=== PATIENT | male | born 1945 | race Caucasian/White ===

== ENCOUNTER 2017-07-14 03:16 | Inpatient (IN) | payer MEDICARE ==
[~2017-07-14] VITALS: Ht 172.7 cm; Wt 74.1 kg
[~2017-07-14 03:16] MED LIST: ASPIRIN81 M3 PO; GABAPENTIN100 MG PO; GABAPENTIN300 MG PO; HYDROCODONE-AP1 EA17 PO; KEFLEX500 MG PO; OXYBUTYNIN CHLOR5 M1 PO; PANTOPRAZOLE SO40 MG PO; ULTRAM50 MG PO; WARFARIN SODIUM5 MG PO; Z.0.BACLOFEN10 MG PO; Z.0.COUMADIN5 MG PO; Z.0.NABUMETONE750 MG PO; Z.0.PANTOPRAZOLE SO4 PO
[2017-07-14 03:44] LABS: BASOPHILS # (AUTO) 0.1 (0.0-0.1); BASOPHILS % 0.3 % (0.0-1.0); EOSINOPHILS # (AUTO) 0.1 (0.0-0.4); EOSINOPHILS % 0.3 % (0.0-6.0); HEMOGLOBIN 14.9 g/dL (14.0-18.0); LYMPHOCYTES # (AUTO) 2.7 (1.0-3.2); LYMPHOCYTES % 17.5 % (18.0-39.1); MEAN CORPUSCULAR HGB CONC 33.9 g/dL (31-35); MEAN CORPUSCULAR VOLUME 94.6 fL (81-99); MONOCYTES # (AUTO) 0.7 (0.2-0.8); MONOCYTES % 4.7 % (4.4-11.3); NEUTROPHILS # (AUTO) 11.8 (2.1-6.9); NEUTROPHILS % 76.9 % (38.7-80.0); PLATELET COUNT 113 x10e3/uL (140-360); RED BLOOD COUNT 4.65 x10e6/uL (4.3-5.7); RED CELL DISTRIBUTION WIDTH 13.3 % (11.7-14.4)
[2017-07-14 03:53] LABS: ALANINE AMINOTRANSFERASE 18 IU/L (0-55); ALBUMIN 3.3 g/dL (3.5-5.0); ALBUMIN/GLOBULIN RATIO 0.9 (0.8-2.0); ALKALINE PHOSPHATASE 86 IU/L (40-150); ANION GAP 13.1 mmol/L (8-16); BLOOD UREA NITROGEN 27 mg/dL (7-26); BUN/CREATININE RATIO 24 (6-25); CALCIUM 9.1 mg/dL (8.4-10.2); CARBON DIOXIDE 29 mmol/L (22-29); CHLORIDE 104 mmol/L (98-107); CREATININE, SERUM 1.11 mg/dL (0.72-1.25); EST GLOMERULAR FILTRATION RATE > 60 ML/MIN (60-); GLUCOSE 121 mg/dL (74-118); MAGNESIUM 1.9 MG/DL (1.3-2.1); POTASSIUM 4.1 mmol/L (3.5-5.1); SODIUM 142 mmol/L (136-145)
--- NOTE | 2017-07-14 04:30 | Diagnostic Imaging Report ---
EXAM: CHEST 2 VIEWS, PA and lateral DATE: 07/14/2017 3:30 AM Time stamp on exam: 0337 hours INDICATION: Left lower lobe pneumonia COMPARISON: AP view of the chest and your 2016 FINDINGS: LINES/TUBES: None LUNGS: Left lower lobe airspace opacity PLEURA: No effusions or pneumothorax. HEART AND MEDIASTINUM: Stable appearance BONES AND SOFT TISSUES: No acute findings. IMPRESSION: Findings consistent with left lower lobe pneumonia in the acute setting. Signed by: Dr. Payton Lea M.D. on 07/14/2017 4:26 AM
[2017-07-14] MEDS ORDERED: IPRATROPIUM BROMIDE 0.02% 2.5 ML NEB NEB PRN (04:45)
[2017-07-14] MEDS ORDERED: ALBUTEROL SULF 0.083% NEB SOLN 3 ML NEB NEB PRN (04:45)
[2017-07-14 04:51] LABS: CREATINE KINASE MB 0.7 ng/mL (0.00-5.00); TROPONIN I 0.012 ng/mL (0-0.300)
[2017-07-14] MEDS ORDERED: LEVOFLOXACIN 500MG/D5W 100ML 100 ML IV SCH (05:00)
[2017-07-14] MEDS: SODIUM CHLORIDE 0.9% 1000ML 1,000 ML IV SCH ×2 (05:17→14:40)
[2017-07-14] MEDS: AMPICILLIN SOD/SULBACTAM 3GM 100 ML IV SCH ×3 (05:45→18:00)
[2017-07-14] MEDS: LEVOFLOXACIN 500MG/D5W 100ML 100 ML IV SCH (08:37)
[2017-07-14 12:29] LABS: CREATINE KINASE MB 0.6 ng/mL (0.00-5.00); TROPONIN I 0.014 ng/mL (0-0.300)
[2017-07-14] MEDS ORDERED: CYANOCOBALAMIN INJ 1,000 MCG/ML VIAL IM ONE (13:30)
[2017-07-14 14:02] VITALS: BP 120/65
[2017-07-14] MEDS ORDERED: COUMADIN2.5 MG PO (14:41)
[2017-07-14] MEDS ORDERED: WARFARIN SOD 2.5 MG TAB PO SCH (17:00)
[2017-07-14] MEDS: PANTOPRAZOLE SOD 40 MG TABEC PO SCH (17:00)
[2017-07-14] MEDS ORDERED: WARFARIN SOD 5 MG TAB PO SCH (17:00)
[2017-07-14 17:02] VITALS: BP 113/59
[2017-07-14 20:00] VITALS: BP 108/63
[2017-07-14 20:20] VITALS: BP 113/59
[2017-07-14] MEDS: GABAPENTIN 300 MG CAP PO SCH (21:00)
[2017-07-14 21:03] LABS: CREATINE KINASE MB 0.9 ng/mL (0.00-5.00); TROPONIN I 0.004 ng/mL (0-0.300)
[2017-07-15] VITALS: BP 120/70
[2017-07-15 04:00] VITALS: BP 112/81
[2017-07-15] MEDS: SODIUM CHLORIDE 0.9% 1000ML 1,000 ML IV SCH ×3 (06:10→20:40)
[2017-07-15] MEDS: AMPICILLIN SOD/SULBACTAM 3GM 100 ML IV SCH ×4 (06:10→18:00)
[2017-07-15 08:15] LABS: BASOPHILS % 0.5 % (0.0-1.0); EOSINOPHILS # (AUTO) 0.1 (0.0-0.4); EOSINOPHILS % 1.9 % (0.0-6.0); HEMOGLOBIN 12.9 g/dL (14.0-18.0); MEAN CORPUSCULAR HEMOGLOBIN 31.5 pg (28-32); MEAN CORPUSCULAR HGB CONC 33.1 g/dL (31-35); MEAN CORPUSCULAR VOLUME 95.1 fL (81-99); MONOCYTES # (AUTO) 0.4 (0.2-0.8); MONOCYTES % 5.8 % (4.4-11.3); NEUTROPHILS % 65.5 % (38.7-80.0); PLATELET COUNT 99 x10e3/uL (140-360); RED CELL DISTRIBUTION WIDTH 13.2 % (11.7-14.4)
[2017-07-15 08:33] LABS: INR 1.44; PROTHROMBIN TIME 18.3 seconds (11.9-14.5)
[2017-07-15 08:38] LABS: BLOOD UREA NITROGEN 19 mg/dL (7-26); BUN/CREATININE RATIO 21 (6-25); CALCIUM 8.1 mg/dL (8.4-10.2); CARBON DIOXIDE 28 mmol/L (22-29); CHLORIDE 109 mmol/L (98-107); CREATININE, SERUM 0.89 mg/dL (0.72-1.25); EST GLOMERULAR FILTRATION RATE > 60 ML/MIN (60-); GLUCOSE 99 mg/dL (74-118); SODIUM 142 mmol/L (136-145)
[2017-07-15] MEDS: GABAPENTIN 300 MG CAP PO SCH ×3 (09:00→21:00)
[2017-07-15] MEDS: LEVOFLOXACIN 500MG/D5W 100ML 100 ML IV SCH (09:00)
[2017-07-15] MEDS: OXYBUTYNIN CHLORIDE XL 5 MG TAB PO SCH (09:00)
[2017-07-15] MEDS: PANTOPRAZOLE SOD 40 MG TABEC PO SCH ×2 (09:00→17:00)
[2017-07-15 09:01] VITALS: BP 116/61
[2017-07-15 13:12] VITALS: BP 115/65
[2017-07-15 16:19] VITALS: BP 113/59
[2017-07-15] MEDS ORDERED: WARFARIN SOD 2.5 MG TAB PO SCH (17:00)
[2017-07-15 20:00] VITALS: BP 115/75
[2017-07-16] VITALS: BP 110/64
[2017-07-16] MEDS: AMPICILLIN SOD/SULBACTAM 3GM 100 ML IV SCH ×2 (00:49→05:52)
[2017-07-16 04:00] VITALS: BP 114/69
[2017-07-16] MEDS: SODIUM CHLORIDE 0.9% 1000ML 1,000 ML IV SCH (07:08)
[2017-07-16 08:04] VITALS: BP 123/63
[2017-07-16] MEDS: GABAPENTIN 300 MG CAP PO SCH (09:00)
[2017-07-16] MEDS: PANTOPRAZOLE SOD 40 MG TABEC PO SCH (09:00)
[2017-07-16] MEDS: LEVOFLOXACIN 500MG/D5W 100ML 100 ML IV SCH (09:00)
[2017-07-16] MEDS: OXYBUTYNIN CHLORIDE XL 5 MG TAB PO SCH (09:00)
[2017-07-16 12:00] VITALS: BP 118/63
[2017-07-16 16:41] VITALS: BP 113/70
== END 2017-07-16 16:26 | disposition home or self-care (01) | DRG 195 ==
LOC: ER 03:23 → ERHOLD 05:06 → MED/SURG3 13:30
PROVIDERS: ADMIT Internal Medicine; ATTEND Internal Medicine
DX: J18.9 Pneumonia, unspecified organism (principal); D64.9 Anemia, unspecified; G80.9 Cerebral palsy, unspecified; K21.9 Gastro-esophageal reflux disease without esophagitis
CPT/HCPCS: 36415; 71020; 80048; 80053; 82550; 82553; 83605; 83735; 84484; 85025; 85610; 87040; 93005; 96360; 96365; 99284; J0295; J1956; J3420; J7030

== ENCOUNTER 2017-07-31 23:32 | Inpatient (IN) | payer MEDICARE ==
[~2017-07-31] VITALS: Ht 172.7 cm; Wt 75.8 kg
[~2017-07-31 23:32] MED LIST changes: +COUMADIN2.5 MG PO
[2017-08-01] VITALS (7 sets, daily range): BP systolic 97–118; BP diastolic 56–85
[2017-08-01] MEDS ORDERED: CITALOPRAM HBR20 MG PO (00:14)
[2017-08-01] MEDS ORDERED: ARICEPT5 MG PO (00:14)
[2017-08-01 00:42] LABS: BASOPHILS % 0.3 % (0.0-1.0); HEMATOCRIT 39.7 % (38.2-49.6); HEMOGLOBIN 13.4 g/dL (14.0-18.0); LYMPHOCYTES # (AUTO) 0.5 (1.0-3.2); MEAN CORPUSCULAR HEMOGLOBIN 31.9 pg (28-32); MEAN CORPUSCULAR HGB CONC 33.8 g/dL (31-35); MEAN CORPUSCULAR VOLUME 94.5 fL (81-99); MONOCYTES # (AUTO) 0.4 (0.2-0.8); MONOCYTES % 7.3 % (4.4-11.3); NEUTROPHILS # (AUTO) 4.9 (2.1-6.9); NEUTROPHILS % 82.9 % (38.7-80.0); PLATELET COUNT 75 x10e3/uL (140-360); RED CELL DISTRIBUTION WIDTH 13.3 % (11.7-14.4)
[2017-08-01 00:46] LABS: INR 1.51
[2017-08-01 00:47] LABS: PARTIAL THROMBOPLASTIN TIME 31.2 seconds (23.8-35.5)
[2017-08-01 00:56] LABS: ALANINE AMINOTRANSFERASE 14 IU/L (0-55); ALBUMIN 3.1 g/dL (3.5-5.0); ALKALINE PHOSPHATASE 75 IU/L (40-150); ANION GAP 10.7 mmol/L (8-16); BLOOD UREA NITROGEN 22 mg/dL (7-26); BUN/CREATININE RATIO 19 (6-25); CALCIUM 8.5 mg/dL (8.4-10.2); CARBON DIOXIDE 28 mmol/L (22-29); CHLORIDE 106 mmol/L (98-107); CREATINE KINASE 72 IU/L (30-200); CREATININE, SERUM 1.13 mg/dL (0.72-1.25); EST GLOMERULAR FILTRATION RATE > 60 ML/MIN (60-); GLUCOSE 102 mg/dL (74-118); MAGNESIUM 1.6 MG/DL (1.3-2.1); POTASSIUM 3.7 mmol/L (3.5-5.1); SODIUM 141 mmol/L (136-145)
[2017-08-01] MEDS ORDERED: LIDOCAINE JELLY 2% 10ML URO-JET TOP ONE (01:30)
--- NOTE | 2017-08-01 01:32 | Diagnostic Imaging Report ---
EXAM: CHEST SINGLE (PORTABLE), AP 1 view DATE: 08/01/2017 12:31 AM Time stamp on exam: 0116 hours INDICATION: Cough, shortness of breath COMPARISON: PA and lateral view of the chest July 14, 2017 FINDINGS: LINES/TUBES: None LUNGS: Bibasilar consolidations PLEURA: No effusions or pneumothorax. HEART AND MEDIASTINUM: Normal size and contour. BONES AND SOFT TISSUES: No acute findings. Increased right acromioclavicular joint widening and malalignment compared to prior chest x-ray, may be positional versus interval worsening ligamentous injury. IMPRESSION: Bibasilar consolidations could represent pneumonia or aspiration. Signed by: Dr. Payton Lea M.D. on 08/01/2017 1:28 AM
[2017-08-01] MEDS ORDERED: PIPER-TAZ 3.375 GM 50 ML IV SCH ×2 (02:00→09:00)
[2017-08-01] MEDS ORDERED: METRONIDAZOLE 500MG/NS 100ML 100 ML IV SCH ×2 (02:00→08:00)
[2017-08-01 02:07] LABS: BILIRUBIN,URINE NEGATIVE (NEGATIVE); KETONES,URINE NEGATIVE (NEGATIVE); LEUKOCYTE ESTERASE ,URINE NEGATIVE (NEGATIVE); NITRITE,URINE NEGATIVE (NEGATIVE); PROTEIN,URINE DIPSTICK NEGATIVE (NEGATIVE); URINE UROBILINOGEN 0.2 mg/dL (0.2 - 1)
[2017-08-01 02:08] LABS: CLARITY,URINE CLEAR (CLEAR); COLOR,URINE YELLOW (YELLOW)
[2017-08-01 02:18] LABS: BACTERIA,URINE FEW /HPF; EPITHELIAL CELLS,URINE FEW /LPF; RBC,URINE 0-5 /HPF (0-5); WBC,URINE (MAN) 0-5 /HPF (0-5)
[2017-08-01] MEDS ORDERED: IPRATROPIUM BROMIDE 0.02% 2.5 ML NEB NEB PRN (02:30)
[2017-08-01] MEDS ORDERED: ALBUTEROL SULF 0.083% NEB SOLN 3 ML NEB NEB PRN (02:30)
[2017-08-01] MEDS: SODIUM CHLORIDE 0.9% 1000ML 1,000 ML IV SCH ×2 (02:36→15:40)
[2017-08-01] MEDS: PIPER-TAZ 3.375 GM 50 ML IV SCH ×3 (11:00→23:34)
[2017-08-01] MEDS: METRONIDAZOLE 500MG/NS 100ML 100 ML IV SCH ×3 (11:00→23:34)
[2017-08-01 11:53] LABS: CREATINE KINASE MB 0.6 ng/mL (0.00-5.00)
[2017-08-01] MEDS ORDERED: CYANOCOBALAMIN INJ 1,000 MCG/ML VIAL IM ONE (17:00)
[2017-08-01 17:42] LABS: CREATINE KINASE MB 0.5 ng/mL (0.00-5.00)
[2017-08-01] MEDS: GABAPENTIN 300 MG CAP PO SCH ×2 (17:59→20:27)
[2017-08-01] MEDS: WARFARIN SOD 5 MG TAB PO SCH (18:00)
[2017-08-01] MEDS: PANTOPRAZOLE SOD 40 MG TABEC PO SCH (18:00)
[2017-08-01] MEDS: DONEPEZIL HCL 5 MG TAB PO SCH (20:26)
[2017-08-02] VITALS (7 sets, daily range): BP systolic 94–110; BP diastolic 55–67
[2017-08-02] MEDS: SODIUM CHLORIDE 0.9% 1000ML 1,000 ML IV SCH ×2 (05:00→18:20)
[2017-08-02] MEDS: PIPER-TAZ 3.375 GM 50 ML IV SCH ×4 (06:00→23:08)
[2017-08-02] MEDS: METRONIDAZOLE 500MG/NS 100ML 100 ML IV SCH ×4 (06:17→22:11)
[2017-08-02 07:22] LABS: ALANINE AMINOTRANSFERASE 16 IU/L (0-55); ALBUMIN 2.7 g/dL (3.5-5.0); ALKALINE PHOSPHATASE 63 IU/L (40-150); ANION GAP 12.9 mmol/L (8-16); BLOOD UREA NITROGEN 21 mg/dL (7-26); BUN/CREATININE RATIO 20 (6-25); CALCIUM 7.8 mg/dL (8.4-10.2); CARBON DIOXIDE 27 mmol/L (22-29); CHLORIDE 105 mmol/L (98-107); CREATININE, SERUM 1.04 mg/dL (0.72-1.25); EST GLOMERULAR FILTRATION RATE > 60 ML/MIN (60-); GLUCOSE 91 mg/dL (74-118); POTASSIUM 3.9 mmol/L (3.5-5.1); SODIUM 141 mmol/L (136-145)
[2017-08-02 07:52] LABS: BASOPHILS % 0.5 % (0.0-1.0); EOSINOPHILS # (AUTO) 0.1 (0.0-0.4); EOSINOPHILS % 1.6 % (0.0-6.0); HEMATOCRIT 38.1 % (38.2-49.6); HEMOGLOBIN 12.7 g/dL (14.0-18.0); LYMPHOCYTES # (AUTO) 1.3 (1.0-3.2); LYMPHOCYTES % 29.4 % (18.0-39.1); MEAN CORPUSCULAR HEMOGLOBIN 32.1 pg (28-32); MEAN CORPUSCULAR HGB CONC 33.3 g/dL (31-35); MEAN CORPUSCULAR VOLUME 96.2 fL (81-99); MONOCYTES # (AUTO) 0.4 (0.2-0.8); MONOCYTES % 8.3 % (4.4-11.3); NEUTROPHILS # (AUTO) 2.6 (2.1-6.9); PLATELET COUNT 65 x10e3/uL (140-360); RED BLOOD COUNT 3.96 x10e6/uL (4.3-5.7); RED CELL DISTRIBUTION WIDTH 13.4 % (11.7-14.4)
[2017-08-02] MEDS ORDERED: OXYBUTYNIN CHLORIDE XL 5 MG TAB PO SCH (09:00)
[2017-08-02] MEDS: GABAPENTIN 300 MG CAP PO SCH ×3 (09:00→22:11)
[2017-08-02] MEDS: CITALOPRAM HYDROBROMIDE 20 MG TAB PO SCH (09:00)
[2017-08-02] MEDS: PANTOPRAZOLE SOD 40 MG TABEC PO SCH ×2 (09:00→17:00)
--- NOTE | 2017-08-02 15:14 | Consultation ---
DATE OF CONSULTATION: August 02, 2017 August 02, 2017 UROLOGY CONSULTATION REASON FOR CONSULTATION: Urinary retention. HISTORY OF PRESENT ILLNESS: Noris Dawson is a 72-year-old man who has had cerebral palsy since . The patient has had overactive bladder symptomatology for quite some time. He has also had what sounds like urge-type urinary incontinence. He denies any urolithiasis, urinary tract infections, any urological evaluation, and hematuria. PAST MEDICAL AND SURGICAL HISTORY 1. Recurrent pneumonia. 2. Cerebral palsy. 3. History of deep vein thrombosis. 4. Gastroesophageal reflux disease. 5. Status post tonsillectomy. ALLERGIES: NITROUS OXIDE. SOCIAL HISTORY: The patient denies smoking, ethanol, or drug use. The patient used to work in a bank. FAMILY HISTORY: Noncontributory to the active urological problems. REVIEW OF SYSTEMS: As discussed above in the history of present illness and past medical history, otherwise negative for all other systems. PHYSICAL EXAMINATION GENERAL: A very pleasant 72-year-old man, sitting up in bed, in no apparent distress. VITAL SIGNS: He is currently afebrile. Vital signs are currently stable. ABDOMEN: Soft, nondistended, nontender without costovertebral angle tenderness. Kidneys are not palpable. No hepatosplenomegaly. No obvious events of hernia. GENITOURINARY: Testes descended bilaterally. Testes and epididymis bilaterally unremarkable and nontender without any mass. The patient has an uncircumcised male phallus with a mild phimosis without any lesions. He has a Moore catheter in place draining clear urine out. For the remaining physical examination systems, please refer to the admission history and physical on the chart. LABORATORY STUDIES: The patient's urine culture was initially negative. Followup urine culture is pending. Sputum culture is pending. White blood cell count is low at 4350, hemoglobin is low at 12.7, platelets are normal at 65,000. Patient's urinalysis was significant for 1+ blood, but there were only 0 to 5 rbc's and 0 to 5 wbc's. There are no urologically significant imaging studies performed recently in this facility. ASSESSMENT 1. Urinary retention for an amount that the nurse cannot tell me as it was not reported nor seemed to have been recorded by the emergency room. 2. Overactive bladder. 3. Urge incontinence. 4. Mild phimosis. 5. Moore catheter in situ. 6. Leukopenia. 7. Anemia. 8. Thrombocytopenia. 9. Possible neurogenic bladder. PLAN 1. Once the patient's pneumonia is under control and the patient is discharged, I would probably recommend on sending the patient home with a Moore catheter in place. The patient is on oxybutynin, which obviously has not helped to his incontinence and may have contributed to his retention. I will discontinue the oxybutynin at this time. 2. Once the patient is in outpatient, he needs to follow up for a urodynamic study so that we may evaluate the function of his voiding and bladder and determine the best management in trying to control his incontinence. I will start the patient on Flomax. Thank you very much for involving us in the care of your patient. We will be happy to follow him along with you. Job#: [id number] PAT cc:Boy Hein MD
[2017-08-02] MEDS: WARFARIN SOD 5 MG TAB PO SCH (17:00)
[2017-08-02] MEDS: DONEPEZIL HCL 5 MG TAB PO SCH (22:11)
[2017-08-02] MEDS: TAMSULOSIN HCL 0.4 MG CAP PO SCH (22:11)
[2017-08-03] VITALS (7 sets, daily range): BP systolic 91–140; BP diastolic 50–89
[2017-08-03] MEDS: METRONIDAZOLE 500MG/NS 100ML 100 ML IV SCH ×4 (05:00→22:27)
[2017-08-03] MEDS: PIPER-TAZ 3.375 GM 50 ML IV SCH ×4 (05:30→23:02)
[2017-08-03 07:07] LABS: BASOPHILS % 0.3 % (0.0-1.0); EOSINOPHILS # (AUTO) 0.1 (0.0-0.4); EOSINOPHILS % 3.1 % (0.0-6.0); HEMATOCRIT 35.3 % (38.2-49.6); HEMOGLOBIN 11.8 g/dL (14.0-18.0); LYMPHOCYTES # (AUTO) 1.5 (1.0-3.2); LYMPHOCYTES % 42.2 % (18.0-39.1); MEAN CORPUSCULAR HEMOGLOBIN 32.1 pg (28-32); MEAN CORPUSCULAR HGB CONC 33.4 g/dL (31-35); MEAN CORPUSCULAR VOLUME 95.9 fL (81-99); MONOCYTES # (AUTO) 0.3 (0.2-0.8); MONOCYTES % 8.3 % (4.4-11.3); NEUTROPHILS # (AUTO) 1.6 (2.1-6.9); NEUTROPHILS % 45.8 % (38.7-80.0); PLATELET COUNT 62 x10e3/uL (140-360); RED BLOOD COUNT 3.68 x10e6/uL (4.3-5.7); RED CELL DISTRIBUTION WIDTH 13.4 % (11.7-14.4)
[2017-08-03 07:25] LABS: INR 1.24; PROTHROMBIN TIME 16.3 seconds (11.9-14.5)
[2017-08-03 07:32] LABS: ALANINE AMINOTRANSFERASE 12 IU/L (0-55); ALBUMIN 2.5 g/dL (3.5-5.0); ALBUMIN/GLOBULIN RATIO 0.9 (0.8-2.0); ALKALINE PHOSPHATASE 56 IU/L (40-150); ANION GAP 11.6 mmol/L (8-16); BLOOD UREA NITROGEN 17 mg/dL (7-26); BUN/CREATININE RATIO 18 (6-25); CALCIUM 7.5 mg/dL (8.4-10.2); CARBON DIOXIDE 26 mmol/L (22-29); CHLORIDE 106 mmol/L (98-107); CREATININE, SERUM 0.96 mg/dL (0.72-1.25); EST GLOMERULAR FILTRATION RATE > 60 ML/MIN (60-); GLUCOSE 99 mg/dL (74-118); POTASSIUM 3.6 mmol/L (3.5-5.1); SODIUM 140 mmol/L (136-145)
[2017-08-03] MEDS: SODIUM CHLORIDE 0.9% 1000ML 1,000 ML IV SCH ×2 (07:40→21:00)
[2017-08-03] MEDS: PANTOPRAZOLE SOD 40 MG TABEC PO SCH ×2 (09:00→17:00)
[2017-08-03] MEDS: CITALOPRAM HYDROBROMIDE 20 MG TAB PO SCH (09:00)
[2017-08-03] MEDS: GABAPENTIN 300 MG CAP PO SCH ×3 (09:00→21:30)
[2017-08-03] MEDS: WARFARIN SOD 5 MG TAB PO SCH (18:07)
--- NOTE | 2017-08-03 20:21 | Consultation ---
DATE OF CONSULTATION: August 03, 2017 PULMONARY CONSULTATION REASON FOR CONSULTATION: Aspiration pneumonia and shortness of breath. HPI: Mr. Dawson is a 72-year-old male who has history of cerebral palsy and the patient lives at home by himself. He presented with shortness of breath and cough. Patient's chest x-ray showed evidence of consolidation and hence pulmonary consultation was called. Patient is awake and alert and is able to give me history. He reported that he is able to eat well, and he has noticed lately that he has been aspirating. He denies any chest pain, nausea or vomiting, diarrhea. Patient was in the hospital in September with similar complaints. REVIEW OF SYSTEMS: GENERAL: Denies any fever, chills. HEAD: Denies any head trauma or head injury. ENT: Denies any earache, nosebleed or throat pain. CVS: Denies any chest pain. RESPIRATORY: Shortness of breath. GI: Denies any nausea or vomiting. Rest of the review systems are negative except as in history of present illness. PAST MEDICAL HISTORY: Cerebral palsy, dementia. The patient is on Coumadin for history of DVT. FAMILY HISTORY AND SOCIAL HISTORY: He lives by himself. He does not smoke and does not drink. PHYSICAL EXAMINATION: VITALS: Temperature 96.3, pulse of 99, blood pressure 118/65, respiratory rate of 18. O2 sat 92ed SKIN: Warm and dry. GENERAL APPEARANCE: He is an elderly male not in any obvious distress. He is awake and alert, following commands. He responds to questions appropriately. HEENT: Head atraumatic and normocephalic. Pupils are reactive. NECK: Supple wit no JVD. Thyroid not enlarged. CHEST: With crackles on the bases, otherwise clear. HEART: S1 and S2 audible. ABDOMEN: Soft, nontender and nondistended. EXTREMITIES: No weakness or edema. NEUROLOGIC: Awake and alert, following commands. No focal neurologic deficit. LABORATORY DATA: White count of 3.5, hemoglobin 11.8, platelets 62,000. Chemistry: Sodium 140, potassium 3.6, chloride 106, BUN 17, creatinine 0.96. INR is 1.24. ASSESSMENT: Mr. Dawson is a 72-year-old male who has history of cerebral palsy. The patient reports that he has been choking on food lately. Chest x-ray suggestive of lower lobe infiltrates. PLAN: 1. I agree with IV Zosyn for aspiration pneumonitis. 2. Modified barium swallow evaluation. 3. Oxygen as needed. 4. Physical therapy evaluation and treatment. 5. The patient likely has chronic thrombocytopenia. I will defer the management to primary team. 1. Patient is on Coumadin. INR is subtherapeutic. 7. History of deep venous thrombosis. Coumadin has been resumed. Job#: [id number]
[2017-08-03] MEDS: TAMSULOSIN HCL 0.4 MG CAP PO SCH (21:30)
[2017-08-03] MEDS: DONEPEZIL HCL 5 MG TAB PO SCH (21:30)
[2017-08-03] MEDS ORDERED: ACETAMINOPHEN 325 MG TAB PO PRN (22:45)
[2017-08-04] VITALS (10 sets, daily range): BP systolic 101–112; BP diastolic 55–67
[2017-08-04] MEDS: PIPER-TAZ 3.375 GM 50 ML IV SCH ×4 (05:15→23:00)
[2017-08-04] MEDS: METRONIDAZOLE 500MG/NS 100ML 100 ML IV SCH ×4 (05:30→22:48)
[2017-08-04] MEDS: GABAPENTIN 300 MG CAP PO SCH ×3 (08:35→21:00)
[2017-08-04] MEDS: CITALOPRAM HYDROBROMIDE 20 MG TAB PO SCH (08:35)
[2017-08-04] MEDS: PANTOPRAZOLE SOD 40 MG TABEC PO SCH ×2 (08:35→17:57)
[2017-08-04] MEDS: SODIUM CHLORIDE 0.9% 1000ML 1,000 ML IV SCH ×2 (10:20→22:26)
--- NOTE | 2017-08-04 14:47 | Diagnostic Imaging Report ---
PROCEDURE:X-RAY MODIFIED BARIUM SWALLOW COMPARISON:None. INDICATIONS:ASPIRATION DISCUSSION:Fluoroscopic examination was performed in conjunction with speech pathology, during swallowing of a variety of thin and thick liquid consistencies. Radiologist was in attendance. Fluoroscopy time: 2.0 minutes Total dose: 10.86 mGy CONCLUSION:Small amount of aspiration with thin liquids. Please see the report from speech pathology for complete details. Lamont Buckner D.O. Dictated by: Lamont Buckner D.O. on 08/04/2017 at 14:55 Electronically approved by: Lamont Buckner D.O. on 08/04/2017 at 14:55
[2017-08-04] MEDS: WARFARIN SOD 5 MG TAB PO SCH (17:57)
[2017-08-04] MEDS ORDERED: CYANOCOBALAMIN INJ 1,000 MCG/ML VIAL IM ONE (20:00)
[2017-08-04] MEDS: TAMSULOSIN HCL 0.4 MG CAP PO SCH (21:00)
[2017-08-04] MEDS: DONEPEZIL HCL 5 MG TAB PO SCH (21:00)
[2017-08-04] MEDS: NYSTATIN SUSPENSION 5 ML UDC PO SCH (22:00)
[2017-08-05] VITALS (9 sets, daily range): BP systolic 90–107; BP diastolic 55–68
[2017-08-05] MEDS: PIPER-TAZ 3.375 GM 50 ML IV SCH ×4 (04:51→23:58)
[2017-08-05] MEDS: METRONIDAZOLE 500MG/NS 100ML 100 ML IV SCH ×3 (05:00→17:15)
[2017-08-05] MEDS: NYSTATIN SUSPENSION 5 ML UDC PO SCH ×3 (06:00→21:51)
[2017-08-05] MEDS: GABAPENTIN 300 MG CAP PO SCH ×3 (08:27→21:51)
[2017-08-05] MEDS: CITALOPRAM HYDROBROMIDE 20 MG TAB PO SCH (08:27)
[2017-08-05] MEDS: PANTOPRAZOLE SOD 40 MG TABEC PO SCH ×2 (08:28→16:10)
[2017-08-05] MEDS: SODIUM CHLORIDE 0.9% 1000ML 1,000 ML IV SCH (13:00)
[2017-08-05 17:17] LABS: INR 1.89; PROTHROMBIN TIME 22.7 seconds (11.9-14.5)
[2017-08-05] MEDS: WARFARIN SOD 2.5 MG TAB PO SCH (17:29)
[2017-08-05] MEDS: TAMSULOSIN HCL 0.4 MG CAP PO SCH (21:51)
[2017-08-05] MEDS: DONEPEZIL HCL 5 MG TAB PO SCH (21:51)
[2017-08-06] VITALS (8 sets, daily range): BP systolic 95–116; BP diastolic 52–65
[2017-08-06] MEDS: METRONIDAZOLE 500MG/NS 100ML 100 ML IV SCH ×5 (00:45→23:41)
[2017-08-06] MEDS: PIPER-TAZ 3.375 GM 50 ML IV SCH ×4 (05:25→23:09)
[2017-08-06] MEDS: NYSTATIN SUSPENSION 5 ML UDC PO SCH ×3 (05:25→22:00)
[2017-08-06] MEDS: CITALOPRAM HYDROBROMIDE 20 MG TAB PO SCH (08:53)
[2017-08-06] MEDS: GABAPENTIN 300 MG CAP PO SCH ×3 (08:53→21:59)
[2017-08-06] MEDS: PANTOPRAZOLE SOD 40 MG TABEC PO SCH ×2 (08:53→16:33)
[2017-08-06] MEDS: SODIUM CHLORIDE 0.9% 1000ML 1,000 ML IV SCH ×2 (10:30→15:40)
[2017-08-06] MEDS: WARFARIN SOD 2.5 MG TAB PO SCH (16:33)
[2017-08-06] MEDS: DONEPEZIL HCL 5 MG TAB PO SCH (21:59)
[2017-08-06] MEDS: TAMSULOSIN HCL 0.4 MG CAP PO SCH (21:59)
[2017-08-07] VITALS (7 sets, daily range): BP systolic 97–120; BP diastolic 60–73
[2017-08-07] MEDS: METRONIDAZOLE 500MG/NS 100ML 100 ML IV SCH ×4 (04:50→23:00)
[2017-08-07] MEDS: SODIUM CHLORIDE 0.9% 1000ML 1,000 ML IV SCH ×2 (04:50→18:20)
[2017-08-07] MEDS: NYSTATIN SUSPENSION 5 ML UDC PO SCH ×3 (05:55→21:14)
[2017-08-07] MEDS: PIPER-TAZ 3.375 GM 50 ML IV SCH ×4 (05:55→23:00)
[2017-08-07 07:25] LABS: HEMATOCRIT 35.8 % (38.2-49.6); HEMOGLOBIN 11.9 g/dL (14.0-18.0); MEAN CORPUSCULAR HEMOGLOBIN 31.9 pg (28-32); MEAN CORPUSCULAR HGB CONC 33.2 g/dL (31-35); PLATELET COUNT 78 x10e3/uL (140-360); RED BLOOD COUNT 3.73 x10e6/uL (4.3-5.7); RED CELL DISTRIBUTION WIDTH 13.3 % (11.7-14.4)
[2017-08-07 07:49] LABS: ANION GAP 10.8 mmol/L (8-16); BLOOD UREA NITROGEN 11 mg/dL (7-26); BUN/CREATININE RATIO 13 (6-25); CALCIUM 7.7 mg/dL (8.4-10.2); CARBON DIOXIDE 28 mmol/L (22-29); CHLORIDE 109 mmol/L (98-107); CREATININE, SERUM 0.88 mg/dL (0.72-1.25); EST GLOMERULAR FILTRATION RATE > 60 ML/MIN (60-); GLUCOSE 99 mg/dL (74-118); INR 2.31; POTASSIUM 3.8 mmol/L (3.5-5.1); PROTHROMBIN TIME 26.6 seconds (11.9-14.5); SODIUM 144 mmol/L (136-145)
[2017-08-07 08:52] LABS: EOSINOPHILS % (MANUAL) 4 % (0-7); LYMPHOCYTES % (MANUAL) 21 % (19-48); MONOCYTES % (MANUAL) 8 % (3.4-9.0); MYELOCYTES % (MANUAL) 2 % (0-0); NEUTROPHILS % (MANUAL) 62 % (40-74)
[2017-08-07 08:53] LABS: ANISOCYTOSIS SLIGHT; PLATELET ESTIMATE SLIGHTLY DECREASED; PLATELET MORPHOLOGY COMMENT NORMAL; RBC MORPHOLOGY COMMENT NORMAL
[2017-08-07] MEDS: PANTOPRAZOLE SOD 40 MG TABEC PO SCH ×2 (09:00→17:00)
[2017-08-07] MEDS: GABAPENTIN 300 MG CAP PO SCH ×3 (09:00→21:14)
[2017-08-07] MEDS: CITALOPRAM HYDROBROMIDE 20 MG TAB PO SCH (09:00)
[2017-08-07] MEDS: WARFARIN SOD 5 MG TAB PO SCH (17:00)
[2017-08-07] MEDS: DONEPEZIL HCL 5 MG TAB PO SCH (21:14)
[2017-08-07] MEDS: TAMSULOSIN HCL 0.4 MG CAP PO SCH (21:14)
[2017-08-08] VITALS (9 sets, daily range): BP systolic 96–118; BP diastolic 60–88
[2017-08-08] MEDS: PIPER-TAZ 3.375 GM 50 ML IV SCH ×4 (05:27→22:50)
[2017-08-08] MEDS: METRONIDAZOLE 500MG/NS 100ML 100 ML IV SCH ×4 (05:27→23:20)
[2017-08-08] MEDS: NYSTATIN SUSPENSION 5 ML UDC PO SCH ×3 (05:28→23:06)
[2017-08-08] MEDS ORDERED: CYANOCOBALAMIN INJ 1,000 MCG/ML VIAL IM ONE (06:30)
[2017-08-08] MEDS: PANTOPRAZOLE SOD 40 MG TABEC PO SCH ×2 (09:00→17:00)
[2017-08-08] MEDS: GABAPENTIN 300 MG CAP PO SCH ×3 (09:00→20:31)
[2017-08-08] MEDS: CITALOPRAM HYDROBROMIDE 20 MG TAB PO SCH (09:00)
[2017-08-08 09:46] LABS: INR 2.47; PROTHROMBIN TIME 28.1 seconds (11.9-14.5)
[2017-08-08] MEDS: SODIUM CHLORIDE 0.9% 1000ML 1,000 ML IV SCH ×2 (16:00→21:00)
[2017-08-08] MEDS: WARFARIN SOD 5 MG TAB PO SCH (17:00)
[2017-08-08] MEDS: DONEPEZIL HCL 5 MG TAB PO SCH (20:31)
[2017-08-08] MEDS: TAMSULOSIN HCL 0.4 MG CAP PO SCH (20:31)
[2017-08-09] VITALS (7 sets, daily range): BP systolic 110–136; BP diastolic 62–82
[2017-08-09] MEDS: PIPER-TAZ 3.375 GM 50 ML IV SCH ×4 (05:30→22:14)
[2017-08-09] MEDS: NYSTATIN SUSPENSION 5 ML UDC PO SCH ×3 (05:52→21:05)
[2017-08-09] MEDS: METRONIDAZOLE 500MG/NS 100ML 100 ML IV SCH ×4 (06:20→22:14)
[2017-08-09] MEDS: CITALOPRAM HYDROBROMIDE 20 MG TAB PO SCH (09:01)
[2017-08-09] MEDS: PANTOPRAZOLE SOD 40 MG TABEC PO SCH ×2 (09:01→17:15)
[2017-08-09] MEDS: GABAPENTIN 300 MG CAP PO SCH ×3 (09:01→20:18)
[2017-08-09] MEDS: SODIUM CHLORIDE 0.9% 1000ML 1,000 ML IV SCH ×2 (11:13→21:16)
[2017-08-09 12:16] LABS: INR 3.46; PROTHROMBIN TIME 36.7 seconds (11.9-14.5)
[2017-08-09] MEDS: WARFARIN SOD 5 MG TAB PO SCH (17:27)
[2017-08-09] MEDS: TAMSULOSIN HCL 0.4 MG CAP PO SCH (20:18)
[2017-08-09] MEDS: DONEPEZIL HCL 5 MG TAB PO SCH (20:18)
[2017-08-10] VITALS (7 sets, daily range): BP systolic 97–121; BP diastolic 53–79
[2017-08-10] MEDS: PIPER-TAZ 3.375 GM 50 ML IV SCH ×4 (04:05→22:40)
[2017-08-10] MEDS: METRONIDAZOLE 500MG/NS 100ML 100 ML IV SCH ×4 (04:05→22:40)
[2017-08-10] MEDS: NYSTATIN SUSPENSION 5 ML UDC PO SCH (05:10)
[2017-08-10] MEDS: GABAPENTIN 300 MG CAP PO SCH ×3 (09:16→21:11)
[2017-08-10] MEDS: CITALOPRAM HYDROBROMIDE 20 MG TAB PO SCH (09:16)
[2017-08-10] MEDS: PANTOPRAZOLE SOD 40 MG TABEC PO SCH ×2 (09:16→16:00)
[2017-08-10] MEDS: FLUCONAZOLE 100 MG TAB PO SCH (09:16)
[2017-08-10 10:54] LABS: INR 3.82; PROTHROMBIN TIME 39.7 seconds (11.9-14.5)
[2017-08-10] MEDS: SODIUM CHLORIDE 0.9% 1000ML 1,000 ML IV SCH (13:00)
[2017-08-10] MEDS: TAMSULOSIN HCL 0.4 MG CAP PO SCH (21:11)
[2017-08-10] MEDS: DONEPEZIL HCL 5 MG TAB PO SCH (21:11)
[2017-08-11] VITALS: BP 113/65
[2017-08-11] MEDS: SODIUM CHLORIDE 0.9% 1000ML 1,000 ML IV SCH ×2 (01:33→15:40)
[2017-08-11 04:00] VITALS: BP 120/73
[2017-08-11] MEDS: PIPER-TAZ 3.375 GM 50 ML IV SCH (05:21)
[2017-08-11] MEDS: METRONIDAZOLE 500MG/NS 100ML 100 ML IV SCH (05:21)
[2017-08-11 08:00] VITALS: BP 143/73
[2017-08-11] MEDS: FLUCONAZOLE 100 MG TAB PO SCH (09:10)
[2017-08-11] MEDS: PANTOPRAZOLE SOD 40 MG TABEC PO SCH ×2 (09:10→16:00)
[2017-08-11] MEDS: CITALOPRAM HYDROBROMIDE 20 MG TAB PO SCH (09:10)
[2017-08-11] MEDS: GABAPENTIN 300 MG CAP PO SCH ×3 (09:10→21:04)
[2017-08-11 12:00] VITALS: BP 139/71
[2017-08-11 16:00] VITALS: BP 101/50
[2017-08-11] MEDS ORDERED: BUDESONIDE 0.5MG/2 ML NEB INH SCH (19:00)
[2017-08-11 21:00] VITALS: BP 92/50
[2017-08-11] MEDS: DONEPEZIL HCL 5 MG TAB PO SCH (21:04)
[2017-08-11] MEDS: TAMSULOSIN HCL 0.4 MG CAP PO SCH (21:04)
[2017-08-12 00:30] VITALS: BP 138/74
[2017-08-12 04:00] VITALS: BP 125/76
[2017-08-12 08:00] VITALS: BP 143/72
[2017-08-12] MEDS: GABAPENTIN 300 MG CAP PO SCH ×3 (09:00→20:58)
[2017-08-12] MEDS: PANTOPRAZOLE SOD 40 MG TABEC PO SCH ×2 (09:00→16:54)
[2017-08-12] MEDS: FLUCONAZOLE 100 MG TAB PO SCH (09:00)
[2017-08-12] MEDS: CITALOPRAM HYDROBROMIDE 20 MG TAB PO SCH (09:00)
[2017-08-12] MEDS ORDERED: PIPER-TAZ 3.375 GM 50 ML IV SCH (11:30)
[2017-08-12 12:00] VITALS: BP 122/70
[2017-08-12] MEDS: METRONIDAZOLE 500MG/NS 100ML 100 ML IV SCH ×2 (12:00→18:00)
[2017-08-12 16:00] VITALS: BP 120/63
[2017-08-12] MEDS: PIPER-TAZ 3.375 GM 50 ML IV SCH ×2 (18:00→23:30)
[2017-08-12 20:00] VITALS: BP 106/75
[2017-08-12] MEDS: TAMSULOSIN HCL 0.4 MG CAP PO SCH (20:58)
[2017-08-12] MEDS: DONEPEZIL HCL 5 MG TAB PO SCH (20:58)
[2017-08-13] VITALS: BP 115/57
[2017-08-13] MEDS: METRONIDAZOLE 500MG/NS 100ML 100 ML IV SCH ×4 (00:30→18:00)
[2017-08-13 04:00] VITALS: BP 105/65
[2017-08-13] MEDS: PIPER-TAZ 3.375 GM 50 ML IV SCH ×3 (05:24→17:30)
[2017-08-13 08:00] VITALS: BP 114/67
[2017-08-13] MEDS: FLUCONAZOLE 100 MG TAB PO SCH (09:00)
[2017-08-13] MEDS: CITALOPRAM HYDROBROMIDE 20 MG TAB PO SCH (09:00)
[2017-08-13] MEDS: PANTOPRAZOLE SOD 40 MG TABEC PO SCH ×2 (09:00→17:00)
[2017-08-13] MEDS: GABAPENTIN 300 MG CAP PO SCH ×3 (09:00→20:57)
[2017-08-13 12:00] VITALS: BP 109/64
[2017-08-13 16:00] VITALS: BP 132/66
[2017-08-13 20:00] VITALS: BP 109/62
[2017-08-13] MEDS: TAMSULOSIN HCL 0.4 MG CAP PO SCH (20:57)
[2017-08-13] MEDS: DONEPEZIL HCL 5 MG TAB PO SCH (20:57)
[2017-08-14] VITALS: BP 118/70
[2017-08-14] MEDS: PIPER-TAZ 3.375 GM 50 ML IV SCH ×3 (00:32→11:34)
[2017-08-14] MEDS: METRONIDAZOLE 500MG/NS 100ML 100 ML IV SCH ×3 (01:30→12:18)
[2017-08-14 04:00] VITALS: BP 117/77
[2017-08-14 07:20] VITALS: BP 123/78
[2017-08-14 07:27] LABS: INR 2.26; PROTHROMBIN TIME 26.2 seconds (11.9-14.5)
[2017-08-14 07:39] VITALS: BP 123/78
[2017-08-14] MEDS: CITALOPRAM HYDROBROMIDE 20 MG TAB PO SCH (09:12)
[2017-08-14] MEDS: GABAPENTIN 300 MG CAP PO SCH (09:12)
[2017-08-14] MEDS: FLUCONAZOLE 100 MG TAB PO SCH (09:12)
[2017-08-14] MEDS: PANTOPRAZOLE SOD 40 MG TABEC PO SCH (09:12)
[2017-08-14 11:35] VITALS: BP 108/57
--- NOTE | 2017-09-02 20:34 | Discharge Summary ---
DISCHARGE DIAGNOSES 1. Bilateral pneumonia. 2. Cerebral palsy. HISTORY OF PRESENT ILLNESS AND HOSPITAL COURSE: The patient is a gentleman who unfortunately failed outpatient antibiotic therapy for his pneumonia, so he was brought in and placed on IV antibiotics and O2 nebs, which took a while, but he did improve. At the time of discharge, the patient was feeling really good and wanting to go home. His lungs were clear. He will follow up in 1 to 2 weeks with me. Please see hospital chart for full details. BRIA SALOMON MD Job#: [id number]
== END 2017-08-14 15:06 | disposition home or self-care (01) | DRG 179 ==
LOC: ER 23:32 → ERHOLD 08-01 02:44 → MED/SURG3 08-01 20:42
PROVIDERS: ADMIT Internal Medicine; ATTEND Internal Medicine
DX: J69.0 Pneumonitis due to inhalation of food and vomit (principal); D69.6 Thrombocytopenia, unspecified; F02.80 Dementia in other diseases classified elsewhere, unspecified severity, without behavioral disturbance, psychotic disturbance, mood disturbance, and anxiety; N32.81 Overactive bladder; N31.9 Neuromuscular dysfunction of bladder, unspecified; N47.1 Phimosis; R79.1 Abnormal coagulation profile; T45.515A Adverse effect of anticoagulants, initial encounter; Z86.718 Personal history of other venous thrombosis and embolism; K21.9 Gastro-esophageal reflux disease without esophagitis; N40.1 Benign prostatic hyperplasia with lower urinary tract symptoms; R33.8 Other retention of urine; G80.9 Cerebral palsy, unspecified; D72.819 Decreased white blood cell count, unspecified
CPT/HCPCS: 36415; 71045; 71046; 74230; 80048; 80053; 81001; 82550; 82553; 83605; 83735; 84484; 85007; 85025; 85027; 85610; 85730; 87040; 87070; 87071; 87086; 87205; 93005; 96360; 96361; 96365; 96367; 96372; 97139; 99284; J2543; J3420; J7030

== ENCOUNTER 2017-11-15 23:50 | Inpatient (IN) | payer MEDICARE ==
[~2017-11-15] VITALS: Ht 172.7 cm; Wt 75.7 kg
[~2017-11-15 23:50] MED LIST changes: +ARICEPT5 MG PO; +CITALOPRAM HBR20 MG PO
--- OUTSIDE RECORDS SUMMARY | 2017-11-15 23:52 | XMS REPORT ---
Author Author [facility] Address Unknown Phone Unavailable Care Team Providers Care Supervisor Hardboard Name Role Phone BRIA SALOMON Unavailable Unavailable PACO FERMIN Unavailable Unavailable Problems This patient has no known problems. Allergies, Adverse Reactions, Alerts This patient has no known allergies or adverse reactions. Medications This patient has no known medications. Results Test Description Test Time Test Comments Text Results Atomic Results Result Comments MODIFIED BA. SWALLOW [facility] [address] [address] Patient Name: MICKEY PANIAGUA JR MR #: [id number] : 1945 Age/Sex: 72/M Req #: [id number] [facility] Physician: BRIA SALOMON MD Ordered by: CHENG DOAN MD Report #: [id number] Location: [facility] Room/Bed: [facility] Procedure: [id number] DX/MODIFIED BA. SWALLOW Exam Date: 08/04/17 Exam Time: 1100 REPORT STATUS: Signed PROCEDURE: X-RAY MODIFIED BARIUM SWALLOW COMPARISON: None. INDICATIONS: ASPIRATION DISCUSSION: Fluoroscopic examination was performed in conjunction with speech pathology, during swallowing of a variety of thin and thick liquid consistencies. Radiologist was in attendance. Fluoroscopy time: 2.0 minutes Total dose: 10.86 mGy CONCLUSION: Small amount of aspiration with thin liquids. Please see the report from speech pathology for complete details. Andry Buckner D.O. Dictated by: Andry Buckner D.O. on 08/04/2017 at 14:55 Electronically approved by: Andry Buckner D.O. on 08/04/2017 at 14:55 Dictated By: ANDRY BUCKNER DO 54 Transcribed By: KAISER on 08/04/171454 COPY TO: CHENG DOAN MD CHEST SINGLE (PORTABLE) [address] [place] [address] Patient Name: MICKEY PANIAGUA JR MR #: [id number] : 1945 Age/Sex: 72/M Req #: [id number] Adm Physician: Ordered by: PACO FERMIN MD Report #: [id number] Location: ER Room/Bed: Procedure: [id number] DX/CHEST SINGLE (PORTABLE) Exam Date: Exam Time: REPORT STATUS: Signed EXAM: CHEST SINGLE (PORTABLE ), AP 1 view DATE: 08/01/2017 12:31 AM Time stamp on exam: 0116 hours INDICATION: Cough, shortness of breath COMPARISON: PA and lateral view of the chest July 14, 2017 FINDINGS: LINES/TUBES: None LUNGS: Bibasilar consolidations PLEURA: No effusions or pneumothorax. HEART AND MEDIASTINUM: Normal size and contour. BONES AND SOFT TISSUES: No acute findings. Increased right acromioclavicular joint widening and malalignment compared to prior chest x-ray, may be positional versus interval worsening ligamentous injury. IMPRESSION: Bibasilar consolidations could represent pneumonia or aspiration. Signed by: Dr. Gurpreet Wright M.D. on 08/01/2017 1:28 AM Dictated By: GURPREET WRIGHT MD 7 Transcribed By: TATYANA on 08/01/17127 COPY TO: PACO FERMIN MD CHEST 2 VIEWS [place] [address] Patient Name: MICKEY PANIAGUA JR MR #: [id number] : 1945 Age/Sex: 72/M Req #: [id number] Adm Physician: Ordered by: PACO FERMIN MD Report #: [id number] Location: ER Room/Bed: Procedure: [id number] DX/CHEST 2 VIEWS Exam Date: 07/14/17 Exam Time: 0410 REPORT STATUS: Signed EXAM: CHEST 2 VIEWS, PA and lateral DATE: 07/14/2017 3:30 AM Time stamp on exam: 0337 hours INDICATION: Left lower lobe pneumonia COMPARISON: AP view of the chest and your 2016 FINDINGS: LINES/TUBES: None LUNGS: Left lower lobe airspace opacity PLEURA: No effusions or pneumothorax. HEART AND MEDIASTINUM: Stable appearance BONES AND SOFT TISSUES: No acute findings. IMPRESSION: Findings consistent with left lower lobe pneumonia in the acute setting. Signed by: Dr. Gurpreet Wright M.D. on 07/14/2017 4 :26 AM Dictated By: GURPREET WRIGHT MD 5 Transcribed By: TATYANA on 07/14/17425 COPY TO: PACO FERMIN MD
[2017-11-15] MEDS ORDERED: ACETAMINOPHEN 1000 MG/100 ML IV STA (23:54)
[2017-11-16] VITALS (8 sets, daily range): BP systolic 95–107; BP diastolic 54–67
[2017-11-16] MEDS ORDERED: SODIUM CHLORIDE 0.9% 1000ML 1,000 ML IV ONE
[2017-11-16] MEDS ORDERED: CEFTRIAXONE SOD 1 GM VIAL IV ONE
[2017-11-16 00:19] LABS: BASOPHILS % 0.4 % (0.0-1.0); EOSINOPHILS % 0.5 % (0.0-6.0); HEMATOCRIT 44.9 % (38.2-49.6); HEMOGLOBIN 15.2 g/dL (14.0-18.0); LYMPHOCYTES # (AUTO) 1.4 (1.0-3.2); LYMPHOCYTES % 16.2 % (18.0-39.1); MEAN CORPUSCULAR HEMOGLOBIN 31.5 pg (28-32); MEAN CORPUSCULAR HGB CONC 33.9 g/dL (31-35); MEAN CORPUSCULAR VOLUME 93.2 fL (81-99); MONOCYTES # (AUTO) 0.4 (0.2-0.8); MONOCYTES % 4.7 % (4.4-11.3); NEUTROPHILS # (AUTO) 6.5 (2.1-6.9); PLATELET COUNT 103 x10e3/uL (140-360); RED BLOOD COUNT 4.82 x10e6/uL (4.3-5.7); RED CELL DISTRIBUTION WIDTH 12.9 % (11.7-14.4)
[2017-11-16 00:27] LABS: INR 2.35; PROTHROMBIN TIME 24.2 seconds (11.9-14.5)
[2017-11-16 00:31] LABS: ALANINE AMINOTRANSFERASE 16 IU/L (0-55); ALBUMIN 3.7 g/dL (3.5-5.0); ALBUMIN/GLOBULIN RATIO 1.2 (0.8-2.0); ALKALINE PHOSPHATASE 107 IU/L (40-150); ANION GAP 13.9 mmol/L (8-16); BLOOD UREA NITROGEN 19 mg/dL (7-26); BUN/CREATININE RATIO 19 (6-25); CARBON DIOXIDE 28 mmol/L (22-29); CHLORIDE 104 mmol/L (98-107); CREATINE KINASE 88 IU/L (30-200); CREATININE, SERUM 1.01 mg/dL (0.72-1.25); EST GLOMERULAR FILTRATION RATE > 60 ML/MIN (60-); GLUCOSE 100 mg/dL (74-118); POTASSIUM 3.9 mmol/L (3.5-5.1); SODIUM 142 mmol/L (136-145)
[2017-11-16] MEDS ORDERED: CEFTRIAXONE SOD 1 GM VIAL ONE (00:56)
--- NOTE | 2017-11-16 01:16 | Diagnostic Imaging Report ---
EXAMINATION: CHEST SINGLE (PORTABLE) INDICATION: Fever, cough COMPARISON: 08/10/2017 FINDINGS: TUBES and LINES: None. LUNGS: Lungs are not well inflated. Confluent opacity in the left lung base. There is mild prominence of the central pulmonary vasculature, consistent with pulmonary venous congestion. PLEURA: No pleural effusion or pneumothorax. HEART AND MEDIASTINUM: The cardiomediastinal silhouette is unremarkable. BONES AND SOFT TISSUES: No acute osseous lesion. Prior partial resection of the lateral right clavicle. Soft tissues are unremarkable. UPPER ABDOMEN: No free air under the diaphragm. IMPRESSION: Findings are suspicious for left lung base airspace disease in the retrocardiac region. Follow-up with PA and lateral view of the chest is recommended Signed by: Dr. Ryan Hopkins M.D. on 11/16/2017 1:13 AM
[2017-11-16] MEDS ORDERED: CEFTRIAXONE SOD 1 GM VIAL IV SCH ×2 (01:30→22:00)
[2017-11-16] MEDS ORDERED: AZITHROMYCIN 500MG/SOD CHL 0.9% 250ML BAG IV SCH (01:30)
[2017-11-16] MEDS ORDERED: AZITHROMYCIN 500MG/NS 250 ML 250 ML ONE (01:33)
[2017-11-16] MEDS ORDERED: TAMSULOSIN HCL0.4 MG PO (01:36)
[2017-11-16] MEDS: SODIUM CHLORIDE 0.9% 1000ML 1,000 ML IV SCH ×3 (03:00→17:22)
[2017-11-16] MEDS: PIPER-TAZ 3.375 GM 100 ML IV SCH ×3 (06:13→21:21)
[2017-11-16] MEDS: ALBUTEROL/IPRATROPIUM 3 ML NEB NEB SCH ×3 (07:00→19:07)
[2017-11-16 08:32] LABS: CREATINE KINASE 65 IU/L (30-200)
[2017-11-16] MEDS: TAMSULOSIN HCL 0.4 MG CAP PO SCH (09:12)
[2017-11-16] MEDS: GABAPENTIN 300 MG CAP PO SCH ×3 (09:12→20:59)
[2017-11-16] MEDS: PANTOPRAZOLE SOD 40 MG TABEC PO SCH ×2 (09:12→16:00)
[2017-11-16] MEDS: CITALOPRAM HYDROBROMIDE 20 MG TAB PO SCH (09:12)
[2017-11-16 16:39] LABS: CREATINE KINASE 66 IU/L (30-200)
[2017-11-16] MEDS ORDERED: WARFARIN SOD 2.5 MG TAB PO SCH (17:00)
[2017-11-16] MEDS: WARFARIN SOD 5 MG TAB PO SCH (17:17)
[2017-11-16] MEDS: DONEPEZIL HCL 5 MG TAB PO SCH (20:59)
[2017-11-16 21:32] LABS: CLARITY,URINE CLEAR (CLEAR); COLOR,URINE YELLOW (YELLOW)
[2017-11-16 21:33] LABS: BILIRUBIN,URINE NEGATIVE (NEGATIVE); KETONES,URINE NEGATIVE (NEGATIVE); LEUKOCYTE ESTERASE ,URINE NEGATIVE (NEGATIVE); NITRITE,URINE NEGATIVE (NEGATIVE); PROTEIN,URINE DIPSTICK NEGATIVE (NEGATIVE); URINE UROBILINOGEN 0.2 mg/dL (0.2 - 1)
[2017-11-16 21:41] LABS: EPITHELIAL CELLS,URINE RARE /LPF; RBC,URINE 0-5 /HPF (0-5)
[2017-11-16] MEDS: AZITHROMYCIN 500MG/NS 250 ML 250 ML IV SCH (23:50)
[2017-11-17] VITALS (7 sets, daily range): BP systolic 96–108; BP diastolic 51–59
[2017-11-17] MEDS: ALBUTEROL/IPRATROPIUM 3 ML NEB NEB SCH ×4 (00:50→19:10)
[2017-11-17] MEDS: PIPER-TAZ 3.375 GM 100 ML IV SCH ×3 (06:07→21:55)
[2017-11-17 06:56] LABS: BASOPHILS % 0.4 % (0.0-1.0); EOSINOPHILS # (AUTO) 0.1 (0.0-0.4); EOSINOPHILS % 2.1 % (0.0-6.0); HEMATOCRIT 34.9 % (38.2-49.6); LYMPHOCYTES # (AUTO) 1.3 (1.0-3.2); LYMPHOCYTES % 23.8 % (18.0-39.1); MEAN CORPUSCULAR HEMOGLOBIN 32.2 pg (28-32); MEAN CORPUSCULAR HGB CONC 33.8 g/dL (31-35); MEAN CORPUSCULAR VOLUME 95.1 fL (81-99); MONOCYTES # (AUTO) 0.4 (0.2-0.8); MONOCYTES % 7.1 % (4.4-11.3); NEUTROPHILS # (AUTO) 3.7 (2.1-6.9); NEUTROPHILS % 66.6 % (38.7-80.0); PLATELET COUNT 86 x10e3/uL (140-360); RED BLOOD COUNT 3.67 x10e6/uL (4.3-5.7); RED CELL DISTRIBUTION WIDTH 13.1 % (11.7-14.4)
[2017-11-17] MEDS: SALMETEROL/FLUTICASONE 250/50 INH SCH ×2 (07:00→19:10)
--- NOTE | 2017-11-17 07:04 | Diagnostic Imaging Report ---
EXAMINATION: CHEST SINGLE (PORTABLE) INDICATION: Pneumonia. COMPARISON: 11/16/2017 FINDINGS: TUBES and LINES: None. LUNGS: Lungs are not well inflated. There are bibasilar atelectasis. Multi focal areas of airspace disease. There is perihilar interstital opacities, consistent with interstitial edema. PLEURA: Trace of bilateral pleural effusions HEART AND MEDIASTINUM: The cardiomediastinal silhouette is unremarkable. BONES AND SOFT TISSUES: No acute osseous lesion. Soft tissues are unremarkable. UPPER ABDOMEN: No free air under the diaphragm. IMPRESSION: Findings are compatible with fluid overload versus aspiration Signed by: Dr. Ryan Hopkins M.D. on 11/17/2017 7:01 AM
[2017-11-17 07:22] LABS: HEMOGLOBIN 11.8 g/dL (14.0-18.0)
[2017-11-17 07:32] LABS: ALANINE AMINOTRANSFERASE 11 IU/L (0-55); ALBUMIN 2.4 g/dL (3.5-5.0); ALBUMIN/GLOBULIN RATIO 0.9 (0.8-2.0); ALKALINE PHOSPHATASE 65 IU/L (40-150); ANION GAP 8.5 mmol/L (8-16); BLOOD UREA NITROGEN 13 mg/dL (7-26); BUN/CREATININE RATIO 14 (6-25); CARBON DIOXIDE 27 mmol/L (22-29); CHLORIDE 111 mmol/L (98-107); CREATININE, SERUM 0.93 mg/dL (0.72-1.25); EST GLOMERULAR FILTRATION RATE > 60 ML/MIN (60-); GLUCOSE 92 mg/dL (74-118); POTASSIUM 3.5 mmol/L (3.5-5.1); SODIUM 143 mmol/L (136-145)
[2017-11-17] MEDS: GABAPENTIN 300 MG CAP PO SCH ×3 (08:26→21:55)
[2017-11-17] MEDS: PANTOPRAZOLE SOD 40 MG TABEC PO SCH ×2 (08:26→17:35)
[2017-11-17] MEDS: CITALOPRAM HYDROBROMIDE 20 MG TAB PO SCH (08:26)
[2017-11-17] MEDS: TAMSULOSIN HCL 0.4 MG CAP PO SCH (08:26)
[2017-11-17] MEDS: LORAZEPAM 0.5 MG TAB PO PRN (12:47)
[2017-11-17] MEDS: CYANOCOBALAMIN INJ 1,000 MCG/ML VIAL IM SCH (15:00)
[2017-11-17] MEDS: WARFARIN SOD 5 MG TAB PO SCH (17:35)
[2017-11-17] MEDS: DONEPEZIL HCL 5 MG TAB PO SCH (21:55)
[2017-11-17] MEDS: AZITHROMYCIN 500MG/NS 250 ML 250 ML IV SCH (23:09)
[2017-11-18] VITALS (7 sets, daily range): BP systolic 101–132; BP diastolic 55–70
[2017-11-18] MEDS: ALBUTEROL/IPRATROPIUM 3 ML NEB NEB SCH ×2 (01:05→06:40)
[2017-11-18] MEDS: PIPER-TAZ 3.375 GM 100 ML IV SCH ×3 (05:51→21:30)
[2017-11-18] MEDS: SALMETEROL/FLUTICASONE 250/50 INH SCH ×2 (07:00→20:01)
[2017-11-18] MEDS: CITALOPRAM HYDROBROMIDE 20 MG TAB PO SCH (08:35)
[2017-11-18] MEDS: GABAPENTIN 300 MG CAP PO SCH ×3 (08:35→21:19)
[2017-11-18] MEDS: TAMSULOSIN HCL 0.4 MG CAP PO SCH (08:35)
[2017-11-18] MEDS: PANTOPRAZOLE SOD 40 MG TABEC PO SCH ×2 (08:35→16:41)
[2017-11-18] MEDS: LORAZEPAM 0.5 MG TAB PO PRN (12:46)
[2017-11-18] MEDS: WARFARIN SOD 2.5 MG TAB PO SCH (16:42)
[2017-11-18] MEDS: LEVALBUTEROL HCL SOLN NEBU 0.63 MG/3 ML NEB INH SCH (20:01)
[2017-11-18] MEDS: DONEPEZIL HCL 5 MG TAB PO SCH (21:19)
[2017-11-18] MEDS: AZITHROMYCIN 500MG/NS 250 ML 250 ML IV SCH (22:29)
[2017-11-19] VITALS (7 sets, daily range): BP systolic 105–135; BP diastolic 58–71
[2017-11-19] MEDS: LEVALBUTEROL HCL SOLN NEBU 0.63 MG/3 ML NEB INH SCH ×4 (03:30→19:50)
[2017-11-19] MEDS: SALMETEROL/FLUTICASONE 250/50 INH SCH ×2 (06:36→19:50)
[2017-11-19] MEDS: PIPER-TAZ 3.375 GM 100 ML IV SCH ×3 (06:43→21:00)
[2017-11-19 07:49] LABS: BASOPHILS % 0.6 % (0.0-1.0); EOSINOPHILS # (AUTO) 0.2 (0.0-0.4); HEMATOCRIT 36.3 % (38.2-49.6); HEMOGLOBIN 12.2 g/dL (14.0-18.0); LYMPHOCYTES # (AUTO) 1.6 (1.0-3.2); MEAN CORPUSCULAR HEMOGLOBIN 32.3 pg (28-32); MEAN CORPUSCULAR HGB CONC 33.6 g/dL (31-35); MONOCYTES # (AUTO) 0.3 (0.2-0.8); MONOCYTES % 6.4 % (4.4-11.3); NEUTROPHILS # (AUTO) 2.9 (2.1-6.9); NEUTROPHILS % 57.8 % (38.7-80.0); PLATELET COUNT 103 x10e3/uL (140-360); RED BLOOD COUNT 3.78 x10e6/uL (4.3-5.7); RED CELL DISTRIBUTION WIDTH 13.2 % (11.7-14.4)
[2017-11-19 08:27] LABS: ANION GAP 10.4 mmol/L (8-16); BLOOD UREA NITROGEN 9 mg/dL (7-26); BUN/CREATININE RATIO 11 (6-25); CALCIUM 8.4 mg/dL (8.4-10.2); CARBON DIOXIDE 27 mmol/L (22-29); CHLORIDE 111 mmol/L (98-107); CREATININE, SERUM 0.81 mg/dL (0.72-1.25); EST GLOMERULAR FILTRATION RATE > 60 ML/MIN (60-); GLUCOSE 90 mg/dL (74-118); POTASSIUM 3.4 mmol/L (3.5-5.1); SODIUM 145 mmol/L (136-145)
[2017-11-19 08:47] LABS: INR 2.03; PROTHROMBIN TIME 21.6 seconds (11.9-14.5)
[2017-11-19] MEDS: PANTOPRAZOLE SOD 40 MG TABEC PO SCH ×2 (08:54→17:09)
[2017-11-19] MEDS: CITALOPRAM HYDROBROMIDE 20 MG TAB PO SCH (08:54)
[2017-11-19] MEDS: GABAPENTIN 300 MG CAP PO SCH ×3 (08:54→20:27)
[2017-11-19] MEDS: TAMSULOSIN HCL 0.4 MG CAP PO SCH (08:54)
[2017-11-19] MEDS ORDERED: POTASSIUM CHLORIDE 20 MEQ TAB CR PO ONE (12:30)
[2017-11-19] MEDS: WARFARIN SOD 2.5 MG TAB PO SCH (17:09)
[2017-11-19] MEDS: DONEPEZIL HCL 5 MG TAB PO SCH (20:27)
[2017-11-19] MEDS: AZITHROMYCIN 500MG/NS 250 ML 250 ML IV SCH (23:20)
[2017-11-20] VITALS (9 sets, daily range): BP systolic 103–114; BP diastolic 55–67
[2017-11-20] MEDS: LEVALBUTEROL HCL SOLN NEBU 0.63 MG/3 ML NEB INH SCH ×4 (01:10→19:01)
[2017-11-20] MEDS ORDERED: FUROSEMIDE INJ 10 MG/ML 2 ML VIAL IV ONE (05:45)
[2017-11-20] MEDS: PIPER-TAZ 3.375 GM 100 ML IV SCH ×3 (06:29→21:21)
[2017-11-20 06:50] LABS: BASOPHILS % 0.6 % (0.0-1.0); EOSINOPHILS # (AUTO) 0.1 (0.0-0.4); EOSINOPHILS % 2.6 % (0.0-6.0); HEMATOCRIT 34.9 % (38.2-49.6); HEMOGLOBIN 11.6 g/dL (14.0-18.0); LYMPHOCYTES # (AUTO) 1.6 (1.0-3.2); LYMPHOCYTES % 30.2 % (18.0-39.1); MEAN CORPUSCULAR HGB CONC 33.2 g/dL (31-35); MEAN CORPUSCULAR VOLUME 96.4 fL (81-99); MONOCYTES # (AUTO) 0.3 (0.2-0.8); MONOCYTES % 5.5 % (4.4-11.3); NEUTROPHILS # (AUTO) 3.3 (2.1-6.9); NEUTROPHILS % 60.9 % (38.7-80.0); PLATELET COUNT 104 x10e3/uL (140-360); RED BLOOD COUNT 3.62 x10e6/uL (4.3-5.7); RED CELL DISTRIBUTION WIDTH 13.3 % (11.7-14.4)
[2017-11-20 07:14] LABS: ANION GAP 10.6 mmol/L (8-16); BLOOD UREA NITROGEN 11 mg/dL (7-26); BUN/CREATININE RATIO 12 (6-25); CALCIUM 8.2 mg/dL (8.4-10.2); CARBON DIOXIDE 27 mmol/L (22-29); CHLORIDE 110 mmol/L (98-107); CREATININE, SERUM 0.92 mg/dL (0.72-1.25); EST GLOMERULAR FILTRATION RATE > 60 ML/MIN (60-); GLUCOSE 100 mg/dL (74-118); POTASSIUM 3.6 mmol/L (3.5-5.1); SODIUM 144 mmol/L (136-145)
[2017-11-20] MEDS: SALMETEROL/FLUTICASONE 250/50 INH SCH ×2 (07:50→19:01)
[2017-11-20] MEDS: CITALOPRAM HYDROBROMIDE 20 MG TAB PO SCH (09:34)
[2017-11-20] MEDS: GABAPENTIN 300 MG CAP PO SCH ×3 (09:34→21:00)
[2017-11-20] MEDS: PANTOPRAZOLE SOD 40 MG TABEC PO SCH ×2 (09:34→16:34)
[2017-11-20] MEDS: TAMSULOSIN HCL 0.4 MG CAP PO SCH (09:34)
[2017-11-20] MEDS: WARFARIN SOD 5 MG TAB PO SCH (16:34)
[2017-11-20] MEDS: DONEPEZIL HCL 5 MG TAB PO SCH (21:00)
[2017-11-20] MEDS ORDERED: SODIUM CHLORIDE 0.9% 250ML 250 ML ONE (21:32)
[2017-11-20] MEDS: AZITHROMYCIN 500MG/NS 250 ML 250 ML IV SCH (22:50)
[2017-11-21] VITALS (8 sets, daily range): BP systolic 105–115; BP diastolic 56–64
[2017-11-21] MEDS: ACETAMINOPHEN 325 MG TAB PO PRN (01:22)
[2017-11-21] MEDS: PIPER-TAZ 3.375 GM 100 ML IV SCH ×3 (06:00→22:00)
[2017-11-21 06:57] LABS: INR 1.51; PROTHROMBIN TIME 17.1 seconds (11.9-14.5)
[2017-11-21] MEDS: LEVALBUTEROL HCL SOLN NEBU 0.63 MG/3 ML NEB INH SCH ×3 (07:20→19:25)
[2017-11-21] MEDS: SALMETEROL/FLUTICASONE 250/50 INH SCH ×2 (07:20→19:25)
[2017-11-21] MEDS: TAMSULOSIN HCL 0.4 MG CAP PO SCH (08:57)
[2017-11-21] MEDS: CITALOPRAM HYDROBROMIDE 20 MG TAB PO SCH (08:57)
[2017-11-21] MEDS: FLUCONAZOLE 100 MG TAB PO SCH (08:57)
[2017-11-21] MEDS: GABAPENTIN 300 MG CAP PO SCH ×3 (08:58→21:00)
[2017-11-21] MEDS: PANTOPRAZOLE SOD 40 MG TABEC PO SCH ×2 (08:58→17:52)
[2017-11-21] MEDS: CYANOCOBALAMIN INJ 1,000 MCG/ML VIAL IM SCH (14:09)
[2017-11-21] MEDS: WARFARIN SOD 5 MG TAB PO SCH (17:53)
[2017-11-21] MEDS: DONEPEZIL HCL 5 MG TAB PO SCH (21:00)
[2017-11-21] MEDS: AZITHROMYCIN 500MG/NS 250 ML 250 ML IV SCH (23:00)
[2017-11-22] MEDS: LEVALBUTEROL HCL SOLN NEBU 0.63 MG/3 ML NEB INH SCH ×3 (00:50→20:10)
[2017-11-22 04:00] VITALS: BP 116/64
[2017-11-22] MEDS: PIPER-TAZ 3.375 GM 100 ML IV SCH ×3 (05:55→21:37)
[2017-11-22 07:20] LABS: INR 1.52; PROTHROMBIN TIME 17.2 seconds (11.9-14.5)
[2017-11-22 07:52] VITALS: BP 122/66
[2017-11-22] MEDS: GABAPENTIN 300 MG CAP PO SCH ×3 (09:00→21:02)
[2017-11-22] MEDS: CITALOPRAM HYDROBROMIDE 20 MG TAB PO SCH (09:00)
[2017-11-22] MEDS: PANTOPRAZOLE SOD 40 MG TABEC PO SCH ×2 (09:00→17:00)
[2017-11-22] MEDS: TAMSULOSIN HCL 0.4 MG CAP PO SCH (09:00)
[2017-11-22] MEDS: FLUCONAZOLE 100 MG TAB PO SCH (09:00)
[2017-11-22 11:39] VITALS: BP 100/58
[2017-11-22] MEDS: SALMETEROL/FLUTICASONE 250/50 INH SCH ×2 (15:05→20:10)
[2017-11-22 16:09] VITALS: BP 123/60
[2017-11-22 17:59] VITALS: BP 123/60
[2017-11-22] MEDS: WARFARIN SOD 5 MG TAB PO SCH (18:09)
[2017-11-22 20:00] VITALS: BP 122/68
[2017-11-22] MEDS: DONEPEZIL HCL 5 MG TAB PO SCH (21:02)
[2017-11-22] MEDS: AZITHROMYCIN 500MG/NS 250 ML 250 ML IV SCH (22:27)
[2017-11-23] VITALS (7 sets, daily range): BP systolic 96–114; BP diastolic 51–63
[2017-11-23] MEDS: LEVALBUTEROL HCL SOLN NEBU 0.63 MG/3 ML NEB INH SCH ×3 (01:32→12:34)
[2017-11-23] MEDS: ACETAMINOPHEN 325 MG TAB PO PRN (05:08)
[2017-11-23 06:59] LABS: INR 1.52; PROTHROMBIN TIME 17.2 seconds (11.9-14.5)
[2017-11-23] MEDS: SALMETEROL/FLUTICASONE 250/50 INH SCH ×2 (07:00→18:50)
[2017-11-23] MEDS: CITALOPRAM HYDROBROMIDE 20 MG TAB PO SCH (09:00)
[2017-11-23] MEDS: PANTOPRAZOLE SOD 40 MG TABEC PO SCH ×2 (09:00→16:55)
[2017-11-23] MEDS: TAMSULOSIN HCL 0.4 MG CAP PO SCH (09:00)
[2017-11-23] MEDS: FLUCONAZOLE 100 MG TAB PO SCH (09:00)
[2017-11-23] MEDS: GABAPENTIN 300 MG CAP PO SCH ×3 (09:00→21:00)
[2017-11-23] MEDS: PIPER-TAZ 3.375 GM 100 ML IV SCH ×2 (14:00→21:38)
[2017-11-23] MEDS: WARFARIN SOD 5 MG TAB PO SCH (16:55)
[2017-11-23] MEDS: DONEPEZIL HCL 5 MG TAB PO SCH (21:00)
[2017-11-24] VITALS: BP 115/61
[2017-11-24] MEDS: LEVALBUTEROL HCL SOLN NEBU 0.63 MG/3 ML NEB INH SCH ×3 (00:48→13:00)
[2017-11-24 04:00] VITALS: BP 108/58
[2017-11-24] MEDS: PIPER-TAZ 3.375 GM 100 ML IV SCH ×2 (05:30→14:37)
[2017-11-24 06:40] LABS: INR 1.69; PROTHROMBIN TIME 18.7 seconds (11.9-14.5)
[2017-11-24] MEDS: SALMETEROL/FLUTICASONE 250/50 INH SCH (07:00)
[2017-11-24 08:27] VITALS: BP 119/59
[2017-11-24] MEDS: FLUCONAZOLE 100 MG TAB PO SCH (09:24)
[2017-11-24] MEDS: TAMSULOSIN HCL 0.4 MG CAP PO SCH (09:24)
[2017-11-24] MEDS: GABAPENTIN 300 MG CAP PO SCH ×2 (09:24→14:37)
[2017-11-24] MEDS: CITALOPRAM HYDROBROMIDE 20 MG TAB PO SCH (09:24)
[2017-11-24] MEDS: PANTOPRAZOLE SOD 40 MG TABEC PO SCH (09:24)
[2017-11-24 11:59] VITALS: BP 137/79
[2017-11-24 13:53] VITALS: BP 137/79
[2017-11-24] MEDS: CYANOCOBALAMIN INJ 1,000 MCG/ML VIAL IM SCH (14:37)
== END 2017-11-24 16:30 | disposition home or self-care (01) | DRG 871 ==
LOC: ER 23:50 → ERHOLD 11-16 01:39 → MED/SURG3 11-16 01:55
PROVIDERS: ADMIT Internal Medicine; ATTEND Internal Medicine
DX: A41.9 Sepsis, unspecified organism (principal); J69.0 Pneumonitis due to inhalation of food and vomit; I82.509 Chronic embolism and thrombosis of unspecified deep veins of unspecified lower extremity; N40.0 Benign prostatic hyperplasia without lower urinary tract symptoms; K21.9 Gastro-esophageal reflux disease without esophagitis; Z79.01 Long term (current) use of anticoagulants; L89.151 Pressure ulcer of sacral region, stage 1; G80.9 Cerebral palsy, unspecified
CPT/HCPCS: 36415; 71045; 80048; 80053; 81001; 82550; 82553; 83605; 84484; 85025; 85610; 85730; 87040; 87071; 87205; 93005; 94640; 94667; 94668; 96367; 97139; 99284; J0456; J0696; J1940; J2543; J3420; J7030; J7050

== ENCOUNTER → 2018-01-09 | Day surgery (SDC) | payer MEDICARE ==
[~2018-01-09] MED LIST changes: +BACTRIM DS TAB1 EACH PO; +CEFTRIAXONE SOD 1 GM VIAL ONE; +FENTANYL CITRATE/PF 100MCG/2 ML INJ ONE; +FLUCONAZOLE100 MG PO; +LIDOCAINE HCL 2% LOCAL INJ 5 ML SDV VIAL INJ ONE; +OMEGA 3 1,0001 EACH PO; +PROPOFOL IV EMULSION 10 MG/ML 20 ML VIAL ONE; +TAMSULOSIN HCL0.4 MG PO; +TYLENOL WITH C1 EACH PO; +WARFARIN SODIU2.5 MG PO
[2018-01-09 11:42] LABS: BASOPHILS % 0.3 % (0.0-1.0); EOSINOPHILS # (AUTO) 0.1 (0.0-0.4); EOSINOPHILS % 1.5 % (0.0-6.0); HEMOGLOBIN 13.2 g/dL (14.0-18.0); LYMPHOCYTES # (AUTO) 1.8 (1.0-3.2); LYMPHOCYTES % 26.7 % (18.0-39.1); MEAN CORPUSCULAR HEMOGLOBIN 31.4 pg (28-32); MONOCYTES # (AUTO) 0.5 (0.2-0.8); MONOCYTES % 7.5 % (4.4-11.3); NEUTROPHILS # (AUTO) 4.2 (2.1-6.9); NEUTROPHILS % 63.8 % (38.7-80.0); PLATELET COUNT 97 x10e3/uL (140-360); RED BLOOD COUNT 4.21 x10e6/uL (4.3-5.7); RED CELL DISTRIBUTION WIDTH 13.1 % (11.7-14.4)
[2018-01-09 12:03] LABS: INR 2.33
[2018-01-09 12:04] LABS: PARTIAL THROMBOPLASTIN TIME 43.1 seconds (23.8-35.5)
--- NOTE | 2018-01-09 12:04 | Diagnostic Imaging Report ---
PROCEDURE: CHEST SINGLE (PORTABLE) COMPARISON: 11/17/2017. INDICATIONS: PRE-OPERATIVE CHEST X-RAY FOR CYSTOSCOPY FINDINGS: Lungs are well-inflated. Minimal reticular opacity in the left lung base greater than right lung base, which may reflect age-related fibrotic changes. Interval resolution of multifocal opacities relative to 11/17/2017, without new airspace consolidation. Stable cardiomediastinal contour with tortuosity of the thoracic aorta. No overt pulmonary edema. No acute osseous abnormality. Chronic right acromioclavicular separation unchanged. CONCLUSION: No acute cardiopulmonary abnormality. Dictated by: Rigoberto Ford M.D. on 01/09/2018 at 12:07 Electronically approved by: Rigoberto Ford M.D. on 01/09/2018 at 12:07
--- NOTE | 2018-01-26 14:00 | Operative Report ---
DATE OF PROCEDURE: January 09, 2018 PREOPERATIVE DIAGNOSIS: Bladder outlet obstruction with incontinence. POSTOPERATIVE DIAGNOSIS: Bladder outlet obstruction with incontinence. OPERATION PERFORMED: Cystoscopy. ANESTHESIA: MAC. ESTIMATED BLOOD LOSS: Minimal. INDICATIONS: Mr. Noris Dawson is a 72-year-old gentleman with a history of cerebral palsy and worsening urinary incontinence. He recently underwent urodynamic studies after a failure to respond to oral medications and was found to have findings consistent with bladder outlet obstruction. Cystoscopy is to be performed in an attempt to assist with treatment plan. PROCEDURE IN DETAIL: The patient was brought into the operating room and after administration of IV sedation was prepped and draped in the usual fashion. Flexible cystoscopy was performed. The anterior and posterior urethra was noted to be normal except for widely patent urethral stricture disease. The prostate revealed trilobar hyperplasia, and the bladder was entered with mild difficulty. Upon entrance into the bladder, there were grade 2 to 3 trabeculations throughout noted with cellules and early diverticula formation. The ureteral orifices were in normal anatomical position and produced clear reflux. There were no mucosal lesions identified. The cystoscope and the sheath were then removed, and the anesthesia was reversed. The patient was transferred to a bed and taken to the postanesthesia care unit in good condition. Of note, the needle and instrument count was correct at the conclusion of the case. Job#: [id number]
== END | disposition home or self-care (01) ==
LOC: OR 10:11
PROVIDERS: ATTEND Urology
DX: N32.0 Bladder-neck obstruction (principal); R32 Unspecified urinary incontinence; G80.9 Cerebral palsy, unspecified; N32.89 Other specified disorders of bladder; N32.3 Diverticulum of bladder; R56.9 Unspecified convulsions; K21.9 Gastro-esophageal reflux disease without esophagitis; R00.1 Bradycardia, unspecified; F32.9 Major depressive disorder, single episode, unspecified; Z88.6 Allergy status to analgesic agent; Z79.01 Long term (current) use of anticoagulants
CPT/HCPCS: 36415; 52000; 71045; 85025; 85610; 85730; 93005; J0696; J2001

== ENCOUNTER 2018-01-25 08:33 | Observation (INO) | payer MEDICARE ==
[2018-01-19 11:36] LABS: BASOPHILS % 0.4 % (0.0-1.0); EOSINOPHILS # (AUTO) 0.1 (0.0-0.4); EOSINOPHILS % 1.2 % (0.0-6.0); HEMATOCRIT 40.2 % (38.2-49.6); HEMOGLOBIN 13.2 g/dL (14.0-18.0); LYMPHOCYTES # (AUTO) 2.1 (1.0-3.2); LYMPHOCYTES % 25.2 % (18.0-39.1); MEAN CORPUSCULAR HEMOGLOBIN 31.3 pg (28-32); MEAN CORPUSCULAR HGB CONC 32.8 g/dL (31-35); MEAN CORPUSCULAR VOLUME 95.3 fL (81-99); MONOCYTES # (AUTO) 0.4 (0.2-0.8); MONOCYTES % 4.7 % (4.4-11.3); NEUTROPHILS # (AUTO) 5.6 (2.1-6.9); NEUTROPHILS % 68.4 % (38.7-80.0); PLATELET COUNT 141 x10e3/uL (140-360); RED BLOOD COUNT 4.22 x10e6/uL (4.3-5.7); RED CELL DISTRIBUTION WIDTH 13.2 % (11.7-14.4)
[~2018-01-25] VITALS: Ht 167.6 cm; Wt 70.3 kg
[~2018-01-25 08:33] MED LIST changes: -BACTRIM DS TAB1 EACH PO; -CEFTRIAXONE SOD 1 GM VIAL ONE; -FENTANYL CITRATE/PF 100MCG/2 ML INJ ONE; -LIDOCAINE HCL 2% LOCAL INJ 5 ML SDV VIAL INJ ONE; -PROPOFOL IV EMULSION 10 MG/ML 20 ML VIAL ONE; -TYLENOL WITH C1 EACH PO
[2018-01-25] MEDS ORDERED: CEFTRIAXONE SOD 1 GM VIAL ONE (08:56)
[2018-01-25 09:48] LABS: INR 1.11; PARTIAL THROMBOPLASTIN TIME 23.9 seconds (23.8-35.5); PROTHROMBIN TIME 13.5 seconds (11.9-14.5)
[2018-01-25 09:52] LABS: BLOOD UREA NITROGEN 16 mg/dL (7-26); BUN/CREATININE RATIO 14 (6-25); CARBON DIOXIDE 28 mmol/L (22-29); CHLORIDE 106 mmol/L (98-107); CREATININE, SERUM 1.13 mg/dL (0.72-1.25); EST GLOMERULAR FILTRATION RATE > 60 ML/MIN (60-); GLUCOSE 90 mg/dL (74-118); SODIUM 143 mmol/L (136-145)
[2018-01-25] MEDS ORDERED: IOPAMIDOL 610MG/1ML 300 MG/ML VIAL IV ONE (10:49)
[2018-01-25] MEDS ORDERED: BELLADONNA/OPIUM 30 MG SUPP RC ONE (10:49)
[2018-01-25] MEDS ORDERED: ACETAMINOPHEN/CODEINE 300MG - 30MG TAB PO PRN (14:15)
[2018-01-25 14:23] VITALS: BP 123/69
[2018-01-25] MEDS ORDERED: SODIUM CHLORIDE 0.9% 250ML IRRIG IR PRN (14:30)
[2018-01-25] MEDS ORDERED: SODIUM CHLORIDE 0.45% 1,000 ML IV ONE (14:30)
[2018-01-25] MEDS: TRIMETHOPRIM/SULFAMETHOXAZOLE 160-800 MG TAB PO SCH ×2 (14:47→20:02)
[2018-01-25 15:28] VITALS: BP 123/69
[2018-01-25 15:31] VITALS: BP 123/69
--- NOTE | 2018-01-25 17:18 | Operative Report ---
DATE OF PROCEDURE: January 25, 2018 PREOPERATIVE DIAGNOSIS: Bladder outlet obstruction. POSTOPERATIVE DIAGNOSES: Bladder outlet obstruction. PROCEDURES PERFORMED 1. Cystoscopy. 2. Transurethral resection of the prostate. ANESTHESIA: General anesthesia. ESTIMATED BLOOD LOSS: Minimal. INDICATIONS: Mr. Dawson is a 72-year-old gentleman with a history of cerebral palsy and recent onset urinary incontinence. This has failed to respond adequately to oral medications. He now presents for definitive management of this problem. PROCEDURE IN DETAIL: The patient was brought into the operating room and placed in the supine position. After administration of general anesthesia, he was placed in the dorsal lithotomy position and prepped and draped in the usual sterile fashion. Cystourethroscopy was performed using a 21-Croatian cystoscope. Anterior and posterior urethra were noted to be normal. The prostatic fossa was short but there was evidence of trilobar hyperplasia with moderate elevation of the median bar. The bladder was entered with mild difficulty. Upon entrance into the bladder, the ureteral orifices were in normal anatomical position and produced clear efflux. There were grade 2 to 3 trabeculations noted throughout. There were multiple diverticula and cellules. There were no focal mucosal lesions identified. The bladder was left full with the cystoscope. The sheath was removed. A 26-Croatian resectoscope sheath was then placed in a retrograde fashion. The [employer] resectoscope was used to perform the procedure. Beginning in a clockwise fashion at the 1 o'clock position, all the adenomatous tissue between the bladder neck and the veru was resected down to the level of the surgical capsule. No gross perforation of the capsule was noted. A similar procedure was performed on the contralateral side in a counterclockwise fashion beginning at the 11 o'clock position and proceeding down to the 6 o'clock position. Again, there was no gross perforation or penetration of the capsule noted. The residual tissue on the roof and floor of the gland was resected free, and the [employer] evacuator was used to remove all chips. These were subsequently sent to pathology for microscopic analysis. Once adequate hemostasis was secured, the bladder was left full and the cystoscope and sheath were removed. The patient was noted to have a brisk urinary flow with Crede. A 24-Croatian, 3-way coude catheter was then placed in a retrograde fashion, and the urinary efflux was noted to be blood-tinged. He was started on continuous bladder irrigation and returned to the supine position. Anesthesia was reversed, and he was transferred to a bed and taken to the postanesthesia care unit in good condition. Of note, the needle and instrument counts were correct at the conclusion of the case. Job#: [id number]
[2018-01-25] MEDS ORDERED: FENTANYL CITRATE/PF 100MCG/2 ML INJ ONE (18:43)
[2018-01-25] MEDS ORDERED: PROPOFOL IV EMULSION 10 MG/ML 20 ML VIAL ONE (19:11)
[2018-01-25] MEDS ORDERED: SUCCINYLCHOLINE 200 MG/10 ML SYR ONE (19:11)
[2018-01-25] MEDS ORDERED: ROCURONIUM BROMIDE 10 MG/ML 5ML VIAL ONE (19:11)
[2018-01-25] MEDS ORDERED: ONDANSETRON HCL INJ 2 MG/ML VIAL ONE (19:11)
[2018-01-25] MEDS ORDERED: LIDOCAINE HCL 2% LOCAL INJ 5 ML SDV VIAL INJ ONE (19:11)
[2018-01-25] MEDS ORDERED: DEXAMETHASONE SOD PHOS INJ 4 MG/ML VIAL ONE (19:11)
[2018-01-25] MEDS ORDERED: SEVOFLURANE INHAL SOLN 250 ML PEN BTL ONE (19:11)
[2018-01-25 20:00] VITALS: BP 97/53
[2018-01-26 02:11] VITALS: BP 97/53
[2018-01-26 04:00] VITALS: BP 110/57
[2018-01-26 08:00] VITALS: BP 104/57
[2018-01-26 08:16] VITALS: BP 110/57
[2018-01-26] MEDS ORDERED: BACTRIM DS TAB1 EACH PO (08:40)
[2018-01-26] MEDS ORDERED: TYLENOL WITH C1 EACH PO (08:41)
[2018-01-26] MEDS: TRIMETHOPRIM/SULFAMETHOXAZOLE 160-800 MG TAB PO SCH (09:06)
== END 2018-01-26 10:49 | disposition home or self-care (01) ==
LOC: OR 08:33 → PACU V 12:42 → IMCU 13:52
PROVIDERS: ADMIT Urology; ATTEND Urology
DX: C61 Malignant neoplasm of prostate (principal); N13.8 Other obstructive and reflux uropathy; R32 Unspecified urinary incontinence; R35.0 Frequency of micturition; G80.9 Cerebral palsy, unspecified; K21.9 Gastro-esophageal reflux disease without esophagitis; F32.9 Major depressive disorder, single episode, unspecified; Z01.812 Encounter for preprocedural laboratory examination; Z79.01 Long term (current) use of anticoagulants
CPT/HCPCS: 36415 ×2; 52601; 80048; 85025; 85610; 85730; 88305; 88342; G0378 ×2; J0696; J1100; J2001; J2405

== ENCOUNTER 2018-04-08 08:05 | Inpatient (IN) | payer MEDICARE ==
[~2018-04-08] VITALS: Ht 167.6 cm; Wt 69.4 kg
[~2018-04-08 08:05] MED LIST changes: +BACTRIM DS TAB1 EACH PO; +TYLENOL WITH C1 EACH PO
[2018-04-08] MEDS ORDERED: SODIUM CHLORIDE 0.9% 1000ML 1,000 ML IV STA (08:10)
[2018-04-08] MEDS ORDERED: ASPIRIN 81 MG CHEW TAB PO ONE (08:15)
[2018-04-08 08:35] LABS: BASOPHILS % 0.4 % (0.0-1.0); EOSINOPHILS # (AUTO) 0.1 (0.0-0.4); EOSINOPHILS % 1.5 % (0.0-6.0); HEMATOCRIT 41.3 % (38.2-49.6); HEMOGLOBIN 13.3 g/dL (14.0-18.0); LYMPHOCYTES % 37.9 % (18.0-39.1); MEAN CORPUSCULAR HEMOGLOBIN 28.9 pg (28-32); MEAN CORPUSCULAR HGB CONC 32.2 g/dL (31-35); MEAN CORPUSCULAR VOLUME 89.8 fL (81-99); MONOCYTES # (AUTO) 0.4 (0.2-0.8); MONOCYTES % 7.2 % (4.4-11.3); NEUTROPHILS # (AUTO) 2.8 (2.1-6.9); PLATELET COUNT 98 x10e3/uL (140-360); RED CELL DISTRIBUTION WIDTH 16.7 % (11.7-14.4)
--- NOTE | 2018-04-08 08:41 | Diagnostic Imaging Report ---
EXAMINATION: CHEST SINGLE (PORTABLE) COMPARISON: Chest x-ray 01/09/2018 INDICATION: Chest pain, weakness DISCUSSION: Frontal view of the chest obtained at 0824 hours. HEART AND MEDIASTINUM: Stable cardiomegaly and aortic ectasia LINES: None. LUNGS: Lungs are well-inflated. Coarse interstitial markings at the base of the left lung are stable. No pneumonia or pulmonary edema. PLEURA: No pleural effusion or pneumothorax. BONES AND SOFT TISSUES: No focal osseous lesion. The soft tissues are normal. IMPRESSION: Stable cardiomegaly. Prominent left basilar interstitium is similar suggestive of chronic atelectasis or scarring. Signed by: Dr. Paola Lackey MD on 04/08/2018 8:37 AM
[2018-04-08 08:49] LABS: CLARITY,URINE CLEAR (CLEAR); COLOR,URINE YELLOW (YELLOW)
[2018-04-08 08:51] LABS: BILIRUBIN,URINE NEGATIVE (NEGATIVE); KETONES,URINE NEGATIVE (NEGATIVE); LEUKOCYTE ESTERASE ,URINE NEGATIVE (NEGATIVE); NITRITE,URINE NEGATIVE (NEGATIVE); PROTEIN,URINE DIPSTICK NEGATIVE (NEGATIVE); URINE UROBILINOGEN 0.2 mg/dL (0.2 - 1)
[2018-04-08 08:54] LABS: ALANINE AMINOTRANSFERASE 16 IU/L (0-55); ALBUMIN 3.2 g/dL (3.5-5.0); ALBUMIN/GLOBULIN RATIO 1.1 (0.8-2.0); ALKALINE PHOSPHATASE 77 IU/L (40-150); ANION GAP 11.7 mmol/L (8-16); BLOOD UREA NITROGEN 22 mg/dL (7-26); BUN/CREATININE RATIO 19 (6-25); CALCIUM 8.7 mg/dL (8.4-10.2); CARBON DIOXIDE 28 mmol/L (22-29); CHLORIDE 103 mmol/L (98-107); CREATINE KINASE 68 IU/L (30-200); CREATININE, SERUM 1.15 mg/dL (0.72-1.25); EST GLOMERULAR FILTRATION RATE > 60 ML/MIN (60-); GLUCOSE 99 mg/dL (74-118); MAGNESIUM 1.7 MG/DL (1.3-2.1); POTASSIUM 3.7 mmol/L (3.5-5.1); SODIUM 139 mmol/L (136-145)
[2018-04-08 09:00] LABS: RBC,URINE 0-5 /HPF (0-5)
[2018-04-08] MEDS ORDERED: PIPER-TAZ 3.375 GM 50 ML IV ONE (09:00)
[2018-04-08] MEDS ORDERED: ZOLPIDEM TARTRATE 5 MG TAB PO PRN (09:45)
[2018-04-08] MEDS ORDERED: CLONIDINE HCL 0.1 MG TAB PO PRN (09:45)
[2018-04-08] MEDS ORDERED: ONDANSETRON HCL INJ 2 MG/ML VIAL IV PRN (09:45)
[2018-04-08] MEDS ORDERED: HYDRALAZINE HCL 20 MG/ML VIAL IV PRN (09:45)
[2018-04-08] MEDS ORDERED: ACETAMINOPHEN 325 MG TAB PO PRN (09:45)
[2018-04-08] MEDS ORDERED: IBUPROFEN 200 MG TAB PO PRN (09:45)
[2018-04-08] MEDS ORDERED: SODIUM CHLORIDE 0.9% 1000ML 1,000 ML IV ONE (09:45)
[2018-04-08] MEDS ORDERED: DIPHENHYDRAMINE HCL 25 MG CAP PO PRN (09:45)
[2018-04-08] MEDS ORDERED: HYDROCODONE/APAP 7.5MG-325MG 1 EA TAB PO PRN (09:45)
[2018-04-08 10:49] VITALS: BP 138/83
[2018-04-08 11:20] LABS: INR 1.63; PROTHROMBIN TIME 18.2 seconds (11.9-14.5)
[2018-04-08] MEDS ORDERED: CYANOCOBALAMIN INJ (11:27)
[2018-04-08 13:15] VITALS: BP 138/83
[2018-04-08 16:00] VITALS: BP 109/64
[2018-04-08] MEDS ORDERED: ACETAMINOPHEN/CODEINE 300MG - 30MG TAB PO PRN (16:30)
[2018-04-08] MEDS ORDERED: CYANOCOBALAMIN 1000 MCG INJ SCH (16:30)
[2018-04-08] MEDS: FAMOTIDINE 20 MG TAB PO SCH (16:30)
[2018-04-08] MEDS: WARFARIN SOD 5 MG TAB PO SCH (18:00)
[2018-04-08 20:00] VITALS: BP 106/61
[2018-04-08] MEDS: GABAPENTIN 300 MG CAP PO SCH ×2 (21:06→21:41)
[2018-04-08] MEDS: DONEPEZIL HCL 5 MG TAB PO SCH ×2 (21:06→21:41)
[2018-04-08] MEDS: PIPER-TAZ 3.375 GM 50 ML IV SCH (21:06)
[2018-04-09] VITALS (7 sets, daily range): BP systolic 108–129; BP diastolic 59–69
[2018-04-09] MEDS: PIPER-TAZ 3.375 GM 50 ML IV SCH ×2 (06:44→14:27)
[2018-04-09] MEDS: PANTOPRAZOLE SOD 40 MG TABEC PO SCH (07:53)
[2018-04-09] MEDS: FAMOTIDINE 20 MG TAB PO SCH ×2 (07:53→16:30)
[2018-04-09] MEDS ORDERED: OMEGA 3 POLYUNSAT FATTY ACIDS 1000 MG SOFTGEL PO SCH (09:00)
[2018-04-09] MEDS: CITALOPRAM HYDROBROMIDE 20 MG TAB PO SCH (09:41)
[2018-04-09] MEDS: GABAPENTIN 300 MG CAP PO SCH ×2 (09:41→15:01)
[2018-04-09] MEDS: TAMSULOSIN HCL 0.4 MG CAP PO SCH (09:41)
[2018-04-09] MEDS: OMEGA 3 POLYUNSAT FATTY ACIDS 1000 MG SOFTGEL PO SCH (09:41)
[2018-04-09] MEDS: WARFARIN SOD 5 MG TAB PO SCH (17:05)
[2018-04-10] VITALS (9 sets, daily range): BP systolic 115–124; BP diastolic 58–80
[2018-04-10] MEDS: PIPER-TAZ 3.375 GM 50 ML IV SCH ×3 (06:28→21:52)
[2018-04-10] MEDS: PANTOPRAZOLE SOD 40 MG TABEC PO SCH (07:58)
[2018-04-10] MEDS: FAMOTIDINE 20 MG TAB PO SCH ×2 (07:58→17:00)
[2018-04-10] MEDS: CITALOPRAM HYDROBROMIDE 20 MG TAB PO SCH (09:18)
[2018-04-10] MEDS: TAMSULOSIN HCL 0.4 MG CAP PO SCH (09:18)
[2018-04-10] MEDS: OMEGA 3 POLYUNSAT FATTY ACIDS 1000 MG SOFTGEL PO SCH (09:18)
[2018-04-10] MEDS: GABAPENTIN 300 MG CAP PO SCH ×3 (09:18→21:52)
[2018-04-10] MEDS: WARFARIN SOD 5 MG TAB PO SCH (17:09)
[2018-04-10] MEDS ORDERED: SODIUM CHLORIDE 0.9% 50ML 50 ML ONE (21:44)
[2018-04-10] MEDS: DONEPEZIL HCL 5 MG TAB PO SCH (21:52)
[2018-04-11] VITALS (7 sets, daily range): BP systolic 97–121; BP diastolic 54–73
[2018-04-11] MEDS: PIPER-TAZ 3.375 GM 50 ML IV SCH ×3 (05:31→22:00)
[2018-04-11] MEDS: GABAPENTIN 300 MG CAP PO SCH ×3 (09:00→21:09)
[2018-04-11] MEDS: TAMSULOSIN HCL 0.4 MG CAP PO SCH (09:00)
[2018-04-11] MEDS: PANTOPRAZOLE SOD 40 MG TABEC PO SCH (09:00)
[2018-04-11] MEDS: FAMOTIDINE 20 MG TAB PO SCH ×2 (09:00→16:30)
[2018-04-11] MEDS: CITALOPRAM HYDROBROMIDE 20 MG TAB PO SCH (09:00)
[2018-04-11] MEDS: OMEGA 3 POLYUNSAT FATTY ACIDS 1000 MG SOFTGEL PO SCH (09:00)
--- NOTE | 2018-04-11 13:37 | Diagnostic Imaging Report ---
Examination: MRI BRAIN WITHOUT CONTRAST History: 72-year-old male with weakness, difficulty ambulating and fall yesterday. Comparison studies: None Technique: Sagittal T2; axial DWI, FLAIR, GRE or SWI, T1, Coronal FLAIR. Intravenous contrast: None Findings: Scalp: No abnormal signal. No masses. Bone marrow: Normal in signal intensity. Brain volume: Adequate for age. No volume loss. Ventricles: Normal in size and configuration. No hydrocephalus. Extra-axial spaces: No abnormalities. Parenchyma: There are subtle confluent areas of T2/FLAIR hyperintensity in the periventricular and subcortical white matter, nonspecific. No masses, hemorrhage, or acute vascular insults. Suprasellar and sellar region: No abnormalities. Craniocervical junction: No abnormalities. The foramen magnum is patent. No Chiari malformations. Vessels: Normal flow-voids in the arteries and sinuses. Additional findings:None. IMPRESSION: 1. No acute intracranial abnormalities. 2. Mild chronic microvascular ischemic change. Signed by: Dr. Leola Wiley M.D. on 04/11/2018 1:33 PM
[2018-04-11] MEDS: WARFARIN SOD 5 MG TAB PO SCH (17:00)
[2018-04-11] MEDS: DONEPEZIL HCL 5 MG TAB PO SCH (21:09)
[2018-04-12] VITALS: BP 107/67
[2018-04-12 04:00] VITALS: BP 111/75
[2018-04-12 05:43] LABS: INR 2.1; PROTHROMBIN TIME 22.1 seconds (11.9-14.5)
[2018-04-12] MEDS ORDERED: SODIUM CHLORIDE 0.9% 50ML 50 ML ONE ×2 (05:45→21:12)
[2018-04-12] MEDS ORDERED: SODIUM CHLORIDE 0.9% 250ML 250 ML ONE (06:12)
[2018-04-12] MEDS: PIPER-TAZ 3.375 GM 50 ML IV SCH ×3 (06:25→22:15)
[2018-04-12 08:00] VITALS: BP 105/61
[2018-04-12] MEDS: FAMOTIDINE 20 MG TAB PO SCH ×2 (08:00→16:30)
[2018-04-12] MEDS: PANTOPRAZOLE SOD 40 MG TABEC PO SCH (08:00)
[2018-04-12] MEDS: OMEGA 3 POLYUNSAT FATTY ACIDS 1000 MG SOFTGEL PO SCH (09:00)
[2018-04-12] MEDS: CITALOPRAM HYDROBROMIDE 20 MG TAB PO SCH (09:00)
[2018-04-12] MEDS: GABAPENTIN 300 MG CAP PO SCH ×3 (09:00→21:24)
[2018-04-12] MEDS: TAMSULOSIN HCL 0.4 MG CAP PO SCH (09:00)
[2018-04-12 12:00] VITALS: BP 115/69
[2018-04-12] MEDS ORDERED: LIDOCAINE JELLY 2% 10ML URO-JET ONE (12:39)
[2018-04-12 16:00] VITALS: BP 119/61
[2018-04-12] MEDS: WARFARIN SOD 5 MG TAB PO SCH (16:53)
[2018-04-12] MEDS ORDERED: MIDAZOLAM HCL 2 MG/2 ML VIAL ONE (18:24)
[2018-04-12] MEDS ORDERED: FENTANYL CITRATE/PF 100MCG/2 ML INJ ONE (18:24)
[2018-04-12] MEDS ORDERED: LIDOCAINE HCL 2% LOCAL INJ 5 ML SDV VIAL INJ ONE (19:20)
[2018-04-12] MEDS ORDERED: PROPOFOL IV EMULSION 10 MG/ML 20 ML VIAL ONE (19:20)
[2018-04-12 20:00] VITALS: BP_SYST 103; BP_SYST 135; BP_DIAS 69; BP_DIAS 76
[2018-04-12] MEDS: DONEPEZIL HCL 5 MG TAB PO SCH (21:24)
[2018-04-13] VITALS (8 sets, daily range): BP systolic 97–119; BP diastolic 54–63
[2018-04-13 06:09] LABS: INR 1.82; PROTHROMBIN TIME 22.5 seconds (11.9-14.5)
[2018-04-13] MEDS: PIPER-TAZ 3.375 GM 50 ML IV SCH ×3 (06:35→22:22)
[2018-04-13] MEDS: PANTOPRAZOLE SOD 40 MG TABEC PO SCH (08:10)
[2018-04-13] MEDS: FAMOTIDINE 20 MG TAB PO SCH ×2 (08:15→16:35)
[2018-04-13] MEDS: OMEGA 3 POLYUNSAT FATTY ACIDS 1000 MG SOFTGEL PO SCH (08:16)
[2018-04-13] MEDS: CITALOPRAM HYDROBROMIDE 20 MG TAB PO SCH (08:16)
[2018-04-13] MEDS: GABAPENTIN 300 MG CAP PO SCH ×3 (08:16→21:40)
[2018-04-13] MEDS: TAMSULOSIN HCL 0.4 MG CAP PO SCH (08:16)
[2018-04-13 14:17] LABS: THYROID STIMULATING HORMONE 2.267 uIU/mL (0.350-4.940)
[2018-04-13] MEDS: WARFARIN SOD 5 MG TAB PO SCH (16:36)
--- NOTE | 2018-04-13 17:35 | Consultation ---
DATE OF CONSULTATION: April 13, 2018 NEUROLOGY CONSULT HISTORY OF PRESENT ILLNESS: Mr. Dawson is a 72-year-old sbik-vfrl-ammiuzfx man with past medical history significant for cerebral palsy, mild to moderate developmental delay, peripheral neuropathy, dysphasia, multiple hospitalizations for aspiration pneumonia, and multiple prior deep venous thromboses, admitted to [facility] on April 08, 2018, with generalized weakness. A neurology consultation was requested on April 13, 2018, for tremor and worsening cognitive function. The patient first noticed a tremor affecting both hands approximately 2 months ago. The tremor is present with action, especially when performing fine motor movements. The tremor causes difficulty with eating with utensils, drinking from a glass, and writing. The tremor is worsened with psychosocial stress. There is no reported worsening with caffeine. Mr. Dawson does not consume alcohol, and is therefore unaware of alcohol's effect on the tremor. There is no known family history of tremor. Mr. Dawson's sister, who is at the bedside, is concerned regarding mild cognitive decline over the past several months. Mr. Dawson lives independently in an apartment. He cleans his apartment and prepares his own meals. He wears a personal alarm in the event of a medical emergency. Mr. Dawson speaks to his sister daily. For the past several months, his sister has noticed Mr. Dawson has had great difficulty retaining information (i.e., what he ate earlier in the day, conversations occurring earlier in the day or 1 to 2 days previously). The patient's sister endorses repetition of questions and stories. 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 The patient does administer his own medications from a pill technical analyst. Both the patient and his sister report Mr. Dawson does a "very good job" adhering to his medication regimen. However, Mr. Dawson's sister reports the patient often forgets to eat. She has had to encourage/remind him to eat whenever he takes his medications. Other symptoms concerning to the patient's sister are generalized weakness and debility. Lastly, the patient's sister reports a prior history of seizures as a child. Mr. Dawson's last seizure occurred at either 5 or 6 years of age. He was subsequently taken off of antiseizure medication (phenobarbital) during high school. REVIEW OF SYSTEMS: Memory impairment, dysarthria, numbness of the feet, impairment of balance and gait, tremors. Otherwise, the 12-point review of systems is negative. PAST MEDICAL HISTORY: Multiple occurrences of aspiration pneumonia, dysphagia, cerebral palsy, mild to moderate developmental delay, urinary incontinence, peripheral neuropathy, multiple prior deep venous thromboses. PAST SURGICAL HISTORY: Tonsillectomy, urological procedure, cystoscopy. PAST HOSPITALIZATIONS: Surgeries/procedures as listed, multiple hospitalizations for aspiration pneumonia, or urinary tract infection. FAMILY MEDICAL HISTORY: The patient's paternal and maternal grandparents are . Their medical histories are unknown. The patient's father is . He had hypertension, diabetes mellitus, and coronary artery disease. Patient's mother is . She had hypertension and coronary artery disease. The patient had 4 siblings, 3 brothers and 1 sister. One brother is from cancer. One brother is alive, but had to undergo a surgical procedure for open "fluid on the brain." Another brother is alive and has diabetes mellitus and coronary artery disease. The patient's sister is alive and has hyperlipidemia. Mr. Dawson has no biological children. SOCIAL HISTORY: The patient is single. He is retired. The patient does not report current or prior tobacco, alcohol, or recreational drug use. HOME MEDICATIONS: Please see the list of home medications available in the electronic medical record. ALLERGIES: CODEINE. NO KNOWN FOOD ALLERGIES. NO KNOWN ALLERGIES TO LATEX. NO KNOWN ALLERGIES TO IODINE OR OTHER CONTRAST MATERIALS. PHYSICAL EXAMINATION: VITAL SIGNS: Height 66 inches, weight 159 pounds. BMI 25.7 kg per meter squared. Blood pressure 102/58 mmHg. Pulse 67 beats per minute. Respiratory rate 18 breaths per minute. Oxygen saturation 90% on 2 L by nasal cannula. GENERAL: The patient is awake and alert. Does not appear distressed. HEENT: Normocephalic, atraumatic. Pupils are pinpoint. Moist mucous membranes. NECK: Supple. No appreciable thyromegaly. No appreciable carotid bruits. CARDIOVASCULAR: S1 and S2, regular rate and rhythm. No murmurs, rubs, or gallops. RESPIRATORY: Clear to auscultation bilaterally. No wheezes, rhonchi, or rales. EXTREMITIES: The skin is warm and dry. No clubbing or cyanosis. Positive 1+ pretibial pitting edema. The posterior tibial and dorsalis pedis pulses are 2+ and symmetric. SKIN: No rashes or lesions. NEUROLOGIC MEMORY/ATTENTION: The patient is awake and alert. Oriented to person. Cranial Nerves: Cranial nerve I--Not tested. Cranial nerve II, III, IV, and --Pupils are pinpoint. Extraocular movements intact. No nystagmus. Cranial nerve V--Sensation to light touch is intact in the bilateral V1 through V3 distributions. Strength of the temporalis and masseter muscles is within normal limits. Cranial nerve VII--The face is symmetric, as are all facial movements. Strength is within normal limits. Cranial nerve VIII--Hearing is diminished to finger rub bilaterally. Cranial nerve IX, X--The soft palate elevates equally and symmetrically. Cranial nerve XI-- Normal strength of the bilateral sternocleidomastoid and trapezius muscles. Cranial nerve XII--The tongue protrudes midline and moves symmetrically from side to side. STRENGTH: Bulk is normal. Strength is 5/5 in the bilateral deltoids, biceps, triceps, wrist flexors and extensors, finger flexors and extensors, intrinsic hand muscles, hip flexors, knee flexors and extensors, ankle dorsiflexion and plantar flexion, and intrinsic foot muscles. Tone is normal. DTRs: Deep tendon reflexes are 2+ at the right triceps, biceps, brachioradialis, bilateral patellas, and bilateral Achilles. Deep tendon reflexes are 3+ at the left triceps, biceps, and brachioradialis. Plantar responses are flexor bilaterally. SENSATION: Sensation is intact to light touch in both arms and both legs. CEREBELLAR: There is an intention tremor of the left hand with auivpz-umag-ixsdtn movements. Otherwise, the zpyfsu-hvns-hqfmrn and heel-wei movements are intact without dysmetria or other impairment. GAIT: Deferred. SPEECH: Spontaneous speech is mildly dysarthric without aphasia. Repetition is intact. INVOLUNTARY MOVEMENTS: There is a high-frequency intermediate amplitude tremor noted in both hands, right greater than left, as seen with suspension. PRONATOR DRIFT: None. LABORATORY DATA: PT 22.5, INR 1.82. A blood culture collected on April 08, 2018, grew Staphylococcus species, coagulase-negative. A 2nd blood culture collected on April 08, 2018, shows no growth after 5 days. A urine culture collected on April 08, 2018, shows no growth after 36 to 48 hours. DIAGNOSTIC STUDIES: 1. Electrocardiogram on 04/08/2018: Sinus bradycardia at 53 beats per minute. 2. Chest x-ray 04/08/2018: Stable cardiomegaly. Prominent left basilar interstitium is similar, suggestive of chronic atelectasis or scarring. 3. MRI of the brain without contrast 04/11/2018: On my review, there is no evidence of recent large territorial ischemia, hemorrhage, mass, or mass effect. Cerebral volumes are appropriate for age. There are scattered, nonspecific T2/FLAIR hypertense foci in the supratentorial deep white matter, compatible with mild to moderate chronic small-vessel ischemic disease. ASSESSMENT AND PLAN: Mr. Dawson is a 72-year-old jsqm-ywdq-fvaniqlo man with multiple medical problems, including probable benign essential tremor and probable dementia, most likely the Alzheimer type, superimposed on mild to moderate developmental delay. The patient has undergone a thorough neurological examination with findings detailed above. His laboratory data and other diagnostic studies have been reviewed and are documented above. RECOMMENDATIONS: 1. For essential tremor, the patient and his sister wish to begin treatment with propranolol HCl ER 60 mg by mouth daily. The potential benefits and risks of this medication were discussed in detail with the patient and his sister. 2. For further evaluation of the patient's probable dementia, additional laboratory data will be ordered. This will include: Thyroid function test, a vitamin B12 level, and a rapid plasma reagin. 3. Treatment with donepezil 5 mg by mouth at bedtime daily will be prescribed. Mr. Dawson will follow up as an outpatient in my office one day next week to assess his response to treatment with this medication as well as propranolol. 4. Defer treatment of the remaining medical comorbidities to the primary and other services following the patient. Thank you for this consultation. I will continue to follow this patient while he remains in the hospital. TIME SPENT: 70 minutes. Job#: [id number] SOFYA KAHN
[2018-04-13] MEDS: PROPRANOLOL HCL 60 MG ER CAP PO SCH (21:40)
[2018-04-13] MEDS: DONEPEZIL HCL 5 MG TAB PO SCH ×2 (21:40)
[2018-04-14] VITALS (8 sets, daily range): BP systolic 93–136; BP diastolic 55–83
[2018-04-14] MEDS: PIPER-TAZ 3.375 GM 50 ML IV SCH ×3 (05:24→20:57)
[2018-04-14 05:50] LABS: INR 1.81; PROTHROMBIN TIME 22.4 seconds (11.9-14.5)
[2018-04-14] MEDS: PANTOPRAZOLE SOD 40 MG TABEC PO SCH (07:46)
[2018-04-14] MEDS: FAMOTIDINE 20 MG TAB PO SCH ×2 (07:46→16:59)
[2018-04-14] MEDS: PROPRANOLOL HCL 60 MG ER CAP PO SCH (09:00)
[2018-04-14] MEDS: TAMSULOSIN HCL 0.4 MG CAP PO SCH (09:23)
[2018-04-14] MEDS: GABAPENTIN 300 MG CAP PO SCH ×3 (09:23→20:57)
[2018-04-14] MEDS: CITALOPRAM HYDROBROMIDE 20 MG TAB PO SCH (09:23)
[2018-04-14] MEDS: OMEGA 3 POLYUNSAT FATTY ACIDS 1000 MG SOFTGEL PO SCH (09:23)
[2018-04-14] MEDS: WARFARIN SOD 5 MG TAB PO SCH (17:21)
[2018-04-14] MEDS: DONEPEZIL HCL 5 MG TAB PO SCH ×2 (20:57)
[2018-04-15] VITALS (8 sets, daily range): BP systolic 99–125; BP diastolic 57–81
[2018-04-15] MEDS: PIPER-TAZ 3.375 GM 50 ML IV SCH ×3 (05:32→21:52)
[2018-04-15] MEDS: PANTOPRAZOLE SOD 40 MG TABEC PO SCH (07:49)
[2018-04-15] MEDS: FAMOTIDINE 20 MG TAB PO SCH ×2 (07:49→16:43)
[2018-04-15] MEDS: PROPRANOLOL HCL 60 MG ER CAP PO SCH (09:00)
[2018-04-15] MEDS: CITALOPRAM HYDROBROMIDE 20 MG TAB PO SCH (09:10)
[2018-04-15] MEDS: GABAPENTIN 300 MG CAP PO SCH ×3 (09:10→21:21)
[2018-04-15] MEDS: TAMSULOSIN HCL 0.4 MG CAP PO SCH (09:10)
[2018-04-15] MEDS: OMEGA 3 POLYUNSAT FATTY ACIDS 1000 MG SOFTGEL PO SCH (09:10)
[2018-04-15] MEDS: WARFARIN SOD 5 MG TAB PO SCH (17:14)
[2018-04-15] MEDS: DONEPEZIL HCL 5 MG TAB PO SCH (21:21)
[2018-04-16] VITALS: BP 108/64
[2018-04-16 04:00] VITALS: BP 126/65
[2018-04-16 07:40] VITALS: BP 108/70
[2018-04-16] MEDS: PANTOPRAZOLE SOD 40 MG TABEC PO SCH (09:20)
[2018-04-16] MEDS: CITALOPRAM HYDROBROMIDE 20 MG TAB PO SCH (09:20)
[2018-04-16] MEDS: TAMSULOSIN HCL 0.4 MG CAP PO SCH (09:20)
[2018-04-16] MEDS: FAMOTIDINE 20 MG TAB PO SCH ×2 (09:20→16:20)
[2018-04-16] MEDS: GABAPENTIN 300 MG CAP PO SCH ×2 (09:21→16:20)
[2018-04-16] MEDS: OMEGA 3 POLYUNSAT FATTY ACIDS 1000 MG SOFTGEL PO SCH (09:21)
[2018-04-16] MEDS: PROPRANOLOL HCL 60 MG ER CAP PO SCH (09:21)
[2018-04-16 11:40] VITALS: BP 97/63
[2018-04-16 15:59] VITALS: BP 95/60
[2018-04-22] MEDS ORDERED: CYANOCOBALAMIN INJ 1,000 MCG/ML VIAL IM SCH (09:00)
--- NOTE | 2018-04-23 00:12 | Operative Report ---
DATE OF PROCEDURE: April 12, 2018 PREOPERATIVE DIAGNOSIS: Male stress urinary incontinence. POSTOPERATIVE DIAGNOSIS: Male stress urinary incontinence. OPERATIVE PROCEDURE PERFORMED: Cystoscopy. ANESTHESIA: Local. ESTIMATED BLOOD LOSS: Minimal. INDICATIONS: Mr. Noris Dawson is a 72-year-old gentleman who had a prior history of bladder outlet obstruction and overactive bladder, who is now status post TURP with continued or recurrent overactive bladder and incontinence. He now presents for potential diagnosis and management of this problem. PROCEDURE IN DETAIL: The patient was brought in the operating room and placed in supine position, and after administration of IV sedation, was prepped and draped in usual fashion. 2% lidocaine jelly was instilled into the urethra, and flexible cystoscopy was performed. The anterior and posterior urethra were noted to be normal and without strictures. The prostate revealed a healing prostatic bed with mild hyperplastic tissue, but no emily obstruction. There were grade 1 to 2 trabeculations noted in the bladder. There were no foreign bodies noted in the bladder. His sphincter activity appeared to be normal. The ureteral orifices were in normal anatomic position and produced clear efflux. There were no mucosal lesions identified. The flexible cystoscope was then removed and anesthesia was reversed. The patient was taken to the postanesthesia care unit in good condition. Of note, the needle and instrument counts were correct at the conclusion of the case. Job#: [id number]
== END 2018-04-16 18:20 | disposition home health service (06) | DRG 871 ==
LOC: ER 08:09 → ERHOLD 09:32 → MED/SURG3 10:42 → OBSVTOIN 04-10 14:44
PROVIDERS: ADMIT Internal Medicine; ATTEND Internal Medicine
PROC: 0TJB8ZZ Inspection of Bladder, Via Natural or Artificial Opening Endoscopic (ICD-10-PCS; principal; 2018-04-12 12:32)
DX: A41.89 Other specified sepsis (principal); J69.0 Pneumonitis due to inhalation of food and vomit; G80.9 Cerebral palsy, unspecified; R62.50 Unspecified lack of expected normal physiological development in childhood; G62.9 Polyneuropathy, unspecified; Z86.718 Personal history of other venous thrombosis and embolism; Z79.01 Long term (current) use of anticoagulants; R25.1 Tremor, unspecified; R13.10 Dysphagia, unspecified; E86.0 Dehydration; I48.91 Unspecified atrial fibrillation; K21.9 Gastro-esophageal reflux disease without esophagitis; N40.1 Benign prostatic hyperplasia with lower urinary tract symptoms; N32.81 Overactive bladder
CPT/HCPCS: 36415; 70551; 71045; 80053; 81001; 82550; 82553; 82607; 83605; 83735; 83880; 84436; 84443; 84479; 84484; 85025; 85379; 85610; 86592; 87040; 87071; 87086; 87205; 93005; 96367; 97139; 99284; G0378; J2001; J2250; J2543; J7030; J7050

== ENCOUNTER → 2018-06-22 | Outpatient (CLI) | payer MEDICARE ==
[~2018-06-22] MED LIST changes: +CYANOCOBALAMIN INJ; +DETROL LA4 MG PO; +DIAZEPAM5 MG PO; +MULTI-VITAMIN1 EACH PO; +MYRBETRIQ50 MG PO
--- NOTE | 2018-06-22 16:19 | Diagnostic Imaging Report ---
Exam: Head CT without contrast History: Trauma, headache Comparison studies: Brain MRIs of 04/11/2018 and 11/14/2016 Technique: Axial images were obtained from the skull base to the vertex. Coronal and sagittal images reconstructed from the axial data. Dose modulation, iterative reconstruction, and/or weight based adjustment of the mA/kV was utilized to reduce the radiation dose to as low as reasonably achievable. Radiation dose: Total DLP: 921 mGy*cm. Estimated effective dose: DLP x 0.015 Intravenous contrast: None Findings: Scalp: No abnormalities. Bones: No fractures, blastic or lytic lesions. Brain sulci: Appropriate for patient's age. Ventricles: Mild compensatory dilatation. No hydrocephalus.. Extra-axial spaces: No masses, no fluid collection. Parenchyma: No mass, acute hemorrhage or acute or chronic cortical insults. No abnormal densities are identified. Signal changes in the supratentorial white matter, along the hippocampi and in the right amygdala as seen on the prior MRIs MRIs are beyond resolution of CT imaging. Sellar/suprasellar region: No abnormalities. Craniocervical junction: Patent foramen magnum. No Chiari one malformation. Incidental findings: Atherosclerotic calcifications in the carotid siphons. Incidental finds: Nonspecific inflammatory mucosal thickening in the bilateral sphenoid sinuses and partially imaged right maxillary sinus. IMPRESSION: No acute abnormalities. Signed by: Dr. Rigoberto Butler M.D. on 06/22/2018 4:16 PM
== END ==
LOC: CT 14:52
PROVIDERS: ATTEND Internal Medicine
DX: S09.90XA Unspecified injury of head, initial encounter (principal)
CPT/HCPCS: 70450

== ENCOUNTER 2018-06-29 10:45 | Inpatient (IN) | payer MEDICARE ==
[~2018-06-29] VITALS: Ht 172.7 cm; Wt 87.3 kg
[~2018-06-29 10:45] MED LIST changes: -DETROL LA4 MG PO; -DIAZEPAM5 MG PO; -MULTI-VITAMIN1 EACH PO; -MYRBETRIQ50 MG PO
[2018-06-29] MEDS ORDERED: MULTI-VITAMIN1 EACH PO (11:08)
[2018-06-29] MEDS ORDERED: DIAZEPAM5 MG PO (11:08)
[2018-06-29] MEDS ORDERED: DETROL LA4 MG PO (11:08)
[2018-06-29] MEDS ORDERED: MYRBETRIQ50 MG PO (11:08)
[2018-06-29 11:39] LABS: BASOPHILS % 0.6 % (0.0-1.0); EOSINOPHILS # (AUTO) 0.1 (0.0-0.4); EOSINOPHILS % 1.1 % (0.0-6.0); HEMATOCRIT 40.6 % (38.2-49.6); HEMOGLOBIN 13.2 g/dL (14.0-18.0); LYMPHOCYTES # (AUTO) 1.9 (1.0-3.2); LYMPHOCYTES % 28.1 % (18.0-39.1); MEAN CORPUSCULAR HEMOGLOBIN 30.2 pg (28-32); MEAN CORPUSCULAR HGB CONC 32.5 g/dL (31-35); MEAN CORPUSCULAR VOLUME 92.9 fL (81-99); MONOCYTES # (AUTO) 0.4 (0.2-0.8); MONOCYTES % 6.5 % (4.4-11.3); NEUTROPHILS # (AUTO) 4.2 (2.1-6.9); NEUTROPHILS % 63.5 % (38.7-80.0); PLATELET COUNT 101 x10e3/uL (140-360); RED BLOOD COUNT 4.37 x10e6/uL (4.3-5.7); RED CELL DISTRIBUTION WIDTH 15.6 % (11.7-14.4)
[2018-06-29 11:44] LABS: BILIRUBIN,URINE NEGATIVE (NEGATIVE); CLARITY,URINE SL CLOUDY (CLEAR); COLOR,URINE YELLOW (YELLOW); KETONES,URINE NEGATIVE (NEGATIVE); LEUKOCYTE ESTERASE ,URINE NEGATIVE (NEGATIVE); NITRITE,URINE NEGATIVE (NEGATIVE); PROTEIN,URINE DIPSTICK NEGATIVE (NEGATIVE); URINE UROBILINOGEN 0.2 mg/dL (0.2 - 1)
[2018-06-29 11:47] LABS: INR 1.65; PROTHROMBIN TIME 20.9 seconds (11.9-14.5)
[2018-06-29 11:48] LABS: PARTIAL THROMBOPLASTIN TIME 34.7 seconds (23.8-35.5)
[2018-06-29 11:55] LABS: BACTERIA,URINE FEW /HPF; EPITHELIAL CELLS,URINE MODERATE /LPF; RBC,URINE 0-5 /HPF (0-5)
[2018-06-29 11:56] LABS: ALANINE AMINOTRANSFERASE 25 IU/L (0-55); ALBUMIN 3.3 g/dL (3.5-5.0); ALBUMIN/GLOBULIN RATIO 1.1 (0.8-2.0); ALKALINE PHOSPHATASE 91 IU/L (40-150); ANION GAP 13.3 mmol/L (8-16); BLOOD UREA NITROGEN 22 mg/dL (7-26); BUN/CREATININE RATIO 20 (6-25); CALCIUM 8.9 mg/dL (8.4-10.2); CARBON DIOXIDE 29 mmol/L (22-29); CHLORIDE 104 mmol/L (98-107); CREATINE KINASE 204 IU/L (30-200); CREATININE, SERUM 1.11 mg/dL (0.72-1.25); EST GLOMERULAR FILTRATION RATE > 60 ML/MIN (60-); GLUCOSE 99 mg/dL (74-118); MAGNESIUM 2.1 MG/DL (1.3-2.1); POTASSIUM 4.3 mmol/L (3.5-5.1); SODIUM 142 mmol/L (136-145)
[2018-06-29] MEDS ORDERED: ALBUTEROL/IPRATROPIUM 3 ML NEB NEB ONE (12:00)
[2018-06-29] MEDS ORDERED: ONDANSETRON HCL INJ 2 MG/ML VIAL IV PRN (13:30)
[2018-06-29] MEDS ORDERED: ASPIRIN 81 MG CHEW TAB PO ONE (13:30)
--- NOTE | 2018-06-29 13:47 | Diagnostic Imaging Report ---
EXAM: XR CHEST 1 VIEW DATE: 06/29/2018 11:19 AM INDICATION: Pneumonia COMPARISON: None FINDINGS: Lines and Tubes: None Heart and Mediastinum: Prominent, likely due to portable technique and lung volumes. Lungs and Pleura: Minimal bibasilar opacities. Bones and Soft Tissues: No acute findings. IMPRESSION: 1. Minimal opacities in the lung bases could represent atelectasis or pneumonia. Signed by: Dr. Porfirio Gu MD on 06/29/2018 1:44 PM
[2018-06-29 15:00] VITALS: BP 139/66
[2018-06-29] MEDS: SODIUM CHLORIDE 0.9% 1000ML 1,000 ML IV SCH (15:30)
[2018-06-29 16:23] VITALS: BP 139/66
[2018-06-29] MEDS: AZITHROMYCIN 500MG/NS 250 ML 250 ML IV SCH (16:53)
[2018-06-29 20:11] LABS: CREATINE KINASE 171 IU/L (30-200)
[2018-06-29 20:14] VITALS: BP 114/59
[2018-06-29 21:00] VITALS: BP 114/59
[2018-06-29] MEDS: GABAPENTIN 300 MG CAP PO SCH (23:52)
[2018-06-29] MEDS: DONEPEZIL HCL 5 MG TAB PO SCH (23:52)
[2018-06-30] VITALS (7 sets, daily range): BP systolic 109–126; BP diastolic 56–70
[2018-06-30] MEDS: SODIUM CHLORIDE 0.9% 1000ML 1,000 ML IV SCH ×2 (04:51→16:08)
--- NOTE | 2018-06-30 05:51 | Diagnostic Imaging Report ---
CHEST SINGLE (PORTABLE), 06/30/2018 7:00 AM Technique: CHEST SINGLE (PORTABLE) Comparison: Previous day Clinical history: Weakness Findings: See Impression. Chronic right AC joint injury. Impression: 1. Stable cardiomediastinal silhouette. 2. Unchanged mild bibasilar opacities which may reflect atelectasis or aspiration/infection. 3. No effusion or pneumothorax. Signed by: Dr Lilo Donnelly MD on 06/30/2018 5:47 AM
[2018-06-30 06:11] LABS: BASOPHILS % 0.6 % (0.0-1.0); EOSINOPHILS # (AUTO) 0.1 (0.0-0.4); EOSINOPHILS % 1.5 % (0.0-6.0); HEMOGLOBIN 12.6 g/dL (14.0-18.0); LYMPHOCYTES # (AUTO) 2.1 (1.0-3.2); LYMPHOCYTES % 39.3 % (18.0-39.1); MEAN CORPUSCULAR HEMOGLOBIN 30.7 pg (28-32); MEAN CORPUSCULAR HGB CONC 33.2 g/dL (31-35); MEAN CORPUSCULAR VOLUME 92.5 fL (81-99); MONOCYTES # (AUTO) 0.4 (0.2-0.8); MONOCYTES % 7.6 % (4.4-11.3); NEUTROPHILS # (AUTO) 2.8 (2.1-6.9); NEUTROPHILS % 50.8 % (38.7-80.0); PLATELET COUNT 94 x10e3/uL (140-360); RED BLOOD COUNT 4.11 x10e6/uL (4.3-5.7); RED CELL DISTRIBUTION WIDTH 15.1 % (11.7-14.4)
[2018-06-30 07:05] LABS: ANION GAP 12.9 mmol/L (8-16); BLOOD UREA NITROGEN 18 mg/dL (7-26); BUN/CREATININE RATIO 18 (6-25); CALCIUM 8.3 mg/dL (8.4-10.2); CARBON DIOXIDE 25 mmol/L (22-29); CHLORIDE 107 mmol/L (98-107); CREATININE, SERUM 1.01 mg/dL (0.72-1.25); EST GLOMERULAR FILTRATION RATE > 60 ML/MIN (60-); GLUCOSE 87 mg/dL (74-118); MAGNESIUM 1.8 MG/DL (1.3-2.1); POTASSIUM 3.9 mmol/L (3.5-5.1); SODIUM 141 mmol/L (136-145)
[2018-06-30 07:11] LABS: CREATINE KINASE MB 0.8 ng/mL (0-5.0)
[2018-06-30] MEDS: OMEGA 3 POLYUNSAT FATTY ACIDS 1000 MG SOFTGEL PO SCH (09:00)
[2018-06-30] MEDS: GABAPENTIN 300 MG CAP PO SCH ×3 (09:00→21:05)
[2018-06-30] MEDS ORDERED: NON-FORMULARY MEDICATION (Mirabegron (Myrbetriq) 50 MG) PO SCH (09:00)
[2018-06-30] MEDS ORDERED: TOLTERODINE TARTRATE 4 MG CAPCR PO SCH (09:00)
[2018-06-30] MEDS: MULTIVITAMINS/MINERALS TAB PO SCH (09:00)
[2018-06-30] MEDS: PANTOPRAZOLE SOD 40 MG TABEC PO SCH (09:00)
[2018-06-30] MEDS: DIAZEPAM 5 MG TAB PO SCH (09:00)
[2018-06-30] MEDS ORDERED: ACETAMINOPHEN 325 MG TAB PO PRN (09:15)
[2018-06-30 11:15] LABS: INR 1.68; PROTHROMBIN TIME 21.1 seconds (11.9-14.5)
[2018-06-30] MEDS: AZITHROMYCIN 500MG/NS 250 ML 250 ML IV SCH (15:45)
[2018-06-30] MEDS: WARFARIN SOD 5 MG TAB PO SCH (16:25)
[2018-06-30] MEDS: DONEPEZIL HCL 5 MG TAB PO SCH (21:05)
[2018-07-01] VITALS (8 sets, daily range): BP systolic 115–142; BP diastolic 58–64
--- NOTE | 2018-07-01 01:01 | Consultation ---
DATE OF CONSULTATION: June 30, 2018 HISTORY OF PRESENT ILLNESS: Mr. Dawson is a 73-year-old left-hand dominant man with past medical history significant for cerebral palsy, moderate developmental delay with superimposed dementia, probably of the Alzheimer's type, peripheral neuropathy, dysphagia, multiple hospitalizations for aspiration pneumonia, and multiple prior deep venous thromboses, admitted to [facility] on June 29, 2018 with generalized weakness. A neurology consultation is requested for headache and confusion. Mr. Dawson endorses a headache which is described as follows: The pain is located over the occiput and does not radiate. The pain is described as a deep dull pain and is moderate in severity. The patient does not report other symptoms associated with the headache. Specifically, he does not endorse photophobia, phonophobia, nausea, vomiting, dizziness, aura, or visual disturbance associated with the headache. Mr. Dawson does not report neck pain or stiffness. He does not endorse fever or chills. The patient does not have a prior history of headaches. The above described headache has been present for approximately 2 weeks. Mr. Dawson has not taken any medications, including bxsu-alw-bosideb analgesics, to alleviate his headache. According to the patient's nurse, there has been no mention by family members or the attending physician, Dr. Boy Hein, regarding worsened confusion. However, during the course of the day, the patient has been noted to be confused by his nurse as well as other medical staff. There are no family members available at present, so further details regarding possible worsening confusion cannot be obtained. REVIEW OF SYSTEMS: Confusion, headache, dysphagia, generalized weakness, shortness of breath, cough, numbness of the feet, impairment of gait and balance, tremor. Otherwise, a 12-point review of systems is negative. PAST MEDICAL HISTORY: Multiple occurrences of aspiration pneumonia, dysphagia, cerebral palsy, moderate developmental delay, dementia probably of the Alzheimer's type, urinary incontinence, peripheral neuropathy, multiple prior deep venous thromboses. PAST SURGICAL HISTORY: Tonsillectomy, urological procedure, cystoscopy. PAST HOSPITALIZATIONS: Surgeries/procedures as listed. Multiple hospitalizations for aspiration pneumonia secondary to dysphagia, urinary tract infections, and deep venous thromboses. FAMILY MEDICAL HISTORY: The patient's paternal and maternal grandparents are . Their medical histories are unknown. The patient's father is . He had hypertension, diabetes mellitus, and coronary artery disease. The patient's mother is . She had hypertension and coronary artery disease. Mr. Dawson has 4 siblings, 3 brothers and 1 sister. One brother is from cancer. One brother is alive, but had to undergo a surgical procedure for fluid on the brain. Another brother is alive and has diabetes mellitus and coronary artery disease. The patient's sister is alive and has hyperlipidemia. Mr. Dawson has no biological children. SOCIAL HISTORY: The patient is single. He is retired. The patient does not report current or prior tobacco, alcohol, or recreational drug use. HOME MEDICATIONS: Please see the list of home medications available in the electronic medical record. ALLERGIES: CODEINE. NO KNOWN FOOD ALLERGIES. NO KNOWN ALLERGIES TO LATEX. NO KNOWN ALLERGIES TO IODINE OR OTHER CONTRAST MATERIALS. PHYSICAL EXAMINATION: VITAL SIGNS: Height 66 inches, weight 159 pounds, BMI 25.7 kg/m2, blood pressure 102/58 mmHg, pulse 67 beats per minute, respiratory rate 18 breaths per minute, and oxygen saturation 90% on 2 liters by nasal cannula. GENERAL: The patient is awake and alert, does not appear distressed. HEENT: Normocephalic, atraumatic. Pupils are pinpoint. Moist mucous membranes. NECK: Supple. Negative Kernig's and Brudzinski's. No appreciable thyromegaly. No appreciable carotid bruits. CARDIOVASCULAR: S1, S2. Regular rate and rhythm. No murmurs, rubs, or gallops. RESPIRATORY: Faint rhonchi and diminished air movement at the bases bilaterally. No wheezing or rales. EXTREMITIES: The skin is warm and dry. No clubbing or cyanosis. Positive trace pretibial pitting edema. The posterior tibial and dorsalis pedis pulses are 2+ and symmetric. SKIN: No rashes or lesions. NEUROLOGIC MEMORY/ATTENTION: The patient is awake and alert, oriented to person, place (hospital, city, county, state), time (year only), and situation. CRANIAL NERVES: Cranial nerve I-not tested. Cranial nerves II, III, IV, and -pupils are pinpoint. Extraocular movements are intact. No nystagmus. Cranial nerve V-sensation to light touch is intact in the bilateral V1 through V3 distributions. Strength of the temporalis and masseter muscles is within normal limits. Cranial nerve VII-the face is symmetric as are all facial movements. Strength is within normal limits. Cranial nerve VIII-hearing is diminished to finger rub bilaterally. Cranial nerves IX, X-the soft palate elevates equally and symmetrically. Cranial nerve XI-normal strength of the bilateral sternocleidomastoid and trapezius muscles. Cranial nerve XII-the tongue protrudes midline and moves symmetrically from yppx-ji-wwmd. STRENGTH: Bulk is normal. Strength is 5/5 in the bilateral deltoids, biceps, triceps, wrist flexors and extensors, finger flexors and extensors, intrinsic hand muscles, hip flexors, knee flexors and extensors, ankle dorsiflexion and plantarflexion, and intrinsic foot muscles. Tone is normal. DTRs: Deep tendon reflexes are 2+ at the right triceps, biceps, brachioradialis, bilateral patellas, and bilateral Achilles. Deep tendon reflexes are 3+ at the left triceps, biceps, and brachioradialis. Plantar responses are flexor bilaterally. SENSATION: Sensation is intact to light touch in both arms and both legs. CEREBELLAR: There is an intention tremor of the left hand with myvqwk-vtut-vthchl movements. Otherwise, the oletbs-nimr-kbvevn and heel-wei movements are intact without dysmetria or other impairment. GAIT: Deferred. SPEECH: Spontaneous speech is very mildly dysarthric without aphasia. Repetition is intact. INVOLUNTARY MOVEMENTS: There is a high-frequency, low-amplitude tremor noted in both hands, right greater than left, as seen with sustention. PRONATOR DRIFT: None. LABORATORY DATA: The most recent basic metabolic panel is unremarkable. A liver function panel collected on June 29, 2018 revealed mildly elevated AST of 36. Creatine kinase 204, 171, 127. CK-MB 1.60, 1.30, and 0.80. Troponin I less than 0.001, less than 0.001, 0.011. B-natriuretic peptide 85.3. The CBC with differential and platelets reveals a white blood cell count of 5.40 with 50.8% neutrophils, 39.3% lymphocytes, 7.6% monocytes, 1.5% eosinophils, and 0.6% basophils. The hemoglobin and hematocrit are 12.6 and 38.0, respectively. The platelet count is 94. PT 21.1. INR 1.68. Urinalysis revealed slightly cloudy urine, but was otherwise unremarkable. DIAGNOSTIC STUDIES: Chest x-ray on June 29, 2018: Minimal opacities in the lung bases could represent atelectasis or pneumonia. Chest x-ray on June 30, 2018: 1. Stable cardiomediastinal silhouette. 2. Unchanged mild bibasilar opacities, which may reflect atelectasis or aspiration/infection. 3. No effusion or pneumothorax. ASSESSMENT AND PLAN: Mr. Dawson is a 73-year-old left-hand dominant man with past medical history as detailed, including zkfb-fh-uvflfisq developmental delay with superimposed dementia, probably of the Alzheimer's type, admitted to [facility] on June 29, 2018 with generalized weakness. The patient's neurological examination is significant for disorientation to time, brisk deep tendon reflexes over the left arm, and a high-frequency, low-amplitude action tremor which is noted with sustention as well as rizmae-hyky-txdnfp movements of the right arm. The patient's laboratory data and other diagnostic studies have been reviewed and are documented above. Mr. Dawson has been seen on numerous occasions as an outpatient for treatment of dementia, probably of the Alzheimer's type. Based on his most recent outpatient assessment, when comparing his present assessment with his most recent outpatient assessment, there does not appear to be significant worsening of his confusion. The patient is disoriented to time. This is likely due to the underlying infectious illness and will improve with continued treatment. As regards to the patient's headache, it appears Mr. Dawson is experiencing probable tension-type headaches. There are no vascular symptoms suggestive of migraine. The patient does not report fever, chills, neck pain or stiffness. He has not been febrile while in the hospital. His neurological examination reveals no evidence of meningismus. Therefore, there is a low suspicion for meningitis as the source of his headache and worsening confusion. RECOMMENDATIONS: As follows: 1. Encephalopathy: Continue donepezil 10 mg by mouth at bedtime daily for treatment of the patient's dementia, probably of the Alzheimer's type. Continue treatment with antibiotics for pneumonia. Limit sedative/hypnotic and pain medications as these will alter the patient's sensorium. Utilize environmental cues to limit delirium. 2. Headache-treatment with Tylenol 650 mg by mouth every 6 hours as needed for pain will be prescribed. A repeat assessment will be performed in 24 hours. If the patient's headache has not responded to treatment with Tylenol, other treatments will be recommended. 3. Benign essential tremor-continue the patient's home medication of propranolol. 4. Defer treatment of the remaining medical comorbidities to the primary and other services following the patient. Thank you for this consultation. I will continue to follow the patient while he remains in the hospital. TIME SPENT: 70 minutes. Job#: [id number] JOSTINU CRISS
[2018-07-01] MEDS: SODIUM CHLORIDE 0.9% 1000ML 1,000 ML IV SCH ×2 (05:28→21:13)
[2018-07-01] MEDS: MULTIVITAMINS/MINERALS TAB PO SCH (08:36)
[2018-07-01] MEDS: DIAZEPAM 5 MG TAB PO SCH (08:36)
[2018-07-01] MEDS: PANTOPRAZOLE SOD 40 MG TABEC PO SCH (08:36)
[2018-07-01] MEDS: GABAPENTIN 300 MG CAP PO SCH ×3 (08:36→21:00)
[2018-07-01] MEDS: OMEGA 3 POLYUNSAT FATTY ACIDS 1000 MG SOFTGEL PO SCH (08:36)
[2018-07-01] MEDS: ACETAMINOPHEN 325 MG TAB PO PRN ×2 (12:55→21:00)
[2018-07-01] MEDS: WARFARIN SOD 5 MG TAB PO SCH (16:00)
[2018-07-01] MEDS: AZITHROMYCIN 500MG/NS 250 ML 250 ML IV SCH (16:33)
[2018-07-01] MEDS: DONEPEZIL HCL 5 MG TAB PO SCH (21:00)
[2018-07-02] VITALS (8 sets, daily range): BP systolic 117–139; BP diastolic 61–83
[2018-07-02] MEDS: SODIUM CHLORIDE 0.9% 1000ML 1,000 ML IV SCH ×2 (09:34→21:18)
[2018-07-02] MEDS: DIAZEPAM 5 MG TAB PO SCH (09:34)
[2018-07-02] MEDS: MULTIVITAMINS/MINERALS TAB PO SCH (09:34)
[2018-07-02] MEDS: PANTOPRAZOLE SOD 40 MG TABEC PO SCH (09:34)
[2018-07-02] MEDS: GABAPENTIN 300 MG CAP PO SCH ×3 (09:34→21:18)
[2018-07-02] MEDS: OMEGA 3 POLYUNSAT FATTY ACIDS 1000 MG SOFTGEL PO SCH (09:34)
[2018-07-02] MEDS: AZITHROMYCIN 500MG/NS 250 ML 250 ML IV SCH (15:41)
[2018-07-02] MEDS: WARFARIN SOD 5 MG TAB PO SCH (17:30)
[2018-07-02] MEDS: DONEPEZIL HCL 5 MG TAB PO SCH (21:18)
[2018-07-03] VITALS (8 sets, daily range): BP systolic 111–132; BP diastolic 58–70
[2018-07-03] MEDS: MULTIVITAMINS/MINERALS TAB PO SCH (09:49)
[2018-07-03] MEDS: GABAPENTIN 300 MG CAP PO SCH ×3 (09:49→20:21)
[2018-07-03] MEDS: DIAZEPAM 5 MG TAB PO SCH (09:49)
[2018-07-03] MEDS: PANTOPRAZOLE SOD 40 MG TABEC PO SCH (09:49)
[2018-07-03] MEDS: OMEGA 3 POLYUNSAT FATTY ACIDS 1000 MG SOFTGEL PO SCH (09:49)
[2018-07-03] MEDS: SODIUM CHLORIDE 0.9% 1000ML 1,000 ML IV SCH ×2 (11:31→22:58)
[2018-07-03] MEDS: WARFARIN SOD 5 MG TAB PO SCH (16:29)
[2018-07-03] MEDS: AZITHROMYCIN 500MG/NS 250 ML 250 ML IV SCH (16:29)
[2018-07-03] MEDS: DONEPEZIL HCL 5 MG TAB PO SCH (20:21)
[2018-07-04] VITALS (7 sets, daily range): BP systolic 101–134; BP diastolic 53–63
[2018-07-04] MEDS: MULTIVITAMINS/MINERALS TAB PO SCH (09:25)
[2018-07-04] MEDS: GABAPENTIN 300 MG CAP PO SCH ×3 (09:25→21:12)
[2018-07-04] MEDS: OMEGA 3 POLYUNSAT FATTY ACIDS 1000 MG SOFTGEL PO SCH (09:25)
[2018-07-04] MEDS: PANTOPRAZOLE SOD 40 MG TABEC PO SCH (09:25)
[2018-07-04] MEDS: DIAZEPAM 5 MG TAB PO SCH (09:25)
[2018-07-04] MEDS: SODIUM CHLORIDE 0.9% 1000ML 1,000 ML IV SCH (14:00)
[2018-07-04] MEDS: AZITHROMYCIN 500MG/NS 250 ML 250 ML IV SCH (16:14)
[2018-07-04] MEDS: WARFARIN SOD 5 MG TAB PO SCH (16:14)
--- NOTE | 2018-07-04 18:07 | Consultation ---
DATE OF CONSULTATION: July 04, [address] Hein for asking me to see Mr. Dawson in consultation. REASON FOR CONSULTATION 1. Debility. 2. Patient with some dementia. 3. Impaired gait and immobility. HISTORY: The patient is a 73-year-old gentleman who has some developmental deficits. The patient is a 73-year-old male with a history of cerebral palsy, developmental delay, some dementia, peripheral neuropathy, dysphagia, came to the hospital multiple times. The patient was admitted for generalized weakness. He was seen by Dr. Brittany Whitman in neurologic consultation. Has some headaches in the recent past. The patient's confusion worsened. He was diagnosed with Alzheimer dementia, as well as encephalopathy. I am being asked to evaluate to rehab needs. PAST MEDICAL HISTORY: Includes a history of aspiration pneumonia, dysphagia, cerebral palsy, dementia, urinary incontinence, peripheral neuropathy, and DVT. PAST SURGICAL HISTORY: Tonsillectomy, urological procedure, cystoscopy. FAMILY HISTORY: Father had hypertension and diabetes. Mother is . Had hypertension. SOCIAL HISTORY: Lives over at [facility]. Was ambulatory. HABITS: Nonsmoker and nondrinker. ALLERGIES: CODEINE. LABS: White cell count was 5.4, hemoglobin 12.6, hematocrit 38, and platelets of 94,000. Blood sugar 102. Chest x-ray showed stable cardiomediastinal silhouette. PHYSICAL EXAMINATION GENERAL: The patient is awake and alert. Speech impediment noted. Slow speech. HEENT: Eyes: Gaze conjugant. NECK: Supple. HEART: Regular. LUNGS: Diminished breath sounds. ABDOMEN: Nontender and nondistended. EXTREMITIES: Active movement to manual muscle testing. He is actually pretty sharp in all arms and legs bilaterally without focal deficits. He does have psychomotor retardation. Does not really move very fast. Walked 150 feet with assistance, but gait pattern was slow and increased right foot pronation. IMPRESSION 1. Debilitation. 2. Alzheimer dementia. 3. Developmental delay. 4. Cerebral palsy. 5. The patient with aspiration pneumonia. PLAN: Would make a good inpatient rehab candidate. He lives at home, i.e., [facility], but with the level of therapy he needs, might be better if he went to inpatient rehab. Will follow along with you and work on transfer to rehab. Thank you once again, Dr. Hein, for allowing me to participate in the care of this pleasant, but unfortunate patient. Job#: [id number] ASPEN
[2018-07-04] MEDS: DONEPEZIL HCL 5 MG TAB PO SCH (21:12)
[2018-07-05] VITALS (7 sets, daily range): BP systolic 105–122; BP diastolic 57–78
--- NOTE | 2018-07-05 08:06 | Progress Note ---
DATE: July 05, 2018 Mr. Dawson was seen on rounds today. He is sleepy, but easily arousable. No apparent distress. No complaints. PHYSICAL EXAMINATION GENERAL: Awake and alert. VITALS: His oral intake seems to be pretty adequate. Temperature 96.8, respirations of 17, heart rate 63, blood pressure 118/57. HEART: Regular. LUNGS: Fair air entry. ABDOMEN: Nontender and nondistended. NECK: No JVD at this time. The patient is more alert. He wants to go to inpatient rehab if possible. . Overall, he is doing better today. No report of new problems over the night. Work on transfer to inpatient rehab. Job#: [id number] ASPEN
[2018-07-05] MEDS: GABAPENTIN 300 MG CAP PO SCH ×3 (08:46→21:00)
[2018-07-05] MEDS: PANTOPRAZOLE SOD 40 MG TABEC PO SCH (08:46)
[2018-07-05] MEDS: OMEGA 3 POLYUNSAT FATTY ACIDS 1000 MG SOFTGEL PO SCH (08:46)
[2018-07-05] MEDS: MULTIVITAMINS/MINERALS TAB PO SCH (08:46)
[2018-07-05] MEDS: DIAZEPAM 5 MG TAB PO SCH (08:48)
[2018-07-05 12:49] LABS: INR 1.96; PROTHROMBIN TIME 23.9 seconds (11.9-14.5)
[2018-07-05] MEDS: AZITHROMYCIN 500MG/NS 250 ML 250 ML IV SCH (15:43)
[2018-07-05] MEDS: SODIUM CHLORIDE 0.9% 1000ML 1,000 ML IV SCH (16:08)
[2018-07-05] MEDS: WARFARIN SOD 5 MG TAB PO SCH (16:54)
[2018-07-05] MEDS: DONEPEZIL HCL 5 MG TAB PO SCH (21:00)
[2018-07-06 01:12] VITALS: BP 117/56
[2018-07-06 06:38] VITALS: BP 132/71
[2018-07-06 08:00] VITALS: BP 132/71
[2018-07-06 08:45] VITALS: BP 133/72
[2018-07-06] MEDS: GABAPENTIN 300 MG CAP PO SCH ×2 (09:00→15:00)
[2018-07-06] MEDS: OMEGA 3 POLYUNSAT FATTY ACIDS 1000 MG SOFTGEL PO SCH (09:00)
[2018-07-06] MEDS: DIAZEPAM 5 MG TAB PO SCH (09:00)
[2018-07-06] MEDS: PANTOPRAZOLE SOD 40 MG TABEC PO SCH (09:00)
[2018-07-06] MEDS: MULTIVITAMINS/MINERALS TAB PO SCH (09:00)
[2018-07-06 13:23] VITALS: BP 125/73
[2018-07-06] MEDS: SODIUM CHLORIDE 0.9% 1000ML 1,000 ML IV SCH (13:38)
[2018-07-06 16:40] VITALS: BP 106/55
[2018-07-06] MEDS: WARFARIN SOD 5 MG TAB PO SCH (16:52)
== END 2018-07-06 16:55 | disposition home or self-care (01) | DRG 178 ==
LOC: ER 10:45 → ERHOLD 13:39 → MED/SURG2 15:39 → OBSVTOIN 07-02 11:59
PROVIDERS: ADMIT Internal Medicine; ATTEND Internal Medicine
DX: J69.0 Pneumonitis due to inhalation of food and vomit (principal); G93.49 Other encephalopathy; G44.209 Tension-type headache, unspecified, not intractable; G30.9 Alzheimer's disease, unspecified; F02.80 Dementia in other diseases classified elsewhere, unspecified severity, without behavioral disturbance, psychotic disturbance, mood disturbance, and anxiety; G80.9 Cerebral palsy, unspecified; F79 Unspecified intellectual disabilities; G62.9 Polyneuropathy, unspecified; R13.10 Dysphagia, unspecified; Z86.718 Personal history of other venous thrombosis and embolism; N40.0 Benign prostatic hyperplasia without lower urinary tract symptoms; R53.81 Other malaise; K21.9 Gastro-esophageal reflux disease without esophagitis; R53.1 Weakness; G25.0 Essential tremor; R26.9 Unspecified abnormalities of gait and mobility; Z88.5 Allergy status to narcotic agent; Z79.01 Long term (current) use of anticoagulants; R47.1 Dysarthria and anarthria
CPT/HCPCS: 36415; 71045; 80048; 80053; 81001; 82550; 82553; 82948; 83735; 83880; 84484; 85025; 85610; 85730; 87086; 93005; 94640; 96361; 97139; 99284; G0378; J0456; J7030

== ENCOUNTER 2018-09-29 15:23 | Inpatient (IN) | payer MEDICARE ==
[~2018-09-29] VITALS: Ht 172.7 cm; Wt 75.5 kg
[~2018-09-29 15:23] MED LIST changes: +DETROL LA4 MG PO; +DIAZEPAM5 MG PO; +MULTI-VITAMIN1 EACH PO; +MYRBETRIQ50 MG PO
[2018-09-29] MEDS ORDERED: SODIUM CHLORIDE 0.9% 1000ML 1,000 ML IV STA (17:18)
--- NOTE | 2018-09-29 17:24 | NUR ---
RT NOTIFIED FOR DUONEB TX FOR PT.
[2018-09-29] MEDS ORDERED: PANTOPRAZOLE 40 MG 10ML VIAL IV NR (17:30)
[2018-09-29] MEDS ORDERED: ALBUTEROL/IPRATROPIUM 3 ML NEB NEB ONE (17:30)
[2018-09-29 18:43] LABS: BASOPHILS % 0.4 % (0.0-1.0); EOSINOPHILS # (AUTO) 0.1 (0.0-0.4); EOSINOPHILS % 0.8 % (0.0-6.0); HEMATOCRIT 43.2 % (38.2-49.6); HEMOGLOBIN 13.8 g/dL (14.0-18.0); LYMPHOCYTES # (AUTO) 1.7 (1.0-3.2); LYMPHOCYTES % 17.2 % (18.0-39.1); MEAN CORPUSCULAR HEMOGLOBIN 30.9 pg (28-32); MEAN CORPUSCULAR HGB CONC 31.9 g/dL (31-35); MEAN CORPUSCULAR VOLUME 96.6 fL (81-99); MONOCYTES # (AUTO) 0.4 (0.2-0.8); MONOCYTES % 4.2 % (4.4-11.3); NEUTROPHILS # (AUTO) 7.5 (2.1-6.9); NEUTROPHILS % 77.2 % (38.7-80.0); PLATELET COUNT 106 x10e3/uL (140-360); RED BLOOD COUNT 4.47 x10e6/uL (4.3-5.7)
--- NOTE | 2018-09-29 18:49 | Diagnostic Imaging Report ---
EXAMINATION: CHEST SINGLE (PORTABLE) COMPARISON: Chest x-ray 06/30/2018 INDICATION: ^LIKELY ASPIRATION PNEUMONIA, COUGH ^[id number] ^[id number] DISCUSSION: Frontal view of the chest obtained at 1817 hours. HEART AND MEDIASTINUM: Stable aortic ectasia and prominence of the hilar vessels. LINES: None. LUNGS: Low lung volumes with bibasilar airspace opacities suggestive atelectasis or small infiltrates. Mild eventration of the right diaphragm. PLEURA: No pleural effusion or pneumothorax. BONES AND SOFT TISSUES: Chronic right AC joint separation is stable. The soft tissues are normal. IMPRESSION: 1. Low lung volumes and bibasilar airspace opacities, either atelectasis or pneumonia. 2. Prominent hilar vessels may be the result of low lung volumes but a component of pulmonary artery hypertension cannot be excluded. Signed by: Dr. Paola Lackey MD on 09/29/2018 6:46 PM
[2018-09-29 18:57] LABS: INR 0.88; PARTIAL THROMBOPLASTIN TIME 29.3 seconds (23.8-35.5); PROTHROMBIN TIME 12.4 seconds (11.9-14.5)
[2018-09-29] MEDS ORDERED: ALBUTEROL/IPRATROPIUM 3 ML NEB NEB SCH (19:00)
[2018-09-29 19:05] LABS: ALBUMIN 3.1 g/dL (3.5-5.0); CREATININE, SERUM 1.2 mg/dL (0.72-1.25); MAGNESIUM 2.1 MG/DL (1.3-2.1)
[2018-09-29 19:14] LABS: CREATINE KINASE MB 0.7 ng/mL (0-5.0)
[2018-09-29] MEDS ORDERED: SODIUM CHLORIDE 0.9% 1000ML 1,000 ML IV ONE (19:15)
[2018-09-29] MEDS ORDERED: AZITHROMYCIN 500MG/NS 250 ML 250 ML IV SCH (19:15)
[2018-09-29 19:19] LABS: B-TYPE NATRIURETIC PEPTIDE2 55.4 pg/mL (0-100)
[2018-09-29] MEDS: AMPICILLIN SOD/SULBACTAM 3GM 100 ML IV SCH ×2 (19:25→20:39)
[2018-09-29] MEDS ORDERED: WARFARIN SODIUM5 MG PO (19:54)
[2018-09-29] MEDS ORDERED: DONEPEZIL HCL10 MG PO (19:54)
--- NOTE | 2018-09-29 19:59 | NUR ---
condom cath placed on patient
[2018-09-29] MEDS ORDERED: NON-FORMULARY MEDICATION (Mirabegron (Myrbetriq) 50 MG) PO SCH (21:00)
[2018-09-29 21:37] LABS: COLOR,URINE YELLOW (YELLOW)
[2018-09-29 21:38] LABS: BILIRUBIN,URINE NEGATIVE (NEGATIVE); CLARITY,URINE CLEAR (CLEAR); KETONES,URINE NEGATIVE (NEGATIVE); LEUKOCYTE ESTERASE ,URINE NEGATIVE (NEGATIVE); NITRITE,URINE NEGATIVE (NEGATIVE); PROTEIN,URINE DIPSTICK NEGATIVE (NEGATIVE); URINE UROBILINOGEN 0.2 mg/dL (0.2 - 1)
[2018-09-29 21:39] LABS: BACTERIA,URINE FEW /HPF; EPITHELIAL CELLS,URINE FEW /LPF; RBC,URINE 0-5 /HPF (0-5); WBC,URINE (MAN) 0-5 /HPF (0-5)
[2018-09-29 22:03] VITALS: BP 107/61
[2018-09-29 22:19] LABS: LYMPHOCYTES % (MANUAL) 16 % (19-48)
[2018-09-29 22:20] LABS: BAND NEUTROPHILS % (MANUAL) 2 %; MONOCYTES % (MANUAL) 4 % (3.4-9.0); NEUTROPHILS % (MANUAL) 78 % (40-74); PLATELET ESTIMATE MODERATELY DECREASED; PLATELET MORPHOLOGY COMMENT NORMAL
[2018-09-29 22:21] LABS: RBC MORPHOLOGY COMMENT NORMAL
[2018-09-29 22:30] VITALS: BP 107/61
--- NOTE | 2018-09-29 23:00 | NUR ---
OK TO CONTINUE HOME MEDS PER DR. SALOMON.
[2018-09-29] MEDS ORDERED: CITALOPRAM HBR20 MG PO (23:25)
[2018-09-29] MEDS ORDERED: DETROL LA4 MG PO (23:25)
[2018-09-29] MEDS ORDERED: MULTIVITAMINS1 EAC7 PO (23:25)
[2018-09-29] MEDS ORDERED: OMEGA 3 FISH O1 EACH PO (23:25)
[2018-09-29] MEDS ORDERED: MYRBETRIQ50 MG PO (23:25)
[2018-09-29] MEDS ORDERED: ASPIRIN325 MG PO (23:25)
[2018-09-29] MEDS ORDERED: DIAZEPAM5 MG PO (23:25)
[2018-09-29] MEDS ORDERED: TOLTERODINE TARTRATE 4 MG CAPCR PO SCH (23:30)
[2018-09-29] MEDS ORDERED: NON-FORMULARY MEDICATION (Donepezil Hcl 10 MG) PO SCH (23:30)
[2018-09-30] VITALS (7 sets, daily range): BP systolic 98–117; BP diastolic 53–64
[2018-09-30] MEDS ORDERED: AMPICILLIN SOD/SULBACTAM 3GM 100 ML IV SCH
[2018-09-30] MEDS: DONEPEZIL HCL 5 MG TAB PO SCH ×2 (00:20→21:05)
[2018-09-30] MEDS: PANTOPRAZOLE SOD 40 MG TABEC PO SCH ×3 (00:20→21:05)
[2018-09-30] MEDS: DIAZEPAM 5 MG TAB PO SCH ×2 (00:20→21:05)
[2018-09-30] MEDS: ASPIRIN 325 MG TAB PO SCH ×2 (00:20→21:05)
[2018-09-30] MEDS: GABAPENTIN 300 MG CAP PO SCH ×4 (00:20→21:05)
[2018-09-30] MEDS ORDERED: SODIUM CHLORIDE 0.9% 250ML 250 ML ONE (00:38)
[2018-09-30 03:14] LABS: BASOPHILS % 0.5 % (0.0-1.0); EOSINOPHILS # (AUTO) 0.1 (0.0-0.4); EOSINOPHILS % 1.4 % (0.0-6.0); HEMATOCRIT 37.4 % (38.2-49.6); LYMPHOCYTES # (AUTO) 1.7 (1.0-3.2); LYMPHOCYTES % 25.4 % (18.0-39.1); MEAN CORPUSCULAR HEMOGLOBIN 30.8 pg (28-32); MEAN CORPUSCULAR HGB CONC 32.1 g/dL (31-35); MEAN CORPUSCULAR VOLUME 96.1 fL (81-99); MONOCYTES # (AUTO) 0.3 (0.2-0.8); MONOCYTES % 4.2 % (4.4-11.3); NEUTROPHILS # (AUTO) 4.5 (2.1-6.9); NEUTROPHILS % 68.2 % (38.7-80.0); PLATELET COUNT 84 x10e3/uL (140-360); RED BLOOD COUNT 3.89 x10e6/uL (4.3-5.7); RED CELL DISTRIBUTION WIDTH 14.1 % (11.7-14.4)
[2018-09-30] MEDS: ALBUTEROL/IPRATROPIUM 3 ML NEB NEB SCH ×6 (03:15→21:30)
[2018-09-30 03:46] LABS: ALANINE AMINOTRANSFERASE 17 IU/L (0-55); ALBUMIN 2.7 g/dL (3.5-5.0); ALKALINE PHOSPHATASE 75 IU/L (40-150); ANION GAP 10.7 mmol/L (8-16); BLOOD UREA NITROGEN 17 mg/dL (7-26); BUN/CREATININE RATIO 19 (6-25); CALCIUM 7.8 mg/dL (8.4-10.2); CARBON DIOXIDE 26 mmol/L (22-29); CHLORIDE 111 mmol/L (98-107); CREATININE, SERUM 0.91 mg/dL (0.72-1.25); EST GLOMERULAR FILTRATION RATE > 60 ML/MIN (60-); GLUCOSE 74 mg/dL (74-118); POTASSIUM 3.7 mmol/L (3.5-5.1); SODIUM 144 mmol/L (136-145)
[2018-09-30 03:51] LABS: CREATINE KINASE MB < 1.00 ng/mL (0-4.3)
[2018-09-30 05:10] LABS: CREATINE KINASE 70 IU/L (30-200)
--- NOTE | 2018-09-30 05:54 | NUR ---
SPOKE TO DR. SALOMON AT THIS TIME. NEW ORDER RCV FOR PHYSICAL THERAPY.
--- NOTE | 2018-09-30 05:56 | NUR ---
CONDOM CATH CHANGED.
--- NOTE | 2018-09-30 07:18 | NUR ---
Received patient in report this am. Patient is asleep in bed at this time. No S/S of distress noted.
[2018-09-30] MEDS: CITALOPRAM HYDROBROMIDE 20 MG TAB PO SCH (08:47)
[2018-09-30] MEDS: OMEGA 3 POLYUNSAT FATTY ACIDS 1000 MG SOFTGEL PO SCH (08:47)
[2018-09-30] MEDS: MULTIVITAMINS/MINERALS TAB PO SCH (08:47)
[2018-09-30] MEDS: MIRABEGRON 50 MG PO SCH ×2 (09:00→21:00)
[2018-09-30] MEDS: AMPICILLIN SOD/SULBACTAM 3GM 100 ML IV SCH ×3 (09:19→22:05)
--- NOTE | 2018-09-30 10:11 | NUR ---
Patient A&Ox3. Lung shay auscultated, crackles noted. No SOB reported. Bowel sounds active. Slight edema to LLE, non-pitting. Heel protectors in place. Small, open, reddened area on sacrum, no drainage noted. Alleven patch applied. Patient reports mild pain with pressure to the area, but slight positioning changes done by patient relieve the pain. Cushioning provided. Turning q2h and as needed to alleviate pressure to area. Patient requested yankauer suction to self-suction as needed. New condom cath applied, draining with gravity. Patient actively participates in his care.
[2018-09-30 11:24] LABS: CREATINE KINASE 64 IU/L (30-200)
--- NOTE | 2018-09-30 18:35 | NUR ---
Condom cath replaced. Linens changed. Redness on legs near groin noted, barrier cream applied.
[2018-09-30] MEDS: TOLTERODINE TARTRATE 2 MG CAPCR PO SCH (21:05)
[2018-09-30] MEDS: AZITHROMYCIN 500MG/NS 250 ML 250 ML IV SCH (21:05)
--- NOTE | 2018-09-30 22:30 | NUR ---
CHANGED CONDOM CATH THIS TIME.
[2018-10-01] VITALS (9 sets, daily range): BP systolic 104–167; BP diastolic 54–62
[2018-10-01] MEDS: ALBUTEROL/IPRATROPIUM 3 ML NEB NEB SCH ×5 (03:00→23:12)
[2018-10-01] MEDS: AMPICILLIN SOD/SULBACTAM 3GM 100 ML IV SCH ×4 (03:30→21:50)
--- NOTE | 2018-10-01 06:47 | NUR ---
CONDOM CATH REPLACED
--- NOTE | 2018-10-01 07:00 | NUR ---
RECEIVED PT RESTING QUIETLY. BEDSIDE ROUNDING DONE WITH OFF GOING SHIFT.
[2018-10-01] MEDS: MULTIVITAMINS/MINERALS TAB PO SCH (09:00)
[2018-10-01] MEDS: OMEGA 3 POLYUNSAT FATTY ACIDS 1000 MG SOFTGEL PO SCH (09:00)
[2018-10-01] MEDS: PANTOPRAZOLE SOD 40 MG TABEC PO SCH ×2 (09:00→21:08)
[2018-10-01] MEDS: GABAPENTIN 300 MG CAP PO SCH ×3 (09:00→21:08)
[2018-10-01] MEDS: CITALOPRAM HYDROBROMIDE 20 MG TAB PO SCH (09:00)
[2018-10-01] MEDS: MIRABEGRON 50 MG PO SCH ×2 (09:00→21:00)
--- NOTE | 2018-10-01 09:16 | NUR ---
EDUCATED ABOUT IMM, SIGNED, FILED IN CHART, WITH COPY LEFT WITH FAMILY AT BEDSIDE.
--- NOTE | 2018-10-01 10:36 | NUR ---
Received patient this morning and alert and responsive, VSS, history of aspiration PNA, coughs when swallow and drinks. Contacted Dr. Hein if patient will need speech eval and he declined.
--- NOTE | 2018-10-01 13:08 | NUR ---
Patient OOB and ambulated with PT, sat up on chair for about 2 hours and assisted back to bed.
--- NOTE | 2018-10-01 15:51 | NUR ---
WOUND CARE CONSULTATION - INITIAL EVALUATION Patient admitted from Home to ER for Shortness of breath, ,wheezing, Cough, Weakness. WBC 6.62 HGB12 HCT37.4 NEUT%68.2 GLU74 ALB2.7 PATIENT VISIT: 73 y/o pleasant male in bed resting. Eddie Score 15 Alternating Pressure Air Mattress Moderate Pup Active Verbalizes some discomfort to sacral area. Tenderness that has been there for >2 wks. Diapered Sacral presents with small area that is 100% epithelialized. Mild erythema present with pink scar tissue at periwound. LLE Killian, linear abrasion/ scratch that appears to be stable. Left heel - Blanchable redness noted. Skin intact. IMPRESSION: 1. Sacrum - Stage II - Pressure Ulcer - Present On Admission - Healing 2. Left heel - Blanchable Erythema 3. Right LE at Killian - Abrasion/ Scratch - Stable. RECOMMENDATION: 1. Sacrum - Stage II - Pressure Ulcer - Present On Admission - Healing - Cleanse with normal saline moistened gauze and pat dry thoroughly. - Apply Venelex Ointment and cover with Allevyn Sacrum Foam Dressing Daily. 2. Left heel - Blanchable Erythema - Apply Allevyn Heel Foam dressings every other day to bilateral heels. - Bilateral Heel Protectors /Offload Heels with Pillows while in bed. 3. Turn and Reposition every 2 hours 4. Continue Alternating Pressure Air Mattress 5. Shear Friction Precautions. Thank you for consulting with Wound Care. Addendum: 10/01/18 at 1602 by Andi Gray RN Amended: Links added.
--- NOTE | 2018-10-01 17:01 | NUR ---
Nutrition Screen Note RD Recommendation for Physician: - Continue Cardiac diet, texture modifications per RETAIL FIELD SUPERVISOR or MD. Plan of Care: RD following, monitoring for tolerance and adequacy Nutrition reason for involvement: Dx screen- aspiration PNA Primary Diagnose(s): aspiration PNA PMH: aspiration PNA, dysphagia, CP, mild to moderate developmental delay Ht:68 in Wt:177 lb BMI:26.9 kg/m2 IBW:[address] Assessment: (10/01) 73 YOM admitted for aspiration PNA with hx of prior admits for aspiration PNA. Pt evaluated today per dx screen. Pt discussed during am rounds, per RN the MD reports no RETAIL FIELD SUPERVISOR evaluation as pt with hx of non-compliance with modified diet recommendations and pt/family refusing rehab services per previous admissions. Medical providers with pt at times of attempted visits x 2. Pt with good po intake per chart. No wt loss noted per prior admit wt of 153# 6 mo ago 04/16/18. Stage II PU to sacrum. Chart reviewed. Labs and meds reviewed. Will monitor and continue to follow. Current Diet: Cardiac Malnutrition Evaluation (10/01/18) The patient does not meet criteria for a specified degree of malnutrition at this time. Will re-evaluate at follow-up as appropriate. Unable to complete physical assessment. Diet Education Needs Assessment: Diet education not indicated, unable to provide education at this time. Nutrition Care Level: Low Signed: Tuyet Renteria RD, LD, [facility]
[2018-10-01] MEDS: AZITHROMYCIN 500MG/NS 250 ML 250 ML IV SCH (21:00)
[2018-10-01] MEDS: ASPIRIN 325 MG TAB PO SCH (21:08)
[2018-10-01] MEDS: TOLTERODINE TARTRATE 2 MG CAPCR PO SCH (21:08)
[2018-10-01] MEDS: DIAZEPAM 5 MG TAB PO SCH (21:08)
[2018-10-01] MEDS: DONEPEZIL HCL 5 MG TAB PO SCH (21:08)
[2018-10-02] VITALS (8 sets, daily range): BP systolic 105–124; BP diastolic 58–62
--- NOTE | 2018-10-02 02:00 | NUR ---
CONDOM CATHETER IS LEAKING. CONDOM CATH REPLACED. DIAPER CHANGED, PATIENT REPOSITION AND MADE COMFORTABLE.
[2018-10-02] MEDS: ALBUTEROL/IPRATROPIUM 3 ML NEB NEB SCH ×4 (03:00→20:35)
[2018-10-02] MEDS: AMPICILLIN SOD/SULBACTAM 3GM 100 ML IV SCH ×4 (03:00→21:30)
--- NOTE | 2018-10-02 04:30 | NUR ---
SEEN BY DR. SALOMON, ORDERED TO REMOVED CONDOM CATHETER. CONDOM CATHETER REMOVED, PATIENT WAS PROVIDED WITH URINAL AND VERBALIZED KNOWLEDGE AND ABILITY TO USE.
--- NOTE | 2018-10-02 08:13 | NUR ---
CM CALLED INSURANCE OFFICE MANAGER, CAITLIN VELASQUEZ, REGARDING DR. SALOMON ORDER FOR PATIENT TRANSFER. PATIENT REQUESTS TO STAY ON MEDSURG 3. PER INSURANCE OFFICE MANAGER, MEDSURG 3 IS FULL; WHEN THERE IS ROOM, HE WILL TRY TO ACCOMMODATE PATIENT.
[2018-10-02] MEDS: MIRABEGRON 50 MG PO SCH ×2 (09:00→21:00)
[2018-10-02] MEDS: OMEGA 3 POLYUNSAT FATTY ACIDS 1000 MG SOFTGEL PO SCH (09:09)
[2018-10-02] MEDS: GABAPENTIN 300 MG CAP PO SCH ×3 (09:09→21:40)
[2018-10-02] MEDS: CITALOPRAM HYDROBROMIDE 20 MG TAB PO SCH (09:09)
[2018-10-02] MEDS: MULTIVITAMINS/MINERALS TAB PO SCH (09:09)
[2018-10-02] MEDS: PANTOPRAZOLE SOD 40 MG TABEC PO SCH ×2 (09:09→21:40)
[2018-10-02] MEDS: BALSAM PERU/CASTOR OIL 60 GM OINT...G. TP SCH (10:09)
--- NOTE | 2018-10-02 15:11 | NUR ---
Patient alert and responsive, OOB and ambulated with PT and slow steady gait limited by palsy, sitting up on chair in the room and IV infiltrated to RAC and new IV to RFA 20 G, IV abx running at this time will monitor.
[2018-10-02] MEDS: AZITHROMYCIN 500MG/NS 250 ML 250 ML IV SCH (20:17)
[2018-10-02] MEDS: TOLTERODINE TARTRATE 2 MG CAPCR PO SCH (21:40)
[2018-10-02] MEDS: ASPIRIN 325 MG TAB PO SCH (21:40)
[2018-10-02] MEDS: DONEPEZIL HCL 5 MG TAB PO SCH (21:40)
[2018-10-02] MEDS: DIAZEPAM 5 MG TAB PO SCH (21:40)
[2018-10-03] VITALS (8 sets, daily range): BP systolic 109–118; BP diastolic 62–72
[2018-10-03] MEDS: LEVALBUTEROL HCL SOLN NEBU 0.63 MG/3 ML NEB INH SCH ×3 (00:15→20:50)
[2018-10-03] MEDS: ALBUTEROL/IPRATROPIUM 3 ML NEB NEB SCH ×4 (00:20→11:28)
[2018-10-03] MEDS: AMPICILLIN SOD/SULBACTAM 3GM 100 ML IV SCH ×4 (03:00→21:45)
[2018-10-03] MEDS: MIRABEGRON 50 MG PO SCH ×2 (09:00→21:00)
[2018-10-03] MEDS: CITALOPRAM HYDROBROMIDE 20 MG TAB PO SCH (09:35)
[2018-10-03] MEDS: OMEGA 3 POLYUNSAT FATTY ACIDS 1000 MG SOFTGEL PO SCH (09:35)
[2018-10-03] MEDS: PANTOPRAZOLE SOD 40 MG TABEC PO SCH ×2 (09:35→22:45)
[2018-10-03] MEDS: GABAPENTIN 300 MG CAP PO SCH ×3 (09:35→22:45)
[2018-10-03] MEDS: MULTIVITAMINS/MINERALS TAB PO SCH (09:35)
--- NOTE | 2018-10-03 10:42 | NUR ---
EDUCATED ABOUT IMM, SIGNED, FILED IN CHART, WITH COPY LEFT WITH FAMILY AT BEDSIDE.
[2018-10-03] MEDS: BALSAM PERU/CASTOR OIL 60 GM OINT...G. TP SCH (11:15)
--- NOTE | 2018-10-03 11:15 | NUR ---
DRESSING TO THE SACRUM AND BILATERAL HEELS DONE SACRUM IS RED NO SKIN BREAKDOWN NOTED CLEANED WITH NS APPLIED VENELEX AND ALLIVEN PAD BILATERAL HEELS ARE INTACT PLACED ALLIVEN PADS AND HEELS PROCTORS PER WOUND CARE ORDERS
--- NOTE | 2018-10-03 12:57 | NUR ---
PT C/O OF TRI . ORDERS TO CHANGE DUONEB TO XOPENEX GIVEN BY MD SALOMON AT THIS TIME
[2018-10-03] MEDS ORDERED: LEVALBUTEROL HCL SOLN NEBU 0.63 MG/3 ML NEB INH SCH (14:00)
--- NOTE | 2018-10-03 16:00 | NUR ---
spoke to md conteh regarding pt c/o increased weakness and shakiness during shift. teaching done regarding pna s.s and know pna will call weakness at times. md aware of pt complaint, no orders received for further care at this time
--- NOTE | 2018-10-03 17:30 | NUR ---
Patient is currently able to ambulate greater than 500 feet with RW with Mod I/supervision, he currently shows safe functional mobility with RW and with mod I/supervision and plateaued in functional level. discontinuing skilled PT services. patient will be continued with ambulation with nursing or restorative care to maintain current functional level. Thank you Addendum: 10/03/18 at 1731 by Holland venegas PT Amended: Links added.
[2018-10-03] MEDS: AZITHROMYCIN 500MG/NS 250 ML 250 ML IV SCH (19:52)
[2018-10-03] MEDS: DIAZEPAM 5 MG TAB PO SCH (22:45)
[2018-10-03] MEDS: DONEPEZIL HCL 5 MG TAB PO SCH (22:45)
[2018-10-03] MEDS: TOLTERODINE TARTRATE 2 MG CAPCR PO SCH (22:45)
[2018-10-03] MEDS: ASPIRIN 325 MG TAB PO SCH (22:45)
[2018-10-04] VITALS (7 sets, daily range): BP systolic 100–128; BP diastolic 58–64
[2018-10-04] MEDS: LEVALBUTEROL HCL SOLN NEBU 0.63 MG/3 ML NEB INH SCH ×5 (03:30→21:00)
[2018-10-04] MEDS: AMPICILLIN SOD/SULBACTAM 3GM 100 ML IV SCH ×4 (03:50→21:30)
--- NOTE | 2018-10-04 07:05 | NUR ---
PT RESTING IN BED AA0X3. PT IS IN NO S.S OF DISTRESS. PT CONTINUE ON TELE READING SR AND 02 AT 4L NOW SATING IN THE 95%. PT HAS RIGHT FA 20. SL. PT IS AWARE OF PLAN OF CARE WHICH INCLUDES IV ABX, AND NEB TREATMENTS. WILL CONTINUE TO CARE FOR PT AT THIS TIME, SIDE RAILSX2, BED WHEELS LOCKED, CALL LIGHT IS WITHIN EASY REACH, INSTRUCTED TO CALL FOR ASSISTANCE IF NEEDED
[2018-10-04] MEDS: CITALOPRAM HYDROBROMIDE 20 MG TAB PO SCH (07:57)
[2018-10-04] MEDS: GABAPENTIN 300 MG CAP PO SCH ×3 (07:57→22:30)
[2018-10-04] MEDS: PANTOPRAZOLE SOD 40 MG TABEC PO SCH ×2 (07:57→22:30)
[2018-10-04] MEDS: MULTIVITAMINS/MINERALS TAB PO SCH (07:57)
[2018-10-04] MEDS: OMEGA 3 POLYUNSAT FATTY ACIDS 1000 MG SOFTGEL PO SCH (07:57)
[2018-10-04] MEDS: MIRABEGRON 50 MG PO SCH ×2 (08:06→21:00)
[2018-10-04] MEDS: BALSAM PERU/CASTOR OIL 60 GM OINT...G. TP SCH (12:19)
[2018-10-04] MEDS: AZITHROMYCIN 500MG/NS 250 ML 250 ML IV SCH (20:10)
[2018-10-04] MEDS ORDERED: SODIUM CHLORIDE 0.9% 250ML 250 ML ONE (20:11)
[2018-10-04] MEDS: TOLTERODINE TARTRATE 2 MG CAPCR PO SCH (22:30)
[2018-10-04] MEDS: DIAZEPAM 5 MG TAB PO SCH (22:30)
[2018-10-04] MEDS: ASPIRIN 325 MG TAB PO SCH (22:30)
[2018-10-04] MEDS: DONEPEZIL HCL 5 MG TAB PO SCH (22:30)
[2018-10-05] VITALS (8 sets, daily range): BP systolic 103–122; BP diastolic 53–65
[2018-10-05] MEDS: LEVALBUTEROL HCL SOLN NEBU 0.63 MG/3 ML NEB INH SCH ×7 (00:25→23:31)
[2018-10-05] MEDS: AMPICILLIN SOD/SULBACTAM 3GM 100 ML IV SCH ×4 (03:30→21:23)
[2018-10-05 06:05] LABS: BASOPHILS % 0.6 % (0.0-1.0); EOSINOPHILS # (AUTO) 0.2 (0.0-0.4); EOSINOPHILS % 3.6 % (0.0-6.0); HEMOGLOBIN 12.5 g/dL (14.0-18.0); LYMPHOCYTES # (AUTO) 1.8 (1.0-3.2); MEAN CORPUSCULAR HEMOGLOBIN 31.6 pg (28-32); MEAN CORPUSCULAR HGB CONC 32.9 g/dL (31-35); MONOCYTES # (AUTO) 0.4 (0.2-0.8); MONOCYTES % 6.2 % (4.4-11.3); NEUTROPHILS # (AUTO) 3.8 (2.1-6.9); NEUTROPHILS % 60.4 % (38.7-80.0); PLATELET COUNT 100 x10e3/uL (140-360); RED BLOOD COUNT 3.96 x10e6/uL (4.3-5.7); RED CELL DISTRIBUTION WIDTH 13.5 % (11.7-14.4)
[2018-10-05 06:48] LABS: ALANINE AMINOTRANSFERASE 14 IU/L (0-55); ALBUMIN 2.7 g/dL (3.5-5.0); ALBUMIN/GLOBULIN RATIO 0.9 (0.8-2.0); ALKALINE PHOSPHATASE 75 IU/L (40-150); ANION GAP 12.1 mmol/L (8-16); BLOOD UREA NITROGEN 20 mg/dL (7-26); BUN/CREATININE RATIO 19 (6-25); CALCIUM 7.9 mg/dL (8.4-10.2); CARBON DIOXIDE 29 mmol/L (22-29); CHLORIDE 105 mmol/L (98-107); CREATININE, SERUM 1.08 mg/dL (0.72-1.25); EST GLOMERULAR FILTRATION RATE > 60 ML/MIN (60-); GLUCOSE 88 mg/dL (74-118); POTASSIUM 4.1 mmol/L (3.5-5.1); SODIUM 142 mmol/L (136-145)
[2018-10-05 07:29] LABS: EOSINOPHILS % (MANUAL) 2 % (0-7); LYMPHOCYTES % (MANUAL) 27 % (19-48); MONOCYTES % (MANUAL) 7 % (3.4-9.0); NEUTROPHILS % (MANUAL) 62 % (40-74); PLATELET ESTIMATE SLIGHTLY DECREASED; RBC MORPHOLOGY COMMENT NORMAL
[2018-10-05 07:30] LABS: PLATELET MORPHOLOGY COMMENT NORMAL
[2018-10-05] MEDS: MULTIVITAMINS/MINERALS TAB PO SCH (08:55)
[2018-10-05] MEDS: GABAPENTIN 300 MG CAP PO SCH ×3 (08:55→21:24)
[2018-10-05] MEDS: CITALOPRAM HYDROBROMIDE 20 MG TAB PO SCH (08:55)
[2018-10-05] MEDS: PANTOPRAZOLE SOD 40 MG TABEC PO SCH ×2 (08:55→21:24)
[2018-10-05] MEDS: OMEGA 3 POLYUNSAT FATTY ACIDS 1000 MG SOFTGEL PO SCH (08:55)
[2018-10-05] MEDS: MIRABEGRON 50 MG PO SCH ×2 (09:00→21:00)
[2018-10-05] MEDS: BALSAM PERU/CASTOR OIL 60 GM OINT...G. TP SCH (16:15)
[2018-10-05] MEDS: AZITHROMYCIN 500MG/NS 250 ML 250 ML IV SCH ×2 (20:00→21:51)
[2018-10-05] MEDS: ASPIRIN 325 MG TAB PO SCH (21:24)
[2018-10-05] MEDS: TOLTERODINE TARTRATE 2 MG CAPCR PO SCH (21:24)
[2018-10-05] MEDS: DIAZEPAM 5 MG TAB PO SCH (21:24)
[2018-10-05] MEDS: DONEPEZIL HCL 5 MG TAB PO SCH (21:24)
[2018-10-06] VITALS (7 sets, daily range): BP systolic 105–138; BP diastolic 57–71
[2018-10-06] MEDS: LEVALBUTEROL HCL SOLN NEBU 0.63 MG/3 ML NEB INH SCH ×6 (02:40→23:25)
[2018-10-06] MEDS: AMPICILLIN SOD/SULBACTAM 3GM 100 ML IV SCH ×4 (03:00→21:18)
[2018-10-06] MEDS: OMEGA 3 POLYUNSAT FATTY ACIDS 1000 MG SOFTGEL PO SCH (08:30)
[2018-10-06] MEDS: MULTIVITAMINS/MINERALS TAB PO SCH (08:30)
[2018-10-06] MEDS: PANTOPRAZOLE SOD 40 MG TABEC PO SCH ×2 (08:30→20:23)
[2018-10-06] MEDS: CITALOPRAM HYDROBROMIDE 20 MG TAB PO SCH (08:30)
[2018-10-06] MEDS: GABAPENTIN 300 MG CAP PO SCH ×3 (08:30→20:23)
--- NOTE | 2018-10-06 08:43 | NUR ---
bedside rounds complete no distress noted, updated on poc voiced understanding, denies pain at this time, call light in reach will continue to monitor
[2018-10-06] MEDS: MIRABEGRON 50 MG PO SCH ×2 (09:00→20:23)
--- NOTE | 2018-10-06 09:10 | Progress Note ---
DATE: Progress Note SUBJECTIVE: The patient has been admitted for aspiration pneumonia. Currently, on O2. No complaints. No chest pains. No shortness of breath. OBJECTIVE: VITAL SIGNS: Temperature is 96.9, pulse of 76, respirations of 18, pulse and oximetry 100% on 3 L of oxygen. GENERAL: The patient is alert and oriented x3. HEENT: Normocephalic and atraumatic. Pupils are reactive to light and accommodation. CVS: S1 and S2 normal. Regular rate and rhythm. LUNGS: Positive for bilateral rhonchi. ABDOMEN: Soft and nontender. EXTREMITIES: No clubbing, no cyanosis, and no edema. MEDICATIONS: Unasyn IV q.6 hours, , azithromycin, Detrol 2 mg, donepezil 10 mg, pantoprazole 40 mg, gabapentin 300 mg 3 times a day, Valium 5 mg at nighttime, aspirin 325 mg, and citalopram. LABORATORY VALUES: White count was 6.35 yesterday, hemoglobin 12.5, and hematocrit of 38.0. Chemistries; sodium of 141, potassium of 4.1, BUN 12.1, and creatinine of 1.08. Troponins have trended to be negative. Urine is negative. IMAGING STUDIES: Chest x-ray from the shows low lung bibasilar airspace opacities in prominent hilar vessels and pulmonary hypertension. ASSESSMENT: 1. Aspiration pneumonia. The patient is adequately covered with Unasyn and azithromycin for atypical coverage. 2. Chest pain. Troponins have been trended to be negative. 3. Dementia. Continue with donepezil. 4. The patient also has history of debility and reflux esophagitis. We will continue home medications at this time. Further recommendation per clinical course. We will continue to monitor the patient and possible discharge in 1-2 days. The patient also has a diagnosis of acute respiratory distress syndrome with hypoxia, which is managed by oxygen supplementation. MD IMANI Sanchez/DASHAL /[id number]
--- NOTE | 2018-10-06 10:00 | NUR ---
IV UNASYN UNAVAILABLE AT THIS TIME PHARMACY TO DELIVER WHEN AVAILABLE
--- NOTE | 2018-10-06 11:31 | NUR ---
DANETTE MACHADO RECEIVED FROM PHARMACY
--- NOTE | 2018-10-06 13:35 | NUR ---
Nutrition note: Mr Dawson requested to see the RD on duty regarding complaints of receiving the same food all the time. Pt has a Hx of dysphagia and is on strict aspiration precautions. Pt acknowledges that he has dysphagia and is on aspiration precautions. It is well documented that pt has been non compliant with texture modifications. Pt was requesting that he get a variety of vegetable selections. Family Consultant visited the patient and got his menu selections. Pt had requested corn and the dietitian consultant delivered corn to the patient. Pt is on a cardiac diet. Will continue to monitor. Jake Butts RD, LD, CNSC
[2018-10-06] MEDS: BALSAM PERU/CASTOR OIL 60 GM OINT...G. TP SCH (14:30)
--- NOTE | 2018-10-06 16:10 | NUR ---
Wound care performed as ordered.
[2018-10-06] MEDS: AZITHROMYCIN 500MG/NS 250 ML 250 ML IV SCH (20:22)
[2018-10-06] MEDS: TOLTERODINE TARTRATE 2 MG CAPCR PO SCH (20:23)
[2018-10-06] MEDS: DIAZEPAM 5 MG TAB PO SCH (20:23)
[2018-10-06] MEDS: ASPIRIN 325 MG TAB PO SCH (20:23)
[2018-10-06] MEDS: DONEPEZIL HCL 5 MG TAB PO SCH (20:23)
[2018-10-07] VITALS (8 sets, daily range): BP systolic 105–125; BP diastolic 57–71
[2018-10-07] MEDS: LEVALBUTEROL HCL SOLN NEBU 0.63 MG/3 ML NEB INH SCH ×6 (03:30→23:41)
[2018-10-07] MEDS: AMPICILLIN SOD/SULBACTAM 3GM 100 ML IV SCH ×4 (03:38→21:00)
--- NOTE | 2018-10-07 08:09 | Progress Note ---
DATE: Progress Note SUBJECTIVE: The patient is here for aspiration pneumonia. The patient has a history of cerebral palsy and also history of hypoxia. The patient is currently afebrile. No complains. The patient has no chest pain and no shortness of breath. Has supplemental oxygen. MEDICATIONS: He is on DuoNeb, azithromycin, donepezil, gabapentin, Xopenex as needed, pantoprazole, and Detrol LA. OBJECTIVE: GENERAL: Alert and oriented x3. No chest pains. VITAL SIGNS: Temperature is 96.8, respirations 18, blood pressure is 109/71, and pulse oximetry of 98%. HEENT: Normocephalic and atraumatic. Pupils are reactive to light and accommodation. CVS: S1 and S2 normal. LUNGS: Bilateral rhonchi. ABDOMEN: Nontender and nondistended. EXTREMITIES: No clubbing, no cyanosis, and no edema. Positive for change to CP. LABORATORY VALUES: None today. Chemistries and coags are normal from the initial labs. Blood culture has no growth to date. ASSESSMENT: 1. Aspiration pneumonia. The patient is covered with Unasyn and azithromycin. 2. Chest pain. Troponins have been trended to be negative. 3. Dementia. Continue with donepezil. 4. Cerebral palsy, continue to monitor. 5. Debility, continue to work with physical therapy. PLAN: Further recommendations and clinical course. Disposition is probable discharge tomorrow. MD IMANI Sanchez/MODL /[id number]
[2018-10-07] MEDS: PANTOPRAZOLE SOD 40 MG TABEC PO SCH ×2 (08:25→22:01)
[2018-10-07] MEDS: MULTIVITAMINS/MINERALS TAB PO SCH (08:25)
[2018-10-07] MEDS: OMEGA 3 POLYUNSAT FATTY ACIDS 1000 MG SOFTGEL PO SCH (08:25)
[2018-10-07] MEDS: GABAPENTIN 300 MG CAP PO SCH ×3 (08:25→22:01)
[2018-10-07] MEDS: CITALOPRAM HYDROBROMIDE 20 MG TAB PO SCH (08:25)
[2018-10-07] MEDS: BALSAM PERU/CASTOR OIL 60 GM OINT...G. TP SCH (09:00)
[2018-10-07] MEDS: MIRABEGRON 50 MG PO SCH ×2 (09:00→21:00)
[2018-10-07] MEDS: CLONAZEPAM 0.5 MG TAB PO PRN (14:52)
[2018-10-07] MEDS: TOLTERODINE TARTRATE 2 MG CAPCR PO SCH (22:01)
[2018-10-07] MEDS: DONEPEZIL HCL 5 MG TAB PO SCH (22:01)
[2018-10-07] MEDS: ASPIRIN 325 MG TAB PO SCH (22:01)
[2018-10-07] MEDS: AZITHROMYCIN 500MG/NS 250 ML 250 ML IV SCH (22:03)
[2018-10-08 01:47] VITALS: BP 122/65
[2018-10-08] MEDS: LEVALBUTEROL HCL SOLN NEBU 0.63 MG/3 ML NEB INH SCH ×6 (02:20→23:30)
[2018-10-08] MEDS: AMPICILLIN SOD/SULBACTAM 3GM 100 ML IV SCH ×4 (03:39→20:09)
[2018-10-08 04:39] VITALS: BP 107/62
--- NOTE | 2018-10-08 07:30 | NUR ---
PT RESTING IN BED AA0X3. PT IS ON 02 3L NC . PT IS IN NO S.S OF DISTRESS. DENIES PAIN. PT IV ACCESS NOT PATENT AT THIS TIME., WILL GET NEW ONE STARTED WILL CONTINUE TO MONITOR AT THIS TIME. SIDE RAILSX2, BED WHEELS LOCKED, CALL LIGHT IS WITHIN EASY REACH, INSTRUCTED TO CALL FOR ASSISTANCE IF NEEDED
[2018-10-08] MEDS: MIRABEGRON 50 MG PO SCH ×2 (08:12→20:10)
[2018-10-08] MEDS: MULTIVITAMINS/MINERALS TAB PO SCH (08:12)
[2018-10-08] MEDS: CLONAZEPAM 0.5 MG TAB PO PRN (08:12)
[2018-10-08] MEDS: CITALOPRAM HYDROBROMIDE 20 MG TAB PO SCH (08:12)
[2018-10-08] MEDS: PANTOPRAZOLE SOD 40 MG TABEC PO SCH ×2 (08:12→20:10)
[2018-10-08] MEDS: GABAPENTIN 300 MG CAP PO SCH ×3 (08:12→20:10)
[2018-10-08] MEDS: OMEGA 3 POLYUNSAT FATTY ACIDS 1000 MG SOFTGEL PO SCH (08:12)
--- NOTE | 2018-10-08 09:00 | NUR ---
REPORT GIVEN TO VALERIA TUCKER IN MED SURG 3. TRANSFERRING PT UPSTAIRS
[2018-10-08] MEDS: BALSAM PERU/CASTOR OIL 60 GM OINT...G. TP SCH (09:25)
--- NOTE | 2018-10-08 09:25 | NUR ---
PATIENT ARRIVED TO ROOM 297, HE IS IN STABLE CONDITION. ORIENTED TO ROOM AND POLICIES. PATIENT IS RESTING IN RECLINER. CALL LIGHT WITHIN REACH.
[2018-10-08] MEDS ORDERED: SODIUM CHLORIDE 0.9% 250ML 250 ML ONE (09:35)
--- NOTE | 2018-10-08 10:50 | NUR ---
EDUCATED ABOUT IMM, SIGNED, FILED IN CHART, WITH COPY LEFT WITH FAMILY AT BEDSIDE.
[2018-10-08 11:31] VITALS: BP 107/66
[2018-10-08 15:49] VITALS: BP 108/73
--- NOTE | 2018-10-08 18:54 | NUR ---
REPORT GIVEN TO ONCOMING NURSE, WALKING ROUNDS DONE. PATIENT IS SITTING UP IN CHAIR, NO ACUTE DISTRESS NOTED. CALL LIGHT WITHIN REACH.
[2018-10-08 19:40] VITALS: BP 108/56
[2018-10-08] MEDS: AZITHROMYCIN 500MG/NS 250 ML 250 ML IV SCH (20:09)
[2018-10-08] MEDS: DONEPEZIL HCL 5 MG TAB PO SCH (20:10)
[2018-10-08] MEDS: TOLTERODINE TARTRATE 2 MG CAPCR PO SCH (20:10)
[2018-10-08] MEDS: ASPIRIN 325 MG TAB PO SCH (20:10)
[2018-10-08 21:34] VITALS: BP 108/56
[2018-10-09] VITALS: BP 112/66
[2018-10-09] MEDS: AMPICILLIN SOD/SULBACTAM 3GM 100 ML IV SCH ×2 (02:02→08:38)
[2018-10-09] MEDS: LEVALBUTEROL HCL SOLN NEBU 0.63 MG/3 ML NEB INH SCH ×3 (03:00→11:00)
[2018-10-09 04:10] VITALS: BP 118/66
--- NOTE | 2018-10-09 07:00 | NUR ---
RECEIVED REPORT FROM OFFGOING NURSE. PATIENT IS RESTING IN BED, NO ACUTE DISTRESS NOTED. DENIES PAIN OR DISCOMFORT AT THIS TIME. CALL LIGHT WITHIN REACH. BED IN THE LOWEST POSITION.
[2018-10-09 07:10] VITALS: BP 121/69
[2018-10-09 08:00] VITALS: BP 121/69
[2018-10-09] MEDS: MIRABEGRON 50 MG PO SCH (08:35)
[2018-10-09] MEDS: PANTOPRAZOLE SOD 40 MG TABEC PO SCH (08:38)
[2018-10-09] MEDS: OMEGA 3 POLYUNSAT FATTY ACIDS 1000 MG SOFTGEL PO SCH (08:38)
[2018-10-09] MEDS: MULTIVITAMINS/MINERALS TAB PO SCH (08:38)
[2018-10-09] MEDS: CITALOPRAM HYDROBROMIDE 20 MG TAB PO SCH (08:38)
[2018-10-09] MEDS: GABAPENTIN 300 MG CAP PO SCH (08:38)
[2018-10-09] MEDS: BALSAM PERU/CASTOR OIL 60 GM OINT...G. TP SCH (08:38)
--- NOTE | 2018-10-09 12:30 | NUR ---
RECEIVED DC ORDER FROM MD. PATIENT IS IN STABLE CONDITION. IV LINE TO RIGHT AC DCD WITH TIP INTACT, PRESSURE APPLIED TO SITE, NO BLEEDING NOTED. DISCHARGE TEACHING PROVIDED TO PATIENT AND SISTER, THEY BOTH VERBALIZED UNDERSTANDING. DISCHARGE FOLDER AND PERSONAL ITEMS ON HAND. PATIENT ACCOMPANIED TO PRIVATE AUTO BY STAFF VIA WHEELCHAIR.
--- NOTE | 2018-10-11 02:36 | Discharge Summary ---
DISCHARGE DIAGNOSES: 1. Aspiration pneumonia. 2. Cerebral palsy. 3. Benign prostatic hyperplasia. 4. Dementia. HISTORY OF PRESENT ILLNESS AND HOSPITAL COURSE: See hospital chart for full details. The patient is a gentleman who has a history of aspiration chronically, which he refuses PEG tube placement in the past. We have had a long discussion with him and the family over multiple admissions for that. Unfortunately, due to him continued eating, these aspiration pneumonias will continue to occur, they will increase in frequency, they will increase in severity and some point it will cause his , which family is agreeable to as well as the patient because he must enjoy life. He feels like eating is life to him, so he refuses PEG tube placement. So once again, he is admitted for his aspiration pneumonias antibiotics, which did improve his symptoms. at the time of discharge, the patient felt like he was at his baseline, was really wanting to go home. As always, he refused any type of custodial facility or rehab placement, so he was discharged home, follow up in two weeks with me, and he was discharged with p.o. Levaquin for 10 more days 500 mg. Please see hospital chart for full details. MD ANAID Little/AUSTIN /[id number]
== END 2018-10-09 12:25 | disposition home or self-care (01) | DRG 177 ==
LOC: ER 15:23 → ERHOLD 19:58 → UNDOADMIN 19:58 → ERHOLD 20:22 → MED/SURG 21:46 → MED/SURG3 10-08 09:05
PROVIDERS: ADMIT Internal Medicine; ATTEND Internal Medicine
DX: J69.0 Pneumonitis due to inhalation of food and vomit (principal); J80 Acute respiratory distress syndrome; R06.00 Dyspnea, unspecified; K21.9 Gastro-esophageal reflux disease without esophagitis; G80.9 Cerebral palsy, unspecified; N40.0 Benign prostatic hyperplasia without lower urinary tract symptoms; F03.90 Unspecified dementia, unspecified severity, without behavioral disturbance, psychotic disturbance, mood disturbance, and anxiety; Z53.29 Procedure and treatment not carried out because of patient's decision for other reasons; K21.0 Gastro-esophageal reflux disease with esophagitis
CPT/HCPCS: 36415; 71045; 80053; 81001; 82550; 82553; 83605; 83735; 83880; 84484; 85025; 85610; 85730; 87040; 87086; 87400; 93005; 94640; 97139; 99284; J0295; J0456; J7030; J7050

== ENCOUNTER 2018-10-22 19:57 | Observation (INO) | payer MEDICARE ==
[~2018-10-22] VITALS: Ht 172.7 cm; Wt 81.3 kg
[~2018-10-22 19:57] MED LIST changes: +ASPIRIN325 MG PO; +DONEPEZIL HCL10 MG PO; +MULTIVITAMINS1 EAC7 PO; +OMEGA 3 FISH O1 EACH PO
--- NOTE | 2018-10-22 21:26 | Diagnostic Imaging Report ---
Exam: Right and left knee 3 views each History: Pain Comparison: None. Findings: No fracture or malalignment. 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 No abnormal soft tissue calcification or soft tissue defect. Impression: No acute osseous abnormality Signed by: Dr. Roque Bradley M.D. on 10/22/2018 9:23 PM
--- NOTE | 2018-10-22 21:48 | Diagnostic Imaging Report ---
Examination: Single AP view of the chest. COMPARISON: September 29, 2018 INDICATION: Fall DISCUSSION: Lines/tubes: None. Lungs: Low lung volume with lung base atelectasis. Pleura: No pleural effusion or pneumothorax. Heart and mediastinum: Cardiomegaly. Bones and soft tissues: No acute bony abnormalities. Remote right acromioclavicular separation. IMPRESSION: Mild cardiomegaly. Low lung volumes with atelectasis. Signed by: Dr. Roque Bradley M.D. on 10/22/2018 9:45 PM
[2018-10-22 21:59] LABS: BASOPHILS % 0.4 % (0.0-1.0); EOSINOPHILS # (AUTO) 0.1 (0.0-0.4); EOSINOPHILS % 1.5 % (0.0-6.0); HEMATOCRIT 40.3 % (38.2-49.6); HEMOGLOBIN 13.1 g/dL (14.0-18.0); LYMPHOCYTES # (AUTO) 1.9 (1.0-3.2); LYMPHOCYTES % 26.3 % (18.0-39.1); MEAN CORPUSCULAR HEMOGLOBIN 31.1 pg (28-32); MEAN CORPUSCULAR HGB CONC 32.5 g/dL (31-35); MEAN CORPUSCULAR VOLUME 95.7 fL (81-99); MONOCYTES # (AUTO) 0.4 (0.2-0.8); MONOCYTES % 5.7 % (4.4-11.3); NEUTROPHILS # (AUTO) 4.8 (2.1-6.9); NEUTROPHILS % 65.8 % (38.7-80.0); PLATELET COUNT 118 x10e3/uL (140-360); RED BLOOD COUNT 4.21 x10e6/uL (4.3-5.7)
[2018-10-22 22:14] LABS: BILIRUBIN,URINE NEGATIVE (NEGATIVE); CLARITY,URINE CLEAR (CLEAR); COLOR,URINE YELLOW (YELLOW); KETONES,URINE NEGATIVE (NEGATIVE); LEUKOCYTE ESTERASE ,URINE NEGATIVE (NEGATIVE); NITRITE,URINE NEGATIVE (NEGATIVE); PROTEIN,URINE DIPSTICK NEGATIVE (NEGATIVE); URINE UROBILINOGEN 0.2 mg/dL (0.2 - 1)
[2018-10-22 22:22] LABS: ALANINE AMINOTRANSFERASE 18 IU/L (0-55); ALBUMIN/GLOBULIN RATIO 0.9 (0.8-2.0); ALKALINE PHOSPHATASE 86 IU/L (40-150); ANION GAP 12.1 mmol/L (8-16); BLOOD UREA NITROGEN 17 mg/dL (7-26); BUN/CREATININE RATIO 16 (6-25); CALCIUM 8.8 mg/dL (8.4-10.2); CARBON DIOXIDE 29 mmol/L (22-29); CHLORIDE 108 mmol/L (98-107); CREATINE KINASE 75 IU/L (30-200); CREATININE, SERUM 1.09 mg/dL (0.72-1.25); EST GLOMERULAR FILTRATION RATE > 60 ML/MIN (60-); GLUCOSE 97 mg/dL (74-118); POTASSIUM 4.1 mmol/L (3.5-5.1); SODIUM 145 mmol/L (136-145)
[2018-10-22 22:34] LABS: BACTERIA,URINE FEW /HPF; EPITHELIAL CELLS,URINE RARE /LPF; RBC,URINE 0-5 /HPF (0-5); WBC,URINE (MAN) 0-5 /HPF (0-5)
[2018-10-22] MEDS ORDERED: IOPAMIDOL 370 MG/ML 200 ML INFUS..BTL INJ ONE (23:02)
[2018-10-22] MEDS ORDERED: SODIUM CHLORIDE 0.9% 50ML 50 ML ONE (23:02)
--- NOTE | 2018-10-23 00:21 | Diagnostic Imaging Report ---
EXAMINATION: CT scan of the chest with contrast. TECHNIQUE: Helical CT images of the chest were performed from the lung apices to the level of the adrenal glands after the intravenous administration of 100 cc of Omnipaque 300. Coronal and sagittal reformatted images were obtained.Dose modulation, iterative reconstruction, and/or weight based adjustment of the mA/kV was utilized to reduce the radiation dose to as low as reasonably achievable. COMPARISON: None. CLINICAL HISTORY:Evaluate for pulmonary embolism DISCUSSION: LINES/TUBES: None. LUNGS AND AIRWAYS: Eccentrically located filling defect within the left and right lower lobe pulmonary artery is 46. Small right lower lobe subsegmental pulmonary embolism axial image 74 and 75. Airspace opacities within the lower lobes, greater on the left. PLEURA: No pneumothorax or pleural effusions. HEART AND MEDIASTINUM: The thyroid gland is normal. The heart is globally enlarged. Mediastinal and hilar lymphadenopathy for example a right hilar lymph node measures 1.7 cm the left hilar lymph node measures 2.3 cm. ABDOMEN: Limited contrast-enhanced views of the upper abdomen show no abnormality within the visualized liver, spleen, pancreas, or kidneys. The adrenal glands are normal. BONES AND SOFT TISSUES: No acute bony abnormalities. IMPRESSION: Chronic pulmonary emboli to the bilateral lower lobe. Bilateral lower lobe airspace opacities, greater in the left lower lobe may reflect pneumonia or aspiration. Enlarged mediastinal and hilar lymph nodes Signed by: Dr. Roque Bradley M.D. on 10/23/2018 12:18 AM
[2018-10-23] MEDS: CEFTRIAXONE SOD 1 GM/NS 50 ML 50 ML IV SCH (01:10)
[2018-10-23] MEDS: RIVAROXABAN 20 MG TABLET PO SCH ×2 (01:17→17:19)
--- NOTE | 2018-10-23 01:30 | NUR ---
PT ASSISTED TO HOSPITAL BED.
[2018-10-23] MEDS: AZITHROMYCIN 500MG/NS 250 ML 250 ML IV SCH (01:46)
--- NOTE | 2018-10-23 07:00 | NUR ---
Bedside rounds completed with Nas night nurse nurse. Pt is in no acute distress at this time.
[2018-10-23] MEDS: CITALOPRAM HYDROBROMIDE 20 MG TAB PO SCH (09:06)
[2018-10-23] MEDS: PANTOPRAZOLE SOD 40 MG TABEC PO SCH ×2 (09:06→17:19)
[2018-10-23] MEDS: GABAPENTIN 300 MG CAP PO SCH ×3 (09:06→20:51)
[2018-10-23] MEDS: MIRABEGRON 50 MG PO SCH ×2 (09:06→17:00)
[2018-10-23 11:09] VITALS: BP 117/67
[2018-10-23 11:42] VITALS: BP 117/67
--- NOTE | 2018-10-23 13:22 | History and Physical ---
REASON FOR ADMISSION: Aspiration pneumonia and hypoxia. HISTORY OF PRESENT ILLNESS: The patient is a 73-year-old gentleman with a history of dementia with cerebral palsy, who has history of chronic aspiration of all consistencies, who couple of years ago made a decision that he did not want to have a PEG tube placement. The patient was told then as well as with the family members these issues would become more frequent, more severe, and he would continue to deteriorate to the point still believes in that aspect. The patient once again presented with worsening breathing, congestion and hypoxia with sats in the 87% range on room air placed on IV antibiotics with O2. Continue therapy and the patient once again reiterates he does not want a PEG tube. PAST MEDICAL HISTORY: Cerebral palsy, dementia, BPH. MEDICATIONS: See SEP. ALLERGIES: SEE SEP. SOCIAL HISTORY: Nonsmoker and nondrinker. Lives at home, been cared for by his sister and [id number]. FAMILY HISTORY: Hypertension. PHYSICAL EXAMINATION: VITAL SIGNS: Temperature 98.6, pulse 66, blood pressure 136/74, sats 87% on room air, 96% on 2 L, which he states makes him feel much better. GENERAL: He is in no apparent distress, lying in bed. NECK: Supple. CARDIOVASCULAR: Regular rate and rhythm. LUNGS: Bilateral rhonchi. ABDOMEN: Good bowel sounds. Soft, nontender. EXTREMITIES: No clubbing or cyanosis. NEUROLOGIC: He moves all extremities x4. RADIOLOGIC DATA: CT scan does show small pulmonary embolism and he does have a history of DVTs. ASSESSMENT AND PLAN: 1. Pneumonia secondary to aspiration. We will continue with IV antibiotics. 2. Pulmonary embolus. We will continue on the anticoagulant, but had a long talk with the patient because he has had a lot of history of falls as well and the risks of that, so they had to decide risk of falls and bleeding as well as risk of a blood clot. We will do a lower extremity Doppler just to reassess. The patient had been on Coumadin in the past, but stopped a few months back secondary to the increased falls. 3. Cerebral palsy, continue to monitor. 4. Benign prostatic hyperplasia. Continue with his medication. 5. Dementia. Continue with his medication. 6. Weakness. Start with physical therapy. The patient is willing to do outpatient physical therapy on discharge. 7. Hypoxia with acute respiratory failure. Continue with O2 and we will arrange for home oxygen as well. Please see hospital chart for full details. MD ANAID Little/[place] /[id number]
--- NOTE | 2018-10-23 13:45 | NUR ---
Visit made by the Spiritual Care Department Pastoral Visitor, Lise Guerrero. Pt sleeping soundly and no family present. Pastoral Visitor left a card describing availability of media operator and instructions on how to contact a media operator. MANUEL FREITAS [employer] Operator Spiritual Care Department O: [phone] Pager: [phone] ([phone] number calling from)
--- NOTE | 2018-10-23 16:19 | NUR ---
CASE MANAGEMENT INITIAL ASSESSMENT Cheese Wrapper to bedside to discuss plan of care with patient/family. CM/SW role and care transitions discussed. Anticipated discharge plan discussed along with duration of care. CM/SW discussed patients right to make decisions in care. CM/SW work hours given. Patient lives: ALONE AT [facility] IN AN [address] [address] [address] @ [address], [place] [address] Hospital/ER visits since last admit: [facility] 09/29/18 - 10/09/18 POA/Emergency contact: LAILA VALENZUELAELL / BROTHER [phone] Current/Previous Home Health: NONE PCP/Follow-up Care: AIME Current/Previous DME: ROLLING WALKER Medications (referring to index hospitalization or the first time you were in the hospital) a. Were changes made in your medications when you were in the hospital on [09/29/18 -10/09/18]? No b. Did you understand the changes? NONE c. Were you able to obtain your new medications right away? Yes d. Were you able to take your medications like the doctor wanted you to? Yes e. Did the hospital give you an accurate, easy to understand list of medications when you left? Yes Other Services: PROVIDER 9230 M-F Employment Status: NONE Areas of Concerns: NEEDS SUCTION MACHINE Referral Needs: SUCTION MACHINE; ORDERED Education Needs: FOLLOW RECOMMENDED DIET TO PREVENT ASPIRATION IMM/HWANG given and signed (if applicable): NONE Goal for discharge: RETURN TO HOME CM/SW left business card at the bedside with contact information. Name and number was also written on the patients whiteboard. Patient verbalized understanding of discussion. CM will follow-up with ongoing discharge and transition of care needs.
[2018-10-23 16:30] VITALS: BP 134/58
--- NOTE | 2018-10-23 16:33 | NUR ---
RECEIVED FOR HOME O2 AND SUCTION MACHINE. O2 SAT 93 - 94% MET W THE PT AT THE BEDSIDE. GAVE VERBAL CONSENT FOR [employer] IN [facility]. REFERRAL FAXED TO [facility] @ [phone] / OFF [phone].
[2018-10-23] MEDS ORDERED: RIVAROXABAN 20 MG TABLET PO SCH (17:00)
--- NOTE | 2018-10-23 19:00 | NUR ---
Report and rounds completed, patient sitting in bedside chair. Call light within reach. Will continue to monitor
--- NOTE | 2018-10-23 19:00 | NUR ---
Report and rounds completed, patient sitting in bedside chair. Call light within reach. Will continue to monitor.
[2018-10-23 20:00] VITALS: BP 139/74
[2018-10-23] MEDS: ASPIRIN 325 MG TAB PO SCH (20:51)
[2018-10-23] MEDS: DONEPEZIL HCL 5 MG TAB PO SCH (20:51)
[2018-10-23] MEDS ORDERED: TOLTERODINE TARTRATE 4 MG CAPCR PO SCH (21:00)
[2018-10-23] MEDS ORDERED: DIAZEPAM 5 MG TAB PO SCH (21:00)
[2018-10-24] VITALS (8 sets, daily range): BP systolic 108–128; BP diastolic 59–71
[2018-10-24] MEDS: AZITHROMYCIN 500MG/NS 250 ML 250 ML IV SCH (00:27)
[2018-10-24] MEDS: CEFTRIAXONE SOD 1 GM/NS 50 ML 50 ML IV SCH (02:20)
--- NOTE | 2018-10-24 06:00 | NUR ---
Resting in bed, eyes closed, resp even and unlabored. Call light within reach. Will continue to monitor.
--- NOTE | 2018-10-24 08:25 | NUR ---
patient up in bed, tolerated with breakfast, not in any distress, denies any pain. call light in reach, bed alarm ON
[2018-10-24] MEDS: CITALOPRAM HYDROBROMIDE 20 MG TAB PO SCH (08:48)
[2018-10-24] MEDS: PANTOPRAZOLE SOD 40 MG TABEC PO SCH ×2 (08:48→16:53)
[2018-10-24] MEDS: MIRABEGRON 50 MG PO SCH ×2 (08:48→17:00)
[2018-10-24] MEDS: GABAPENTIN 300 MG CAP PO SCH ×2 (08:48→16:10)
--- NOTE | 2018-10-24 15:45 | NUR ---
Nutrition Screen Note RD Recommendation for Physician: -Recommend current diet, altered texture per speech and MD. Plan of Care: RD following, monitoring for tolerance and adequacy Nutrition reason for involvement: Diagnosis- Aspiration PNA Primary Diagnose(s): Acute respiratory failure, aspiration PNA PMH: Dementia with cerebral palsy, who has history of chronic aspiration of all consistencies- denied peg placement in the past Ht: 68 in Wt:179 lb BMI: 27.3 kg/m2 IBW: [address] Assessment: 10/24: 73 YOM with acute respiratory failure, aspiration PNA. Pt was seen d/t diagnosis. Pt was ordered a cardiac diet, no modified texture. Spoke to nurse about possible INSPECT[employer]OR [employer] ASSEMBLY consult d/t PMH regarding aspiration. Within EMR: pt has not been compliant with following altered texture in the past and denied peg. Pt stated today he likes to eat regular textured food and this is what he normally eats at home. Pt denied chewing or swallowing issues currently. Pt also denied N/V but stated he had some constipation. Within EMR pt has gained 2 pounds since his prior admission about three weeks ago suggesting no weight loss. Pt reported a good appetite. Chart reviewed. Labs and meds reviewed. Will continue to monitor. Current Diet: Cardiac Malnutrition Evaluation (10/24) The patient does not meet criteria for a specified degree of malnutrition at this time. Will re-evaluate at follow-up as appropriate. Diet Education Needs Assessment: Diet education indicated, pt not appropriate. Nutrition Care Level: low Signed: Maricruz Vilchis, MS, RD, LD
--- NOTE | 2018-10-24 16:51 | NUR ---
WOUND CARE-PUP SCREEN LOS: 22 HOURS AGE: [age] YEAR OLD MALE YANDEL SCORE: 18 VISCO MATTRESS: PRESENT PUP: CONSERVATIVE PATIENT VISIT/SKIN CHECK; RECEIVED OUT BED IN CHAIR, PATIENT ABLE TO STAND WITH ASSISTANCE. SKIN ASSESSMENT DONE, NO SKIN BREAKDOWN OR PRESSURE ULCER IDENTIFIED. RECOMMENDATION: CONTINUE WITH CURRENT PLAN OF CARE Addendum: 10/24/18 at 1704 by Leilani Phillips RN Amended: Links added.
[2018-10-24] MEDS: RIVAROXABAN 20 MG TABLET PO SCH (16:53)
--- NOTE | 2018-10-24 19:00 | NUR ---
received report from day nurse. patient is resting comfortably in bed. bed is in lowest position and call french is within reach.
--- NOTE | 2018-10-24 21:00 | NUR ---
patient reports feeling cold. thermostat temperature increased, patient given 2 warm blankets. Patient has refused to have anything warm to drink. patients vital signs obtained and found to be within normal limits. will continue to monitor patients temperature.
--- NOTE | 2018-10-24 22:30 | NUR ---
patient continues to report feeling cold. patient has been given a warmer which has been placed over his lower extremities. will continue to monitor patient's temperature.
--- NOTE | 2018-10-24 23:00 | NUR ---
patient reports feeling much warmer now.
[2018-10-25] MEDS: ASPIRIN 325 MG TAB PO SCH (00:14)
[2018-10-25] MEDS: GABAPENTIN 300 MG CAP PO SCH ×3 (00:14→16:50)
[2018-10-25] MEDS: DONEPEZIL HCL 5 MG TAB PO SCH (00:14)
[2018-10-25 00:15] VITALS: BP 119/65
[2018-10-25] MEDS: AZITHROMYCIN 500MG/NS 250 ML 250 ML IV SCH (00:25)
[2018-10-25] MEDS: CEFTRIAXONE SOD 1 GM/NS 50 ML 50 ML IV SCH (01:45)
[2018-10-25 04:10] VITALS: BP 125/70
--- NOTE | 2018-10-25 06:52 | NUR ---
report given to day nurse. patient is resting comfortably in bed. bed is in lowest position and call french is within reach
[2018-10-25 08:21] VITALS: BP 113/77
[2018-10-25] MEDS: MIRABEGRON 50 MG PO SCH (09:00)
[2018-10-25] MEDS: PANTOPRAZOLE SOD 40 MG TABEC PO SCH ×2 (10:31→16:50)
[2018-10-25] MEDS: CITALOPRAM HYDROBROMIDE 20 MG TAB PO SCH (10:32)
[2018-10-25 12:19] VITALS: BP 126/72
[2018-10-25 14:54] VITALS: BP 126/72
--- NOTE | 2018-10-25 16:43 | NUR ---
patient resting in bed, assisted him to walk hallway, denies any pain, not in any distress now
[2018-10-25] MEDS: RIVAROXABAN 20 MG TABLET PO SCH (16:50)
[2018-10-25 17:02] VITALS: BP 111/67
--- NOTE | 2018-10-25 17:29 | NUR ---
Discontinuing skilled physical therapy services since patient is Mod I/supervision for functional mobility. he is able to ambulate more than 700 feet with RW with Mod I/sup. thank you. Addendum: 10/25/18 at 1730 by Holland venegas PT Amended: Links added.
--- NOTE | 2018-10-25 18:16 | NUR ---
PATIENT DISCHARGED HOME, ALL SUCTION EQUIPMENTS WITH PATIENT, HIS BROTHER HERE TO TAKE HIM HOME, NO PRESCRIPTION PER DR SALOMON, HIS SISTER SAID SHE WILL CALL DR SALOMON'S OFFICE. DENIES ANY PAIN, NOT IN ANY DISTRESS, IV CANULA REMOVED WITH TIP INTACT, NO SS OF INFILTRATION NOTED, PATIENT GOT ALL PERSONNEL BELONGINGS WITH HIM, TRANSPORTED VIA WHEELCHAIR TO [facility]
--- NOTE | 2018-10-28 05:28 | Discharge Summary ---
DISCHARGE DIAGNOSES: 1. Aspiration pneumonia. 2. Cerebral palsy. 3. Dementia. 4. Benign prostatic hyperplasia. HISTORY OF PRESENT ILLNESS AND HOSPITAL COURSE: The patient is a gentleman, who is known for a few years now that he has chronic aspiration of all consistencies, but he has refused PEG tube placement in the past and he has fully understood the risks involved with continued eating as far as continued repetitive attacks of aspiration pneumonias that will only progressively get more severe and more frequent to the point he will . Family is fully aware, this patient is fully aware that continues to be his stance and he still wants to continue to eat and not have a PEG tube placement. So, he came in with his usual cough, congestion, and aspiration pneumonia, was placed on IV antibiotics and O2. This time he was noticed to be hypoxic, so he was set up for home oxygen use as well as a home suctioning apparatus, which once was obtained. The patient was able to be discharged home. Follow up in 1 to 2 weeks with me. The patient understands his overall prognosis is very poor and ultimately will lead to his . MD ANAID Little/[place] /[id number]
== END 2018-10-25 18:13 | disposition home or self-care (01) ==
LOC: ER 19:57 → ERHOLD 10-23 01:19 → IMCU 10-23 10:50
PROVIDERS: ADMIT Internal Medicine; ATTEND Internal Medicine
DX: J69.0 Pneumonitis due to inhalation of food and vomit (principal); I27.82 Chronic pulmonary embolism; G80.9 Cerebral palsy, unspecified; Z91.81 History of falling; N40.0 Benign prostatic hyperplasia without lower urinary tract symptoms; F03.90 Unspecified dementia, unspecified severity, without behavioral disturbance, psychotic disturbance, mood disturbance, and anxiety; R09.02 Hypoxemia; R53.1 Weakness; K21.9 Gastro-esophageal reflux disease without esophagitis
CPT/HCPCS: 36415; 71045; 71260; 73562 ×2; 80053; 81001; 82550; 82553; 83880; 84484; 85025; 87040; 93970; 97116 ×3; 97139; 97161; 97530 ×2; 99284; G0378 ×3; J0456 ×3; J0696 ×3; Q9967; S0164 ×3

== ENCOUNTER 2019-01-31 18:09 | Emergency (ER) | payer MEDICARE ==
[~2019-01-31] VITALS: Ht 172.7 cm; Wt 81.2 kg
--- NOTE | 2019-01-31 20:24 | Diagnostic Imaging Report ---
Examination: CT BRAIN WO CONTRAST History:Fall with head injury. Comparison studies:Brain MRI dated 11/14/2016. Technique: Axial images were obtained from the skull base to the vertex. Coronal and sagittal images reconstructed from the axial data. Dose modulation, iterative reconstruction, and/or weight based adjustment of the mA/kV was utilized to reduce the radiation dose to as low as reasonably achievable. Intravenous contrast: None Findings: Scalp: No abnormalities. Bones: No fractures, blastic or lytic lesions. Brain sulci: Appropriate for age. Ventricles: Normal in size and configuration. No hydrocephalus. Extra-axial space: No abnormalities. Parenchyma: The previously seen white matter change from chronic microvascular ischemic change is not well seen on this CT but best appreciated on prior brain MRI due to increased sensitivity of MRI compared to CT. No masses, hemorrhage, or acute or chronic cortical based vascular insults.. Sellar/suprasellar region: No abnormalities. Craniocervical junction: Patent foramen magnum. No Chiari one malformation. Incidental findings: None. Impression: No acute intracranial abnormalities. Signed by: Dr. Leola Wiley M.D. on 01/31/2019 8:21 PM
--- NOTE | 2019-01-31 20:26 | Diagnostic Imaging Report ---
EXAM: CT Pelvis WITHOUT contrast INDICATION: Pain status post fall. Fracture. COMPARISON: None. TECHNIQUE: Pelvis were scanned utilizing a multidetector helical scanner from the iliac crest to the pubic symphysis without administration of IV contrast. Coronal and sagittal reformations were obtained. Routine protocol was performed. IV CONTRAST: None. ORAL CONTRAST: Water RADIATION DOSE: Total DLP: 676.53 mGy*cm Estimated effective dose: (DLP x 0.015 x size factor) mSv COMPLICATIONS: None FINDINGS: LINES and TUBES: None. GI TRACT: No abnormal distention, wall thickening, or evidence of bowel obstruction. Appendix is normal. PELVIC ORGANS/BLADDER: Unremarkable. LYMPH NODES: No lymphadenopathy. VESSELS: There is moderate atherosclerotic disease in the aorta and major arterial branches. PERITONEUM / RETROPERITONEUM: No free air or fluid. BONES: 3.2 cm lytic lesion in the left ilium. Osteopenia. Degenerative changes of the lower lumbar spine SOFT TISSUES: Bilateral fat-containing inguinal hernias. There is also insinuation of a small bowel loop in the right sided hernia, and of a short segment of proximal sigmoid colon in the left inguinal hernia. Hyperdense material in the inguinal fold bilaterally may represent talc. Tiny fat-containing umbilical hernia. IMPRESSION: 1. No acute displaced fracture. 2. Bilateral fat-containing inguinal hernias. There is also insinuation of a small bowel loop in the right sided hernia, and of a short segment of proximal sigmoid colon in the left inguinal hernia. No bowel obstruction. Signed by: Dr. Maggie Romero M.D. on 01/31/2019 8:23 PM
[2019-01-31] MEDS ORDERED: MORPHINE SULFATE 5 MG/ML VIAL IV ONE (20:45)
[2019-01-31] MEDS ORDERED: MORPHINE SULFATE INJ 4 MG/ML INJ 1ML IV ONE (20:45)
--- NOTE | 2019-01-31 20:47 | Diagnostic Imaging Report ---
Examination: CT CERVICAL SPINE WO CONTRAST HISTORY:Neck injury after fall. COMPARISON:None. TECHNIQUE: Multidetector helical axial images were obtained without contrast from the foramen magnum to T1. Coronal and sagittal reformatted images were done. Bone and soft tissue windows were evaluated. Dose modulation, iterative reconstruction, and/or weight based adjustment of the mA/kV was utilized to reduce the radiation dose to as low as reasonably achievable. FINDINGS: Alignment:Normal lordosis with mild retrolisthesis of C3 on C4. Vertebrae: Normal height and density. No acute fracture, infection or neoplasm. Disc space heights: Moderately narrowed from C5 through C7. Caliber of spinal canal: Developmentally normal. Posterior fossa and craniocervical junction: Foramen magnum patent. No Chiari 1 malformation. Soft tissues: No abnormality. Degenerative changes: Diffuse disc osteophytes at C3-C4, C5-C6 and C6-C7 without canal stenosis. Bilateral facet arthropathy from C2 through C7. No disc bulge/ herniation or canal stenosis. Visualized lung apices: No abnormalities. IMPRESSION: 1. No acute abnormalities. 2. Mild degenerative changes, as above. Mild retrolisthesis of C3 on C4. Signed by: Dr. Leola Wiley M.D. on 01/31/2019 8:44 PM
[2019-01-31 20:52] LABS: BASOPHILS % 0.7 % (0.0-1.0); EOSINOPHILS # (AUTO) 0.1 (0.0-0.4); EOSINOPHILS % 1.9 % (0.0-6.0); HEMATOCRIT 41.2 % (38.2-49.6); HEMOGLOBIN 13.1 g/dL (14.0-18.0); LYMPHOCYTES # (AUTO) 1.7 (1.0-3.2); LYMPHOCYTES % 32.3 % (18.0-39.1); MEAN CORPUSCULAR HEMOGLOBIN 29.3 pg (28-32); MEAN CORPUSCULAR HGB CONC 31.8 g/dL (31-35); MEAN CORPUSCULAR VOLUME 92.2 fL (81-99); MONOCYTES # (AUTO) 0.4 (0.2-0.8); NEUTROPHILS # (AUTO) 3.1 (2.1-6.9); NEUTROPHILS % 56.9 % (38.7-80.0); PLATELET COUNT 118 x10e3/uL (140-360); RED BLOOD COUNT 4.47 x10e6/uL (4.3-5.7); RED CELL DISTRIBUTION WIDTH 14.4 % (11.7-14.4)
[2019-01-31 21:01] LABS: ANION GAP 12.3 mmol/L (8-16); BLOOD UREA NITROGEN 18 mg/dL (7-26); BUN/CREATININE RATIO 18 (6-25); CALCIUM 8.4 mg/dL (8.4-10.2); CARBON DIOXIDE 27 mmol/L (22-29); CHLORIDE 106 mmol/L (98-107); EST GLOMERULAR FILTRATION RATE > 60 ML/MIN (60-); GLUCOSE 91 mg/dL (74-118); POTASSIUM 4.3 mmol/L (3.5-5.1); SODIUM 141 mmol/L (136-145)
--- NOTE | 2019-01-31 21:02 | Diagnostic Imaging Report ---
Examination: CT LUMBAR SPINE WO CONTRAST History: Low back injury after fall. Comparison studies: None Technique: Axial images were obtained through the lumbar spine from L1. Coronal and sagittal reconstructions obtained from the axial data. Dose modulation, iterative reconstruction, and/or weight based adjustment of the mA/kV was utilized to reduce the radiation dose to as low as reasonably achievable. Intravenous contrast: None Findings: The usual 5 non-rib bearing lumbar vertebral bodies are present. Alignment: Normal lordosis. No scoliosis. Soft tissues: Atherosclerotic calcification of the aorta. Paraspinal muscles: No abnormalities. Sacroiliac joints: No degenerative changes. Vertebrae: No fractures, infection or neoplasm. Degenerative changes: L1-L2: No abnormalities. L2-L3: Mild retrolisthesis. Diffuse disc osteophyte complex and left greater than right facet arthropathy results in mild canal stenosis and mild bilateral neural foraminal narrowing. L3-L4: Diffuse disc osteophyte complex and left greater than right facet arthropathy results in mild canal stenosis and mild bilateral neural foraminal narrowing. L4-L5: Diffuse disc osteophyte complex and left greater than right facet arthropathy results in moderate canal stenosis and moderate bilateral neural foraminal narrowing. L5-S1: Diffuse disc osteophyte complex and left greater than right facet arthropathy results in moderate bilateral neural foraminal narrowing. Prior decompressive laminectomy. IMPRESSION: Degenerative changes from L2-L3 through L5-S1 with moderate canal and bilateral foraminal stenosis at L4-L5 and moderate bilateral foraminal narrowing at L5-S1. Mild retrolisthesis of L2 on L3. Signed by: Dr. Leola iWley M.D. on 01/31/2019 8:59 PM
--- NOTE | 2019-01-31 21:45 | NUR ---
long discussion at bedside with patient, sophie printed circuit boards contact printer, and this nurse. patient asking for morphine pills to be given for discharge, patient given tramadol 50mg tabs for pain management on discharge. Patient asking for admission for pain management only, due to patient having no fractures, no admission critieria is met. dr blaine conteh was called, if patients labs and xrays come back negative, patient is clear to go home.
--- NOTE | 2019-01-31 22:25 | NUR ---
michael at [facility] paged
[2019-01-31 22:53] VITALS: BP 132/82
== END 2019-01-31 23:17 | disposition home or self-care (01) ==
LOC: ER 18:09
DX: M54.5 Low back pain (principal); R10.2 Pelvic and perineal pain; S30.0XXA Contusion of lower back and pelvis, initial encounter; S00.83XA Contusion of other part of head, initial encounter; W01.0XXA Fall on same level from slipping, tripping and stumbling without subsequent striking against object, initial encounter; Y92.008 Other place in unspecified non-institutional (private) residence as the place of occurrence of the external cause; G80.9 Cerebral palsy, unspecified; F32.9 Major depressive disorder, single episode, unspecified; Z86.718 Personal history of other venous thrombosis and embolism
CPT/HCPCS: 36415; 70450; 72125; 72131; 72192; 80048; 85025; 85730; 99284; J2270

== ENCOUNTER 2019-02-06 12:34 | Inpatient (IN) | payer MEDICARE ==
[~2019-02-06] VITALS: Ht 172.7 cm; Wt 80.7 kg
[2019-02-06] MEDS ORDERED: CEFEPIME 1GM/NS 0.9% 50 ML 50 ML IV STA (12:50)
[2019-02-06] MEDS ORDERED: SODIUM CHLORIDE 0.9% 1000ML 1,000 ML IV STA (12:50)
[2019-02-06] MEDS ORDERED: CEFEPIME 1GM/NS 0.9% 50 ML 50 ML IV SCH (13:00)
[2019-02-06 13:17] LABS: BASOPHILS % 0.7 % (0.0-1.0); EOSINOPHILS # (AUTO) 0.1 (0.0-0.4); EOSINOPHILS % 1.6 % (0.0-6.0); HEMATOCRIT 42.3 % (38.2-49.6); HEMOGLOBIN 13.4 g/dL (14.0-18.0); LYMPHOCYTES # (AUTO) 1.7 (1.0-3.2); LYMPHOCYTES % 30.3 % (18.0-39.1); MEAN CORPUSCULAR HGB CONC 31.7 g/dL (31-35); MEAN CORPUSCULAR VOLUME 91.6 fL (81-99); MONOCYTES # (AUTO) 0.4 (0.2-0.8); MONOCYTES % 7.2 % (4.4-11.3); NEUTROPHILS # (AUTO) 3.4 (2.1-6.9); NEUTROPHILS % 59.8 % (38.7-80.0); PLATELET COUNT 107 x10e3/uL (140-360); RED BLOOD COUNT 4.62 x10e6/uL (4.3-5.7); RED CELL DISTRIBUTION WIDTH 14.6 % (11.7-14.4)
[2019-02-06 13:26] LABS: INR 2.28; PROTHROMBIN TIME 25.8 seconds (11.9-14.5)
[2019-02-06] MEDS: SODIUM CHLORIDE 0.9% 1000ML 1,000 ML IV SCH ×2 (13:27→22:48)
[2019-02-06 13:38] LABS: ALANINE AMINOTRANSFERASE 16 IU/L (0-55); ALBUMIN 3.2 g/dL (3.5-5.0); ALKALINE PHOSPHATASE 87 IU/L (40-150); ANION GAP 11.2 mmol/L (8-16); BLOOD UREA NITROGEN 19 mg/dL (7-26); BUN/CREATININE RATIO 22 (6-25); CALCIUM 8.5 mg/dL (8.4-10.2); CARBON DIOXIDE 29 mmol/L (22-29); CHLORIDE 104 mmol/L (98-107); CREATININE, SERUM 0.87 mg/dL (0.72-1.25); EST GLOMERULAR FILTRATION RATE > 60 ML/MIN (60-); GLUCOSE 91 mg/dL (74-118); POTASSIUM 4.2 mmol/L (3.5-5.1); SODIUM 140 mmol/L (136-145)
[2019-02-06] MEDS: ONDANSETRON HCL INJ 2MG/ML 2ML 2 MG/ML VIAL IV PRN (13:52)
[2019-02-06] MEDS: MORPHINE SULFATE INJ 4 MG/ML INJ 1ML IV PRN ×2 (13:52→21:04)
[2019-02-06 14:10] LABS: BILIRUBIN,URINE NEGATIVE (NEGATIVE); CLARITY,URINE SL CLOUDY (CLEAR); COLOR,URINE YELLOW (YELLOW); KETONES,URINE NEGATIVE (NEGATIVE); LEUKOCYTE ESTERASE ,URINE NEGATIVE (NEGATIVE); NITRITE,URINE NEGATIVE (NEGATIVE); PROTEIN,URINE DIPSTICK NEGATIVE (NEGATIVE); URINE UROBILINOGEN 0.2 mg/dL (0.2 - 1)
[2019-02-06 14:23] LABS: BACTERIA,URINE FEW /HPF; MUCUS,URINE MODERATE (RARE); WBC,URINE (MAN) 0-5 /HPF (0-5)
--- NOTE | 2019-02-06 15:09 | NUR ---
called and notified family member of patient being moved to room 289
[2019-02-06 15:35] VITALS: BP 142/70
--- NOTE | 2019-02-06 15:35 | NUR ---
RECEIVED PATIENT FROM ER TO ROOM 289, HE IS IN STABLE CONDITION. INITIAL ADMISSION AND PHYSICAL ASSESSMENT COMPLETED AND DOCUMENTED. PATIENT ORIENTED TO ROOM AND POLICIES. BED PUMP APPLIED, HEEL PROTECTORS APPLIED. CALL LIGHT WITHIN REACH. BED IN THE LOWEST POSITION. BED ALARM ON.
[2019-02-06 15:53] VITALS: BP 142/70
[2019-02-06] MEDS ORDERED: WARFARIN SODIU2.5 MG PO (16:21)
--- NOTE | 2019-02-06 19:10 | NUR ---
Completed bedside nursing report with morning nurse. Pt alert and orient to name. Lying in bed HOB 45 degrees. Denies pain at this time. Call french within reach. Will continue to monitor.
--- NOTE | 2019-02-06 19:19 | NUR ---
REPORT GIVEN TO ONCOMING NURSE, PATIENT IS RESTING IN BED. NO ACUTE DISTRESS NOTED. CALL LIGHT WITHIN REACH. BED IN THE LOWEST POSITION. BED ALARM ON.
[2019-02-06 20:00] VITALS: BP 131/63
[2019-02-06] MEDS: NON-FORMULARY MEDICATION (Mirabegron (Myrbetriq) 50 MG) PO SCH (20:52)
[2019-02-06] MEDS: PANTOPRAZOLE SOD 40 MG TABEC PO SCH (20:52)
[2019-02-06] MEDS: DONEPEZIL HCL 5 MG TAB PO SCH (20:52)
[2019-02-06] MEDS: GABAPENTIN 300 MG CAP PO SCH (20:53)
[2019-02-06] MEDS: WARFARIN SOD 5 MG TAB PO SCH (20:53)
[2019-02-06 21:00] VITALS: BP 131/63
[2019-02-06] MEDS ORDERED: NON-FORMULARY MEDICATION (Donepezil Hcl 10 MG) PO SCH (21:00)
[2019-02-06] MEDS ORDERED: WARFARIN SOD 2.5 MG TAB PO SCH (21:00)
[2019-02-06] MEDS: DIAZEPAM 5 MG TAB PO PRN (23:30)
[2019-02-06] MEDS: CEFEPIME 1GM/NS 0.9% 50 ML 50 ML IV SCH (23:40)
[2019-02-07] VITALS (7 sets, daily range): BP systolic 101–138; BP diastolic 58–63
[2019-02-07 05:50] LABS: BASOPHILS # (AUTO) 0.1 (0.0-0.1); BASOPHILS % 0.8 % (0.0-1.0); EOSINOPHILS # (AUTO) 0.1 (0.0-0.4); HEMATOCRIT 40.5 % (38.2-49.6); HEMOGLOBIN 12.8 g/dL (14.0-18.0); LYMPHOCYTES # (AUTO) 1.9 (1.0-3.2); LYMPHOCYTES % 31.1 % (18.0-39.1); MEAN CORPUSCULAR HEMOGLOBIN 29.1 pg (28-32); MEAN CORPUSCULAR HGB CONC 31.6 g/dL (31-35); MONOCYTES # (AUTO) 0.5 (0.2-0.8); MONOCYTES % 8.8 % (4.4-11.3); NEUTROPHILS # (AUTO) 3.4 (2.1-6.9); PLATELET COUNT 108 x10e3/uL (140-360); RED CELL DISTRIBUTION WIDTH 14.3 % (11.7-14.4)
[2019-02-07 06:01] LABS: INR 2.33; PROTHROMBIN TIME 26.3 seconds (11.9-14.5)
[2019-02-07 06:09] LABS: ALANINE AMINOTRANSFERASE 14 IU/L (0-55); ALBUMIN 2.9 g/dL (3.5-5.0); ALKALINE PHOSPHATASE 78 IU/L (40-150); ANION GAP 10.1 mmol/L (8-16); BLOOD UREA NITROGEN 16 mg/dL (7-26); BUN/CREATININE RATIO 20 (6-25); CALCIUM 7.8 mg/dL (8.4-10.2); CARBON DIOXIDE 28 mmol/L (22-29); CHLORIDE 108 mmol/L (98-107); CREATININE, SERUM 0.79 mg/dL (0.72-1.25); EST GLOMERULAR FILTRATION RATE > 60 ML/MIN (60-); GLUCOSE 91 mg/dL (74-118); POTASSIUM 4.1 mmol/L (3.5-5.1); SODIUM 142 mmol/L (136-145)
--- NOTE | 2019-02-07 06:56 | NUR ---
RECEIVED PATIENT RESTING IN BED. NO ACUTE DISTRESS NOTED. DENIES PAIN OR DISCOMFORT AT THIS TIME. CALL LIGHT WITHIN REACH. BED IN THE LOWEST POSITION. BED ALARM ON.
[2019-02-07] MEDS: SODIUM CHLORIDE 0.9% 1000ML 1,000 ML IV SCH ×2 (07:11→14:55)
[2019-02-07] MEDS: NON-FORMULARY MEDICATION (Mirabegron (Myrbetriq) 50 MG) PO SCH ×2 (08:47→21:05)
[2019-02-07] MEDS: GABAPENTIN 300 MG CAP PO SCH ×3 (08:47→21:06)
[2019-02-07] MEDS: CITALOPRAM HYDROBROMIDE 20 MG TAB PO SCH (08:47)
[2019-02-07] MEDS: PANTOPRAZOLE SOD 40 MG TABEC PO SCH ×2 (08:47→21:05)
[2019-02-07] MEDS: MULTIVITAMINS/MINERALS TAB PO SCH (08:47)
[2019-02-07] MEDS: ONDANSETRON HCL INJ 2MG/ML 2ML 2 MG/ML VIAL IV PRN (10:10)
[2019-02-07] MEDS: MORPHINE SULFATE INJ 4 MG/ML INJ 1ML IV PRN (10:10)
[2019-02-07] MEDS: CEFEPIME 1GM/NS 0.9% 50 ML 50 ML IV SCH (11:40)
--- NOTE | 2019-02-07 15:23 | NUR ---
WOUND CARE CONSULT: THIS IS A 73 YEAR OLD MALE PATIENT ADMITTED TO [facility] FOR CEREBRAL PALSY, UTI, AND WEAKNESS. HEAD TO TOE SKIN ASSESSMENT PERFORMED. PATIENT HAS A STAGE 2 PRESSURE ULCER TO THE SACRUM MEASURING 7.2X6X0.1CM. PATIENT STATED HE HAS HAD THE PRESSURE ULCER PRIOR TO ADMIT. PATIENT HAS AREAS OF DENUDED SKIN TO BILATERAL GROIN CREASES; PATIENT STATED THAT THE RASH AND ITCHING HAVE DECREASED BUT IT IS STILL PRESENT. PATIENT HAS A MULTIPLE BRUISES NOTED TO BILATERAL UPPER ARMS. PATIENT HAS A BRUISE NOTED TO THE LEFT ANKLE AND LEFT LOWER MEDIAL LEG; NO OPEN AREAS. LABS: WBC5.99 ALB2.9 TOTAL PROTEIN 5.8 URINE CULTURE = PENDING. MEDICATIONS: CEFEPIME RECOMMENDATIONS: -CONTINUE WITH ALTERNATING PRESSURE RELIEF MATTRESS. -CONTINUE WITH BILATERAL HEEL PROTECTORS WITH PILLOW SUSPENSION. -TURN EVERY 2 HOURS AND PRN. -NURSING TO CLEAN SACRAL STAGE 2 PRESSURE ULCER WITH NORMAL SALINE, PAT DRY, APPLY VENELEX AND ALLEVYN FOAM DRESSING; CHANGE DAILY AND PRN. -NURSING TO CLEAN BILATERAL GROIN CREASES DENUDED SKIN WITH SOAP AND WATER, PAT DRY, APPLY NYSTATIN POWDER BID AND PRN. THANK YOU FOR THIS WOUND CARE CONSULT. Addendum: 02/07/19 at 1532 by Violeta Keller RN Amended: Links added.
--- NOTE | 2019-02-07 19:20 | NUR ---
REPORT GIVEN TO ONCOMING NURSE, WALKING ROUNDS DONE. PATIENT IS SITTING UP ON SIDE OF THE BED. NO ACUTE DISTRESS NOTED. CALL LIGHT WITHIN REACH, BED IN THE LOWEST POSITION.
[2019-02-07] MEDS: DONEPEZIL HCL 5 MG TAB PO SCH (21:06)
[2019-02-07] MEDS: WARFARIN SOD 5 MG TAB PO SCH (21:06)
[2019-02-07] MEDS: NYSTATIN 15 GM POWDER UD BTL TOP SCH (21:06)
--- NOTE | 2019-02-07 21:06 | NUR ---
PATIENT ASSISTED WITH ADLS, REPOSITION IN BED FOR COMFORT. HEAD OF BED ELEVATED, OXYGEN ON @2L/NC, NO RESPIRATORY DISTRESS OBSERVED. PATIENT C/O PAIN TO THE LEG BUT REFUSE PAIN MEDICATION WHEN OFFER. BED ALARM ON, CALL LIGHT WITHIN EASY REACH, HE'S INSTRUCTED TO CALL FOR ASSISTANCE NEEDED.
[2019-02-08] VITALS (7 sets, daily range): BP systolic 113–143; BP diastolic 57–70
--- NOTE | 2019-02-08 00:24 | NUR ---
IV DIFFICULT TO FLUSH, IV REMOVED WITH TIP INTACT. IV #[id number] INSERTED TO THE RIGHT AC, PROCEDURE TOLERATED WELL, ANTIBIOTIC INFUSING ORDERED.
[2019-02-08] MEDS: CEFEPIME 1GM/NS 0.9% 50 ML 50 ML IV SCH ×2 (00:25→12:30)
[2019-02-08] MEDS: SODIUM CHLORIDE 0.9% 1000ML 1,000 ML IV SCH ×2 (00:25→08:22)
--- NOTE | 2019-02-08 01:00 | NUR ---
PATIENT REQUESTED PAIN MEDICATION FOR HIS LEGS. UPON ARRIVAL WITH THE MEDICATION, HE'S OBSERVED DEEPLY ASLEEP. WILL HOLD ON TO THE MEDICATION AND ADMINISTER IT ONCE HE'S FULLY AWAKE AND ALERT.
--- NOTE | 2019-02-08 03:55 | NUR ---
PATIENT INCONTINENT OF URINE, HE'S KEPT CLEAN AND DRY, REPOSITION FOR COMFORT. PATIENT REQUEST THAT THE PHYSICIAN BY CALL FOR BLACKMON CATHETER ORDER. HE WAS EDUCATED THAT BLACKMON CATHETER ARROYO BE INSERTED FOR COMFORT MEASURES. URINAL AND CALL LIGHT WITHIN EASY REACH, BED ALARM ON.
[2019-02-08] MEDS: HYDROCODONE/APAP 10MG-325MG TAB PO PRN ×3 (05:36→20:32)
--- NOTE | 2019-02-08 06:17 | NUR ---
DR SALOMON SAW THE PATIENT THIS MORNING, NO NEW ORDERS RECEIVED.
--- NOTE | 2019-02-08 07:30 | NUR ---
Pt received in bed with eyes open. Pt is aox4 and able to verbalize needs. Pt denies any pain at this time. Pt continues on IVF and well tolerated.
[2019-02-08] MEDS: PANTOPRAZOLE SOD 40 MG TABEC PO SCH ×2 (08:10→20:32)
[2019-02-08] MEDS: CITALOPRAM HYDROBROMIDE 20 MG TAB PO SCH (08:10)
[2019-02-08] MEDS: NYSTATIN 15 GM POWDER UD BTL TOP SCH ×2 (08:10→20:32)
[2019-02-08] MEDS: MULTIVITAMINS/MINERALS TAB PO SCH (08:10)
[2019-02-08] MEDS: GABAPENTIN 300 MG CAP PO SCH ×3 (08:10→20:32)
[2019-02-08] MEDS: NON-FORMULARY MEDICATION (Mirabegron (Myrbetriq) 50 MG) PO SCH ×2 (08:12→20:32)
[2019-02-08] MEDS: BALSAM PERU/CASTOR OIL 5 GM OINT...G. TP SCH (08:22)
[2019-02-08 12:28] LABS: INR 2.23; PROTHROMBIN TIME 25.4 seconds (11.9-14.5)
[2019-02-08] MEDS: WARFARIN SOD 5 MG TAB PO SCH (17:20)
--- NOTE | 2019-02-08 18:38 | NUR ---
Nutrition Screen Note RD Recommendation for Physician: -Continue diet as ordered Plan of Care: RD following, monitoring for tolerance and adequacy Nutrition reason for involvement: Nutrition Risk Trigger MST Primary Diagnose(s): UTI, weakness PMH: cerebral palsy, aspiration PNA Ht: 68in Wt: 178lb BMI: 27.1kg/m2 IBW: 154lb +/- 10% RD Assessment: (02/08) Chart reviewed. Labs and meds reviewed. 73yo M, who was admitted for weakness and UTI. Visited pt in the room. Pt reported good appetite. PCT recorded 100% meal intake since admission. No GI complains reported. Pt denied any chewing or swallowing difficulty. Weight has been stable. Will continue to monitor and follow. Current Diet: cardiac diet Malnutrition Evaluation (02/08/19) The patient does not meet criteria for a specified degree of malnutrition at this time. Will re-evaluate at follow-up as appropriate. Diet Education Needs Assessment: Diet education not indicated. Nutrition Care Level: low Signed: Maricruz Vilchis, MS, RD, LD
[2019-02-08] MEDS: DONEPEZIL HCL 5 MG TAB PO SCH (20:32)
--- NOTE | 2019-02-08 20:33 | NUR ---
ASSISTED PATIENT WITH ADLS, REPOSITION IN BED FOR COMFORT AND CALL LIGHT WITHIN EASY REACH. PATIENT C/O PAIN TO THE LEGS, MEDICATED WITH NORCO 1TAB ORDERED.
--- NOTE | 2019-02-08 23:55 | NUR ---
PATIENT SOUNDLY ASLEEP, HE'S EASY TO AROUSE. NO RESPIRATORY DISTRESS OBSERVED, HE DENIES PAIN. CALL LIGHT AND URINAL WITHIN EASY REACH.
[2019-02-09] VITALS (8 sets, daily range): BP systolic 104–134; BP diastolic 60–68
[2019-02-09] MEDS: CEFEPIME 1GM/NS 0.9% 50 ML 50 ML IV SCH ×2 (00:18→11:55)
[2019-02-09] MEDS: SODIUM CHLORIDE 0.9% 1000ML 1,000 ML IV SCH ×2 (01:00→09:07)
--- NOTE | 2019-02-09 04:46 | NUR ---
TOTAL CARE PROVIDED, BILATERAL GROIN CLEANSE, SKIN PROTECTANT APPLIED TO THE RED RASHES. ALLEVYN DRESSING INTACT TO THE SACRUM, PATIENT DENIES PAIN AT THIS TIME. CALL LIGHT AND URINAL WITHIN EASY REACH, BED ALARM ON.
[2019-02-09 06:28] LABS: INR 2.56; PROTHROMBIN TIME 28.2 seconds (11.9-14.5)
[2019-02-09] MEDS: HYDROCODONE/APAP 10MG-325MG TAB PO PRN ×3 (06:42→20:59)
--- NOTE | 2019-02-09 08:01 | NUR ---
Pt received in bed with eyes open. Pt denies any pain at this time. Breaths are even and unlabored on O2 2L/NC.
[2019-02-09] MEDS: NYSTATIN 15 GM POWDER UD BTL TOP SCH ×2 (09:07→20:59)
[2019-02-09] MEDS: GABAPENTIN 300 MG CAP PO SCH ×3 (09:07→20:59)
[2019-02-09] MEDS: CITALOPRAM HYDROBROMIDE 20 MG TAB PO SCH (09:07)
[2019-02-09] MEDS: BALSAM PERU/CASTOR OIL 5 GM OINT...G. TP SCH (09:07)
[2019-02-09] MEDS: PANTOPRAZOLE SOD 40 MG TABEC PO SCH ×2 (09:07→20:59)
[2019-02-09] MEDS: NON-FORMULARY MEDICATION (Mirabegron (Myrbetriq) 50 MG) PO SCH ×2 (09:07→20:59)
[2019-02-09] MEDS: MULTIVITAMINS/MINERALS TAB PO SCH (09:07)
[2019-02-09] MEDS: WARFARIN SOD 5 MG TAB PO SCH (17:01)
--- NOTE | 2019-02-09 18:00 | NUR ---
Pt sitting in chair in room. Pt is able to verbalize needs. Denies any pain at this time. Pt walked several times today. Continues on IV fluids and well tolerated.
[2019-02-09] MEDS: DONEPEZIL HCL 5 MG TAB PO SCH (20:59)
--- NOTE | 2019-02-09 21:02 | NUR ---
PATIENT AMBULATED WITH ROLLING WALKER FROM HIS ROOM TO THE NURSES STATION WITH PRIMARY NURSE AT HIS SIDE, HE'S NOW BACK IN BED WITHOUT DISTRESS. URINAL AND CALL LIGHT WITHIN EASY REACH, BED ALARM ON. MEDICATED WITH NORCO 1TAB FOR PAIN TO THE RIGHT KNEE.
[2019-02-10] VITALS (8 sets, daily range): BP systolic 108–149; BP diastolic 56–79
[2019-02-10] MEDS: CEFEPIME 1GM/NS 0.9% 50 ML 50 ML IV SCH ×2 (00:17→12:43)
[2019-02-10] MEDS: DIAZEPAM 5 MG TAB PO PRN (00:17)
--- NOTE | 2019-02-10 02:11 | NUR ---
ROUNDS MADE, PATIENT SOUNDLY ASLEEP WITHOUT RESPIRATORY DISTRESS. BED ALARM ON, CALL LIGHT AND URINAL WITHIN EASY REACH.
[2019-02-10] MEDS: SODIUM CHLORIDE 0.9% 1000ML 1,000 ML IV SCH ×4 (02:40→20:58)
[2019-02-10 06:40] LABS: INR 2.67; PROTHROMBIN TIME 29.2 seconds (11.9-14.5)
[2019-02-10] MEDS: MULTIVITAMINS/MINERALS TAB PO SCH (08:29)
[2019-02-10] MEDS: GABAPENTIN 300 MG CAP PO SCH ×3 (08:29→21:45)
[2019-02-10] MEDS: PANTOPRAZOLE SOD 40 MG TABEC PO SCH ×2 (08:29→21:44)
[2019-02-10] MEDS: CITALOPRAM HYDROBROMIDE 20 MG TAB PO SCH (08:29)
[2019-02-10] MEDS: BALSAM PERU/CASTOR OIL 5 GM OINT...G. TP SCH (08:30)
[2019-02-10] MEDS: NYSTATIN 15 GM POWDER UD BTL TOP SCH ×2 (08:30→21:45)
[2019-02-10] MEDS: NON-FORMULARY MEDICATION (Mirabegron (Myrbetriq) 50 MG) PO SCH ×2 (08:37→21:00)
--- NOTE | 2019-02-10 11:10 | NUR ---
PATIENT WALKED >250 FEET WITH ASSISTANCE OF GATE BELT AND WALKER TO AND PASSED MEDICAL SURGICAL UNIT 2 FROM HIS ROOM IN 289.
[2019-02-10] MEDS: WARFARIN SOD 5 MG TAB PO SCH (15:54)
--- NOTE | 2019-02-10 18:06 | NUR ---
PATIENT WALKED >200 FEET WITH ASSISTANCE OF GATE BELT AND WALKER TO AND MEDICAL SURGICAL UNIT 2 NURSES STATION FROM HIS ROOM IN 289.
--- NOTE | 2019-02-10 18:54 | NUR ---
BEDSIDE SHIFT REPORT PERFORMED, RECEIVED PT SITTING IN RECLINER. PT IS AAOX3, RR EVEN AND NON-LABORED. NO S/SX OF DISTRESS NOTED. LEFT PT SITTING IN RECLINER. CALL LIGHT AND PHONE WITHIN REACH.
--- NOTE | 2019-02-10 19:07 | NUR ---
SHIFT CHANGE REPORT GIVEN TO DAYANARA Chen RN.
--- NOTE | 2019-02-10 21:20 | NUR ---
ASSISTED PT TO AMBULATE IN [facility] WITH WALKER AND GAIT BELT. PT HAS STEADY SLOW GAIT BUT (R) LEG WILL INTERNALLY ROTATE AND PT WILL RETURN FOOT TO STRAIGHT WITH ENCOURAGEMENT. 400FT AMBULATED.
[2019-02-10] MEDS: DONEPEZIL HCL 5 MG TAB PO SCH (21:45)
[2019-02-11] VITALS: BP 124/67
[2019-02-11] MEDS: CEFEPIME 1GM/NS 0.9% 50 ML 50 ML IV SCH ×2 (00:20→12:00)
[2019-02-11] MEDS: SODIUM CHLORIDE 0.9% 1000ML 1,000 ML IV SCH (00:20)
[2019-02-11] MEDS: NYSTATIN 15 GM POWDER UD BTL TOP SCH ×2 (03:33→09:24)
[2019-02-11 04:00] VITALS: BP 150/75
--- NOTE | 2019-02-11 07:17 | NUR ---
PATIENT IN BED RESTING WITH EYES CLOSED, NO RESPIRATORY DISTRESS OBSERVED. O2 IN PLACE VIA N/C, ALLEVYN DRESSING TO SACRUM. BED IN LOWER POSITION AND LOCKED. CALL LIGHT AT REACH.
[2019-02-11 07:20] VITALS: BP 138/75
[2019-02-11 07:34] VITALS: BP 138/75
[2019-02-11] MEDS: PANTOPRAZOLE SOD 40 MG TABEC PO SCH (09:06)
[2019-02-11] MEDS: MULTIVITAMINS/MINERALS TAB PO SCH (09:24)
[2019-02-11] MEDS: GABAPENTIN 300 MG CAP PO SCH (09:24)
[2019-02-11] MEDS: BALSAM PERU/CASTOR OIL 5 GM OINT...G. TP SCH (09:24)
[2019-02-11] MEDS: NON-FORMULARY MEDICATION (Mirabegron (Myrbetriq) 50 MG) PO SCH (09:24)
[2019-02-11] MEDS: CITALOPRAM HYDROBROMIDE 20 MG TAB PO SCH (09:24)
[2019-02-11 11:14] VITALS: BP 110/60
--- NOTE | 2019-02-11 11:16 | NUR ---
PATIENT AMBULATING IN HALLWAY WITH PHYSICAL THERAPY, NO DISTRESS NOTED. WILL CONTINUE TO MONITOR.
--- NOTE | 2019-02-11 14:00 | NUR ---
PATIENT DISCHARGED HOME. DISCHARGE INSTRUCTIONS AND FOLLOW UP GIVEN TO PATIENT AND BROTHER, THEY VERBALIZED UNDERSTANDING. PRESCRIPTION TO BE CALLED TO PHARMACY PER MD. IV TO RIGHT AC REMOVED WITH TIP INTACT. ALL PERSONAL ITEMS TAKEN WITH PATIENT. LEFT UNIT PER WHEEL CHAIR TO FRONT LOBBY IN STABLE CONDITION.
--- NOTE | 2019-02-12 05:19 | Discharge Summary ---
DISCHARGE DIAGNOSIS: Urinary tract infection. HISTORY OF PRESENT ILLNESS: The patient is a gentleman, who presented with overall weakness and body aches. He saw an outside physician and had urinary tract infection, for that he was previously placed on Macrobid. The patient reports he started having side effects secondary to the Macrobid, where he then presented to the Emergency Room where he was told by the other physician that he had a resistant infection that would not respond to oral antibiotics, admitted for further evaluation, placed on IV antibiotics. Once I was able to finally obtain the culture, it in fact was sensitive to other p.o. antibiotics such as Cipro, so the patient was then discharged home on p.o. Cipro for 10 more days and told to follow up with me as an outpatient. Culture data here at the facility was negative. Please see all chart for full details. MD ANAID Little/[place] /[id number]
== END 2019-02-11 13:56 | disposition home or self-care (01) | DRG 698 ==
LOC: ER 12:34 → ERHOLD 12:58 → MED/SURG3 15:18
PROVIDERS: ADMIT Internal Medicine; ATTEND Internal Medicine
DX: T83.511A Infection and inflammatory reaction due to indwelling urethral catheter, initial encounter (principal); J69.0 Pneumonitis due to inhalation of food and vomit; Y84.6 Urinary catheterization as the cause of abnormal reaction of the patient, or of later complication, without mention of misadventure at the time of the procedure; N39.0 Urinary tract infection, site not specified; G80.9 Cerebral palsy, unspecified; L89.152 Pressure ulcer of sacral region, stage 2; R53.1 Weakness; F03.90 Unspecified dementia, unspecified severity, without behavioral disturbance, psychotic disturbance, mood disturbance, and anxiety; N40.0 Benign prostatic hyperplasia without lower urinary tract symptoms; Z86.718 Personal history of other venous thrombosis and embolism; Z79.01 Long term (current) use of anticoagulants
CPT/HCPCS: 36415; 80053; 81001; 85025; 85610; 87086; 93970; 96361; 96367; 97139; 99284; J0692; J2270; J2405; J7030

== ENCOUNTER 2019-08-19 05:03 | Inpatient (IN) | payer MEDICARE ==
[~2019-08-19] VITALS: Ht 172.7 cm; Wt 72.6 kg
[2019-08-19] VITALS (7 sets, daily range): BP systolic 94–108; BP diastolic 55–65
[2019-08-19] MEDS ORDERED: ONDANSETRON HCL INJ 2MG/ML 2ML 2 MG/ML VIAL IV STA (05:07)
[2019-08-19] MEDS ORDERED: CEFEPIME 2 GM/NS 0.9% 100 ML 100 ML IV STA (05:07)
[2019-08-19] MEDS ORDERED: ACETAMINOPHEN 325 MG SUPP PR ONE (05:15)
[2019-08-19] MEDS ORDERED: ACETAMINOPHEN 650 MG SUPP PR ONE (05:15)
[2019-08-19] MEDS ORDERED: SODIUM CHLORIDE 0.9% 1000ML 1,000 ML IV SCH (05:15)
[2019-08-19] MEDS ORDERED: ACETAMINOPHEN 1000 MG/100 ML 100 ML IV ONE (05:16)
[2019-08-19 05:29] LABS: BASOPHILS % 0.3 % (0.0-1.0); EOSINOPHILS # (AUTO) 0.1 (0.0-0.4); EOSINOPHILS % 0.6 % (0.0-6.0); HEMATOCRIT 45.2 % (38.2-49.6); HEMOGLOBIN 14.1 g/dL (14.0-18.0); LYMPHOCYTES # (AUTO) 2.7 (1.0-3.2); MEAN CORPUSCULAR HEMOGLOBIN 30.6 pg (28-32); MEAN CORPUSCULAR HGB CONC 31.2 g/dL (31-35); MONOCYTES # (AUTO) 0.3 (0.2-0.8); MONOCYTES % 2.8 % (4.4-11.3); NEUTROPHILS # (AUTO) 6.2 (2.1-6.9); NEUTROPHILS % 67.1 % (38.7-80.0); PLATELET COUNT 125 x10e3/uL (140-360); RED BLOOD COUNT 4.61 x10e6/uL (4.3-5.7); RED CELL DISTRIBUTION WIDTH 14.3 % (11.7-14.4)
[2019-08-19] MEDS ORDERED: CEFEPIME 2 GM/NS 0.9% 100 ML 100 ML IV ONE (05:31)
[2019-08-19 05:38] LABS: COLOR,URINE YELLOW (YELLOW)
[2019-08-19 05:39] LABS: BILIRUBIN,URINE NEGATIVE (NEGATIVE); CLARITY,URINE CLEAR (CLEAR); KETONES,URINE NEGATIVE (NEGATIVE); LEUKOCYTE ESTERASE ,URINE NEGATIVE (NEGATIVE); NITRITE,URINE NEGATIVE (NEGATIVE); PROTEIN,URINE DIPSTICK NEGATIVE (NEGATIVE); URINE UROBILINOGEN 0.2 mg/dL (0.2 - 1)
[2019-08-19 05:41] LABS: INR 1.54; PROTHROMBIN TIME 19.1 seconds (11.9-14.5)
[2019-08-19 05:42] LABS: PARTIAL THROMBOPLASTIN TIME 30.9 seconds (23.8-35.5)
[2019-08-19 05:49] LABS: ALANINE AMINOTRANSFERASE 20 IU/L (0-55); ALBUMIN 3.7 g/dL (3.5-5.0); ALBUMIN/GLOBULIN RATIO 1.2 (0.8-2.0); ALKALINE PHOSPHATASE 88 IU/L (40-150); BLOOD UREA NITROGEN 26 mg/dL (7-26); BUN/CREATININE RATIO 19 (6-25); CALCIUM 9.2 mg/dL (8.4-10.2); CARBON DIOXIDE 26 mmol/L (22-29); CHLORIDE 106 mmol/L (98-107); CREATINE KINASE 135 IU/L (30-200); CREATININE, SERUM 1.34 mg/dL (0.72-1.25); EST GLOMERULAR FILTRATION RATE 52 ML/MIN (60-); GLUCOSE 108 mg/dL (74-118); SODIUM 144 mmol/L (136-145)
[2019-08-19 05:50] LABS: BACTERIA,URINE RARE /HPF; EPITHELIAL CELLS,URINE MODERATE /LPF
--- NOTE | 2019-08-19 06:06 | NUR ---
Repeat Lactic Acid drawn at this time per orders from Dr. Izaguirre
--- NOTE | 2019-08-19 06:16 | NUR ---
Attempted to trial Pt on 3 L N/C, unable to tolerate at this time, placed back on NRB.
[2019-08-19] MEDS ORDERED: ACETAMINOPHEN 650 MG SUPP PR PRN (06:30)
[2019-08-19] MEDS ORDERED: AZITHROMYCIN 500MG/SOD CHL 0.9% 250ML BAG IV SCH (06:30)
[2019-08-19] MEDS ORDERED: ONDANSETRON HCL INJ 2MG/ML 2ML 2 MG/ML VIAL IV PRN (06:30)
[2019-08-19 06:48] LABS: AMYLASE 125 U/L (25-125); LIPASE 42 U/L (8-78)
--- NOTE | 2019-08-19 06:58 | NUR ---
report given to reshma banda
--- NOTE | 2019-08-19 07:05 | Diagnostic Imaging Report ---
EXAMINATION: CHEST SINGLE (PORTABLE) INDICATION: Short of breath ^sob ^[id number] ^0600 ^Y COMPARISON: Abdominal CT 08/19/2019, chest x-ray 10/22/2018 FINDINGS: TUBES and LINES: None. LUNGS: Low lung volumes. Consolidative opacities in the lung bases with obscured hemidiaphragms. PLEURA: No pleural effusion or pneumothorax. HEART AND MEDIASTINUM: Cardiac size is mildly enlarged. BONES AND SOFT TISSUES: No acute osseous lesion. Soft tissues are unremarkable. UPPER ABDOMEN: No free air under the diaphragm. IMPRESSION: Findings of bibasilar consolidative pneumonia, likely due to aspiration. Mild cardiomegaly. Signed by: Hiren Goldberg DO on 08/19/2019 7:02 AM
--- NOTE | 2019-08-19 07:10 | Diagnostic Imaging Report ---
EXAM: CT Abdomen and Pelvis WITHOUT contrast INDICATION: Projectile vomiting, fever, nausea, short of breath COMPARISON: Chest CT 10/22/2018. TECHNIQUE: Abdomen and pelvis were scanned utilizing a multidetector helical scanner from the lung base to the pubic symphysis without administration of IV contrast. Absence of intravenous contrast decreases sensitivity for detection of focal lesions and vascular pathology. Coronal and sagittal reformations were obtained. Routine protocol was performed. IV CONTRAST: None ORAL CONTRAST: None COMPLICATIONS: None RADIATION DOSE: Total DLP: ... 676 mGy*cm Estimated effective dose: (DLP x 0.015 x size factor) mSv CTDIvol has been reviewed. It is below the limits set by the Radiation Protocol Committee (RPC). Dose modulation, iterative reconstruction, and/or weight based adjustment of the mA/kV was utilized to reduce the radiation dose to as low as reasonably achievable. FINDINGS: LINES and TUBES: None. LOWER THORAX: Consolidative opacities in the lower lungs with endobronchial debris. Mild cardio megaly. Coronary artery calcifications. HEPATOBILIARY: No focal hepatic lesions. No biliary ductal dilation. GALLBLADDER: Distended. No radio-opaque stones or sludge. No wall thickening. SPLEEN: No splenomegaly. PANCREAS: No focal masses or ductal dilatation. ADRENALS: No adrenal nodules KIDNEYS/URETERS: No hydronephrosis. No cystic or solid mass lesions. No stones. GI TRACT: No abnormal distention, wall thickening, or evidence of bowel obstruction. Appendix is normal. PELVIC ORGANS/BLADDER: Unremarkable. LYMPH NODES: No lymphadenopathy. VESSELS: There is mild atherosclerotic disease in the aorta and major arterial branches. PERITONEUM / RETROPERITONEUM: No free air or fluid. BONES: There are degenerative changes in the spine, hips and pelvis. SOFT TISSUES: There are fat containing inguinal hernias. There is a fat containing para-umbilical hernia. IMPRESSION: 1. Bilateral lower lobe consolidations consistent with aspiration pneumonia. 2. Mild cardiomegaly and calcific coronary artery atherosclerotic disease. 3. The gallbladder is distended, a right upper quadrant could further evaluate for cholecystitis if there is clinical suspicion. Signed by: Hiren Goldberg DO on 08/19/2019 7:08 AM
[2019-08-19] MEDS: AZITHROMYCIN 500MG/NS 250 ML 250 ML IV SCH (07:55)
[2019-08-19] MEDS: IPRATROPIUM BROMIDE 0.02% 2.5 ML NEB NEB SCH ×2 (07:55→15:00)
[2019-08-19] MEDS: ALBUTEROL SULF 0.083% NEB SOLN 3 ML NEB NEB SCH ×3 (07:55→15:00)
[2019-08-19] MEDS: SODIUM CHLORIDE 0.9% 1000ML 1,000 ML IV SCH ×3 (08:57→22:20)
[2019-08-19] MEDS ORDERED: LASIX20 MG PO (09:07)
[2019-08-19] MEDS ORDERED: FLOMAX0.4 MG PO (09:07)
[2019-08-19 15:06] LABS: CREATINE KINASE 1337 IU/L (30-200)
[2019-08-19] MEDS: CEFEPIME 2 GM/NS 0.9% 100 ML 100 ML IV SCH ×2 (15:11→22:10)
--- NOTE | 2019-08-19 15:30 | NUR ---
SPOKE TO SISTER, PRASHANT AT LENGTH REGARDING POC AT THIS TIME, ALSO MADE AWARE THAT MD HAD BEEN NOTIFIED REGARDING DIETARY STATUS AND REQUEST TO CALL HER AND NO CHANGED WHERE MADE AT THIS TIME, THIS RN EXPLAINED THAT MD HAD NOT SEEN PATIENT YET BUT WOULD BE COMING AND MAYBE AT THAT TIME DIETARY STATUS MAY CHANGE AFTER ASSESSMENT OF PATIENT. SISTER STATES " WELL IF HE DOES NOT CALL ME OR TALK TO ME SOON THEN I WILL GO SIT IN HIS OFFICE UNTIL HE SEES ME IF THATS WHAT I HAVE TO DO" THIS RN ASSURED SISTER THAT MD WOULD SEE PATIENT AND IF THERE WAS ANYTHING EMERGENT HE WOULD CALL BACK, THIS RN EXPLAINED THAT AT THIS TIME THE POC OF CARE WAS IV FLUIDS, IV ABT AND BREATHING TREATMENTS. PRASHANT PTS SISTER EXPRESSED UNDERSTANDING. NO MORE FURTHER QUESTIONS. THIS RN REASSURED FAMILY MULTIPLE TIMES THROUGHOUT THE DAY THAT THE DOCTOR WOULD SEE PATIENT AND THAT HE WAS BEING TREATED APPROPRIATELY.
[2019-08-19 22:39] LABS: CREATINE KINASE 959 IU/L (30-200)
[2019-08-20] VITALS (11 sets, daily range): BP systolic 85–147; BP diastolic 56–102
[2019-08-20 05:12] LABS: BASOPHILS % 0.2 % (0.0-1.0); EOSINOPHILS % 0.3 % (0.0-6.0); HEMATOCRIT 34.8 % (38.2-49.6); HEMOGLOBIN 10.6 g/dL (14.0-18.0); MEAN CORPUSCULAR HEMOGLOBIN 29.9 pg (28-32); MEAN CORPUSCULAR HGB CONC 30.5 g/dL (31-35); MEAN CORPUSCULAR VOLUME 98.3 fL (81-99); MONOCYTES # (AUTO) 0.4 (0.2-0.8); NEUTROPHILS # (AUTO) 7.1 (2.1-6.9); NEUTROPHILS % 74.2 % (38.7-80.0); PLATELET COUNT 75 x10e3/uL (140-360); RED BLOOD COUNT 3.54 x10e6/uL (4.3-5.7); RED CELL DISTRIBUTION WIDTH 14.6 % (11.7-14.4)
[2019-08-20 05:33] LABS: ALANINE AMINOTRANSFERASE 19 IU/L (0-55); ALBUMIN 2.7 g/dL (3.5-5.0); ALBUMIN/GLOBULIN RATIO 1.2 (0.8-2.0); ALKALINE PHOSPHATASE 54 IU/L (40-150); ANION GAP 11.9 mmol/L (8-16); BLOOD UREA NITROGEN 17 mg/dL (7-26); BUN/CREATININE RATIO 20 (6-25); CARBON DIOXIDE 24 mmol/L (22-29); CHLORIDE 111 mmol/L (98-107); CREATININE, SERUM 0.85 mg/dL (0.72-1.25); EST GLOMERULAR FILTRATION RATE > 60 ML/MIN (60-); GLUCOSE 96 mg/dL (74-118); POTASSIUM 3.9 mmol/L (3.5-5.1); SODIUM 143 mmol/L (136-145)
[2019-08-20] MEDS: CEFEPIME 2 GM/NS 0.9% 100 ML 100 ML IV SCH ×3 (06:04→22:12)
[2019-08-20] MEDS: SODIUM CHLORIDE 0.9% 1000ML 1,000 ML IV SCH ×2 (06:04→19:56)
[2019-08-20] MEDS: IPRATROPIUM BROMIDE 0.02% 2.5 ML NEB NEB SCH ×4 (07:14→19:05)
[2019-08-20] MEDS: ALBUTEROL SULF 0.083% NEB SOLN 3 ML NEB NEB SCH ×5 (07:14→23:40)
[2019-08-20] MEDS: AZITHROMYCIN 500MG/NS 250 ML 250 ML IV SCH (07:29)
[2019-08-20] MEDS: CITALOPRAM HYDROBROMIDE 20 MG TAB PO SCH (08:11)
[2019-08-20] MEDS: GABAPENTIN 300 MG CAP PO SCH ×3 (08:11→21:00)
[2019-08-20] MEDS: FUROSEMIDE 20 MG TAB PO SCH (08:11)
[2019-08-20] MEDS: VANCOMYCIN 1GM/NS 250 ML 250 ML IV SCH ×2 (09:29→21:00)
[2019-08-20 11:38] LABS: BASOPHILS % 0.2 % (0.0-1.0); EOSINOPHILS # (AUTO) 0.1 (0.0-0.4); EOSINOPHILS % 0.7 % (0.0-6.0); HEMATOCRIT 33.8 % (38.2-49.6); HEMOGLOBIN 10.7 g/dL (14.0-18.0); LYMPHOCYTES # (AUTO) 1.2 (1.0-3.2); LYMPHOCYTES % 14.7 % (18.0-39.1); MEAN CORPUSCULAR HEMOGLOBIN 30.5 pg (28-32); MEAN CORPUSCULAR HGB CONC 31.7 g/dL (31-35); MEAN CORPUSCULAR VOLUME 96.3 fL (81-99); MONOCYTES # (AUTO) 0.4 (0.2-0.8); MONOCYTES % 4.7 % (4.4-11.3); NEUTROPHILS # (AUTO) 6.7 (2.1-6.9); NEUTROPHILS % 79.5 % (38.7-80.0); PLATELET COUNT 76 x10e3/uL (140-360); RED BLOOD COUNT 3.51 x10e6/uL (4.3-5.7); RED CELL DISTRIBUTION WIDTH 14.6 % (11.7-14.4)
--- NOTE | 2019-08-20 12:22 | History and Physical ---
REASON FOR ADMISSION: Sepsis secondary to aspiration pneumonia and UTI. HISTORY OF PRESENT ILLNESS: The patient is a 74-year-old gentleman with history of cerebral palsy and hypertension, who presented with worsening cough and congestion, where he was found to have sepsis secondary to aspiration pneumonia, UTI, and so he is admitted to the ICU for further evaluation and treatment. PAST MEDICAL HISTORY: The patient is a chronic aspirator. At present, the patient refuses PEG tube therapy. Cerebral palsy, hypertension, and BPH. MEDICATIONS: See MAR. ALLERGIES: NITROUS OXIDE. SOCIAL HISTORY: Lives at home by himself. Nonsmoker, nondrinker. FAMILY HISTORY: Hypertension. PHYSICAL EXAMINATION: VITAL SIGNS: Temperature is 98.1, pulse 70, blood pressure 106/65, sats 94% on nasal cannula. GENERAL: No apparent distress, lying in bed. NECK: Supple. CARDIOVASCULAR: Regular rate and rhythm. LUNGS: Bilateral rhonchi noted in all lung shay. ABDOMEN: Good bowel sounds. Soft, nontender. EXTREMITIES: No clubbing or cyanosis. NEUROLOGIC: Moves all extremities x4. ASSESSMENT AND PLAN: 1. Sepsis secondary to aspiration pneumonia. Continue with antibiotics. 2. Urinary tract infection. Continue with antibiotics. Check culture. 3. Anemia. Continue to monitor. 4. Chronic kidney disease stage 3. Continue to monitor after IV fluids. 5. Cerebral palsy. Continue to monitor. 6. Aspiration. The patient is a known aspirator for multiple years. He refuses to have PEG tube therapy and has failed intervention in the past with Speech Therapy, so the patient is accepted the fact that he is a chronic aspirator and is always willing to take his chances knowing that he may get continued aspiration pneumonias which can ultimately lead to his . 7. Hypertension. We will continue to monitor while he is in the ICU. 8. Acute on chronic respiratory failure with hypoxia. Continue with O2. Please see hospital chart for details. MD ANAID Little/[facility] /[id number]
--- NOTE | 2019-08-20 19:30 | NUR ---
Received patient calm in bed, no complaints raised, vitals stable
--- NOTE | 2019-08-20 21:00 | NUR ---
Assisted out of bed, had a large bowel movement, back to bed, stable, no complaints raised
[2019-08-21] VITALS (9 sets, daily range): BP systolic 113–129; BP diastolic 62–87
[2019-08-21] MEDS: IPRATROPIUM BROMIDE 0.02% 2.5 ML NEB NEB SCH ×4 (03:25→19:15)
[2019-08-21] MEDS: ALBUTEROL SULF 0.083% NEB SOLN 3 ML NEB NEB SCH ×5 (03:25→19:15)
[2019-08-21] MEDS: CEFEPIME 2 GM/NS 0.9% 100 ML 100 ML IV SCH ×3 (05:10→22:00)
--- NOTE | 2019-08-21 05:13 | NUR ---
beddings changed, patient settled comfortably
[2019-08-21] MEDS: AZITHROMYCIN 500MG/NS 250 ML 250 ML IV SCH (06:45)
[2019-08-21] MEDS: PANTOPRAZOLE SOD 40 MG TABEC PO SCH ×2 (08:59→20:09)
[2019-08-21] MEDS: GABAPENTIN 300 MG CAP PO SCH ×3 (08:59→20:09)
[2019-08-21] MEDS: FUROSEMIDE 20 MG TAB PO SCH (08:59)
[2019-08-21] MEDS: CITALOPRAM HYDROBROMIDE 20 MG TAB PO SCH (08:59)
[2019-08-21] MEDS: VANCOMYCIN 1GM/NS 250 ML 250 ML IV SCH ×2 (08:59→20:09)
[2019-08-21] MEDS: CYANOCOBALAMIN INJ 1,000 MCG/ML VIAL IM SCH (12:54)
--- NOTE | 2019-08-21 13:06 | NUR ---
PT AND PT'S SISTER REQUESTING A LIST OF [facility] NETWORK SNF FACILITIES FOR [facility]ARP LIST GIVEN CALL PLACED TO DR SALOMON BY NURSING ASKING FOR LT[facility] EVAL Addendum: 08/21/19 at 1307 by Adrienne Chaves CM ASKED FOR SNF EVAL (NOT LTAC) AWAIT CALL BACK
[2019-08-21] MEDS: WARFARIN SOD 5 MG TAB PO SCH (16:02)
--- NOTE | 2019-08-21 17:42 | NUR ---
Pt coughing frequently during and after meals, pt educated to sit up right while eating. Pt ambulated in hallway with walker with physical therapy and sat up in chair for an hour. Patient's sister requesting patient be started on vitamin B12 injections or that "she will call Dr. Hein's office herself" and home health rehab. Dr. Hein informed. resource efficiency manager Adrienne cardoza and is at bedside. Will continue to monitor the patient.
[2019-08-21] MEDS: SODIUM CHLORIDE 0.9% 1000ML 1,000 ML IV SCH (20:08)
--- NOTE | 2019-08-21 21:00 | NUR ---
patient received to room 299 via bed from icu at this time. ivf/iv vancomycin infusing without difficulty. vss. no c/o pain noted. patient turned and repositioned for comfort. shift assessment complete. call french placed within reach. patient instructed to call for assistance when needed.
[2019-08-22] VITALS (8 sets, daily range): BP systolic 106–136; BP diastolic 68–136
[2019-08-22] MEDS: IPRATROPIUM BROMIDE 0.02% 2.5 ML NEB NEB SCH ×4 (00:02→19:43)
[2019-08-22] MEDS: ALBUTEROL SULF 0.083% NEB SOLN 3 ML NEB NEB SCH ×6 (00:02→19:43)
[2019-08-22] MEDS: AZITHROMYCIN 500MG/NS 250 ML 250 ML IV SCH (05:15)
[2019-08-22] MEDS: MORPHINE SULFATE INJ 4 MG/ML INJ 1ML IV PRN (06:07)
--- NOTE | 2019-08-22 06:42 | NUR ---
0600 cefepime 2gms ivpb not given d/t unavailability. pharmacy notified for am dose at this time. am azithromycin given first this am.
--- NOTE | 2019-08-22 07:40 | NUR ---
PATIENT IN BED RESTING WITH NO S/S OF DISTRESS. O2 IN PLACE VIA N/C. BED IN LOWER POSITION, CALL LIGHT AT REACH.
[2019-08-22] MEDS: CEFEPIME 2 GM/NS 0.9% 100 ML 100 ML IV SCH ×3 (07:44→22:00)
[2019-08-22] MEDS: FUROSEMIDE 20 MG TAB PO SCH (09:00)
[2019-08-22] MEDS: CITALOPRAM HYDROBROMIDE 20 MG TAB PO SCH (09:00)
[2019-08-22] MEDS: GABAPENTIN 300 MG CAP PO SCH ×3 (09:00→20:54)
[2019-08-22] MEDS: PANTOPRAZOLE SOD 40 MG TABEC PO SCH ×2 (09:00→20:54)
[2019-08-22] MEDS: VANCOMYCIN 1GM/NS 250 ML 250 ML IV SCH ×2 (10:02→20:53)
--- NOTE | 2019-08-22 10:59 | NUR ---
PATIENT AMBULATED IN HALLWAY WITH PHYSICAL THERAPY. BACK IN BED WITH CALL LIGHT AT REACH.
[2019-08-22] MEDS: SODIUM CHLORIDE 0.9% 1000ML 1,000 ML IV SCH ×2 (16:00→18:00)
--- NOTE | 2019-08-22 16:23 | NUR ---
WALKING ROUND MADE, URINAL EMPTIED. PATIENT IN BED RESTING WITH NO S/S OF DISTRESS.
[2019-08-22] MEDS: WARFARIN SOD 5 MG TAB PO SCH (18:00)
--- NOTE | 2019-08-22 19:15 | NUR ---
patient received awake, alert, lying quietly in bed. no c/o pain noted. ivf continue to infuse without difficulty. pm assessment complete. call french placed within reach. bed alarm remains on for patients safety. patient instructed to call for assistance when needed.
[2019-08-23] VITALS (8 sets, daily range): BP systolic 110–123; BP diastolic 68–81
[2019-08-23] MEDS: ALBUTEROL SULF 0.083% NEB SOLN 3 ML NEB NEB SCH ×5 (00:02→20:02)
[2019-08-23] MEDS: IPRATROPIUM BROMIDE 0.02% 2.5 ML NEB NEB SCH ×4 (00:02→20:02)
[2019-08-23] MEDS: SODIUM CHLORIDE 0.9% 1000ML 1,000 ML IV SCH ×2 (01:16→14:36)
[2019-08-23] MEDS: CEFEPIME 2 GM/NS 0.9% 100 ML 100 ML IV SCH ×3 (06:00→22:42)
[2019-08-23 06:15] LABS: INR 1.62; PROTHROMBIN TIME 19.8 seconds (11.9-14.5)
[2019-08-23] MEDS: AZITHROMYCIN 500MG/NS 250 ML 250 ML IV SCH (06:21)
--- NOTE | 2019-08-23 07:35 | NUR ---
PATIENT IN BED RESTING WITH NO DISTRESS. BED IN LOWER POSITION, CALL LIGHT AT REACH.
[2019-08-23] MEDS: PANTOPRAZOLE SOD 40 MG TABEC PO SCH ×2 (09:18→21:38)
[2019-08-23] MEDS: GABAPENTIN 300 MG CAP PO SCH ×3 (09:18→21:38)
[2019-08-23] MEDS: CITALOPRAM HYDROBROMIDE 20 MG TAB PO SCH (09:18)
[2019-08-23] MEDS: FUROSEMIDE 20 MG TAB PO SCH (09:18)
[2019-08-23] MEDS: VANCOMYCIN 1GM/NS 250 ML 250 ML IV SCH ×2 (10:04→21:38)
[2019-08-23] MEDS ORDERED: ONDANSETRON HCL 4 MG ORAL DISINTEGRATING TAB PO PRN (11:00)
[2019-08-23] MEDS: CYANOCOBALAMIN INJ 1,000 MCG/ML VIAL IM SCH (12:00)
--- NOTE | 2019-08-23 12:04 | NUR ---
SPOKE WITH PT AND SISTER, SHE STATES SHE WENT TO LOOK [facility] AND IS NOT REAL HAPPY WITH THEM, SHE WANTS TO LOOK AT [facility] TODAY, WILL LET ME KNOW CHOICE AT END OF DAY.
--- NOTE | 2019-08-23 12:08 | Progress Note ---
DATE: 08/23/2019 SUBJECTIVE: The patient is doing okay. He has no new complaints, still complains of neuropathic pain and cough and congestion. OBJECTIVE: VITAL SIGNS: Temperature 96.6, pulse 64, blood pressure 110/81, sats 99%. GENERAL: No apparent distress, but still coughing. CARDIOVASCULAR: Regular rate and rhythm. LUNGS: Bilateral rhonchi noted in all lung shay. ABDOMEN: Good bowel sounds. Soft, nontender. EXTREMITIES: No clubbing or cyanosis. NEUROLOGIC: Moves all extremities x4. ASSESSMENT/PLAN: 1. Sepsis secondary to pneumonia due to gram-positive organism. Continue with antibiotics. 2. Acute respiratory failure with hypoxia. Continue with his O2. 3. Cerebral palsy with neuropathy. Continue with his gabapentin. 4. Gastroesophageal reflux disease. Continue with his Protonix. 5. Anemia. We will continue to monitor. 6. Weakness. Continue with physical therapy. Please see hospital chart for details. MD ANAID Little/[place] /[id number]
--- NOTE | 2019-08-23 13:06 | NUR ---
PATIENT ASSISTED WITH DIAPER CHANGE, REPOSITIONED IN BED. CALL LIGHT AT REACH.
--- NOTE | 2019-08-23 15:30 | NUR ---
SPOKE WITH PRASHANT VIA PHONE AND SHE STATES CHOICE IS FOR [facility], WILL FAX TO [facility] AT FACILITY. COMPLETE PASRR AND RTF AND PUT WITH PACKET AT NURSES STATION
--- NOTE | 2019-08-23 16:49 | NUR ---
FAXED CLINICALS PUT PACKET AT NURSES, CALLED [facility] VERIFIED RECEIPT OF CLINICALS
[2019-08-23] MEDS: WARFARIN SOD 5 MG TAB PO SCH (17:12)
[2019-08-24] VITALS (9 sets, daily range): BP systolic 101–147; BP diastolic 61–95
[2019-08-24] MEDS: IPRATROPIUM BROMIDE 0.02% 2.5 ML NEB NEB SCH ×4 (00:05→19:59)
[2019-08-24] MEDS: ALBUTEROL SULF 0.083% NEB SOLN 3 ML NEB NEB SCH ×8 (00:05→23:55)
[2019-08-24] MEDS: MORPHINE SULFATE INJ 4 MG/ML INJ 1ML IV PRN ×2 (04:01→22:25)
[2019-08-24] MEDS: SODIUM CHLORIDE 0.9% 1000ML 1,000 ML IV SCH ×2 (05:00→17:16)
--- NOTE | 2019-08-24 05:30 | NUR ---
SHOWED DR. SALOMON THE STRIP ABOUT VTACH RUN AT 0429 THEN BACK TO SINUS RHYTHM. NO NEW ORDER.
[2019-08-24] MEDS: CEFEPIME 2 GM/NS 0.9% 100 ML 100 ML IV SCH ×3 (06:00→22:32)
--- NOTE | 2019-08-24 07:25 | NUR ---
PATIENT IN BED WITH HEAD OF BED ELEVATED WATCHING TV, NO DISTRESS NOTED. BED IN LOWER POSITION, CALL LIGHT AT REACH.
[2019-08-24] MEDS ORDERED: OXYMETAZOLINE HCL 0.05% NAS 1 SPRAY BTL ONE (09:00)
[2019-08-24] MEDS: GABAPENTIN 300 MG CAP PO SCH ×3 (09:17→20:47)
[2019-08-24] MEDS: VANCOMYCIN 1GM/NS 250 ML 250 ML IV SCH ×2 (09:17→21:00)
[2019-08-24] MEDS: CITALOPRAM HYDROBROMIDE 20 MG TAB PO SCH (09:17)
[2019-08-24] MEDS: FUROSEMIDE 20 MG TAB PO SCH (09:17)
[2019-08-24] MEDS: AZITHROMYCIN 250 MG TAB PO SCH (09:18)
[2019-08-24] MEDS: PANTOPRAZOLE SOD 40 MG TABEC PO SCH ×2 (09:18→20:47)
--- NOTE | 2019-08-24 15:45 | NUR ---
PATIENT AMBULATING IN HALLWAY WITH PHYSICAL THERAPY, NO DISTRESS NOTED.
[2019-08-24] MEDS: WARFARIN SOD 5 MG TAB PO SCH (17:40)
--- NOTE | 2019-08-24 18:56 | NUR ---
Nutrition Screen Note RD Recommendation for Physician: Continue diet as ordered Plan of Care: RD following, monitoring for tolerance and adequacy Nutrition reason for involvement: LOS Primary Diagnose(s): Aspiration pneumonia PMH: cerebral palsy, CKD stage 3, anemia, aspiration pneumonia, HTN , dysphagia, GERD Ht: 68 in Wt: 173.19 lb BMI:26.3 kg/m2 IBW: [address] Assessment: Pt with a good PO intake and is eating 100% of meal trays. Pt denies any difficulty chewing and swallowing, however, would probably benefit from a PEG placement due to recurrent aspiration pneumonia. Pt has refused PEG placement and is aware of risk per MD. No Known food allergies. Current Diet: Regular diet Malnutrition Evaluation (08/24/2019) The patient does not meet criteria for a specified degree of malnutrition at this time. Will re-evaluate at follow-up as appropriate. Diet Education Needs Assessment: Diet education not indicated at this time Nutrition Care Level: chris Butts RD, LD, CNSC
[2019-08-24] MEDS ORDERED: TRAMADOL HCL 50 MG TAB PO PRN (22:30)
--- NOTE | 2019-08-24 22:30 | NUR ---
DR. SALOMON DOING ROUNDS. NEW ORDER RECEIVED TO DC MORPHINE AND START TRAMADOL 50MG Q6H PRN.
[2019-08-25] VITALS (7 sets, daily range): BP systolic 100–121; BP diastolic 52–73
[2019-08-25] MEDS: IPRATROPIUM BROMIDE 0.02% 2.5 ML NEB NEB SCH ×5 (00:22→23:55)
[2019-08-25] MEDS: ALBUTEROL SULF 0.083% NEB SOLN 3 ML NEB NEB SCH ×5 (03:41→20:02)
[2019-08-25] MEDS: CEFEPIME 2 GM/NS 0.9% 100 ML 100 ML IV SCH ×3 (05:59→22:00)
[2019-08-25] MEDS: SODIUM CHLORIDE 0.9% 1000ML 1,000 ML IV SCH ×2 (06:01→19:56)
--- NOTE | 2019-08-25 07:45 | NUR ---
PT ASSISTED UP TO CHAIR,DENIES PAIN .O2 2L NC IN PLACE,
[2019-08-25] MEDS: GABAPENTIN 300 MG CAP PO SCH ×3 (08:45→22:00)
[2019-08-25] MEDS: AZITHROMYCIN 250 MG TAB PO SCH (08:45)
[2019-08-25] MEDS: PANTOPRAZOLE SOD 40 MG TABEC PO SCH ×2 (08:45→22:00)
[2019-08-25] MEDS: VANCOMYCIN 1GM/NS 250 ML 250 ML IV SCH (08:46)
[2019-08-25] MEDS: CITALOPRAM HYDROBROMIDE 20 MG TAB PO SCH (08:46)
[2019-08-25] MEDS: FUROSEMIDE 20 MG TAB PO SCH (08:46)
--- NOTE | 2019-08-25 10:00 | NUR ---
PT ASSISTED BACK TO BED.
--- NOTE | 2019-08-25 12:30 | NUR ---
AMBULATED PT IN [place] WITH WALKER,TOLERATED WELL
--- NOTE | 2019-08-25 13:37 | Progress Note ---
DATE: 08/25/2019 SUBJECTIVE: The patient did well overnight. No new complaints. Still has this chronic neuropathic pain. OBJECTIVE: VITAL SIGNS: Temperature 96.3, pulse 72, blood pressure 127/64, saturations 95%. GENERAL: No apparent distress, lying in bed. NECK: Supple. CARDIOVASCULAR: Regular rate and rhythm. LUNGS: Bilateral rhonchi. All lung shay which is patient's near baseline. ABDOMEN: Good bowel sounds. Soft, nontender. No peritoneal signs. EXTREMITIES: No clubbing, cyanosis. NEUROLOGIC: Moves all extremities x4. He does have tremors consistent with cerebral palsy. ASSESSMENT AND PLAN: 1. Aspiration pneumonia. Continue with antibiotics as the patient is doing better. 2. Acute respiratory failure with hypoxia. Continue the O2. 3. Neuropathic pain from cerebral palsy. Continue with his gabapentin. 4. Reflux disease. Continue with his PPI. 5. Anemia. Continue to monitor p.r.n. Please see hospital chart for full details. MD ANAID Little/[place] /[id number]
[2019-08-25] MEDS: WARFARIN SOD 5 MG TAB PO SCH (17:00)
--- NOTE | 2019-08-25 18:27 | NUR ---
PT UP IN BED DENIES PAIN,O2 2L NC IN PLACE
[2019-08-26] VITALS (8 sets, daily range): BP systolic 101–163; BP diastolic 68–80
[2019-08-26] MEDS: ALBUTEROL SULF 0.083% NEB SOLN 3 ML NEB NEB SCH ×6 (03:38→23:35)
--- NOTE | 2019-08-26 05:16 | NUR ---
DR. SALOMON DOING ROUNDS. NEW ORDER RECEIVED TO STOP IV FLUIDS AND RANDOM VANCO TROUGH.
[2019-08-26] MEDS: CEFEPIME 2 GM/NS 0.9% 100 ML 100 ML IV SCH ×3 (05:31→22:00)
[2019-08-26] MEDS: IPRATROPIUM BROMIDE 0.02% 2.5 ML NEB NEB SCH ×2 (07:24→20:18)
--- NOTE | 2019-08-26 07:40 | NUR ---
PATIENT IS IN STABLE CONDITION WITH NO S/S OF RESPIRATORY DISTRESS. NO PAIN VOICED. TELEMETRY APPLIED. HEEL PROTECTORS APPLIED. BED ALARM APPLIED. CALL LIGHT IS WITHIN REACH, PATIENT INSTRUCTED TO CALL FOR ASSISTANCE NEEDED.
[2019-08-26] MEDS: PANTOPRAZOLE SOD 40 MG TABEC PO SCH ×2 (08:10→20:40)
[2019-08-26] MEDS: AZITHROMYCIN 250 MG TAB PO SCH (08:10)
[2019-08-26] MEDS: GABAPENTIN 300 MG CAP PO SCH ×3 (08:10→20:40)
[2019-08-26] MEDS: FUROSEMIDE 20 MG TAB PO SCH (08:10)
[2019-08-26] MEDS: CITALOPRAM HYDROBROMIDE 20 MG TAB PO SCH (08:10)
[2019-08-26 09:08] LABS: BASOPHILS % 0.4 % (0.0-1.0); EOSINOPHILS # (AUTO) 0.1 (0.0-0.4); HEMATOCRIT 42.9 % (38.2-49.6); HEMOGLOBIN 13.7 g/dL (14.0-18.0); LYMPHOCYTES # (AUTO) 1.4 (1.0-3.2); MEAN CORPUSCULAR HEMOGLOBIN 30.6 pg (28-32); MEAN CORPUSCULAR HGB CONC 31.9 g/dL (31-35); MEAN CORPUSCULAR VOLUME 95.8 fL (81-99); MONOCYTES # (AUTO) 0.4 (0.2-0.8); MONOCYTES % 5.5 % (4.4-11.3); NEUTROPHILS # (AUTO) 4.8 (2.1-6.9); NEUTROPHILS % 70.7 % (38.7-80.0); PLATELET COUNT 120 x10e3/uL (140-360); RED BLOOD COUNT 4.48 x10e6/uL (4.3-5.7); RED CELL DISTRIBUTION WIDTH 14.4 % (11.7-14.4)
[2019-08-26 09:20] LABS: INR 1.63; PROTHROMBIN TIME 19.9 seconds (11.9-14.5)
[2019-08-26 09:29] LABS: ALANINE AMINOTRANSFERASE 17 IU/L (0-55); ALBUMIN 3.4 g/dL (3.5-5.0); ALKALINE PHOSPHATASE 71 IU/L (40-150); ANION GAP 13.3 mmol/L (8-16); BLOOD UREA NITROGEN 19 mg/dL (7-26); BUN/CREATININE RATIO 20 (6-25); CALCIUM 9.2 mg/dL (8.4-10.2); CARBON DIOXIDE 30 mmol/L (22-29); CHLORIDE 103 mmol/L (98-107); CREATININE, SERUM 0.93 mg/dL (0.72-1.25); EST GLOMERULAR FILTRATION RATE > 60 ML/MIN (60-); GLUCOSE 139 mg/dL (74-118); MAGNESIUM 1.9 MG/DL (1.3-2.1); POTASSIUM 4.3 mmol/L (3.5-5.1); SODIUM 142 mmol/L (136-145)
[2019-08-26] MEDS: CYANOCOBALAMIN INJ 1,000 MCG/ML VIAL IM SCH (12:58)
[2019-08-26] MEDS: WARFARIN SOD 5 MG TAB PO SCH (16:28)
--- NOTE | 2019-08-26 19:09 | NUR ---
PATIENT IS IN STABLE CONDITION WITH NO S/S OF RESPIRATORY DISTRESS- NO PAIN VOICED. TELEMETRY APPLIED; 02 APPLIED AT 3L NC. BED ALARM APPLIED. CALL LIGHT IS WITHIN REACH, PATIENT INSTRUCTED TO CALL FOR ASSISTANCE NEEDED. BEDSIDE SHIFT REPORT GIVEN TO ONCOMING NURSE.
--- NOTE | 2019-08-26 19:10 | NUR ---
patient received awake, alert, lying quietly in bed. no c/o pain noted. respirations even and unlabored. pm assessment complete. patient instructed to call for assistance when needed.
[2019-08-27] VITALS (7 sets, daily range): BP systolic 108–131; BP diastolic 70–87
[2019-08-27] MEDS: IPRATROPIUM BROMIDE 0.02% 2.5 ML NEB NEB SCH ×4 (02:40→19:42)
[2019-08-27] MEDS: ALBUTEROL SULF 0.083% NEB SOLN 3 ML NEB NEB SCH ×5 (02:40→23:30)
[2019-08-27] MEDS: CEFEPIME 2 GM/NS 0.9% 100 ML 100 ML IV SCH ×3 (05:24→21:14)
--- NOTE | 2019-08-27 05:30 | NUR ---
patient appears to be resting quietly. no c/o pain noted throughout the night.
--- NOTE | 2019-08-27 07:35 | NUR ---
PATIENT IN BED RECEIVING NEB TREATMENT, NO DISTRESS NOTED. BED IN LOWER POSITION, CALL LIGHT AT REACH.
--- NOTE | 2019-08-27 07:41 | Progress Note ---
DATE: 08/27/2019 SUBJECTIVE: The patient did well overnight, no new issues. PHYSICAL EXAMINATION: VITAL SIGNS: Stable. He is afebrile. GENERAL: No apparent distress, lying in bed. CARDIOVASCULAR: Regular rate and rhythm. LUNGS: Bilateral rhonchi noted in all lung shay. ABDOMEN: Good bowel sounds. Soft, nontender. EXTREMITIES: No clubbing or cyanosis. NEUROLOGIC: He moves all extremities x4 at his baseline. He has some tremors. ASSESSMENT AND PLAN: 1. Aspiration pneumonia, continue current care. Once again, patient did not want a PEG tube, so he understands that he is at high risk for further aspirations. 2. Acute respiratory failure with hypoxia, continue with O2. 3. Disposition. The patient will be going to a group home facility. 4. Sepsis, strep pneumoniae and continue with the antibiotics. 5. Neuropathy from cerebral palsy. Continue current care. Please see hospital chart for full details. MD ANAID Little/[place] /[id number]
--- NOTE | 2019-08-27 08:50 | NUR ---
MESSAGED FACILITY REP TO SEE ABOUT STATUS, STILL PENDING
[2019-08-27] MEDS: AZITHROMYCIN 250 MG TAB PO SCH (09:24)
[2019-08-27] MEDS: DOCUSATE SODIUM 100 MG CAP PO SCH (09:24)
[2019-08-27] MEDS: CITALOPRAM HYDROBROMIDE 20 MG TAB PO SCH (09:24)
[2019-08-27] MEDS: PANTOPRAZOLE SOD 40 MG TABEC PO SCH ×2 (09:24→21:00)
[2019-08-27] MEDS: GABAPENTIN 300 MG CAP PO SCH ×3 (09:24→21:00)
[2019-08-27] MEDS: FUROSEMIDE 20 MG TAB PO SCH (09:24)
[2019-08-27 10:34] LABS: INR 1.91; PROTHROMBIN TIME 22.6 seconds (11.9-14.5)
--- NOTE | 2019-08-27 15:17 | NUR ---
PATIENT'S IV LEAKING, REMOVED WITH TIP INTACT. NEW IV 20 GAUGE INSERTED TO RIGHT FOREARM. PATIENT TOLERATED PROCEDURE WELL.
[2019-08-27] MEDS: WARFARIN SOD 5 MG TAB PO SCH (17:16)
--- NOTE | 2019-08-27 19:15 | NUR ---
patient received awake, alert, lying quietly in bed. vss. no c/o pain noted. pm assessment complete. side rails up x 3. bed alarm remains on for safety. patient instructed to call for assistance when needed.
[2019-08-28] VITALS: BP 121/73
[2019-08-28] MEDS: ALBUTEROL SULF 0.083% NEB SOLN 3 ML NEB NEB SCH ×4 (02:55→15:20)
[2019-08-28] MEDS: IPRATROPIUM BROMIDE 0.02% 2.5 ML NEB NEB SCH ×3 (02:55→15:20)
[2019-08-28 04:00] VITALS: BP 134/70
[2019-08-28] MEDS: CEFEPIME 2 GM/NS 0.9% 100 ML 100 ML IV SCH ×2 (05:22→14:37)
--- NOTE | 2019-08-28 05:27 | NUR ---
patient medicated with ultram 50 mg po for c/o bilateral groin pain 5/10 at this time.
--- NOTE | 2019-08-28 06:15 | NUR ---
here to see patient. bilateral hip xrays ordered due to pain. patient to radiology dept via bed at this time.
--- NOTE | 2019-08-28 07:10 | Diagnostic Imaging Report ---
Bilateral hip with AP pelvis 5- views HISTORY: Pain COMPARISON: None. Correlation with CT pelvis dated 01/31/2019. FINDINGS: No displaced fracture. Osseous alignment is within normal limits. Mild degenerative changes of the hip joints bilaterally. Mild degenerative changes of the SI joint bilaterally, right greater the left. Degenerative changes of the lower lumbar spine. 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 Signed by: Dr. Maggie Romero M.D. on 08/28/2019 7:08 AM
[2019-08-28 07:50] VITALS: BP 118/78
[2019-08-28 08:00] VITALS: BP 118/78
[2019-08-28] MEDS: PANTOPRAZOLE SOD 40 MG TABEC PO SCH (08:19)
[2019-08-28] MEDS: AZITHROMYCIN 250 MG TAB PO SCH (08:19)
[2019-08-28] MEDS: CITALOPRAM HYDROBROMIDE 20 MG TAB PO SCH (08:19)
[2019-08-28] MEDS: DOCUSATE SODIUM 100 MG CAP PO SCH (08:19)
[2019-08-28] MEDS: GABAPENTIN 300 MG CAP PO SCH ×2 (08:19→17:41)
[2019-08-28] MEDS: FUROSEMIDE 20 MG TAB PO SCH (08:19)
--- NOTE | 2019-08-28 08:41 | NUR ---
MESSAGED FACILITY TO SEE IF HAVE APPROVAL, STILL PENDING.
[2019-08-28] MEDS ORDERED: ACETAMINOPHEN 325 MG TAB PO PRN (09:15)
--- NOTE | 2019-08-28 09:46 | NUR ---
[facility]IT[facility] FACILITY DISCHARGE INFORMATION PATIENT HAS BEEN ACCEPTED TO: NAME: [facility] ADDRESS: [id number] ACCEPTING MD: AIME ROOM: 152 NURSE CALL REPORT TO: [phone] IMM SIGNED AND OBTAINED (if applicable): THE FOLLOWING DOCUMENTS MUST ACCOMPANY PATIENT FOR TRANSFER: COPIED CHART: YES
[2019-08-28 11:38] VITALS: BP 117/79
[2019-08-28] MEDS: CYANOCOBALAMIN INJ 1,000 MCG/ML VIAL IM SCH (13:00)
[2019-08-28 15:35] VITALS: BP 139/85
--- NOTE | 2019-08-28 16:25 | NUR ---
PT EDUCATED AND SIGNED IMM AND EXPLAINED HIS RIGHTS A MEDICARE PT FOR DISCHARGE. FILED IN CHART CALLED SISTER SELINA AND NOTIFIED HER THE PT WAS READY FOR TRANSPORT, SHE ASKED TO MAKE CERTAIN HIS ROBE SHOES AND CAN OF LEG CRAMP STUFF WAS SENT WITH HIM.
[2019-08-28] MEDS ORDERED: WARFARIN SOD 5 MG TAB PO SCH (17:30)
[2019-08-28 17:39] LABS: INR 1.8; PROTHROMBIN TIME 21.5 seconds (11.9-14.5)
--- NOTE | 2019-08-28 19:17 | NUR ---
Received bedside report from day nurse. Patient resting in bed, no s/s of distress or c/o pain at this time. EMS here to transfer patient to [facility].
== END 2019-08-28 19:31 | DRG 871 ==
LOC: ER 05:03 → ERHOLD 06:41 → ICU 08:43 → MED/SURG3 08-21 21:01
PROVIDERS: ADMIT Internal Medicine; ATTEND Internal Medicine
DX: A41.89 Other specified sepsis (principal); J69.0 Pneumonitis due to inhalation of food and vomit; J96.21 Acute and chronic respiratory failure with hypoxia; N39.0 Urinary tract infection, site not specified; N18.3 Chronic kidney disease, stage 3 (moderate); D64.9 Anemia, unspecified; G80.9 Cerebral palsy, unspecified; I12.9 Hypertensive chronic kidney disease with stage 1 through stage 4 chronic kidney disease, or unspecified chronic kidney disease; L89.151 Pressure ulcer of sacral region, stage 1; G62.9 Polyneuropathy, unspecified; F41.9 Anxiety disorder, unspecified; K21.9 Gastro-esophageal reflux disease without esophagitis
CPT/HCPCS: 36415; 71045; 73522; 74176; 80053; 80202; 81001; 82150; 82550; 82553; 82948; 83605; 83690; 83735; 84484; 85025; 85610; 85730; 87040; 87071; 87086; 87205; 87400; 94640; 97139; 99285; J0456; J2270; J2405; J3370; J3420; J7030

== ENCOUNTER 2019-11-26 10:48 | Emergency (ER) | payer MEDICARE ==
[~2019-11-26] VITALS: Ht 172.7 cm; Wt 72.6 kg
[~2019-11-26 10:48] MED LIST changes: +FLOMAX0.4 MG PO; +LASIX20 MG PO
[2019-11-26] MEDS ORDERED: PIPER-TAZ 3.375 GM 50 ML IV ONE (10:53)
[2019-11-26] MEDS ORDERED: ASPIRIN 81 MG CHEW TAB PO ONE (11:00)
[2019-11-26 11:13] LABS: BASOPHILS % 0.6 % (0.0-1.0); EOSINOPHILS # (AUTO) 0.1 (0.0-0.4); EOSINOPHILS % 2.1 % (0.0-6.0); HEMATOCRIT 41.3 % (38.2-49.6); HEMOGLOBIN 13.6 g/dL (14.0-18.0); LYMPHOCYTES # (AUTO) 1.6 (1.0-3.2); LYMPHOCYTES % 31.6 % (18.0-39.1); MEAN CORPUSCULAR HEMOGLOBIN 31.6 pg (28-32); MEAN CORPUSCULAR HGB CONC 32.9 g/dL (31-35); MONOCYTES # (AUTO) 0.5 (0.2-0.8); MONOCYTES % 8.9 % (4.4-11.3); NEUTROPHILS # (AUTO) 2.9 (2.1-6.9); NEUTROPHILS % 56.6 % (38.7-80.0); PLATELET COUNT 105 x10e3/uL (140-360)
[2019-11-26 11:32] LABS: ALANINE AMINOTRANSFERASE 20 IU/L (0-55); ALBUMIN 3.4 g/dL (3.5-5.0); ALBUMIN/GLOBULIN RATIO 1.1 (0.8-2.0); ALKALINE PHOSPHATASE 94 IU/L (40-150); ANION GAP 10.1 mmol/L (8-16); BLOOD UREA NITROGEN 22 mg/dL (7-26); BUN/CREATININE RATIO 22 (6-25); CARBON DIOXIDE 29 mmol/L (22-29); CHLORIDE 108 mmol/L (98-107); CREATINE KINASE 91 IU/L (30-200); CREATININE, SERUM 1.02 mg/dL (0.72-1.25); EST GLOMERULAR FILTRATION RATE > 60 ML/MIN (60-); GLUCOSE 106 mg/dL (74-118); POTASSIUM 4.1 mmol/L (3.5-5.1); SODIUM 143 mmol/L (136-145)
[2019-11-26 11:54] LABS: B-TYPE NATRIURETIC PEPTIDE2 27.9 pg/mL (0-100)
[2019-11-26 13:20] VITALS: BP 124/74
--- NOTE | 2019-11-26 13:29 | NUR ---
sister contacted to pick pt up notified that pt is d/c with follow up with pcp
--- NOTE | 2019-11-26 13:32 | Diagnostic Imaging Report ---
EXAM: CHEST SINGLE (PORTABLE) DATE: 11/26/2019 12:57 PM INDICATION: Weakness COMPARISON: 08/19/2019 FINDINGS: Lung volumes are low. There is no evidence for large focal consolidation, pneumothorax, or significant pleural effusion. The cardiomediastinal silhouette is stable in appearance. The pulmonary vasculature is not engorged. No acute osseous abnormalities identified. IMPRESSION: No acute cardiopulmonary process identified. Signed by: Dr. Nash Anaya MD on 11/26/2019 1:29 PM
== END 2019-11-26 13:49 | disposition home or self-care (01) ==
LOC: ER 10:48
DX: R06.09 Other forms of dyspnea (principal); R53.1 Weakness
CPT/HCPCS: 36415; 71045; 80053; 82550; 82553; 82948; 83605; 83880; 84484; 85025; 87040; 87071; 87205; 87635; 94660; 99285; J2543

== ENCOUNTER 2020-04-17 14:29 | Emergency (ER) | payer MEDICARE ==
[~2020-04-17] VITALS: Ht 172.7 cm; Wt 72.6 kg
[2020-04-17] MEDS ORDERED: SODIUM CHLORIDE 0.9% 1000ML 1,000 ML IV STA (15:13)
[2020-04-17] MEDS ORDERED: PIPER-TAZ 3.375 GM 50 ML IV ONE (15:30)
[2020-04-17 15:43] LABS: BASOPHILS # (AUTO) 0.1 (0.0-0.1); BASOPHILS % 0.8 % (0.0-1.0); EOSINOPHILS # (AUTO) 0.1 (0.0-0.4); EOSINOPHILS % 0.8 % (0.0-6.0); HEMATOCRIT 46.8 % (38.2-49.6); HEMOGLOBIN 15.2 g/dL (14.0-18.0); LYMPHOCYTES # (AUTO) 1.7 (1.0-3.2); MEAN CORPUSCULAR HEMOGLOBIN 31.4 pg (28-32); MEAN CORPUSCULAR HGB CONC 32.5 g/dL (31-35); MEAN CORPUSCULAR VOLUME 96.7 fL (81-99); MONOCYTES # (AUTO) 0.6 (0.2-0.8); MONOCYTES % 8.4 % (4.4-11.3); NEUTROPHILS # (AUTO) 4.3 (2.1-6.9); NEUTROPHILS % 63.8 % (38.7-80.0); PLATELET COUNT 156 x10e3/uL (140-360); RED BLOOD COUNT 4.84 x10e6/uL (4.3-5.7); RED CELL DISTRIBUTION WIDTH 13.6 % (11.7-14.4)
[2020-04-17 15:53] LABS: INR 3.48; PARTIAL THROMBOPLASTIN TIME 39.4 seconds (23.8-35.5); PROTHROMBIN TIME 36.6 seconds (11.9-14.5)
[2020-04-17 16:00] LABS: ALBUMIN 4.1 g/dL (3.5-5.0); ALBUMIN/GLOBULIN RATIO 1.3 (0.8-2.0); ANION GAP 15.8 mmol/L (8-16); CALCIUM 8.8 mg/dL (8.4-10.2); CREATININE, SERUM 1.29 mg/dL (0.72-1.25); POTASSIUM 4.8 mmol/L (3.5-5.1)
[2020-04-17 16:06] LABS: CREATINE KINASE MB 1.4 ng/mL (0-5.0)
--- NOTE | 2020-04-17 16:14 | Diagnostic Imaging Report ---
TECHNIQUE: Frontal view of the chest. INDICATION: ^FATIGUE, ? ASPIRATION ^[id number] ^1530 COMPARISON: 11/26/2019 DISCUSSION: Limited evaluation due to portable technique. Lines and hardware: None Heart and mediastinum: Stable. Lungs and pleura: No focal airspace consolidation. No pleural effusion. No pneumothorax. Stable basilar linear scarring/atelectasis. Soft tissues and bones: No acute abnormality. IMPRESSION: Negative for acute intrathoracic process. Stable bibasilar scarring. Signed by: Bala Charles MD on 04/17/2020 4:11 PM
[2020-04-17 16:21] LABS: BILIRUBIN,URINE SMALL (NEGATIVE); CLARITY,URINE SL CLOUDY (CLEAR); COLOR,URINE STRAW (YELLOW); KETONES,URINE TRACE (NEGATIVE); LEUKOCYTE ESTERASE ,URINE SMALL (NEGATIVE); NITRITE,URINE NEGATIVE (NEGATIVE); PROTEIN,URINE DIPSTICK 1+ (NEGATIVE); URINE UROBILINOGEN 0.2 mg/dL (0.2 - 1)
[2020-04-17] MEDS ORDERED: VANCOMYCIN 1GM/NS 250 ML 250 ML IV ONE (16:30)
[2020-04-17 16:34] LABS: BACTERIA,URINE MODERATE /HPF; EPITHELIAL CELLS,URINE RARE /LPF
--- NOTE | 2020-04-17 18:44 | Emergency Department Note ---
History of Present Illnes History of Present Illness Chief Complaint: General Medicine Complaints History of Present Illness This is a 74 year old male with PMH of cerebal palsy with 6 months of increasing lower extremity weakness. Patient poor historian and states that the skin of his legs feel like "sandpaper". When asked to direct where he was having symptoms patient erratic in the locality of the lesions. Historian: Patient Arrival Mode: Car Onset (how long ago): month(s) (6) Severity: mild Timing of current episode: constant Progression: worsening Chronicity: new Context: Denies recent illness, Denies recent surgery, Denies recent i mmobilization, Denies recent travel, Denies trauma/injury, Denies new medications, Denies hx of DVT/PE, Denies non-compliance w/ medications, Denies other Relieving factors: none Exacerbating factors: none Associated symptoms: Reports weakness Past Medical/Family History Physician Review I have reviewed the patient's past medical and family history. Any updates have been documented here. Past Medical History Recent Fever: No Clinical Suspicion of Infectio: Yes New/Unexplained Change in Ment: No Past Medical History: Seizure Disorder, Depression, DVT/PE Other Medical History: CEREBRAL PALSY SEIZURES ASPIRATION PNA DEMENTIA Past Surgical History: T&A Other Surgery: TONSILLECTOMY Social History Smoking Cessation: Never Smoker Alcohol Use: None Any Illegal Drug Use: No Other Last Tetanus: UNKNOWN Review of Systems Review of Systems Constitutional: Reports no symptoms EENTM: Reports no symptoms Cardiovascular: Reports no symptoms Respiratory: Reports no symptoms Gastrointestinal: Reports no symptoms Genitourinary: Reports no symptoms Musculoskeletal: Reports muscle stiffness Integumentary: Reports no symptoms Neurological: Reports no symptoms Psychological: Reports no symptoms Endocrine: Reports no symptoms Hematological/Lymphatic: Reports no symptoms Physical Exam Related Data Allergies: Coded Allergies: nitrous oxide (Verified Allergy, Unknown, 04/17/20) Triage Vital Signs Vital Signs Date Time Temp Pulse Resp B/P (MAP) Pulse Ox O2 Delivery O2 Flow Rate FiO2 04/17/20 14:57 98.6 75 20 121/72 96 Room Air Vital signs reviewed: Yes Physical Exam CONSTITUTIONAL Constitutional: Present well-developed, Present well-nourished HENT HENT: Present normocephalic, Present atraumatic, Present oropharynx clear/moist, Present nose normal HENT L/R: Present left ext ear normal, Present right ext ear normal EYES Eyes: Reports PERRL, Reports conjunctivae normal NECK Neck: Present ROM normal PULMONARY Pulmonary: Present effort normal, Present breath sounds normal CARDIOVASCULAR Cardiovascular: Present regular rhythm, Present heart sounds normal, Present capillary refill normal, Present normal rate GASTROINTESTINAL Abdominal: Present soft, Present nontender, Present bowel sounds normal GENITOURINARY Genitourinary: Present exam deferred SKIN Skin: Present warm, Present dry MUSCULOSKELETAL Musculoskeletal: Present ROM normal NEUROLOGICAL Neurological: Present alert, Present oriented x 3, Present other (spastic contractures b/l UE) PSYCHOLOGICAL Psychological: Present mood/affect normal, Present judgement normal Results Laboratory Result Diagram: 04/17/20 1525 04/17/20 1525 Laboratory Laboratory Tests Test 04/17/20 15:25 White Blood Count 6.66 x10e3/uL (4.8-10.8) Red Blood Count 4.84 x10e6/uL (4.3-5.7) Hemoglobin 15.2 g/dL (14.0-18.0) Hematocrit 46.8 % (38.2-49.6) Mean Corpuscular Volume 96.7 fL (81-99) Mean Corpuscular Hemoglobin 31.4 pg (28-32) Mean Corpuscular Hemoglobin Concent 32.5 g/dL (31-35) Red Cell Distribution Width 13.6 % (11.7-14.4) Platelet Count 156 x10e3/uL (140-360) Neutrophils (%) (Auto) 63.8 % (38.7-80.0) Lymphocytes (%) (Auto) 26.0 % (18.0-39.1) Monocytes (%) (Auto) 8.4 % (4.4-11.3) Eosinophils (%) (Auto) 0.8 % (0.0-6.0) Basophils (%) (Auto) 0.8 % (0.0-1.0) Neutrophils # (Auto) 4.3 (2.1-6.9) Lymphocytes # (Auto) 1.7 (1.0-3.2) Monocytes # (Auto) 0.6 (0.2-0.8) Eosinophils # (Auto) 0.1 (0.0-0.4) Basophils # (Auto) 0.1 (0.0-0.1) Absolute Immature Granulocyte (auto 0.01 x10e3/uL (0-0.1) Prothrombin Time 36.6 seconds (11.9-14.5) Prothromb Time International Ratio 3.48 Activated Partial Thromboplast Time 39.4 seconds (23.8-35.5) Urine Color Straw (YELLOW) Urine Clarity Sl cloudy (CLEAR) Urine pH 6 (5 - 7) Urine Specific [place] 1.025 (1.010-1.025) Urine Protein 1+ (NEGATIVE) Urine Glucose (UA) Negative (NEGATIVE) Urine Ketones Trace (NEGATIVE) Urine Blood Trace (NEGATIVE) Urine Nitrite Negative (NEGATIVE) Urine Bilirubin Small (NEGATIVE) Urine Urobilinogen 0.2 mg/dL (0.2 - 1) Urine Leukocyte Esterase Small (NEGATIVE) Urine RBC 6-10 /HPF (0-5) Urine WBC 11-20 /HPF (0-5) Urine Epithelial Cells Rare /LPF (NONE) Urine Bacteria Moderate /HPF (NONE) Urine Sperm Present (NONE) Sodium Level 143 mmol/L (136-145) Potassium Level 4.8 mmol/L (3.5-5.1) Chloride Level 105 mmol/L (98-107) Carbon Dioxide Level 27 mmol/L (22-29) Anion Gap 15.8 mmol/L (8-16) Blood Urea Nitrogen 17 mg/dL (7-26) Creatinine 1.29 mg/dL (0.72-1.25) Estimat Glomerular Filtration Rate 55 ML/MIN (60-) BUN/Creatinine Ratio 13 (6-25) Glucose Level 96 mg/dL (74-118) Calcium Level 8.8 mg/dL (8.4-10.2) Total Bilirubin 0.5 mg/dL (0.2-1.2) Aspartate Amino Transf (AST/SGOT) 25 IU/L (5-34) Alanine Aminotransferase (ALT/SGPT) 14 IU/L (0-55) Alkaline Phosphatase 86 IU/L (40-150) Creatine Kinase 63 IU/L (30-200) Creatine Kinase MB 1.40 ng/mL (0-5.0) Troponin I 0.007 ng/mL (0-0.300) B-Type Natriuretic Peptide 34.6 pg/mL (0-100) Total Protein 7.3 g/dL (6.5-8.1) Albumin 4.1 g/dL (3.5-5.0) Globulin 3.2 g/dL (2.3-3.5) Albumin/Globulin Ratio 1.3 (0.8-2.0) Imaging Imaging results reviewed: Yes Impressions [place] [id number] Patient Name: MICKEY PANIAGUA JR MR #: [id number] : 1945 Age/Sex: 74/M Req #: [id number] Adm Physician: Ordered by: VERENICE GREEN DO Report #: [id number] Location: ER Room/Bed: Procedure: [id number] CT/CT BRAIN WO Exam Date: 04/17/20 Exam Time: 1949 REPORT STATUS: Signed EXAMINATION: Head CT without contrast. HISTORY:Leg weakness. COMPARISON:CT brain from 01/31/2019. TECHNIQUE: Multidetector axial images were obtained from the foramen magnum to the vertex without contrast. The images were reconstructed using brain and bone algorithms. Thin section brain images were reformatted into coronal and sagittal planes. Dose modulation, iterative reconstruction, and/or weight based adjustment of the mA/kV was utilized to reduce the radiation dose to as low as reasonably achievable. Intravenous contrast: None IMAGE QUALITY: Suboptimal evaluation due to motion-related streak artifacts particularly at the level of skull base and posterior fossa. FINDINGS: Skull/scalp: No lytic or blastic. lesions. No surgical changes. Parenchyma: Nonspecific few, scattered supratentorial white matter hypodensity are likely related to small vessel ischemic changes. No acute hemorrhage, mass or acute major vascular territorial infarct. Arteries: No density suggestive of thrombosis. Dural sinuses: No abnormal density suggestive of thrombosis. Ventricles: No hydrocephalus or displacement. Extra-axial spaces: No abnormal density. Brain volume: Normal for age. Craniocervical junction: No mass, Chiari malformation, or basilar invagination. Sella: No mass. Paranasal/mastoid sinuses: Imaged portions unremarkable. IMPRESSION: No acute intracranial abnormality. Mild supratentorial white matter microvascular ischemic changes. Signed by: Dr. Tania Granado M.D. on 04/17/2020 9:13 PM Dictated By: TANIA GRANADO MD 12 Transcribed By: TATYANA on 04/17/202112 COPY TO: VERENICE GREEN DO~ Procedures 12 Lead ECG Interpretation ECG Interpretation : ECG: ECG 1 Protective Services Officer: Interpreted by ED physician Date: Apr 17, 2020 Time: 15:35 Prior ECG tracings: reviewed Rhythm: sinus rhythm Ectopy: PJC's Rate: normal BPM: 90 QRS axis: normal ST segments normal: Yes T waves normal: Yes Assessment & Plan Medical Decision Making MDM Diff Dx : CVA, electrolyte abnormality, dermatitis. Patient instructed to f/u with Dr brad Hein. Assessment & Plan Final Impression: (1) Right leg pain (2) Cerebral palsy (3) Renal insufficiency Depart Disposition: HOME, SELF-CARE Last Vital Signs Date Time Temp Pulse Resp B/P (MAP) Pulse Ox O2 Delivery O2 Flow Rate FiO2 04/17/20 14:57 98.6 75 20 121/72 96 Room Air Home Meds Reported Medications Tamsulosin Hcl* (FLOMAX*) 0.4 Mg Cap, 0.4 MG PO DAILY, #30 CAP 08/19/19 Furosemide (LASIX) 20 Mg Tablet, 20 MG PO DAILY, #30 TAB 08/19/19 Warfarin Sodium (WARFARIN SODIUM) 2.5 Mg Tablet, 5 MG PO HS, #30 TAB 02/06/19 Mirabegron (MYRBETRIQ) 50 Mg Tab.er.24h, 50 MG PO Q12H 09/29/18 [place]-3 Fatty Acids/Fish Oil (OMEGA 3 FISH OIL SOFTGEL) 1 Each Capsule., 1 CAP PO DAILY 09/29/18 Citalopram Hydrobromide (CITALOPRAM HBR) 20 Mg Tablet, 20 MG PO DAILY, TAB 09/29/18 Donepezil Hcl (DONEPEZIL HCL) 10 Mg Tablet, 10 MG PO HS 09/29/18 Pantoprazole Sodium* (PROTONIX) 40 Mg Tablet.dr, 40 MG PO Q12H, TAB 08/09/16 Gabapentin (GABAPENTIN) 300 Mg Capsule, 300 MG PO TID, #60 CAP 08/09/16 Medications in the ED Sodium Chloride 1,000 ml @ 0 mls/hr Q0M STAT IV ; Start 04/17/20 at 15:13; Stop 04/17/20 at 15:18; Status DC Piperacillin Sod/ Tazobactam Sod 50 ml @ 50 mls/hr ONCE ONCE IV ; Start 04/17/20 at 15:30; Stop 04/17/20 at 16:29; Status DC Vancomycin HCl 250 ml @ 167 mls/hr ONCE ONCE IV ; Start 04/17/20 at 16:30; Stop 04/17/20 at 17:59; Status DC VERENICE GREEN DO Apr 17, 2020 18:44
--- NOTE | 2020-04-17 21:16 | Diagnostic Imaging Report ---
EXAMINATION: Head CT without contrast. HISTORY:Leg weakness. COMPARISON:CT brain from 01/31/2019. TECHNIQUE: Multidetector axial images were obtained from the foramen magnum to the vertex without contrast. The images were reconstructed using brain and bone algorithms. Thin section brain images were reformatted into coronal and sagittal planes. Dose modulation, iterative reconstruction, and/or weight based adjustment of the mA/kV was utilized to reduce the radiation dose to as low as reasonably achievable. Intravenous contrast: None IMAGE QUALITY: Suboptimal evaluation due to motion-related streak artifacts particularly at the level of skull base and posterior fossa. FINDINGS: Skull/scalp: No lytic or blastic. lesions. No surgical changes. Parenchyma: Nonspecific few, scattered supratentorial white matter hypodensity are likely related to small vessel ischemic changes. No acute hemorrhage, mass or acute major vascular territorial infarct. Arteries: No density suggestive of thrombosis. Dural sinuses: No abnormal density suggestive of thrombosis. Ventricles: No hydrocephalus or displacement. Extra-axial spaces: No abnormal density. Brain volume: Normal for age. Craniocervical junction: No mass, Chiari malformation, or basilar invagination. Sella: No mass. Paranasal/mastoid sinuses: Imaged portions unremarkable. IMPRESSION: No acute intracranial abnormality. Mild supratentorial white matter microvascular ischemic changes. Signed by: Dr. Tania Granado M.D. on 04/17/2020 9:13 PM
[2020-04-17 23:12] VITALS: BP 122/76
--- OUTSIDE RECORDS SUMMARY | 2020-04-19 16:19 | XMS REPORT | Continuity of Care Document ---
Author Author [facility] Organization [facility] Address [address] [place] [address] Phone Unavailable Care Team Providers Care Fire Alarm Inspector Name Role Phone AIME MAY, MD FRASER PCP VERENICE GREEN Attphys Unavailable BRIA SALOMON Attphys Unavailable MANEEVESE, V YAMILET Attphys Unavailable YOSEF, S AMBICA Attphys Unavailable SWEET, A LAIRD Attphys Unavailable MARTÍNEZ, L SOILA Attphys Unavailable BRIA SALOMON Admphys Unavailable Payers Payer Name Policy Type Policy Number Effective Date Expiration Date Laila arciniega [facility] Medicare Complete [id number] 2019 00:00:00 [facility] [employer] Medicare Replacement [id number] 2015 00:00:00 [facility] Problems Condition Name Condition Details Condition Category Status Onset Date Resolution Date Last Treatment Date Treating Clinician Comments Source Aspiration pneumonia Aspiration pneumonia Problem Active [facility] Cerebral palsy Cerebral palsy Problem Active [facility] Fever Fever Problem Active [facility] Hypoxia Hypoxia Problem Active [facility] Influenza due to influenza virus, type A, human Influenza A Problem Active [facility] Influenza due to influenza virus, type B Influenza B Problem Active [facility] Pneumonia Pneumonia Problem Active [facility] Weakness Weakness Problem Active [facility] Acute respiratory failure Acute respiratory failure Problem Active [facility] Urinary tract infection UTI (urinary tract infection) Problem Active [facility] Severe sepsis Severe sepsis Problem Active [facility] Allergies, Adverse Reactions, Alerts Allergy Name Allergy Type Status Severity Reaction(s) Onset Date Inacti ve Date Treating Clinician Comments Source Nitrous oxide Allergy to substance Active 2020-04-17 00:00: 00 [facility] Social History Social Habit Start Date Stop Date Quantity Comments Source Sex Assigned At 1945 00:00:00 1945 00[birth year]:00 Male [facility] Medications Ordered Medication Name Filled Medication Name Start Date Stop Da te Current Medication? Ordering Clinician Indication Dosage Frequency Signature (SIG) Comments Components Source Citalopram Hydrobromide (Citalopram Hbr) 20 Mg TABLET Citalopram Hydrobromide (Citalopram Hbr) 20 Mg TABLET Yes 20 Daily [facility] Donepezil Hcl Donepezil Hcl Yes 10 Bedtime [facility] Furosemide (Lasix) 20 Mg TABLET Furosemide (Lasix) 20 Mg TABLET Yes 20 Daily [facility] Gabapentin Gabapentin Yes 300 Three Times A Day [facility] Mirabegron (Myrbetriq) 50 Mg TAB.ER.24H Mirabegron (Myrbetri q) 50 Mg TAB.ER.24H Yes 50 Every 12 Hours [facility]-3 Fatty Acids/Fish Oil ([place] 3 Fish Oil Softgel ) 1 Each CAPSULE.DR Wesley 3 Fatty Acids/Fish Oil ([place] 3 Fish Oil Softgel) 1 Each CAPSULE. Yes 1 Daily [facility] Pantoprazole Sodium (Protonix) 40 Mg TABLET. Pantopr azole Sodium (Protonix) 40 Mg TABLET. Yes 40 Every 12 Hours [facility] Tamsulosin Hcl (Flomax*) 0.4 Mg CAP Tamsulosin Hcl (Flomax*) 0.4 Mg C AP Yes .4 Daily [facility] Warfarin Sodium Warfarin Sodium Yes 5 Bedtime [facility] Diazepam Diazepam 2019-08-19 00:00:00 No 5 Bedtime as needed for Anxiety [facility] Multivitamin (Multivitamins) 1 Each CAPSULE Multivitam in (Multivitamins) 1 Each CAPSULE 2019-08-19 00:00:00 No 1 Daily [facility] Aspirin Aspirin 2019-02-06 00:00:00 No 325 Bedtime [facility] Tolterodine Tartrate (Detrol La) 4 Mg CAP.ER.24H Tolte rodine Tartrate (Detrol La) 4 Mg CAP.ER.24H 2018-10-23 00:00:00 No 2 Bedt ashley [facility] Warfarin Sodium (Coumadin) 5 Mg TABLET Warfarin Sodium (Coumadin ) 5 Mg TABLET 2018-09-29 00:00:00 No 5 Daily [facility] Mirabegron (Myrbetriq) 50 Mg TAB.ER.24H Mirabegron (Myrbetri q) 50 Mg TAB.ER.24H 2018-06-30 00:00:00 No 50 Daily [facility] Tolterodine Tartrate (Detrol La) 4 Mg CAP.ER.24H Tolte rodine Tartrate (Detrol La) 4 Mg CAP.ER.24H 2018-06-30 00:00:00 No 2 Hiro y [facility] Acetaminophen With Codeine (Tylenol With Codeine #3 Ta blet) 1 Each TABLET Acetaminophen With Codeine (Tylenol With Codeine #3 Tablet) 1 Each TABLET 2018-06-29 00:00:00 No 300 Every 6 Hours [facility] Citalopram Hydrobromide (Citalopram Hbr) 20 Mg TABLET Citalopram Hydrobromide (Citalopram Hbr) 20 Mg TABLET 2018-06-29 00:00:00 No 20 Daily [facility] Cyanocobaiamin Cyanocobaiamin 2018-06-29 00:00:00 No 1000 Use As Directed [facility] Tamsulosin Hcl Tamsulosin Hcl 2018-06-29 00:00:00 No .4 Daily [facility] Sulfamethoxazole/Trimethoprim (Bactrim Ds Tablet) 1 Ea ch TABLET Sulfamethoxazole/Trimethoprim (Bactrim Ds Tablet) 1 Each TABLET 2018-04-08 00:00:00 No 1 Twice A Day [facility] Fluconazole Fluconazole 2018-01-25 00:00:00 No 100 D aily [facility] Warfarin Sodium (Coumadin) 5 Mg TABLET Warfarin Sodium (Coumadin ) 5 Mg TABLET 2018-01-08 00:00:00 No 5 Daily [facility] Warfarin Sodium (Coumadin) 2.5 Mg TABLET Warfarin Sodi um (Coumadin) 2.5 Mg TABLET 2018-01-08 00:00:00 No 2.5 Today At 5:00PM [facility] Aspirin Aspirin 2016-08-09 00:00:00 No 81 Flakita Gipson , Vaibhav [facility] Baclofen Baclofen 2016-08-09 00:00:00 No 10 Three T imes A Day [facility] Cephalexin Monohydrate (Keflex) 500 Mg CAPSULE Cephale jenna Monohydrate (Keflex) 500 Mg CAPSULE 2016-08-09 00:00:00 No 500 Twice A D ay [facility] Gabapentin Gabapentin 2016-08-09 00:00:00 No 100 Twi ce A Day [facility] Pantoprazole Sodium Pantoprazole Sodium 2016-08-09 00:00:00 No 40 Twice A Day [facility] Tramadol Hcl (Ultram) 50 Mg TABLET Tramadol Hcl (Ultram) 50 Mg T ABLET 2016-08-09 00:00:00 No 50 Twice A Day [facility] Warfarin Sodium (Coumadin) 5 Mg TABLET Warfarin Sodium (Coumadin ) 5 Mg TABLET 2016-08-09 00:00:00 No 4 Daily [facility] Nabumetone Nabumetone 2013-06-19 00:00:00 No 750 Twi ce A Day [facility] Hydrocodone Bit/Acetaminophen (Hydrocodone-Apap 5-500 Tab) 1 Each TABLET Hydrocodone Bit/Acetaminophen (Hydrocodone-Apap 5-500 Tab) 1 Each TABLET 2013-02-27 00:00:00 No 1 Every 6 Hours as nee ded [facility] Vital Signs Vital Name Observation Time Observation Value Comments Source Body Temperature 2020-04-17 23:12:00 97.8 [degF] [facility] Weight 2020-04-17 14:57:00 160 [lb_av] [facility] BMI (Body Mass Index) 2020-04-17 14:57:00 24.3 kg/m2 [facility] Weight 2019-11-26 11:01:00 160 [lb_av] [facility] BMI (Body Mass Index) 2019-11-26 11:01:00 24.3 kg/m2 [facility] Body Temperature 2019-08-28 14:35:00 96.1 [degF] [facility] Procedures Procedure Date / Time Performed Performing Clinician [facility] e Computed tomography of brain without radiopaque contrast 2020-03 00:00:[address] [facility] [address] of abdomen and pelvis without contrast 2019-08-19 00:00:00 [facility] Plan of Care Planned Activity Planned Date Details Comments Source Instructions Weakness (Generalized) [facility] Encounters Start Date/Time End Date/Time Encounter Type Admission Type Attendi [facility] Care Department Encounter ID Source 2020-04-17 15:38:00 2020-04-17 23:50:00 Departed Emergency Room 1 [facility] [id number] [facility] 2019-11-26 10:48:00 2019-11-26 13:49:00 Departed Emergency Room 1 [facility] [id number] [facility] 2019-08-19 05:41:00 2019-08-28 18:31:00 Discharged Inpatient 1 AIME BRIA [facility] [id number] [facility] 2019-02-06 12:58:00 2019-02-11 13:56:00 Discharged Inpatient [facility] [id number] [facility] 2019-01-31 18:09:00 2019-01-31 23:17:00 Departed Emergency Room 1 YAMILET GOODWIN [facility] [id number] I [facility] 2018-10-23 01:19:00 2018-10-25 18:13:00 Discharged Inpatient (obs) 1 ROHINI NAVAS [facility] [id number] [facility] 2018-09-29 20:22:00 2018-10-09 12:25:00 Discharged Inpatient 1 PACO FERMIN [facility] [id number] [facility] 2018-07-02 11:59:00 2018-07-06 16:55:00 Discharged Inpatient 1 BRIA SALOMON [facility] [id number] [facility] 2018-06-22 14:52:00 2018-06-22 14:52:00 Registered Clinic 3 AIMEBRIA [facility] [id number] [facility] 2018-04-10 14:44:00 2018-04-16 18:20:00 Discharged Inpatient 1 BRIA SALOMON [facility] [id number] [facility] 2018-01-25 12:42:00 2018-01-26 10:49:00 Discharged Inpatient (obs) [facility] [id number] [facility] 2018-01-09 10:11:00 2018-01-09 10:11:00 Registered Surgical Day Car e SOILA FERNANDES [facility] [id number] [facility] 2017-11-16 01:39:00 2017-11-24 16:30:00 Discharged Inpatient ER AIMEBRIA [facility] [id number] [facility] 2017-08-01 02:44:00 2017-08-14 15:06:00 Discharged Inpatient ER AIMEBRIA [facility] [id number] [facility] 2017-07-14 05:06:00 2017-07-16 16:26:00 Discharged Inpatient ER PACO FERMIN [facility] [id number] [facility] Results Test Description Test Time Test Comments Results Result Comments Source CT BRAIN WO 2020-04-17 21:08:00 [facility] [address] [address] Patient Name: MICKEY PANIAGUA JR MR #: [id number] : 1945 Age/Sex: 74/M Req #: [id number] Adm Physician: Ordered by: VERENICE GREEN DO Report #: [id number] Location: ER Room/Bed: Procedure: [id number] CT/CT BRAIN WO Exam Date: 04/17/20 Exam Time: 1949 REPORT STATUS: Signed EXAMINATION: Head CT without contrast. HISTORY:Leg weakness. COMPARISON:CT brain from 01/31/2019. TECHNIQUE: Multidetector axial images were obtained from the foramen magnum to the vertex without contrast. The images were reconstructed using brain and bone algorithms. Thin section brain images were reformatted into coronal and sagittal planes. Dose modulation, iterative reconstruction, and/or weight based adjustment of the mA/kV was utilized to reduce the radiation dose to as low as reasonably achievable. Intravenous contrast: None IMAGE QUALITY: Suboptimal evaluation due to motion-related streak artifacts particularly at the level of skull base and posterior fossa. FINDINGS: Skull/scalp: No lytic or blastic. lesions. No surgical changes. Parenchyma: Nonspecific few, scattered supratentorial white matter hypodensity are likely related to small vessel ischemic changes. No acute hemorrhage, mass or acute major vascular territorial infarct. Arteries: No density suggestive of thrombosis. Dural sinuses: No abnormal density suggestive of thrombosis. Ventricles: No hydrocephalus or displacement. Extra-axial spaces: No abnormal density. Brain volume: Normal for age. Craniocervical junction: No mass, Chiari malformation, or basilar invagination. Sella: No mass. Paranasal/mastoid sinuses: Imaged portions unremarkable. IMPRESSION: No acute intracranial abnormality. Mild supratentorial white matter microvascular ischemic changes. Signed by: Dr. Flora Granado M.D. on 04/17/2020 9:13 PM Dictated By: FLORA GRANADO MD 12 Transcribed By: TATYANA on 04/17/202112 COPY TO: VERENICE GREEN DO CHEST SINGLE (PORTABLE) 2020-04-17 16:05:[address] [address] Patient Name: MICKEY PANIAGUA JR MR #: [id number] : 1945 Age/Sex: 74/M Req #: [id number] Adm Physician: Ordered by: PACO FERMIN MD Report #: [id number] Location: ER Room/Bed: Procedure: [id number] DX/CHEST SINGLE (PORTABLE) Exam Date: 04/17/20 Exam Time: 1529 REPORT STATUS: Signed TECHNIQUE: Frontal view of the chest. INDICATION: FATIGUE, ? ASPIRATION 20200417 COMPARISON: 11/26/2019 DISCUSSION: Limited evaluation due to portable technique. Lines and hardware: None Heart and mediastinum: Stable. [place] gs and pleura: No focal airspace consolidation. No pleural effusion. No pneumothorax. Stable basilar linear scarring/atelectasis. Soft tissues and bones: No acute abnormality. IMPRESSION: Negative for acute intrathoracic process. Stable bibasilar scarring. Signed by: Bala Charles MD on 04/17/2020 4:11 PM Dictated By: BALA CHARLES MD 10 Transcribed By: TATYANA on 04/17/201610 COPY TO: PACO FERMIN MD Blood leukocytes automated count (number/volume) 2020-04-17 15:25:00 Test Item White Blood Count (test code = 6690-2) 6.66 4.8-10.8 [facility] count (number/volume)2020-04-17 15:25:00* Test Item Value Reference Range Interpretation Comments Red Blood Count (test code = 789-8) 4.84 4.3-5.7 [facility] hemoglobin measurement (moles/volume)2020-04-17 15:25:00* Test Item Value Reference Range Interpretation Comments Hemoglobin (test code = 37771-8) 15.2 14.0-18.0 [facility] HospitalAutomated blood hematocrit (volume fraction)2020-04-17 15:25:00* Test Item Value Reference Range Interpretation Comments Hematocrit (test code = 4544-3) 46.8 38.2-49.6 [facility] HospitalAutomated erythrocyte mean corpuscular feyegc2885-44-02 15:25:00* Test Item Value Reference Range Interpretation Comments Mean Corpuscular Volume (test code = 787-2) 96.7 81-99 [facility] HospitalAutomated erythrocyte mean corpuscular hemoglobin (mass per erythrocyte)2020-04-17 15:25:00* Test Item Value Reference Range Interpretation Comments Mean Corpuscular Hemoglobin (test code = 785-6) 31.4 28-32 [facility] HospitalAutomated erythrocyte mean corpuscular hemoglobin concentration measurement (mass/volume)2020-04-17 15:25:00* Test Item Value Reference Range Interpretation Comments Mean Corpuscular Hemoglobin Concent (test code = 786-4) 32.5 31-35 [facility] HospitalRDW YtkKo-Iuh8324-87-25 15:25:00* Test Item Value Reference Range Interpretation Comments Red Cell Distribution Width (test code = 97290-1) 13.6 11.7 -14.4 [facility] HospitalAutomated blood platelet count (count/volume)2020-04-17 15:25:00* Test Item Value Reference Range Interpretation Comments Platelet Count (test code = 777-3) 156 140-360 [facility] HospitalAutomated blood segmented neutrophil count as percentage of total booohsuabm3809-65-45 15:25:00* Test Item Value Reference Range Interpretation Comments Neutrophils (%) (Auto) (test code = 65251-4) 63.8 38.7-80.0 [facility] HospitalAutomated blood lymphocyte count as percentage ot total igrnxvcgzu9074-47-76 15:25:00* Test Item Value Reference Range Interpretation Comments Lymphocytes (%) (Auto) (test code = 736-9) 26.0 18.0-39.1 [facility] HospitalAutomated blood monocyte count as percentage of total daheckkgbm2053-87-27 15:25:00* Test Item Value Reference Range Interpretation Comments Monocytes (%) (Auto) (test code = 5905-5) 8.4 4.4-11.3 [facility] HospitalAutomated blood eosinophil count as percentage of total axqajetcqk8747-76-37 15:25:00* Test Item Value Reference Range Interpretation Comments Eosinophils (%) (Auto) (test code = 713-8) 0.8 0.0-6.0 [facility] HospitalAutomated blood basophil count as percentage of total tmrmickxwp9984-86-40 15:25:00* Test Item Value Reference Range Interpretation Comments Basophils (%) (Auto) (test code = 706-2) 0.8 0.0-1.0 [facility] HospitalFluoroscopic procedure less than one hour fjlatupx6850-28-81 15:25:00* Test Item Value Reference Range Interpretation Comments IM GRANULOCYTES % (test code = IM GRANULOCYTES %) 0.2 0.0- 1.0 [facility] HospitalAutomated blood neutrophil count 2020-04-17 15:25:00* Test Item Value Reference Range Interpretation Comments Neutrophils # (Auto) (test code = 751-8) 4.3 2.1-6.9 [facility] HospitalBlood lymphocytes count (number/volume) 2020-04-17 15:25:00* Test Item Value Reference Range Interpretation Comments Lymphocytes # (Auto) (test code = 96867-6) 1.7 1.0-3.2 [facility] HospitalBlood monocytes automated count (number/volume)2020-04-17 15:25:00* Test Item Value Reference Range Interpretation Comments Monocytes # (Auto) (test code = 742-7) 0.6 0.2-0.8 [facility] HospitalAutomated blood eosinophil count 2020-04-17 15:25:00* Test Item Value Reference Range Interpretation Comments Eosinophils # (Auto) (test code = 711-2) 0.1 0.0-0.4 [facility] HospitalAutomated blood basophil count (count/volume)2020-04-17 15:25:00* Test Item Value Reference Range Interpretation Comments Basophils # (Auto) (test code = 704-7) 0.1 0.0-0.1 [facility] HospitalFluoroscopic procedure less than one hour hovxyumj2302-74-97 15:25:00* Test Item Value Reference Range Interpretation Comments Absolute Immature Granulocyte (auto (cherrie t code = Absolute Immature Granulocyte (auto) 0.01 0-0.1 [facility] HospitalProthrombin time (PT) in platelet poor plasma by coagulation qlzar5234-61-72 15:25:00* Test Item Value Reference Range Interpretation Comments Prothrombin Time (test code = 5902-2) 36.6 11.9-14.5 [facility] HospitalINR in Platelet poor plasma by Coagulation xoghr3306-78-27 15:25:00* Test Item Value Reference Range Interpretation Comments Prothromb Time International Ratio (test code = 6301-6) 3.48 Oral Anticoagulant Therapy INR Values:1. Low Intensity Therapy 1.5 - 2.02 . Moderate Intensity Therapy 2.0 - 3.03. High Intensity Therapy(1) 2.5 - 3. 54. High Intensity Therapy(2) 3.0 - 4.05. Panic Value INR > 5.0 [facility] HospitalActivated partial thromboplastin time (aPTT) in platelet poor plasma by coagulation fhujw4650-88-97 15:25:00* Test Item Value Reference Range Interpretation Comments Activated Partial Thromboplast Time (test code = 11074-2) 39.4 23.8-35.5 [facility] HospitalUrine color zaezsjahbwxas4142-59-52 15:25:00* Test Item Value Reference Range Interpretation Comments Urine Color (test code = 5778-6) STRAW YELLOW [facility] HospitalUrine umwzemn6193-38-07 15:25:00* Test Item Value Reference Range Interpretation Comments Urine Clarity (test code = 19596-9) SL CLOUDY CLEAR [facility] of Urine by Test strip 2020-04-17 15:25:00* Test Item Value Reference Range Interpretation Comments Urine Specific [place] (test code = 5811-5) 1.025 1.010-1.02 5 [facility] HospitalUrine pH measurement by automated test kvfyo0512-24-87 15:25:00* Test Item Value Reference Range Interpretation Comments Urine pH (test code = 62141-5) 6 5-7 [facility] HospitalUrine leukocyte esterase detection by wemvwhkv3611-03-99 15:25:00* Test Item Value Reference Range Interpretation Comments Urine Leukocyte Esterase (test code = 5799-2) SMALL NEGATIVE [facility] HospitalUrine nitrite kxdoqbumw7461-19-60 15:25:00* Test Item Value Reference Range Interpretation Comments Urine Nitrite (test code = 50839-8) NEGATIVE NEGATIVE [facility] HospitalUrine protein measurement by test strip (mass/volume)2020-04-17 15:25:00* Test Item Value Reference Range Interpretation Comments Urine Protein (test code = 5804-0) 1+ NEGATIVE [facility] HospitalUrine glucose oxsjaihcm2806-85-07 15:25:00* Test Item Value Reference Range Interpretation Comments Urine Glucose (UA) (test code = 2349-9) NEGATIVE NEGATIVE [facility] HospitalUrine ketones detection by automated test eqjrt9613-08-93 15:25:00* Test Item Value Reference Range Interpretation Comments Urine Ketones (test code = 22504-8) TRACE NEGATIVE [facility] HospitalUrine urobilinogen measurement by test strip (mass/volume)2020-04-17 15:25:00* Test Item Value Reference Range Interpretation Comments Urine Urobilinogen (test code = 95174-8) 0.2 0.2-1 [facility] HospitalUrine total bilirubin measurement (mass/volume)2020-04-17 15:25:00* Test Item Value Reference Range Interpretation Comments Urine Bilirubin (test code = 1978-6) SMALL NEGATIVE [facility] HospitalUrine erythrocytes zzlrdzwpb8731-35-24 15:25:00* Test Item Value Reference Range Interpretation Comments Urine Blood (test code = 71861-4) TRACE NEGATIVE [facility] HospitalAutomated urine sediment leukocyte count by microscopy (number/high power field)2020-04-17 15:25:00* Test Item Value Reference Range Interpretation Comments Urine WBC (test code = 5821-4) 11-20 0-5 [facility] HospitalErythrocytes detection in urine sediment by light sldsutlsja6185-66-28 15:25:00* Test Item Value Reference Range Interpretation Comments Urine RBC (test code = 59883-8) 6-10 0-5 [facility] HospitalBacteria detection in urine sediment by light kllivgddea3118-11-97 15:25:00* Test Item Value Reference Range Interpretation Comments Urine Bacteria (test code = 44935-3) MODERATE NONE [facility] HospitalEpithelial cells detection in urine sediment by light pfneunkqki8441-28-23 15:25:00* Test Item Value Reference Range Interpretation Comments Urine Epithelial Cells (test code = 71788-3) RARE NONE [facility] Klebergpermatozoa detection in urine sediment by light jjrwxjzkzn9624-16-40 15:25:00* Test Item Value Reference Range Interpretation Comments Urine Sperm (test code = 8248-7) PRESENT NONE [facility] Klebergerum or plasma sodium measurement (moles/volume)2020-04-17 15:25:00* Test Item Value Reference Range Interpretation Comments Sodium Level (test code = 2951-2) 143 136-145 [facility] Klebergerum or plasma potassium measurement (moles/volume)2020-04-17 15:25:00* Test Item Value Reference Range Interpretation Comments Potassium Level (test code = 2823-3) 4.8 3.5-5.1 [facility]bergerum or plasma chloride measurement (moles/volume)2020-04-17 15:25:00* Test Item Value Reference Range Interpretation Comments Chloride Level (test code = 2075-0) 105 98-107 [facility] Klebergerum or plasma carbon dioxide, total measurement (moles/volume)2020-04-17 15:25:00* Test Item Value Reference Range Interpretation Comments Carbon Dioxide Level (test code = 2028-9) 27 22-29 [facility]berger[facility] or plasma anion oga4954-02-47 15:25:00* Test Item Value Reference Range Interpretation Comments Anion Gap (test code = 60855-4) 15.8 8-16 [facility] or plasma urea nitrogen measurement (mass/volume)2020-04-17 15:25:00* Test Item Value Reference Range Interpretation Comments Blood Urea Nitrogen (test code = 3094-0) 17 7-26 [facility]bergerum or plasma creatinine measurement (mass/volume)2020-04-17 15:25:00* Test Item Value Reference Range Interpretation Comments Creatinine (test code = 2160-0) 1.29 0.72-1.25 [facility]berger[facility] or plasma urea nitrogen/creatinine mass rxoql5447-38-10 15:25:00* Test Item Value Reference Range Interpretation Comments BUN/Creatinine Ratio (test code = 3097-3) 13 6-25 [facility] HospitalEstimated glomerular filtration rate (GFR) lzxjsuzrqkybt4717-46-36 15:25:00* Test Item Value Reference Range Interpretation Comments Estimat Glomerular Filtration Rate (test code = 393750505) 55 >60 Ranges were taken from the National Kidney Disease Education Program and the [facility] [employer] Foundation literature.Reference ranges:60 or greater: Ahpmvl19-56 ( for 3 consecutive months): Chronic kidney disease 15 or less: Kidney failureEastland Memorial HospitalGlucose yruydkdxogx4809-33-72 15:25:00* Test Item Value Reference Range Interpretation Comments Glucose Level (test code = SDG3975) 96 74-118 [facility] calcium [facility] (mass/volume)2020-04-17 15:25:00* Test Item Value Reference Range Interpretation Comments Calcium Level (test code = 69214-0) 8.8 8.4-10.2 [facility] total bilirubin measurement (mass/volume)2020-04-17 15:25:00* Test Item Value Reference Range Interpretation Comments Total Bilirubin (test code = 1975-2) 0.5 0.2-1.2 [facility]Fluor[facility] procedure less than one hour dgzvjwrt0849-01-64 15:25:00* Test Item Value Reference Range Interpretation Comments Aspartate Amino Transf (AST/SGOT) (test code = Aspartate Amino Transf (AST/SGOT)) 25 5-34 [facility] alanine aminotransferase measurement (enzymatic activity/volume)2020-04-17 15:25:00* Test Item Value Reference Range Interpretation Comments Alanine Aminotransferase (ALT/SGPT) (test code = 1742-6) 14 0-55 [facility] protein measurement (mass/volume)2020-04-17 15:25:00* Test Item Value Reference Range Interpretation Comments Total Protein (test code = 2885-2) 7.3 6.5-8.1 [facility] albumin measurement (mass/volume)2020-04-17 15:25:00* Test Item Value Reference Range Interpretation Comments Albumin (test code = 1751-7) 4.1 3.5-5.0 [facility] HospitalPlasma globulin measurement (mass/volume) 2020-04-17 15:25:00* Test Item Value Reference Range Interpretation Comments Globulin (test code = 19144-7) 3.2 2.3-3.5 [facility] albumin/globulin mass mavvu1426-03-73 15:25:00* Test Item Value Reference Range Interpretation Comments Albumin/Globulin Ratio (test code = 1759-0) 1.3 0.8-2.0 [facility] alkaline phosphatase measurement (enzymatic activity/volume)2020-04-17 15:25:00* Test Item Value Reference Range Interpretation Comments Alkaline Phosphatase (test code = 6768-6) 86 40-150 [facility] HospitalBNP Ome-qJhe9601-58-25 15:25:00* Test Item Value Reference Range Interpretation Comments B-Type Natriuretic Peptide (test code = 94267-3) 34.6 0-100 [facility] creatine kinase measurement (enzymatic activity/volume)2020-04-17 15:25:00* Test Item Value Reference Range Interpretation Comments Creatine Kinase (test code = 2157-6) 63 30-200 [facility] creatine kinase MB measurement (mass/volume)2020-04-17 15:25:00* Test Item Value Reference Range Interpretation Comments Creatine Kinase MB (test code = 38425-7) 1.40 0-5.0 [facility] HospitalTroponin I measurement by highly sensitive enzyme bogjywtxcmu2080-44-65 15:25:00* Test Item Value Reference Range Interpretation Comments Troponin I (test code = 13720-5) 0.007 0-0.300 [facility] HospitalCHE[facility]INGLE (PORTABLE)2019-11-26 13:28:00 [facility] [address] [address] Patient Name: MICKEY PANIAGUA JR MR #: [id number] : 1945 Age/Sex: 74/M Req #: [id number] Adm Physician: Ordered by: VERENICE GREEN DO Report #: [id number] Location: ER Room/Bed: Procedure: [id number] DX/CHEST SI NGLE (PORTABLE) Exam Date: 11/26/19 Exam Time: 1257 REPORT STATUS: Signed EXAM: AYAZ FLORES (PORTABLE) DATE: 11/26/2019 12:57 PM INDICATION: Weakness COMPARISON: 08/19/2019 FINDINGS: Lung volumes are low. There is no ev idence for large focal consolidation, pneumothorax, or significant pleural eff usion. The cardiomediastinal silhouette is stable in appearance. The pulmonary vasculature is not engorged. No acute osseous abnormalities identified. IMPRESSION: No acute cardiopulmonary process identified. Signed by: Dr. Nash Anaya MD on 11/26/2019 1:29 PM Dictated By: NASH ANAYA MD E lectronically Signed By: NASH ANAYA MD on 11/26/19 1329 Transcribed By: NILES FRANCO on 11/26/19 1329 COPY TO: VERENICE GREEN DO Fluoroscopic procedure less than one hour qgiuayvb2359-41-61 12:43:00* Test Item Value Reference Range Interpretation Comments Venous Blood pH (test code = Venous Blood pH) 7.391 7.35-7.3 8 [facility] HospitalFluoroscopic procedure less than one hour sqdqvdkw5238-71-19 12:43:00* Test Item Value Reference Range Interpretation Comments Venous Blood Partial Pressure CO2 (test code = Venous Blood Partial Pressure CO2) 52.6 44-48 [facility] HospitalFluoroscopic procedure less than one hour lcuhkbpj4694-94-00 12:43:00* Test Item Value Reference Range Interpretation Comments Venous Blood HCO3 (test code = Venous Blood HCO3) 31.9 21-2 2 [facility] HospitalFluoroscopic procedure less than one hour hxpidpfv4915-63-10 12:43:00* Test Item Value Reference Range Interpretation Comments Venous Blood Total Carbon Dioxide (test code = Venous Blood Total Carbon Dioxide) 33 [facility] HospitalFluoroscopic procedure less than one hour jjkltbve0597-21-37 12:43:00* Test Item Value Reference Range Interpretation Comments Venous Blood Base Excess (test code = Venous Blood Base Excess) 7 [facility] HospitalFluoroscopic procedure less than one hour mipdhkob6728-12-95 12:43:00* Test Item Value Reference Range Interpretation Comments FiO2 (test code = FiO2) 40 [facility] HospitalFluoroscopic procedure less than one hour mymojfnv6966-93-75 11:15:00* Test Item Value Reference Range Interpretation Comments Coronavirus (PCR) (test code = Coronavirus (PCR)) NOT DETECTED NOTD ETECTED SARS-COV-2 (COVID19), HIGHRISK, RT-PCRNegative results do not preclude SARS-CoV- 2 infection and should not be used as the sole basis for patient management deci sions. Negative results must be combined with clinical observations, patient his tory, and epidemiological information. Optimum specimen types and timing for pea k viral levels during infections caused by SARS-CoV-2 have not been determined. Collection of multiple specimens ot types of specimens may be necessary to detec t virus. Improper specimen collection and handling, sequence variability under p rimers/probes, or organism present below the limit of detection may lead to fals e negative results. Positive and negative predictive values of testing are highl y dependent on prevalance. False negative test results are more likely when prev alence is high.The expected result is negative (not detected).The SARS-CoV-2 cherrie t is intended for the qualitative detection of nucleic acid from SARS-CoV-2 in n asopharyngeal and oropharyngeal swab samples from patients who meet COVID-19 cli nical and or epidemiological criteria. For lower respiratory tract specimens, th e assay is submitted for authoriztion by FDA under an Emergency Use Authorizatio n (EUA). Testing methodology is real time RT-PCR. If received as separate collec tion devices, nasopharygeal and oropharyngeal specimens are combined for analysi s. Additional specimens may be split to a separate accession for analysi and rep orting as this test includes a single unit of service.Test results must be corre lated with clinical presentation and evaluated in the context of other laborator y and epidemiologic data. Test performance can be affected because the epidemiol ogy and clinical spectrum of infection caused by SARS-CoV-2 is not fully known. For example, the optimum types of specimens to collect and when during the cours e of infection these specimens are most likely to contain detectable viral RNA m ay not be known.This test has not been Food and Drug Administration (FDA) cleare d or approved and has been authorized by FDA under an Emergency Use Authorizatio n (EUA). The test is only authorized for the duration of the declaration that ci rcumstances exist justifying the authorization of emergency use of in vitro diag nostic tests for detection and/or diagnosis of SARS-CoV-2 under section 564(b) o f the Act, 21 U.S.C. section 360bbb-3(b)(1), unless the authorization is termina shanna or revoked sooner. [facility] are certified under the C linical Laboratory Improvement Amendments of 1988 (CLIA), 42 U.S.C. section 263a , to perform high complexity tests.Specimen sent to [facility] and testing performed by [facility] [address] [place] [address] [phone] Director: Pete Leon M.D.CLIA # [id number] [facility] HospitalCapillary blood glucose measurement by glucometer (mass/volume)2019-11-26 11:01:00* Test Item Value Reference Range Interpretation Comments Bedside Glucose (test code = 93860-4) 118 70-120 Meter ID: [id number] [facility] HospitalCapillary blood glucose measurement by glucometer (mass/volume)2019-11-26 11:01:00* Test Item Value Reference Range Interpretation Comments Bedside Glucose (test code = 72038-4) 118 70-120 Meter ID: [id number] Memorial HospitalCapillary blood glucose measurement by glucometer (mass/volume)2019-11-26 11:01:00* Test Item Value Reference Range Interpretation Comments Bedside Glucose (test code = 01281-8) 118 70-120 Meter ID: [id number] Memorial HospitalBacterial blood skcyhza7043-99-78 11:00:00* Test Item Value Reference Range Interpretation Comments Blood Culture (test code = 600-7) STAPHYLOCOCCUS SP COAG NEG [facility] HospitalBlood leukocytes automated count (number/volume)2019-11-26 10:53:00* Test Item Value Reference Range Interpretation Comments White Blood Count (test code = 6690-2) 5.19 4.8-10.8 [facility] HospitalBlmadel[facility] erythrocytes automated count (number/volume)2019-11-26 10:53:00* Test Item Value Reference Range Interpretation Comments Red Blood Count (test code = 789-8) 4.30 4.3-5.7 [facility] hemoglobin measurement (moles/volume)2019-11-26 10:53:00* Test Item Value Reference Range Interpretation Comments Hemoglobin (test code = 26792-5) 13.6 14.0-18.0 [facility] HospitalAutomated blood hematocrit (volume fraction)2019-11-26 10:53:00* Test Item Value Reference Range Interpretation Comments Hematocrit (test code = 4544-3) 41.3 38.2-49.6 [facility] HospitalAutomated erythrocyte mean corpuscular zdjyra0202-12-41 10:53:00* Test Item Value Reference Range Interpretation Comments Mean Corpuscular Volume (test code = 787-2) 96.0 81-99 [facility] HospitalAutomated erythrocyte mean corpuscular hemoglobin (mass per erythrocyte)2019-11-26 10:53:00* Test Item Value Reference Range Interpretation Comments Mean Corpuscular Hemoglobin (test code = 785-6) 31.6 28-32 [facility] HospitalAutpending sale to [facility] erythrocyte mean corpuscular hemoglobin concentration measurement (mass/volume)2019-11-26 10:53:00* Test Item Value Reference Range Interpretation Comments Mean Corpuscular Hemoglobin Concent (test code = 786-4) 32.9 31-35 [facility] HospitalRDW QgzQt-Ibm9764-73-05 10:53:00* Test Item Value Reference Range Interpretation Comments Red Cell Distribution Width (test code = 82699-6) 14.0 11.7 -14.4 [facility] HospitalAutnovant healthed blood platelet count (count/volume)2019-11-26 10:53:00* Test Item Value Reference Range Interpretation Comments Platelet Count (test code = 777-3) 105 140-360 [facility] neutrophil count as percentage of total mmuoxiysem4438-52-38 10:53:00* Test Item Value Reference Range Interpretation Comments Neutrophils (%) (Auto) (test code = 20664-5) 56.6 38.7-80.0 [facility] HospitalAutomated blood lymphocyte count as percentage ot total ymzznjlkrt4301-43-73 10:53:00* Test Item Value Reference Range Interpretation Comments Lymphocytes (%) (Auto) (test code = 736-9) 31.6 18.0-39.1 [facility] HospitalAutomated blood monocyte count as percentage of total vjopuvmpro3380-59-47 10:53:00* Test Item Value Reference Range Interpretation Comments Monocytes (%) (Auto) (test code = 5905-5) 8.9 4.4-11.3 [facility] HospitalAutomated blood eosinophil count as percentage of total vpyzxwdbzt5508-32-19 10:53:00* Test Item Value Reference Range Interpretation Comments Eosinophils (%) (Auto) (test code = 713-8) 2.1 0.0-6.0 [facility] HospitalAutomated blood basophil count as percentage of total zptouvkvvb8089-01-38 10:53:00* Test Item Value Reference Range Interpretation Comments Basophils (%) (Auto) (test code = 706-2) 0.6 0.0-1.0 [facility] HospitalFluoroscopic procedure less than one hour gtupvksg6469-25-70 10:53:00* Test Item Value Reference Range Interpretation Comments IM GRANULOCYTES % (test code = IM GRANULOCYTES %) 0.2 0.0- 1.0 [facility] HospitalAutomated blood neutrophil count 2019-11-26 10:53:00* Test Item Value Reference Range Interpretation Comments Neutrophils # (Auto) (test code = 751-8) 2.9 2.1-6.9 [facility] HospitalBlood lymphocytes count (number/volume) 2019-11-26 10:53:00* Test Item Value Reference Range Interpretation Comments Lymphocytes # (Auto) (test code = 35073-5) 1.6 1.0-3.2 [facility] HospitalBlmadelia community hospital monocytes automated count (number/volume)2019-11-26 10:53:00* Test Item Value Reference Range Interpretation Comments Monocytes # (Auto) (test code = 742-7) 0.5 0.2-0.8 [facility] HospitalAutomated blood eosinophil count 2019-11-26 10:53:00* Test Item Value Reference Range Interpretation Comments Eosinophils # (Auto) (test code = 711-2) 0.1 0.0-0.4 [facility] HospitalAutomated blood basophil count (count/volume)2019-11-26 10:53:00* Test Item Value Reference Range Interpretation Comments Basophils # (Auto) (test code = 704-7) 0.0 0.0-0.1 [facility] HospitalFluoroscopic procedure less than one hour oqvwdwof9116-43-63 10:53:00* Test Item Value Reference Range Interpretation Comments Absolute Immature Granulocyte (auto (cherrie t code = Absolute Immature Granulocyte (auto) 0.01 0-0.1 [facility] sodium measurement (moles/volume)2019-11-26 10:53:00* Test Item Value Reference Range Interpretation Comments Sodium Level (test code = 2951-2) 143 136-145 [facility] potassium measurement (moles/volume)2019-11-26 10:53:00* Test Item Value Reference Range Interpretation Comments Potassium Level (test code = 2823-3) 4.1 3.5-5.1 [facility] chloride measurement (moles/volume)2019-11-26 10:53:00* Test Item Value Reference Range Interpretation Comments Chloride Level (test code = 2075-0) 108 98-107 [facility] carbon dioxide, total measurement (moles/volume)2019-11-26 10:53:00* Test Item Value Reference Range Interpretation Comments Carbon Dioxide Level (test code = 2028-9) 29 22-29 [facility] anion usp2843-41-44 10:53:00* Test Item Value Reference Range Interpretation Comments Anion Gap (test code = 42880-6) 10.1 8-16 [facility] urea nitrogen measurement (mass/volume)2019-11-26 10:53:00* Test Item Value Reference Range Interpretation Comments Blood Urea Nitrogen (test code = 3094-0) 22 7- [facility] creatinine measurement (mass/volume)2019-11-26 10:53:00* Test Item Value Reference Range Interpretation Comments Creatinine (test code = 2160-0) 1.02 0.72-1.25 [facility] urea nitrogen/creatinine mass xntoo7108-22-23 10:53:00* Test Item Value Reference Range Interpretation Comments BUN/Creatinine Ratio (test code = 3097-3) 22 6- [facility] HospitalEstimated glomerular filtration rate (GFR) cuvzwovknnpyl4510-08-66 10:53:00* Test Item Value Reference Range Interpretation Comments Estimat Glomerular Filtration Rate (test code = 281914064) > 60 >60 Ranges were taken from the National Kidney Disease Education Program and the [facility] Kid[facility] Foundation literature.Reference ranges:60 or greater: Atkiil15-24 ( for 3 consecutive months): Chronic kidney disease 15 or less: Kidney failureEastland Memorial HospitalGlucose hilgveqimol6569-04-86 10:53:00* Test Item Value Reference Range Interpretation Comments Glucose Level (test code = ABU0191) 106 74-118 [facility] calcium measurement (mass/volume)2019-11-26 10:53:00* Test Item Value Reference Range Interpretation Comments Calcium Level (test code = 17996-1) 9.0 8.4-10.2 [facility] HospitalFluoroscopic procedure less than one hour ipmxyayv3200-67-62 10:53:00* Test Item Value Reference Range Interpretation Comments Lactic Acid Level (test code = Lactic Acid Level) 0.7 0.5- 2.0 [facility] total bilirubin measurement (mass/volume)2019-11-26 10:53:00* Test Item Value Reference Range Interpretation Comments Total Bilirubin (test code = 1975-2) 0.4 0.2-1.2 [facility] HospitalFluoroscopic procedure less than one hour cmdeyvhq7051-40-37 10:53:00* Test Item Value Reference Range Interpretation Comments Aspartate Amino Transf (AST/SGOT) (test code = Aspartate Amino Transf (AST/SGOT)) 28 5-34 [facility] alanine aminotransferase measurement (enzymatic activity/volume)2019-11-26 10:53:00* Test Item Value Reference Range Interpretation Comments Alanine Aminotransferase (ALT/SGPT) (test code = 1742-6) 20 0-55 [facility] protein measurement (mass/volume)2019-11-26 10:53:00* Test Item Value Reference Range Interpretation Comments Total Protein (test code = 2885-2) 6.6 6.5-8.1 [facility] albumin measurement (mass/volume)2019-11-26 10:53:00* Test Item Value Reference Range Interpretation Comments Albumin (test code = 1751-7) 3.4 3.5-5.0 [facility] HospitalPlasma globulin measurement (mass/volume) 2019-11-26 10:53:00* Test Item Value Reference Range Interpretation Comments Globulin (test code = 75561-6) 3.2 2.3-3.5 [facility] albumin/globulin mass fuabq4763-51-41 10:53:00* Test Item Value Reference Range Interpretation Comments Albumin/Globulin Ratio (test code = 1759-0) 1.1 0.8-2.0 [facility] alkaline phosphatase measurement (enzymatic activity/volume)2019-11-26 10:53:00* Test Item Value Reference Range Interpretation Comments Alkaline Phosphatase (test code = 6768-6) 94 40-150 [facility] HospitalBNP Xjc-lDvv5702-68-05 10:53:00* Test Item Value Reference Range Interpretation Comments B-Type Natriuretic Peptide (test code = 03084-1) 27.9 0-100 [facility] creatine kinase measurement (enzymatic activity/volume)2019-11-26 10:53:00* Test Item Value Reference Range Interpretation Comments Creatine Kinase (test code = 2157-6) 91 30-200 [facility] creatine kinase MB measurement (mass/volume)2019-11-26 10:53:00* Test Item Value Reference Range Interpretation Comments Creatine Kinase MB (test code = 02052-4) 2.80 0-5.0 [facility] HospitalTroponin I measurement by highly sensitive enzyme bocgjrbsyza6709-27-15 10:53:00* Test Item Value Reference Range Interpretation Comments Troponin I (test code = 43036-2) 0.007 0-0.300 [facility] HospitalBlmadel[facility] hospital leukocytes automated count (number/volume)2019-11-26 10:53:00* Test Item Value Reference Range Interpretation Comments White Blood Count (test code = 6690-2) 5.19 4.8-10.8 [facility] erythrocytes automated count (number/volume)2019-11-26 10:53:00* Test Item Value Reference Range Interpretation Comments Red Blood Count (test code = 789-8) 4.30 4.3-5.7 [facility] HospitalBlood hemoglobin measurement (moles/volume)2019-11-26 10:53:00* Test Item Value Reference Range Interpretation Comments Hemoglobin (test code = 29237-1) 13.6 14.0-18.0 [facility] HospitalAutomated blood hematocrit (volume fraction)2019-11-26 10:53:00* Test Item Value Reference Range Interpretation Comments Hematocrit (test code = 4544-3) 41.3 38.2-49.6 [facility] HospitalAutomated erythrocyte mean corpuscular sxafui2209-21-59 10:53:00* Test Item Value Reference Range Interpretation Comments Mean Corpuscular Volume (test code = 787-2) 96.0 81-99 [facility] HospitalAutomated erythrocyte mean corpuscular hemoglobin (mass per erythrocyte)2019-11-26 10:53:00* Test Item Value Reference Range Interpretation Comments Mean Corpuscular Hemoglobin (test code = 785-6) 31.6 28-32 [facility] HospitalAutomated erythrocyte mean corpuscular hemoglobin concentration measurement (mass/volume)2019-11-26 10:53:00* Test Item Value Reference Range Interpretation Comments Mean Corpuscular Hemoglobin Concent (test code = 786-4) 32.9 31-35 [facility] HospitalRDW MytMh-Gis0212-20-05 10:53:00* Test Item Value Reference Range Interpretation Comments Red Cell Distribution Width (test code = 34735-5) 14.0 11.7 -14.4 [facility] HospitalAutomated blood platelet count (count/volume)2019-11-26 10:53:00* Test Item Value Reference Range Interpretation Comments Platelet Count (test code = 777-3) 105 140-360 [facility] HospitalAutomated blood segmented neutrophil count as percentage of total ldokfvkijw1690-12-65 10:53:00* Test Item Value Reference Range Interpretation Comments Neutrophils (%) (Auto) (test code = 69080-3) 56.6 38.7-80.0 [facility] HospitalAutomated blood lymphocyte count as percentage ot total eespafkrig7855-56-24 10:53:00* Test Item Value Reference Range Interpretation Comments Lymphocytes (%) (Auto) (test code = 736-9) 31.6 18.0-39.1 [facility] HospitalAutomated blood monocyte count as percentage of total vquvxszjbl0852-09-42 10:53:00* Test Item Value Reference Range Interpretation Comments Monocytes (%) (Auto) (test code = 5905-5) 8.9 4.4-11.3 [facility] HospitalAutomated blood eosinophil count as percentage of total ppdqywrqxr8657-91-50 10:53:00* Test Item Value Reference Range Interpretation Comments Eosinophils (%) (Auto) (test code = 713-8) 2.1 0.0-6.0 [facility] HospitalAutomated blood basophil count as percentage of total qjvzmugnqy0684-54-57 10:53:00* Test Item Value Reference Range Interpretation Comments Basophils (%) (Auto) (test code = 706-2) 0.6 0.0-1.0 [facility] HospitalFluoroscopic procedure less than one hour sywtnapk5840-97-72 10:53:00* Test Item Value Reference Range Interpretation Comments IM GRANULOCYTES % (test code = IM GRANULOCYTES %) 0.2 0.0- 1.0 [facility] HospitalAutomated blood neutrophil count 2019-11-26 10:53:00* Test Item Value Reference Range Interpretation Comments Neutrophils # (Auto) (test code = 751-8) 2.9 2.1-6.9 [facility] HospitalBlood lymphocytes count (number/volume) 2019-11-26 10:53:00* Test Item Value Reference Range Interpretation Comments Lymphocytes # (Auto) (test code = 46660-9) 1.6 1.0-3.2 [facility] HospitalBlood monocytes automated count (number/volume)2019-11-26 10:53:00* Test Item Value Reference Range Interpretation Comments Monocytes # (Auto) (test code = 742-7) 0.5 0.2-0.8 [facility] HospitalAutomated blood eosinophil count 2019-11-26 10:53:00* Test Item Value Reference Range Interpretation Comments Eosinophils # (Auto) (test code = 711-2) 0.1 0.0-0.4 [facility] HospitalAutomated blood basophil count (count/volume)2019-11-26 10:53:00* Test Item Value Reference Range Interpretation Comments Basophils # (Auto) (test code = 704-7) 0.0 0.0-0.1 [facility] HospitalFluoroscopic procedure less than one hour gczmveef9615-36-72 10:53:00* Test Item Value Reference Range Interpretation Comments Absolute Immature Granulocyte (auto (cherrie t code = Absolute Immature Granulocyte (auto) 0.01 0-0.1 [facility] sodium measurement (moles/volume)2019-11-26 10:53:00* Test Item Value Reference Range Interpretation Comments Sodium Level (test code = 2951-2) 143 136-145 [facility] potassium measurement (moles/volume)2019-11-26 10:53:00* Test Item Value Reference Range Interpretation Comments Potassium Level (test code = 2823-3) 4.1 3.5-5.1 [facility] chloride measurement (moles/volume)2019-11-26 10:53:00* Test Item Value Reference Range Interpretation Comments Chloride Level (test code = 2075-0) 108 98-107 [facility] carbon dioxide, total measurement (moles/volume)2019-11-26 10:53:00* Test Item Value Reference Range Interpretation Comments Carbon Dioxide Level (test code = 2028-9) 29 22-29 [facility] plasma anion mud1559-17-51 10:53:00* Test Item Value Reference Range Interpretation Comments Anion Gap (test code = 95333-4) 10.1 8-16 [facility] urea nitrogen measurement (mass/volume)2019-11-26 10:53:00* Test Item Value Reference Range Interpretation Comments Blood Urea Nitrogen (test code = 3094-0) 22 7-26 [facility] creatinine measurement (mass/volume)2019-11-26 10:53:00* Test Item Value Reference Range Interpretation Comments Creatinine (test code = 2160-0) 1.02 0.72-1.25 [facility] plasma urea nitrogen/creatinine mass zhvmo1946 10:53:00* Test Item Value Reference Range Interpretation Comments BUN/Creatinine Ratio (test code = 3097-3) 22 6-25 [facility] HospitalEstimated glomerular filtration rate (GFR) macieqrtdatmz4030-46-90 10:53:00* Test Item Value Reference Range Interpretation Comments Estimat Glomerular Filtration Rate (test code = 317365775) > 60 >60 Ranges were taken from the National Kidney Disease Education Program and the [facility] southeasternal Kidney Foundation literature.Reference ranges:60 or greater: Xniean96-04 ( for 3 consecutive months): Chronic kidney disease 15 or less: Kidney failureEastland Memorial HospitalGlucose ttbbrqiofox8704-17-98 10:53:00* Test Item Value Reference Range Interpretation Comments Glucose Level (test code = XSG6859) 106 74-118 [facility] calcium measurement (mass/volume)2019-11-26 10:53:00* Test Item Value Reference Range Interpretation Comments Calcium Level (test code = 38640-0) 9.0 8.4-10.2 [facility] HospitalFluoroscopic procedure less than one hour iuugtlwe3167-26-69 10:53:00* Test Item Value Reference Range Interpretation Comments Lactic Acid Level (test code = Lactic Acid Level) 0.7 0.5- 2.0 [facility] total bilirubin measurement (mass/volume)2019-11-26 10:53:00* Test Item Value Reference Range Interpretation Comments Total Bilirubin (test code = 1975-2) 0.4 0.2-1.2 [facility] HospitalFluoroscopic procedure less than one hour drlxahvg6193-65-73 10:53:00* Test Item Value Reference Range Interpretation Comments Aspartate Amino Transf (AST/SGOT) (test code = Aspartate Amino Transf (AST/SGOT)) 28 5-34 [facility] alanine aminotransferase measurement (enzymatic activity/volume)2019-11-26 10:53:00* Test Item Value Reference Range Interpretation Comments Alanine Aminotransferase (ALT/SGPT) (test code = 1742-6) 20 0-55 [facility] protein measurement (mass/volume)2019-11-26 10:53:00* Test Item Value Reference Range Interpretation Comments Total Protein (test code = 2885-2) 6.6 6.5-8.1 [facility] albumin measurement (mass/volume)2019-11-26 10:53:00* Test Item Value Reference Range Interpretation Comments Albumin (test code = 1751-7) 3.4 3.5-5.0 [facility] HospitalPlasma globulin measurement (mass/volume) 2019-11-26 10:53:00* Test Item Value Reference Range Interpretation Comments Globulin (test code = 65120-6) 3.2 2.3-3.5 [facility] albumin/globulin mass ffivd3928-64-83 10:53:00* Test Item Value Reference Range Interpretation Comments Albumin/Globulin Ratio (test code = 1759-0) 1.1 0.8-2.0 [facility] alkaline phosphatase measurement (enzymatic activity/volume)2019-11-26 10:53:00* Test Item Value Reference Range Interpretation Comments Alkaline Phosphatase (test code = 6768-6) 94 40-150 [facility] HospitalBNP Kxd-zOpa2540-70-05 10:53:00* Test Item Value Reference Range Interpretation Comments B-Type Natriuretic Peptide (test code = 59799-4) 27.9 0-100 [facility] creatine kinase measurement (enzymatic activity/volume)2019-11-26 10:53:00* Test Item Value Reference Range Interpretation Comments Creatine Kinase (test code = 2157-6) 91 30-200 [facility] plasma creatine kinase MB measurement (mass/volume)2019-11-26 10:53:00* Test Item Value Reference Range Interpretation Comments Creatine Kinase MB (test code = 91628-0) 2.80 0-5.0 [facility] HospitalTroponin I measurement by highly sensitive enzyme nfvezdeyazl7525-97-28 10:53:00* Test Item Value Reference Range Interpretation Comments Troponin I (test code = 05594-7) 0.007 0-0.300 [facility] HospitalFluoroscopic procedure less than one hour ktzyyjjy3870-75-24 10:53:00* Test Item Value Reference Range Interpretation Comments Lactic Acid Level (test code = Lactic Acid Level) 0.7 0.5- 2.0 [facility] HospitalBlood ubihlgh8345-19-02 10:53:00* Test Item Value Reference Range Interpretation Comments Blood Culture (test code = 20955699) NO GROWTH AFTER 5 DAYS, FINAL REPORT [facility] HospitalProthrombin Pzdr6397-04-48 17:40:00* Test Item Value Reference Range Interpretation Comments Prothrombin Time (test code = 5902-2) 21.5 11.9-14.5 H [facility] HospitalProthromb Time International Ratio 2019-08-28 17:40:00* Test Item Value Reference Range Interpretation Comments Prothromb Time International Ratio (test code = 6301-6) 1.80 Oral Anticoagulant Therapy INR Values:1. Low Intensity Therapy 1.5 - 2.02 . Moderate Intensity Therapy 2.0 - 3.03. High Intensity Therapy(1) 2.5 - 3. 54. High Intensity Therapy(2) 3.0 - 4.05. Panic Value INR > 5.0 [facility] HospitalProthrombin time (PT) in platelet poor plasma by coagulation yputs6570-49-12 16:20:00* Test Item Value Reference Range Interpretation Comments Prothrombin Time (test code = 5902-2) 21.5 11.9-14.5 [facility] HospitalINR in Platelet poor plasma by Coagulation usdes7851-76-12 16:20:00* Test Item Value Reference Range Interpretation Comments Prothromb Time International Ratio (test code = 6301-6) 1.80 Oral Anticoagulant Therapy INR Values:1. Low Intensity Therapy 1.5 - 2.02 . Moderate Intensity Therapy 2.0 - 3.03. High Intensity Therapy(1) 2.5 - 3. 54. High Intensity Therapy(2) 3.0 - 4.05. Panic Value INR > 5.0 [facility] HospitalProthrombin time (PT) in platelet poor plasma by coagulation hxwok8121-30-40 16:20:00* Test Item Value Reference Range Interpretation Comments Prothrombin Time (test code = 5902-2) 21.5 11.9-14.5 [facility] HospitalINR in Platelet poor plasma by Coagulation nxxai0550-12-34 16:20:00* Test Item Value Reference Range Interpretation Comments Prothromb Time International Ratio (test code = 6301-6) 1.80 Oral Anticoagulant Therapy INR Values:1. Low Intensity Therapy 1.5 - 2.02 . Moderate Intensity Therapy 2.0 - 3.03. High Intensity Therapy(1) 2.5 - 3. 54. High Intensity Therapy(2) 3.0 - 4.05. Panic Value INR > 5.0 [facility] HospitalHIPS BILAT 3-4VWS (+/- PELVIS)2019-08-28 06:52:00 [place] [address] Patient Name: MICKEY PANIAGUA JR MR #: [id number] : 1945 Age/Sex: 74/M Req #: [id number] Adm Physician: BRIA SALOMON MD Ordered by: BRIA SALOMON MD Report #: [id number] Location: MED/SURG3 Room/Bed: [facility] Procedure: [id number] DX/HIPS BILAT 3-4VWS (+/- PELVIS) Exam Date: Exam T ashley: REPORT STATUS: Signed Bila teral hip with AP pelvis 5- views HISTORY: Pain COMPARISON: None. Cor relation with CT pelvis dated 01/31/2019. FINDINGS: No displaced frac ture. Osseous alignment is within normal limits. Mild degenerative changes of the hip joints bilaterally. Mild degenerative changes of the SI joint bila terally, right greater the left. Degenerative changes of the lower lumbar spin e. 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 Signed by: Dr. Maggie Mccarty M.D. on 08/28/2019 7:08 AM Dictated By: BRE MCCARTY MD, MD 0708 COPY TO: KASSIDY SALOMON MD Random Vancomycin Fqlvq0022-69-65 09:46:00* Test Item Value Reference Range Interpretation Comments Random Vancomycin Level (test code = 15249-8) 11.8 [facility] Birdf2534-88-58 09:32:00* Test Item Value Reference Range Interpretation Comments Sodium Level (test code = 2951-2) 142 136-145 [facility] HospitalPotassium Fksdc6507-98-65 09:32:00* Test Item Value Reference Range Interpretation Comments Potassium Level (test code = 2823-3) 4.3 3.5-5.1 [facility] HospitalChloride Bcucv5595-49-03 09:32:00* Test Item Value Reference Range Interpretation Comments Chloride Level (test code = 2075-0) 103 98-107 [facility] HospitalCarbon Dioxide Gbzwa0360-96-51 09:32:00* Test Item Value Reference Range Interpretation Comments Carbon Dioxide Level (test code = 2028-9) 30 22-29 H [facility] HospitalAnion Lge8065-95-60 09:32:00* Test Item Value Reference Range Interpretation Comments Anion Gap (test code = 38568-5) 13.3 8-16 [facility] HospitalBlood Urea Zvkcfbvh2225-40-29 09:32:00* Test Item Value Reference Range Interpretation Comments Blood Urea Nitrogen (test code = 3094-0) 19 7-26 [facility] HospitalCreatinine2020-02-03 09:32:00* Test Item Value Reference Range Interpretation Comments Creatinine (test code = 2160-0) 0.93 0.72-1.25 [facility] HospitalBUN/Creatinine Edpmv4149-85-65 09:32:00* Test Item Value Reference Range Interpretation Comments BUN/Creatinine Ratio (test code = 3097-3) 20 6-25 [facility] HospitalEstimat Glomerular Filtration Rate 2019-08-26 09:32:00* Test Item Value Reference Range Interpretation Comments Estimat Glomerular Filtration Rate (test code = 722184593) > 60 >60 Ranges were taken from the National Kidney Disease Education Program and the [facility] southeasternal Kidney Foundation literature.Reference ranges:60 or greater: Bmwabt96-75 ( for 3 consecutive months): Chronic kidney disease 15 or less: Kidney failureEastland Memorial HospitalGlucose Yworp9707-76-07 09:32:00* Test Item Value Reference Range Interpretation Comments Glucose Level (test code = RCL1651) 139 74-118 H [facility] HospitalCalcium Mwbqu5690-26-27 09:32:00* Test Item Value Reference Range Interpretation Comments Calcium Level (test code = 84062-3) 9.2 8.4-10.2 [facility] HospitalMagnesium Vsyvz7490-87-00 09:32:00* Test Item Value Reference Range Interpretation Comments Magnesium Level (test code = 78218-5) 1.9 1.3-2.1 [facility] HospitalTotal Uipzztrjo9400-98-39 09:32:00* Test Item Value Reference Range Interpretation Comments Total Bilirubin (test code = 1975-2) 0.7 0.2-1.2 [facility] HospitalAspartate Amino Transf (AST/SGOT) 2019-08-26 09:32:00* Test Item Value Reference Range Interpretation Comments Aspartate Amino Transf (AST/SGOT) (test code = Aspartate Amino Transf (AST/SGOT)) 24 5-34 [facility] HospitalAlanine Aminotransferase (ALT/SGPT) 2019-08-26 09:32:00* Test Item Value Reference Range Interpretation Comments Alanine Aminotransferase (ALT/SGPT) (test code = 1742-6) 17 0-55 [facility] HospitalTotal Cozwdgm2171-49-96 09:32:00* Test Item Value Reference Range Interpretation Comments Total Protein (test code = 2885-2) 6.7 6.5-8.1 [facility] HospitalAlbumin2020-02-03 09:32:00* Test Item Value Reference Range Interpretation Comments Albumin (test code = 1751-7) 3.4 3.5-5.0 L [facility] HospitalGlobulin2020-02-03 09:32:00* Test Item Value Reference Range Interpretation Comments Globulin (test code = 96232-7) 3.3 2.3-3.5 [facility] HospitalAlbumin/Globulin Xlrfq3906-16-20 09:32:00 * Test Item Value Reference Range Interpretation Comments Albumin/Globulin Ratio (test code = 1759-0) 1.0 0.8-2.0 [facility] HospitalAlkaline Vkjcmkbqlhr8188-37-55 09:32:00* Test Item Value Reference Range Interpretation Comments Alkaline Phosphatase (test code = 6768-6) 71 40-150 [facility] HospitalWhite Blood Aetac3865-09-76 09:12:00* Test Item Value Reference Range Interpretation Comments White Blood Count (test code = 6690-2) 6.85 4.8-10.8 [facility] HospitalRed Blood Svtdz4406-89-63 09:12:00* Test Item Value Reference Range Interpretation Comments Red Blood Count (test code = 789-8) 4.48 4.3-5.7 [facility] HospitalHemoglobin2020-02-03 09:12:00* Test Item Value Reference Range Interpretation Comments Hemoglobin (test code = 21108-3) 13.7 14.0-18.0 L [facility] HospitalHematocrit2020-02-03 09:12:00* Test Item Value Reference Range Interpretation Comments Hematocrit (test code = 4544-3) 42.9 38.2-49.6 [facility] HospitalMean Corpuscular Mzcksm7594-35-43 09:12:00* Test Item Value Reference Range Interpretation Comments Mean Corpuscular Volume (test code = 787-2) 95.8 81-99 [facility] HospitalMean Corpuscular Akbuhiflrj1927-38-66 09:12:00* Test Item Value Reference Range Interpretation Comments Mean Corpuscular Hemoglobin (test code = 785-6) 30.6 28-32 [facility] Hemoglobin Concent 2019-08-26 09:12:00* Test Item Value Reference Range Interpretation Comments Mean Corpuscular Hemoglobin Concent (test code = 786-4) 31.9 31-35 [facility] HospitalRed Cell Distribution Pzmkq1180-01-11 09:12:00* Test Item Value Reference Range Interpretation Comments Red Cell Distribution Width (test code = 85658-2) 14.4 11.7 -14.4 [facility] HospitalPlatelet Tgnrp4679-09-84 09:12:00* Test Item Value Reference Range Interpretation Comments Platelet Count (test code = 777-3) 120 140-360 L [facility] HospitalNeutrophils (%) (Auto)2019-08-26 09:12:00 * Test Item Value Reference Range Interpretation Comments Neutrophils (%) (Auto) (test code = 66755-9) 70.7 38.7-80.0 [facility] HospitalLymphocytes (%) (Auto)2019-08-26 09:12:00 * Test Item Value Reference Range Interpretation Comments Lymphocytes (%) (Auto) (test code = 736-9) 21.0 18.0-39.1 [facility] HospitalMonocytes (%) (Auto)2019-08-26 09:12:00* Test Item Value Reference Range Interpretation Comments Monocytes (%) (Auto) (test code = 5905-5) 5.5 4.4-11.3 [facility] HospitalEosinophils (%) (Auto)2019-08-26 09:12:00 * Test Item Value Reference Range Interpretation Comments Eosinophils (%) (Auto) (test code = 713-8) 2.0 0.0-6.0 [facility] HospitalBasophils (%) (Auto)2019-08-26 09:12:00* Test Item Value Reference Range Interpretation Comments Basophils (%) (Auto) (test code = 706-2) 0.4 0.0-1.0 [facility] HospitalIM GRANULOCYTES %2019-08-26 09:12:00* Test Item Value Reference Range Interpretation Comments IM GRANULOCYTES % (test code = IM GRANULOCYTES %) 0.4 0.0- 1.0 [facility] HospitalNeutrophils # (Auto)2019-08-26 09:12:00* Test Item Value Reference Range Interpretation Comments Neutrophils # (Auto) (test code = 751-8) 4.8 2.1-6.9 [facility] HospitalLymphocytes # (Auto)2019-08-26 09:12:00* Test Item Value Reference Range Interpretation Comments Lymphocytes # (Auto) (test code = 29784-4) 1.4 1.0-3.2 [facility] HospitalMonocytes # (Auto)2019-08-26 09:12:00* Test Item Value Reference Range Interpretation Comments Monocytes # (Auto) (test code = 742-7) 0.4 0.2-0.8 [facility] HospitalEosinophils # (Auto)2019-08-26 09:12:00* Test Item Value Reference Range Interpretation Comments Eosinophils # (Auto) (test code = 711-2) 0.1 0.0-0.4 [facility] HospitalBasophils # (Auto)2019-08-26 09:12:00* Test Item Value Reference Range Interpretation Comments Basophils # (Auto) (test code = 704-7) 0.0 0.0-0.1 [facility] HospitalAbsolute Immature Granulocyte (auto 2019-08-26 09:12:00* Test Item Value Reference Range Interpretation Comments Absolute Immature Granulocyte (auto (cherrie t code = Absolute Immature Granulocyte (auto) 0.03 0-0.1 [facility] magnesium measurement (mass/volume)2019-08-26 07:55:00* Test Item Value Reference Range Interpretation Comments Magnesium Level (test code = 76847-4) 1.9 1.3-2.1 [facility] HospitalRannev[facility] serum or plasma vancomycin measurement (mass/volume)2019-08-26 07:55:00* Test Item Value Reference Range Interpretation Comments Random Vancomycin Level (test code = 70123-3) 11.8 [facility] magnesium measurement (mass/volume)2019-08-26 07:55:00* Test Item Value Reference Range Interpretation Comments Magnesium Level (test code = 60023-1) 1.9 1.3-2.1 [facility] HospitalRannev[facility] serum or plasma vancomycin measurement (mass/volume)2019-08-26 07:55:00* Test Item Value Reference Range Interpretation Comments Random Vancomycin Level (test code = 37258-5) 11.8 [facility] magnesium measurement (mass/volume)2019-08-26 07:55:00* Test Item Value Reference Range Interpretation Comments Magnesium Level (test code = 61191-6) 1.9 1.3-2.1 [facility] HospitalRannev[facility] serum or plasma vancomycin measurement (mass/volume)2019-08-26 07:55:00* Test Item Value Reference Range Interpretation Comments Random Vancomycin Level (test code = 82474-3) 11.8 [facility] HospitalVancomycin Level Nzlzlg0794-16-44 09:16:00* Test Item Value Reference Range Interpretation Comments Vancomycin Level Trough (test code = 4092-3) 24.8 5.0-10.0 HH Results repeated and called to GERMAN LOYA at 0915 on 08/25/19 by Radha sanderson Read back and verified.[facility] plasma trough vancomycin level at trough (mass/volume)2019-08-25 07:30:00* Test Item Value Reference Range Interpretation Comments Vancomycin Level Trough (test code = 4092-3) 24.8 5.0-10.0 Results repeated and called to GERMAN LOYA at 0915 on 08/25/19 by Radha sanderson Read back and verified.[facility] plasma trough vancomycin level at trough (mass/volume)2019-08-25 07:30:00* Test Item Value Reference Range Interpretation Comments Vancomycin Level Trough (test code = 4092-3) 24.8 5.0-10.0 Results repeated and called to GERMAN LOYA at 0915 on 08/25/19 by Radha sanderson Read back and verified.[facility] plasma trough vancomycin level at trough (mass/volume)2019-08-25 07:30:00* Test Item Value Reference Range Interpretation Comments Vancomycin Level Trough (test code = 4092-3) 24.8 5.0-10.0 Results repeated and called to GERMAN LOYA at 0915 on 08/25/19 by Radha sanderson Read back and verified.[facility] HospitalBlood Culture 2019-08-24 05:22:00* Test Item Value Reference Range Interpretation Comments Blood Culture (test code = 64866760) NO GROWTH AFTER 5 DAYS, FINAL REPORT [facility] Gmtaldt0742-40-88 13:35:00* Test Item Value Reference Range Interpretation Comments Blood Culture (test code = 600-7) No Result Data Provided [facility] HospitalBedside Banqurf6714-39-92 11:26:00* Test Item Value Reference Range Interpretation Comments Bedside Glucose (test code = 39266-6) 135 70-120 H Meter ID: [id number] Memorial HospitalCreatine Kinase MB 2019-08-19 22:48:00* Test Item Value Reference Range Interpretation Comments Creatine Kinase MB (test code = 92738-5) 6.00 0-5.0 H [facility] HospitalTroponin K6149-46-17 22:48:00* Test Item Value Reference Range Interpretation Comments Troponin I (test code = HLS3758) < 0.001 0-0.300 [facility] HospitalCreatine Rvdzbf0715-51-83 22:41:00* Test Item Value Reference Range Interpretation Comments Creatine Kinase (test code = 2157-6) 959 30-200 H [facility] HospitalCT ABDOMEN/PELVIS DP4488-61-90 07:04:00 [place] [address] Patient Name: MICKEY PANIAGUA JR MR #: [id number] : [birth year] Age/Sex: 74/M Req #: [id number] Adm Physician: BRIA SALOMON MD Ordered by: QUANG MELENDEZ MD Report #: [id number] Location: [facility] Room/Bed: [place] [address] Procedure: CT/CT ABDOMEN/PELVIS WO Exam Date: 08/19/19 Exam Time: 0555 REPORT STATUS: Sign ed EXAM: CT Abdomen and Pelvis WITHOUT contrast INDICATION: Projecti le vomiting, fever, nausea, short of breath COMPARISON: Chest CT 10/22/2018. TECHNIQUE: Abdomen and pelvis were scanned utilizing a multidetector helical s canner from the lung base to the pubic symphysis without administration of IV contrast. Absence of intravenous contrast decreases sensitivity for detection of focal lesions and vascular pathology. Coronal and sagittal reformations were obtained. Routine protocol was performed. IV CONTRAST: None ORA L CONTRAST: None COMPLICATIONS: None RADIATION DOSE: Total DLP: ... 676 mGy*cm Estimated effective dose: (DLP x 0.015 x size factor) mSv CTDIvol has been reviewed. It is below the limits set by the Radiation Protocol Committee (RPC). Dose modulation, iterative reconst ruction, and/or weight based adjustment of the mA/kV was utilized to reduce th e radiation dose to as low as reasonably achievable. FINDINGS: LINE S and TUBES: None. LOWER THORAX: Consolidative opacities in the lower lung s with endobronchial debris. Mild cardio megaly. Coronary artery calcification s. HEPATOBILIARY: No focal hepatic lesions. No biliary ductal dilation . GALLBLADDER: Distended. No radio-opaque stones or sludge. No wall thick ening. SPLEEN: No splenomegaly. PANCREAS: No focal masses or ductal d ilatation. ADRENALS: No adrenal nodules KIDNEYS/URETERS: No hyd ronephrosis. No cystic or solid mass lesions. No stones. GI TRACT: No ab normal distention, wall thickening, or evidence of bowel obstruction. Ap pendix is normal. PELVIC ORGANS/BLADDER: Unremarkable. LYMPH NODES: No lymphadenopathy. VESSELS: There is mild atherosclerotic disease in the aor ta and major arterial branches. PERITONEUM / RETROPERITONEUM: No free air or fluid. BONES: There are degenerative changes in the spine, hips and pel vis. SOFT TISSUES: There are fat containing inguinal hernias. There is a fat containing para-umbilical hernia. IMPRESSION: 1. Bilater al lower lobe consolidations consistent with aspiration pneumonia. 2. Mild ca rdiomegaly and calcific coronary artery atherosclerotic disease. 3. The gallb ladder is distended, a right upper quadrant could further evaluate for cholecy stitis if there is clinical suspicion. Signed by: Hiren Bell DO on 07/25 7:08 AM Dictated By: HIREN BELL DO 7 Transcribed By: TATYANA on 08/19/19707 COPY TO: QUANG MELENDEZ MD Amylase Plulw6116-51-07 06:49:00* Test Item Value Reference Range Interpretation Comments Amylase Level (test code = 1798-8) 125 25-125 [facility] HospitalLipase2020-01-27 06:49:00* Test Item Value Reference Range Interpretation Comments Lipase (test code = 3040-3) 42 8-78 [facility] HospitalLactic Acid Tkrox4746-67-87 06:25:00* Test Item Value Reference Range Interpretation Comments Lactic Acid Level (test code = Lactic Acid Level) 1.6 0.5- 2.0 [facility] HospitalCHEST SINGLE (PORTABLE)2019-08-19 06:17:00 [place] [address] Patient Name: MICKEY PANIAGUA JR MR #: [id number] : 1945 Age/Sex: 74/M Req #: [id number] Adm Physician: BRIA SALOMON MD Ordered by: QUANG MELENDEZ MD Report #: [id number] Location: [facility] Room/Bed: [place] [address] Procedure: DX/CHEST SINGLE (PORTABLE) Exam Date: 08/19/19 Exam Time: 0600 REPORT STATUS: S igned EXAMINATION: CHEST SINGLE (PORTABLE) INDICATION: Short of clarita ath sob [id number] Y COMPARISON: Abdominal CT 08/19/2019, chest x-ray 10/22/2018 FINDINGS: TUBES and LINES: None. L UNGS: Low lung volumes. Consolidative opacities in the lung bases with obscu red hemidiaphragms. PLEURA: No pleural effusion or pneumothorax. HE ART AND MEDIASTINUM: Cardiac size is mildly enlarged. BONES AND SOFT T ISSUES: No acute osseous lesion. Soft tissues are unremarkable. UPPER A BDOMEN: No free air under the diaphragm. IMPRESSION: Findings of bibasilar consolidative pneumonia, likely due to aspiration. Mild cardiomegaly . Signed by: Hiren Bell DO on 08/19/2019 7:02 AM Dictated By: MALINI BELL DO 2 Transcribed By: TATYANA on 08/19/19701 COPY TO: QUANG MELENDEZ MD Influenza Virus Types A,B Ooxpqpi8373-90-60 06:00:00* Test Item Value Reference Range Interpretation Comments Influenza Virus Types A,B Antigen (test code = 88104-7) NEGATIVE NEGATIVE [facility] [id number] 05:52:00* Test Item Value Reference Range Interpretation Comments Urine WBC (test code = 5821-4) 6-10 0-5 H [facility] PDL5837-46-09 05:52:00* Test Item Value Reference Range Interpretation Comments Urine RBC (test code = 41678-2) 6-10 0-5 H [facility] Ndadsndh9514-50-67 05:52:00* Test Item Value Reference Range Interpretation Comments Urine Bacteria (test code = 16145-9) RARE NONE [facility] Epithelial Vxvnw4037-63-61 05:52:00 * Test Item Value Reference Range Interpretation Comments Urine Epithelial Cells (test code = 35328-5) MODERATE NONE [facility] HospitalActivated Partial Thromboplast Time 2019-08-19 05:43:00* Test Item Value Reference Range Interpretation Comments Activated Partial Thromboplast Time (test code = 30403-9) 30.9 23.8-35.5 [facility] Zrzzx4610-92-88 05:39:00* Test Item Value Reference Range Interpretation Comments Urine Color (test code = 5778-6) YELLOW YELLOW [facility] Zojxnei0417-88-64 05:39:00* Test Item Value Reference Range Interpretation Comments Urine Clarity (test code = 44451-4) CLEAR CLEAR [facility] Specific Apocwnl4591-02-08 05:39:00 * Test Item Value Reference Range Interpretation Comments Urine Specific [place] (test code = 5811-5) 1.030 1.010-1.02 5 H [facility] sY9349-96-95 05:39:00* Test Item Value Reference Range Interpretation Comments Urine pH (test code = 47036-4) 5.5 5-7 [facility] Leukocyte Opbwvzce3843-20-69 05:39:00* Test Item Value Reference Range Interpretation Comments Urine Leukocyte Esterase (test code = 5799-2) NEGATIVE NEGATIVE [facility] Ibycrda1785-30-31 05:39:00* Test Item Value Reference Range Interpretation Comments Urine Nitrite (test code = 31096-9) NEGATIVE NEGATIVE [facility] Ngrqfhc1569-48-69 05:39:00* Test Item Value Reference Range Interpretation Comments Urine Protein (test code = 5804-0) NEGATIVE NEGATIVE [facility] Glucose (UA)2019-08-19 05:39:00* Test Item Value Reference Range Interpretation Comments Urine Glucose (UA) (test code = 2349-9) NEGATIVE NEGATIVE [facility] Cwbcqjv2222-60-81 05:39:00* Test Item Value Reference Range Interpretation Comments Urine Ketones (test code = 01866-6) NEGATIVE NEGATIVE [facility] Qwulqlndeuvg3156-05-29 05:39:00* Test Item Value Reference Range Interpretation Comments Urine Urobilinogen (test code = 58505-8) 0.2 0.2-1 [facility] Wcvgkpebi7534-63-66 05:39:00* Test Item Value Reference Range Interpretation Comments Urine Bilirubin (test code = 1978-6) NEGATIVE NEGATIVE [facility] Vppwh4732-12-86 05:39:00* Test Item Value Reference Range Interpretation Comments Urine Blood (test code = 81634-3) TRACE NEGATIVE H [facility] HospitalU[facility] color gjitypehxiyvr4316-91-64 04:22:00* Test Item Value Reference Range Interpretation Comments Urine Color (test code = 5778-6) YELLOW YELLOW [facility] lcsbgsw5349-15-04 04:22:00* Test Item Value Reference Range Interpretation Comments Urine Clarity (test code = 87999-4) [facility] by Test strip 2019-08-19 04:22:00* Test Item Value Reference Range Interpretation Comments Urine Specific [place] (test code = 5811-5) 1.030 1.010-1.02 5 [facility] pH measurement by automated test nymir4179-28-86 04:22:00* Test Item Value Reference Range Interpretation Comments Urine pH (test code = 98806-1) 5.5 5-7 [facility] leukocyte esterase detection by zexzqrhl7985-66-40 04:22:00* Test Item Value Reference Range Interpretation Comments Urine Leukocyte Esterase (test code = 5799-2) NEGATIVE NEGATIVE [facility] nitrite mzaflfuvi3532-09-70 04:22:00* Test Item Value Reference Range Interpretation Comments Urine Nitrite (test code = 29223-0) NEGATIVE NEGATIVE [facility] protein measurement by test strip (mass/volume)2019-08-19 04:22:00* Test Item Value Reference Range Interpretation Comments Urine Protein (test code = 5804-0) NEGATIVE NEGATIVE [facility] glucose zgpxzyqyd3432-75-45 04:22:00* Test Item Value Reference Range Interpretation Comments Urine Glucose (UA) (test code = 2349-9) NEGATIVE NEGATIVE [facility] HospitalU[facility] ketones detection by automated test xikjd6433-66-26 04:22:00* Test Item Value Reference Range Interpretation Comments Urine Ketones (test code = 50706-3) NEGATIVE NEGATIVE [facility] HospitalU[facility] urobilinogen measurement by test strip (mass/volume)2019-08-19 04:22:00* Test Item Value Reference Range Interpretation Comments Urine Urobilinogen (test code = 09059-6) 0.2 0.2-1 [facility] total bilirubin measurement (mass/volume)2019-08-19 04:22:00* Test Item Value Reference Range Interpretation Comments Urine Bilirubin (test code = 1978-6) NEGATIVE NEGATIVE [facility] erythrocytes sfeheaxwy7957-62-59 04:22:00* Test Item Value Reference Range Interpretation Comments Urine Blood (test code = 89077-6) TRACE NEGATIVE [facility] HospitalAutomated urine sediment leukocyte count by microscopy (number/high power field)2019-08-19 04:22:00* Test Item Value Reference Range Interpretation Comments Urine WBC (test code = 5821-4) 6-10 0-5 [facility] HospitalErythrocytes detection in urine sediment by light ziajjovxxj3080-04-08 04:22:00* Test Item Value Reference Range Interpretation Comments Urine RBC (test code = 39347-5) 6-10 0-5 [facility] HospitalBacteria detection in urine sediment by light idwyzsvkly6010-27-62 04:22:00* Test Item Value Reference Range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 [facility] the lumbar spine from L1. Coronal and sagittal reconstructions obtained fr the axial data. Dose modulation, iterative reconstruction, and/or weight ba sed adjustment of the mA/kV was utilized to reduce the radiation dose to as lo w as reasonably achievable. Intravenous contrast: None Findings: The usual 5 non-rib bearing lumbar vertebral bodies are present. Alignment: No rmal lordosis. No scoliosis. Soft tissues: Atherosclerotic calcification of t he aorta. Paraspinal muscles: No abnormalities. Sacroiliac joints: No degene rative changes. Vertebrae: No fractures, infection or neoplasm. De generative changes: L1-L2: No abnormalities. L2-L3: Mild retrolist hesis. Diffuse disc osteophyte complex and left greater than right facet arthr opathy results in mild canal stenosis and mild bilateral neural foraminal narr owing. L3-L4: Diffuse disc osteophyte complex and left greater than righ t facet arthropathy results in mild canal stenosis and mild bilateral neural f oraminal narrowing. L4-L5: Diffuse disc osteophyte complex and left grea ter than right facet arthropathy results in moderate canal stenosis and modera te bilateral neural foraminal narrowing. L5-S1: Diffuse disc osteophyt e complex and left greater than right facet arthropathy results in moderate bi lateral neural foraminal narrowing. Prior decompressive laminectomy. IMP RESSION: Degenerative changes from L2-L3 through L5-S1 with moderate canal and bilateral foraminal stenosis at L4-L5 and moderate bilateral foraminal suzette rowing at L5-S1. Mild retrolisthesis of L2 on L3. Signed by: Dr. Leola Wiley M.D. on 01/31/2019 8:59 PM Dictated By: LEOLA JAIME MD 58 Transcribed By: TATYANA on 01/31/192058 COPY TO: LYNDA SAUER DEMURRAGE CLERK CT CERVICAL SPINE EH0121-18-09 20:21:[address] [address] Patient Name: MICKEY PANIAGUA JR MR #: [id number] : 1945 Age/Sex: 73/M Req #: [id number] Adm Physician: Ordered by: LYNDA SAUER NP Report #: [id number] Location: Room/Bed: Procedure: 0711-[address]/CT CERVICAL SPINE WO Exam Date: 01/31/19 Exam Time: 1914 REPORT STATUS: Signed Examination: CT CERVICAL SPINE WO CONTRAST HISTORY:Neck injury after fall . COMPARISON:None. TECHNIQUE: Multidetector helical axial images were obtain ed without contrast from the foramen magnum to T1. Coronal and sagittal refor matted images were done. Bone and soft tissue windows were evaluated. Dose modulation, iterative reconstruction, and/or weight based adjustment of the mA /kV was utilized to reduce the radiation dose to as low as reasonably achievab le. FINDINGS: Alignment:Normal lordosis with mild retrolisthesis of C3 on C4. Vertebrae: Normal height and density. No acute fracture, infection or neoplasm. Disc space heights: Moderately narrowed from C5 through C7. Toby iber of spinal canal: Developmentally normal. Posterior fossa and craniocer vical junction: Foramen magnum patent. No Chiari 1 malformation. Soft tis sues: No abnormality. Degenerative changes: Diffuse disc osteophytes at C 3-C4, C5-C6 and C6-C7 without canal stenosis. Bilateral facet arthropathy from C2 through C7. No disc bulge/ herniation or canal stenosis. Visualized l maria elena apices: No abnormalities. IMPRESSION: 1. No acute abnormalities. 2. Mild degenerative changes, as above. Mild retrolisthesis of C3 on C4. Signed by: Dr. Leola Wiley M.D. on 01/31/2019 8:44 PM Dictated By : LEOLA MONTANA MD 43 Transcribed By: TATYANA on 01/31/192043 COPY TO: LYNDA SAUER NP CT BRAIN [id number] 20:16:00 [address] [address] Patient Name: MICKEY PANIAGUA JR MR #: [id number] : [birth year] Age/Sex: 73/M Req #: [id number] Adm Physician: Ordered by: LYNDA SAUER NP Report #: [id number] Location: Room/Bed: Procedure: 0711-[address]/CT BRAIN WO Exam Date: 01/31/19 Exam Time: REPORT STATUS: Signed Examina tion: CT BRAIN WO CONTRAST History:Fall with head injury. Comparison marvin dies:Brain MRI dated 11/14/2016. Technique: Axial images were obtained fro m the skull base to the vertex. Coronal and sagittal images reconstructed from the axial data. Dose modulation, iterative reconstruction, and/or weight base d adjustment of the mA/kV was utilized to reduce the radiation dose to as low as reasonably achievable. Intravenous contrast: None Findings: Sc alp: No abnormalities. Bones: No fractures, blastic or lytic lesions. Bra in sulci: Appropriate for age. Ventricles: Normal in size and configuration. N o hydrocephalus. Extra-axial space: No abnormalities. Parenchyma: The previously seen white matter change from chronic microvascular ischemic c hange is not well seen on this CT but best appreciated on prior brain MRI due to increased sensitivity of MRI compared to CT. No masses, hemorrhage, or acut e or chronic cortical based vascular insults.. Sellar/suprasellar region: N o abnormalities. Craniocervical junction: Patent foramen magnum. No Chiari one malformation. Incidental findings: None. Impression: No acut e intracranial abnormalities. Signed by: Dr. Leola Wiley M.D. on 01/31 8:21 PM Dictated By: LEOLA MONTANA MD Electronically Si gned By: LEOLA MONTANA MD on 01/31/192020 Transcribed By: TATYANA benavidez 01/31/192020 COPY TO: LYNDA SAUER DEMURRAGE CLERK CT PELVIS WO 2019-01-31 19:56:[address] [place], [place] [address] Patient Name: MICKEY PANIAGUA JR MR #: [id number] : 1945 Age/Sex: 73/M Req #: [id number] Adm Physician: Ordered by: LYNDA SAUER NP Report #: [id number] Location: ER Room/Bed: Procedure: 0711-[address]/CT PELVIS WO Exam Date: 01/31/19 Exam Time: 1 915 REPORT STATUS: Signed EXAM: CT Pelvis WITHOUT contrast INDICATION: Pain status post fall. Fracture. CO MPARISON: None. TECHNIQUE: Pelvis were scanned utilizing a multidetector helic al scanner from the iliac crest to the pubic symphysis without administration of IV contrast. Coronal and sagittal reformations were obtained. Routine ramesh col was performed. IV CONTRAST: None. ORAL CONTRA ST: Water RADIATION DOSE: Total DLP: 676.53 mGy*cm Estimated effective dose: (DLP x 0.015 x size factor) mSv COMPLICA TIONS: None FINDINGS: LINES and TUBES: None. GI TRACT: No abnorma l distention, wall thickening, or evidence of bowel obstruction. Appendi x is normal. PELVIC ORGANS/BLADDER: Unremarkable. LYMPH NODES: No lymp hadenopathy. VESSELS: There is moderate atherosclerotic disease in the aort a and major arterial branches. PERITONEUM / RETROPERITONEUM: No free air or fluid. BONES: 3.2 cm lytic lesion in the left ilium. Osteopenia. Degener ative changes of the lower lumbar spine SOFT TISSUES: Bilateral fat-conta ining inguinal hernias. There is also insinuation of a small bowel loop in the right sided hernia, and of a short segment of proximal sigmoid colon in the l eft inguinal hernia. Hyperdense material in the inguinal fold bilaterally may represent talc. Tiny fat-containing umbilical hernia. IMPRESSION: 1. No acute displaced fracture. 2. Bilateral fat-containing inguinal hernias. Th ere is also insinuation of a small bowel loop in the right sided hernia, and o f a short segment of proximal sigmoid colon in the left inguinal hernia. No b owel obstruction. Signed by: Dr. Maggie Mccarty M.D. on 01/31/2019 8: 23 PM Dictated By: BRE MCCARTY MD, MD 22 Transcribed By: TATYANA on 01/31/192022 COPY TO: LYNDA SAUER NP Blood Xojouve3441-43-61 22:36:00* Test Item Value Reference Range Interpretation Comments Blood Culture (test code = 20426081) NO GROWTH AFTER 5 DAYS, FINAL REPORT [facility] Ogwocwh6930-03-76 22:36:00* Test Item Value Reference Range Interpretation Comments Blood Culture (test code = 79397177) NO GROWTH AFTER 5 DAYS, FINAL REPORT [facility] Aehbyyh4651-23-24 22:36:00* Test Item Value Reference Range Interpretation Comments Blood Culture (test code = 49755702) NO GROWTH AFTER 48 HOURS [facility] HospitalCT CHEST [id number] 00:08:00 [address] [address] Patient Name: MICKEY PANIAGUA JR MR #: [id number] : [birth year] Age/Sex: 73/M Req #: [id number] Adm Physician: Ordered by: ROHINI NAVAS MD Report #: [id number] Location: Room/Bed: Procedure: 0401-[address]/CT CHEST W Exam Date: 10/23/18 Exam Time: 6 REPORT STATUS: Signed EXAMINATI ON: CT scan of the chest with contrast. TECHNIQUE: Helical CT images of th e chest were performed from the lung apices to the level of the adrenal glands after the intravenous administration of 100 cc of Omnipaque 300. Coronal and sagittal reformatted images were obtained.Dose modulation, iterative reconstr uction, and/or weight based adjustment of the mA/kV was utilized to reduce the radiation dose to as low as reasonably achievable. COMPARISON: None. CLINICAL HISTORY:Evaluate for pulmonary embolism DISCUSSION: LINES/ TUBES: None. LUNGS AND AIRWAYS: Eccentrically located filling defect within the left and right lower lobe pulmonary artery is 46. Small right l ower lobe subsegmental pulmonary embolism axial image 74 and 75. Airspace o pacities within the lower lobes, greater on the left. PLEURA: No pneumothor ax or pleural effusions. HEART AND MEDIASTINUM: The thyroid gland is norm al. The heart is globally enlarged. Mediastinal and hilar lymphadenopathy fo r example a right hilar lymph node measures 1.7 cm the left hilar lymph node m easures 2.3 cm. ABDOMEN: Limited contrast-enhanced views of the upper abdom en show no abnormality within the visualized liver, spleen, pancreas, or kidne ys. The adrenal glands are normal. BONES AND SOFT TISSUES: No acute bony abnormalities. IMPRESSION: Chronic pulmonary emboli to the bilateral lower lobe. Bilateral lower lobe airspace opacities, greater in the left lo wer lobe may reflect pneumonia or aspiration. Enlarged mediastinal and hi lar lymph nodes Signed by: Dr. Stephanie Thomason M.D. on 10/23/2018 12:18 AM Dictated By: STEPHANIE THOMASON MD Transcribed By: TATYANA on 10/23/1817 COPY TO: ROHINI NAVAS MD Sodium Dllhm7605-91-28 22:44:00* Test Item Value Reference Range Interpretation Comments Sodium Level (test code = 2951-2) 145 136-145 [facility] HospitalPotassium Qnhkl8576-48-29 22:44:00* Test Item Value Reference Range Interpretation Comments Potassium Level (test code = 2823-3) 4.1 3.5-5.1 [facility] HospitalChloride Juewl1534-38-95 22:44:00* Test Item Value Reference Range Interpretation Comments Chloride Level (test code = 2075-0) 108 98-107 H [facility] HospitalCarbon Dioxide Iesdq7128-25-01 22:44:00* Test Item Value Reference Range Interpretation Comments Carbon Dioxide Level (test code = 2028-9) 29 22-29 [facility] HospitalAnion Efp1147-20-92 22:44:00* Test Item Value Reference Range Interpretation Comments Anion Gap (test code = 55630-1) 12.1 8-16 [facility] HospitalBlood Urea Xzqcuiqa5994-52-06 22:44:00* Test Item Value Reference Range Interpretation Comments Blood Urea Nitrogen (test code = 3094-0) 17 7-26 [facility] HospitalCreatinine2019-04-01 22:44:00* Test Item Value Reference Range Interpretation Comments Creatinine (test code = 2160-0) 1.09 0.72-1.25 [facility] HospitalBUN/Creatinine Hlwow2752-32-24 22:44:00* Test Item Value Reference Range Interpretation Comments BUN/Creatinine Ratio (test code = 3097-3) 16 6-25 [facility] HospitalEstimat Glomerular Filtration Rate 2018-10-22 22:44:00* Test Item Value Reference Range Interpretation Comments Estimat Glomerular Filtration Rate (test code = 724112534) > 60 >60 Ranges were taken from the National Kidney Disease Education Program and the [facility] Kid[facility] Foundation literature.Reference ranges:60 or greater: Bwpzbs08-68 ( for 3 consecutive months): Chronic kidney disease 15 or less: Kidney failureEastland Memorial HospitalGlucose Aokkf0936-31-35 22:44:00* Test Item Value Reference Range Interpretation Comments Glucose Level (test code = FXC7179) 97 74-118 [facility] HospitalCalcium Vgtvg5361-72-19 22:44:00* Test Item Value Reference Range Interpretation Comments Calcium Level (test code = 16068-1) 8.8 8.4-10.2 [facility] HospitalTotal Mraqbxeow7270-12-10 22:44:00* Test Item Value Reference Range Interpretation Comments Total Bilirubin (test code = 1975-2) 0.5 0.2-1.2 [facility] HospitalAspartate Amino Transf (AST/SGOT) 2018-10-22 22:44:00* Test Item Value Reference Range Interpretation Comments Aspartate Amino Transf (AST/SGOT) (test code = Aspartate Amino Transf (AST/SGOT)) 29 5-34 [facility] HospitalAlanine Aminotransferase (ALT/SGPT) 2018-10-22 22:44:00* Test Item Value Reference Range Interpretation Comments Alanine Aminotransferase (ALT/SGPT) (test code = 1742-6) 18 0-55 [facility] Gmhkqxk1241-85-26 22:44:00* Test Item Value Reference Range Interpretation Comments Total Protein (test code = 2885-2) 6.3 6.5-8.1 L [facility] HospitalAlbumin2019-04-01 22:44:00* Test Item Value Reference Range Interpretation Comments Albumin (test code = 1751-7) 3.0 3.5-5.0 L [facility] HospitalGlobulin2019-04-01 22:44:00* Test Item Value Reference Range Interpretation Comments Globulin (test code = 57649-1) 3.3 2.3-3.5 [facility] HospitalAlbumin/Globulin Quebr3548-54-73 22:44:00 * Test Item Value Reference Range Interpretation Comments Albumin/Globulin Ratio (test code = 1759-0) 0.9 0.8-2.0 [facility] HospitalAlkaline Sinxafkuzgz9255-74-97 22:44:00* Test Item Value Reference Range Interpretation Comments Alkaline Phosphatase (test code = 6768-6) 86 40-150 [facility] HospitalB-Type Natriuretic Jcnnsvy9654-76-54 22:44:00* Test Item Value Reference Range Interpretation Comments B-Type Natriuretic Peptide (test code = 96195-0) 73.9 0-100 [facility] HospitalCreatine Ftmwcz6959-94-23 22:44:00* Test Item Value Reference Range Interpretation Comments Creatine Kinase (test code = 2157-6) 75 30-200 [facility] HospitalCreatine Kinase KN1931-83-15 22:44:00* Test Item Value Reference Range Interpretation Comments Creatine Kinase MB (test code = 45848-0) 0.60 0-5.0 [facility] HospitalTroponin [id number] 22:44:00* Test Item Value Reference Range Interpretation Comments Troponin I (test code = BGV0204) 0.005 0-0.300 [facility] Sfwlksawr6247-93-77 22:44:00* Test Item Value Reference Range Interpretation Comments Total Bilirubin (test code = 1975-2) 0.5 0.2-1.2 [facility] HospitalAspartate Amino Transf (AST/SGOT) 2018-10-22 22:44:00* Test Item Value Reference Range Interpretation Comments Aspartate Amino Transf (AST/SGOT) (test code = Aspartate Amino Transf (AST/SGOT)) 29 5-34 [facility] HospitalAlanine Aminotransferase (ALT/SGPT) 2018-10-22 22:44:00* Test Item Value Reference Range Interpretation Comments Alanine Aminotransferase (ALT/SGPT) (test code = 1742-6) 18 0-55 [facility] Hospitaltal Cjxlkaz9983-09-19 22:44:00* Test Item Value Reference Range Interpretation Comments Total Protein (test code = 2885-2) 6.3 6.5-8.1 L [facility] HospitalAlbumin2019-04-01 22:44:00* Test Item Value Reference Range Interpretation Comments Albumin (test code = 1751-7) 3.0 3.5-5.0 L [facility] HospitalGlobulin2019-04-01 22:44:00* Test Item Value Reference Range Interpretation Comments Globulin (test code = 92816-3) 3.3 2.3-3.5 [facility] HospitalAlbumin/Globulin Ggtgm6366-31-21 22:44:00 * Test Item Value Reference Range Interpretation Comments Albumin/Globulin Ratio (test code = 1759-0) 0.9 0.8-2.0 [facility] HospitalAlkaline Kpjabkfjbca5807-07-44 22:44:00* Test Item Value Reference Range Interpretation Comments Alkaline Phosphatase (test code = 6768-6) 86 40-150 [facility] HospitalB-Type Natriuretic Oqqcrpz7532-74-46 22:44:00* Test Item Value Reference Range Interpretation Comments B-Type Natriuretic Peptide (test code = 01707-6) 73.9 0-100 [facility] HospitalCreatine Rqabdu4702-06-16 22:44:00* Test Item Value Reference Range Interpretation Comments Creatine Kinase (test code = 2157-6) 75 30-200 [facility] HospitalCreatine Kinase OH8928-00-08 22:44:00* Test Item Value Reference Range Interpretation Comments Creatine Kinase MB (test code = 98741-6) 0.60 0-5.0 [facility] HospitalTroponin R5433-81-79 22:44:00* Test Item Value Reference Range Interpretation Comments Troponin I (test code = AIP8937) 0.005 0-0.300 [facility] HospitalB-Type Natriuretic Szypevl7663-04-88 22:44:00* Test Item Value Reference Range Interpretation Comments B-Type Natriuretic Peptide (test code = 59176-3) 73.9 0-100 [facility] HospitalCreatine Gbuoqv3751-24-66 22:44:00* Test Item Value Reference Range Interpretation Comments Creatine Kinase (test code = 2157-6) 75 30-200 [facility] HospitalCreatine Kinase ZT9937-89-67 22:44:00* Test Item Value Reference Range Interpretation Comments Creatine Kinase MB (test code = 96272-7) 0.60 0-5.0 [facility] HospitalTroponin P3120-81-10 22:44:00* Test Item Value Reference Range Interpretation Comments Troponin I (test code = DAW8460) 0.005 0-0.300 [facility] HospitalUrine PPT7412-97-56 22:34:00* Test Item Value Reference Range Interpretation Comments Urine WBC (test code = 5821-4) 0-5 0-5 [facility] HospitalUrine DZI4060-71-30 22:34:00* Test Item Value Reference Range Interpretation Comments Urine RBC (test code = 05528-5) 0-5 0-5 [facility] Vnlmfhep8129-67-44 22:34:00* Test Item Value Reference Range Interpretation Comments Urine Bacteria (test code = 10687-0) FEW NONE [facility] Epithelial Akfzn1011-11-12 22:34:00 * Test Item Value Reference Range Interpretation Comments Urine Epithelial Cells (test code = 25937-8) RARE NONE [facility] FPQ5903-24-25 22:34:00* Test Item Value Reference Range Interpretation Comments Urine WBC (test code = 5821-4) 0-5 0-5 [facility] LNM1668-39-48 22:34:00* Test Item Value Reference Range Interpretation Comments Urine RBC (test code = 25244-6) 0-5 0-5 [facility] Ubcoptgp9146-43-10 22:34:00* Test Item Value Reference Range Interpretation Comments Urine Bacteria (test code = 88157-7) FEW NONE [facility] Epithelial Prnic3403-18-43 22:34:00 * Test Item Value Reference Range Interpretation Comments Urine Epithelial Cells (test code = 96417-5) RARE NONE [facility] Ljbxq6474-67-09 22:15:00* Test Item Value Reference Range Interpretation Comments Urine Color (test code = 5778-6) YELLOW YELLOW [facility] Vvghgbf1438-58-32 22:15:00* Test Item Value Reference Range Interpretation Comments Urine Clarity (test code = 48923-1) CLEAR CLEAR [facility] Specific Zndfjtz2369-07-34 22:15:00 * Test Item Value Reference Range Interpretation Comments Urine Specific [place] (test code = 5811-5) 1.010 1.010-1.02 5 [facility] uJ3788-01-74 22:15:00* Test Item Value Reference Range Interpretation Comments Urine pH (test code = 82686-1) 6.5 5-7 [facility] Leukocyte Iudanjxb3834-45-25 22:15:00* Test Item Value Reference Range Interpretation Comments Urine Leukocyte Esterase (test code = 5799-2) NEGATIVE NEGATIVE [facility] Wglousd2368-38-42 22:15:00* Test Item Value Reference Range Interpretation Comments Urine Nitrite (test code = 75061-6) NEGATIVE NEGATIVE [facility] Ardwasq4678-54-76 22:15:00* Test Item Value Reference Range Interpretation Comments Urine Protein (test code = 5804-0) NEGATIVE NEGATIVE [facility] Glucose (UA)2018-10-22 22:15:00* Test Item Value Reference Range Interpretation Comments Urine Glucose (UA) (test code = 2349-9) NEGATIVE NEGATIVE [facility] Frzltrl3542-11-02 22:15:00* Test Item Value Reference Range Interpretation Comments Urine Ketones (test code = 55262-6) NEGATIVE NEGATIVE [facility] Lcexgipwzsai8032-44-45 22:15:00* Test Item Value Reference Range Interpretation Comments Urine Urobilinogen (test code = 12492-6) 0.2 0.2-1 [facility] Dkgsumysm3496-76-72 22:15:00* Test Item Value Reference Range Interpretation Comments Urine Bilirubin (test code = 1978-6) NEGATIVE NEGATIVE [facility] Skqxu9581-38-11 22:15:00* Test Item Value Reference Range Interpretation Comments Urine Blood (test code = 17828-7) NEGATIVE NEGATIVE [facility] Vgxhl7760-82-19 22:15:00* Test Item Value Reference Range Interpretation Comments Urine Color (test code = 5778-6) YELLOW YELLOW [facility] Rcexrrz2077-86-25 22:15:00* Test Item Value Reference Range Interpretation Comments Urine Clarity (test code = 48555-7) CLEAR CLEAR [facility] Specific Hdnttrh0945-07-86 22:15:00 * Test Item Value Reference Range Interpretation Comments Urine Specific [place] (test code = 5811-5) 1.010 1.010-1.02 5 [facility] fA7964-23-01 22:15:00* Test Item Value Reference Range Interpretation Comments Urine pH (test code = 71481-6) 6.5 5-7 [facility] Leukocyte Kyffrwhn9715-09-31 22:15:00* Test Item Value Reference Range Interpretation Comments Urine Leukocyte Esterase (test code = 5799-2) NEGATIVE NEGATIVE [facility] Oosfruj6821-76-80 22:15:00* Test Item Value Reference Range Interpretation Comments Urine Nitrite (test code = 24930-6) NEGATIVE NEGATIVE [facility] Plfwkml1956-20-35 22:15:00* Test Item Value Reference Range Interpretation Comments Urine Protein (test code = 5804-0) NEGATIVE NEGATIVE [facility] Glucose (UA)2018-10-22 22:15:00* Test Item Value Reference Range Interpretation Comments Urine Glucose (UA) (test code = 2349-9) NEGATIVE NEGATIVE [facility] Sdzfuok6896-80-76 22:15:00* Test Item Value Reference Range Interpretation Comments Urine Ketones (test code = 24222-0) NEGATIVE NEGATIVE [facility] Idqivikvofll5264-49-59 22:15:00* Test Item Value Reference Range Interpretation Comments Urine Urobilinogen (test code = 37752-7) 0.2 0.2-1 [facility] Ehnixzrwi2425-75-19 22:15:00* Test Item Value Reference Range Interpretation Comments Urine Bilirubin (test code = 1978-6) NEGATIVE NEGATIVE [facility] Uonrn7386-84-28 22:15:00* Test Item Value Reference Range Interpretation Comments Urine Blood (test code = 70326-8) NEGATIVE NEGATIVE [facility] HospitalWhite Blood Lcmqe8260-31-52 22:01:00* Test Item Value Reference Range Interpretation Comments White Blood Count (test code = 6690-2) 7.35 4.8-10.8 [facility]Red Blood Jbsux7583-60-74 22:01:00* Test Item Value Reference Range Interpretation Comments Red Blood Count (test code = 789-8) 4.21 4.3-5.7 L [facility] HospitalHemoglobin2019-04-01 22:01:00* Test Item Value Reference Range Interpretation Comments Hemoglobin (test code = 00560-1) 13.1 14.0-18.0 L [facility] HospitalHematocrit2019-04-01 22:01:00* Test Item Value Reference Range Interpretation Comments Hematocrit (test code = 4544-3) 40.3 38.2-49.6 [facility] HospitalMean Corpuscular Ckrjga2418-30-83 22:01:00* Test Item Value Reference Range Interpretation Comments Mean Corpuscular Volume (test code = 787-2) 95.7 81-99 [facility] HospitalMean Corpuscular Qbscbiyzku8148-39-04 22:01:00* Test Item Value Reference Range Interpretation Comments Mean Corpuscular Hemoglobin (test code = 785-6) 31.1 28-32 [facility] HospitalMean Corpuscular Hemoglobin Concent 2018-10-22 22:01:00* Test Item Value Reference Range Interpretation Comments Mean Corpuscular Hemoglobin Concent (test code = 786-4) 32.5 31-35 [facility] HospitalRed Cell Distribution Fsevz9232-53-11 22:01:00* Test Item Value Reference Range Interpretation Comments Red Cell Distribution Width (test code = 05465-4) 14.0 11.7 -14.4 [facility] HospitalPlatelet Twoeh2582-13-62 22:01:00* Test Item Value Reference Range Interpretation Comments Platelet Count (test code = 777-3) 118 140-360 L [facility] HospitalNeutrophils (%) (Auto)2018-10-22 22:01:00 * Test Item Value Reference Range Interpretation Comments Neutrophils (%) (Auto) (test code = 44312-5) 65.8 38.7-80.0 [facility] HospitalLymphocytes (%) (Auto)2018-10-22 22:01:00 * Test Item Value Reference Range Interpretation Comments Lymphocytes (%) (Auto) (test code = 736-9) 26.3 18.0-39.1 [facility] HospitalMonocytes (%) (Auto)2018-10-22 22:01:00* Test Item Value Reference Range Interpretation Comments Monocytes (%) (Auto) (test code = 5905-5) 5.7 4.4-11.3 [facility] HospitalEosinophils (%) (Auto)2018-10-22 22:01:00 * Test Item Value Reference Range Interpretation Comments Eosinophils (%) (Auto) (test code = 713-8) 1.5 0.0-6.0 [facility] HospitalBasophils (%) (Auto)2018-10-22 22:01:00* Test Item Value Reference Range Interpretation Comments Basophils (%) (Auto) (test code = 706-2) 0.4 0.0-1.0 [facility] HospitalIM GRANULOCYTES %2018-10-22 22:01:00* Test Item Value Reference Range Interpretation Comments IM GRANULOCYTES % (test code = IM GRANULOCYTES %) 0.3 0.0- 1.0 [facility] HospitalNeutrophils # (Auto)2018-10-22 22:01:00* Test Item Value Reference Range Interpretation Comments Neutrophils # (Auto) (test code = 751-8) 4.8 2.1-6.9 [facility] HospitalLymphocytes # (Auto)2018-10-22 22:01:00* Test Item Value Reference Range Interpretation Comments Lymphocytes # (Auto) (test code = 57643-8) 1.9 1.0-3.2 [facility] HospitalMonocytes # (Auto)2018-10-22 22:01:00* Test Item Value Reference Range Interpretation Comments Monocytes # (Auto) (test code = 742-7) 0.4 0.2-0.8 [facility] HospitalEosinophils # (Auto)2018-10-22 22:01:00* Test Item Value Reference Range Interpretation Comments Eosinophils # (Auto) (test code = 711-2) 0.1 0.0-0.4 [facility] HospitalBasophils # (Auto)2018-10-22 22:01:00* Test Item Value Reference Range Interpretation Comments Basophils # (Auto) (test code = 704-7) 0.0 0.0-0.1 [facility] HospitalAbsolute Immature Granulocyte (auto 2018-10-22 22:01:00* Test Item Value Reference Range Interpretation Comments Absolute Immature Granulocyte (auto (cherrie t code = Absolute Immature Granulocyte (auto) 0.02 0-0.1 [facility] HospitalCHEST SINGLE (PORTABLE)2018-10-22 21:44:00 [facility] [address] [place] [address] Patient Name: MICKEY PANIAGUA JR MR #: [id number] : 1945 Age/Sex: 73/M Req #: [id number] Adm Physician: Ordered by: ROHINI NAVAS MD Report #: [id number] Location: ER Room/Bed: Procedure: 82 DX/CHEST SINGLE (PORTABLE) Exam Date: 10/22/18 Ex am Time: 2140 REPORT STATUS: Signed Examination: Single AP view of the chest. COMPARISON: September 29, 2018 INDICATION: Fall DISCUSSION: Lines/tubes: None. Lungs: L ow lung volume with lung base atelectasis. Pleura: No pleural effusion or pneumothorax. Heart and mediastinum: Cardiomegaly. Bones and soft tis sues: No acute bony abnormalities. Remote right acromioclavicular separation . IMPRESSION: Mild cardiomegaly. Low lung volumes with atelectas is. Signed by: Dr. Stephanie Thomason M.D. on 10/22/2018 9:45 PM Dictated By: STEPHANIE THOMASON MD 44 COPY TO: JOSE NAVAS MD KNEE RIGHT THREE RSJQY6279-48-74 21:21:00 [place] [address] Patient Name: MICKEY PANIAGUA JR MR #: [id number] : 1945 Age/Sex: 73/M Req #: [id number] Adm Physician: Ordered by: ROHINI NAVAS MD Report #: [id number] Location: ER Room/Bed: Procedure: 79 DX/KNEE RIGHT THREE VIEWS Exam Date: 10/22/18 Exa m Time: 2029 REPORT STATUS: Signed Exam: Right and left knee 3 views each History: Pain Compariso n: None. Findings: No fracture or malalignment. 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 No abnormal soft tissue calcification or soft tissue defect . Impression: No acute osseous abnormality Signed by: Dr. Rowena Thomason M.D. on 10/22/2018 9:23 PM Dictated By: STEPHANIE THOMASON MD 22 Transcribed By: TATYANA on 10/22/182122 COPY TO: ROHINI NAVAS MD KNEE LEFT THREE AYIOS5449-14-09 21:21:00 [place] [address] Patient Name: MICKEY PANIAGUA JR MR #: [id number] : 1945 Age/Sex: 73/M Req #: [id number] Adm Physician: Ordered by: ROHINI NAVAS MD Report #: [id number] Location: Room/Bed: Procedure: 80 DX/KNEE LEFT THREE VIEWS Exam Date: 10/22/18 Exam Time: 2029 REPORT STATUS: Signed Exam: Right and left knee 3 views each History: Pain Comparison : None. Findings: No fracture or malalignment. 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 No abnormal soft tissue calcification or soft tissue defect. Impression: No acute osseous abnormality Signed by: Dr. And rew Kirk M.D. on 10/22/2018 9:23 PM Dictated By: STEPHANIE THOMASON MD E lectronically Signed By: STEPHANIE THOMASON MD on 10/22/182122 Transcribed By: Sohail MENDOZA on 10/22/182122 COPY TO: ROHINI NAVAS MD Differential Total Cells Qgqsftr5014-12-01 07:31:00* Test Item Value Reference Range Interpretation Comments Differential Total Cells Counted (test code = Differen tial Total Cells Counted) 100 [facility] HospitalNeutrophils % (Manual)2018-10-05 07:31:00 * Test Item Value Reference Range Interpretation Comments Neutrophils % (Manual) (test code = 13083-4) 62 40-74 [facility] HospitalLymphocytes % (Manual)2018-10-05 07:31:00 * Test Item Value Reference Range Interpretation Comments Lymphocytes % (Manual) (test code = 737-7) 27 19-48 [facility] HospitalMonocytes % (Manual)2018-10-05 07:31:00* Test Item Value Reference Range Interpretation Comments Monocytes % (Manual) (test code = 744-3) 7 3.4-9.0 [facility] HospitalEosinophils % (Manual)2018-10-05 07:31:00 * Test Item Value Reference Range Interpretation Comments Eosinophils % (Manual) (test code = 714-6) 2 0-7 [facility] HospitalBasophils % (Manual)2018-10-05 07:31:00* Test Item Value Reference Range Interpretation Comments Basophils % (Manual) (test code = 22897-3) 1 0-1.5 [facility] HospitalReactive Cszrsdxuwbf8796-72-64 07:31:00* Test Item Value Reference Range Interpretation Comments Reactive Lymphocytes (test code = 17405-4) 1 [facility] HospitalPlatelet Mjujylsf2342-19-83 07:31:00* Test Item Value Reference Range Interpretation Comments Platelet Estimate (test code = 41262-3) SLIGHTLY DECREASED [facility] HospitalPlatelet Morphology Eqjicae3941-49-35 07:31:00* Test Item Value Reference Range Interpretation Comments Platelet Morphology Comment (test code = 73010-3) NORMAL NO CLUMPS.0730 on 10/05/18 by Sofia Monroe [facility] Red Cell Morphology Uciluje3333-62-97 07:31:00* Test Item Value Reference Range Interpretation Comments Red Cell Morphology Comment (test code = 6742-1) NORMAL [facility] HospitalDifferential Total Cells Counted 2018-10-05 07:31:00* Test Item Value Reference Range Interpretation Comments Differential Total Cells Counted (test code = Differviolet tial Total Cells Counted) 100 [facility] HospitalNeutrophils % (Manual)2018-10-05 07:31:00 * Test Item Value Reference Range Interpretation Comments Neutrophils % (Manual) (test code = 31851-5) 62 40-74 [facility] HospitalLymphocytes % (Manual)2018-10-05 07:31:00 * Test Item Value Reference Range Interpretation Comments Lymphocytes % (Manual) (test code = 737-7) 27 19-48 [facility] HospitalMonocytes % (Manual)2018-10-05 07:31:00* Test Item Value Reference Range Interpretation Comments Monocytes % (Manual) (test code = 744-3) 7 3.4-9.0 [facility] HospitalEosinophils % (Manual)2018-10-05 07:31:00 * Test Item Value Reference Range Interpretation Comments Eosinophils % (Manual) (test code = 714-6) 2 0-7 [facility] HospitalBasophils % (Manual)2018-10-05 07:31:00* Test Item Value Reference Range Interpretation Comments Basophils % (Manual) (test code = 68983-2) 1 0-1.5 [facility] HospitalReactive Xwnnjqevxog6740-59-54 07:31:00* Test Item Value Reference Range Interpretation Comments Reactive Lymphocytes (test code = 69231-5) 1 [facility] HospitalPlatelet Cwpftvgd0862-71-44 07:31:00* Test Item Value Reference Range Interpretation Comments Platelet Estimate (test code = 23913-5) SLIGHTLY DECREASED [facility] HospitalPlatelet Morphology Fuytwyp4527-10-89 07:31:00* Test Item Value Reference Range Interpretation Comments Platelet Morphology Comment (test code = 52034-4) NORMAL NO CLUMPS.0730 on 10/05/18 by Sofia Monroe [facility] Red Cell Morphology Lvkzcpl2955-18-18 07:31:00* Test Item Value Reference Range Interpretation Comments Red Cell Morphology Comment (test code = 6742-1) NORMAL [facility] HospitalDifferential Total Cells Counted 2018-10-05 07:31:00* Test Item Value Reference Range Interpretation Comments Differential Total Cells Counted (test code = Differen tial Total Cells Counted) 100 [facility] HospitalNeutrophils % (Manual)2018-10-05 07:31:00 * Test Item Value Reference Range Interpretation Comments Neutrophils % (Manual) (test code = 29972-2) 62 40-74 [facility] HospitalLymphocytes % (Manual)2018-10-05 07:31:00 * Test Item Value Reference Range Interpretation Comments Lymphocytes % (Manual) (test code = 737-7) 27 19-48 [facility] HospitalMonocytes % (Manual)2018-10-05 07:31:00* Test Item Value Reference Range Interpretation Comments Monocytes % (Manual) (test code = 744-3) 7 3.4-9.0 [facility] HospitalEosinophils % (Manual)2018-10-05 07:31:00 * Test Item Value Reference Range Interpretation Comments Eosinophils % (Manual) (test code = 714-6) 2 0-7 [facility] HospitalBasophils % (Manual)2018-10-05 07:31:00* Test Item Value Reference Range Interpretation Comments Basophils % (Manual) (test code = 46103-7) 1 0-1.5 [facility] HospitalReactive Zauahoxelrx2564-84-25 07:31:00* Test Item Value Reference Range Interpretation Comments Reactive Lymphocytes (test code = 32051-3) 1 [facility] HospitalPlatelet Llodyjul3432-09-46 07:31:00* Test Item Value Reference Range Interpretation Comments Platelet Estimate (test code = 86619-5) SLIGHTLY DECREASED [facility] HospitalPlatelet Morphology Xibiudb8177-66-12 07:31:00* Test Item Value Reference Range Interpretation Comments Platelet Morphology Comment (test code = 02958-3) NORMAL NO CLUMPS.0730 on 10/05/18 by Sofia Monroe [facility] Red Cell Morphology Yvkttjr4963-76-90 07:31:00* Test Item Value Reference Range Interpretation Comments Red Cell Morphology Comment (test code = 6742-1) NORMAL [facility] HospitalDifferential Total Cells Counted 2018-10-05 07:31:00* Test Item Value Reference Range Interpretation Comments Differential Total Cells Counted (test code = Differviolet tial Total Cells Counted) 100 [facility] HospitalNeutrophils % (Manual)2018-10-05 07:31:00 * Test Item Value Reference Range Interpretation Comments Neutrophils % (Manual) (test code = 87422-8) 62 40-74 [facility] HospitalLymphocytes % (Manual)2018-10-05 07:31:00 * Test Item Value Reference Range Interpretation Comments Lymphocytes % (Manual) (test code = 737-7) 27 19-48 [facility] HospitalMonocytes % (Manual)2018-10-05 07:31:00* Test Item Value Reference Range Interpretation Comments Monocytes % (Manual) (test code = 744-3) 7 3.4-9.0 [facility] HospitalEosinophils % (Manual)2018-10-05 07:31:00 * Test Item Value Reference Range Interpretation Comments Eosinophils % (Manual) (test code = 714-6) 2 0-7 [facility] HospitalBasophils % (Manual)2018-10-05 07:31:00* Test Item Value Reference Range Interpretation Comments Basophils % (Manual) (test code = 72253-2) 1 0-1.5 [facility] HospitalReactive Wiyxrgcuenc5880-31-98 07:31:00* Test Item Value Reference Range Interpretation Comments Reactive Lymphocytes (test code = 22325-2) 1 [facility] HospitalPlatelet Oyuwzatx7087-39-96 07:31:00* Test Item Value Reference Range Interpretation Comments Platelet Estimate (test code = 37986-7) SLIGHTLY DECREASED [facility] HospitalPlatelet Morphology Rccouzi7030-02-62 07:31:00* Test Item Value Reference Range Interpretation Comments Platelet Morphology Comment (test code = 15781-0) NORMAL NO CLUMPS.0730 on 10/05/18 by Sofia Monroe [facility] Red Cell Morphology Fjfdqce5417-48-43 07:31:00* Test Item Value Reference Range Interpretation Comments Red Cell Morphology Comment (test code = 6742-1) NORMAL [facility] HospitalMagnesium Yscsh6177-90-88 07:14:00* Test Item Value Reference Range Interpretation Comments Magnesium Level (test code = 56177-3) 1.9 1.3-2.1 [facility] HospitalMagnesium Esqhz6000-19-22 07:14:00* Test Item Value Reference Range Interpretation Comments Magnesium Level (test code = 62599-8) 1.9 1.3-2.1 [facility] HospitalMagnesium Cmntn4108-41-56 07:14:00* Test Item Value Reference Range Interpretation Comments Magnesium Level (test code = 63317-2) 1.9 1.3-2.1 [facility] HospitalMagnesium Mzcfo1027-01-60 07:14:00* Test Item Value Reference Range Interpretation Comments Magnesium Level (test code = 17131-8) 1.9 1.3-2.1 [facility] Krsvb6702-12-05 06:49:00* Test Item Value Reference Range Interpretation Comments Sodium Level (test code = 2951-2) 142 136-145 [facility] HospitalPotassium Khxre9102-67-58 06:49:00* Test Item Value Reference Range Interpretation Comments Potassium Level (test code = 2823-3) 4.1 3.5-5.1 [facility] HospitalChloride Tcwoz2894-19-29 06:49:00* Test Item Value Reference Range Interpretation Comments Chloride Level (test code = 2075-0) 105 98-107 [facility] HospitalCarbon Dioxide Yqubh1446-32-15 06:49:00* Test Item Value Reference Range Interpretation Comments Carbon Dioxide Level (test code = 2028-9) 29 22-29 [facility] HospitalAnion Cku3093-80-03 06:49:00* Test Item Value Reference Range Interpretation Comments Anion Gap (test code = 25826-0) 12.1 8-16 [facility] HospitalBlood Urea Yeyyfscs1492-37-28 06:49:00* Test Item Value Reference Range Interpretation Comments Blood Urea Nitrogen (test code = 3094-0) 20 7-26 [facility] HospitalCreatinine2019-03-15 06:49:00* Test Item Value Reference Range Interpretation Comments Creatinine (test code = 2160-0) 1.08 0.72-1.25 [facility] HospitalBUN/Creatinine Bvvjq9854-96-40 06:49:00* Test Item Value Reference Range Interpretation Comments BUN/Creatinine Ratio (test code = 3097-3) 19 6-25 [facility] HospitalEstimat Glomerular Filtration Rate 2018-10-05 06:49:00* Test Item Value Reference Range Interpretation Comments Estimat Glomerular Filtration Rate (test code = 235544838) > 60 >60 Ranges were taken from the National Kidney Disease Education Program and the [facility] [employer] Foundation literature.Reference ranges:60 or greater: Hifwvj95-29 ( for 3 consecutive months): Chronic kidney disease 15 or less: Kidney failureEastland Memorial HospitalGlucose Bbqio1346-67-50 06:49:00* Test Item Value Reference Range Interpretation Comments Glucose Level (test code = MTD9084) 88 74-118 [facility] HospitalCalcium Moasr0828-40-02 06:49:00* Test Item Value Reference Range Interpretation Comments Calcium Level (test code = 55319-6) 7.9 8.4-10.2 L [facility] HospitalTotal Mmknidnid3475-97-32 06:49:00* Test Item Value Reference Range Interpretation Comments Total Bilirubin (test code = 1975-2) 0.5 0.2-1.2 [facility] HospitalAspartate Amino Transf (AST/SGOT) 2018-10-05 06:49:00* Test Item Value Reference Range Interpretation Comments Aspartate Amino Transf (AST/SGOT) (test code = Aspartate Amino Transf (AST/SGOT)) 22 5-34 [facility] HospitalAlanine Aminotransferase (ALT/SGPT) 2018-10-05 06:49:00* Test Item Value Reference Range Interpretation Comments Alanine Aminotransferase (ALT/SGPT) (test code = 1742-6) 14 0-55 [facility] HospitalTotal Ijlsjbd0893-06-02 06:49:00* Test Item Value Reference Range Interpretation Comments Total Protein (test code = 2885-2) 5.8 6.5-8.1 L [facility] HospitalAlbumin2019-03-15 06:49:00* Test Item Value Reference Range Interpretation Comments Albumin (test code = 1751-7) 2.7 3.5-5.0 L [facility] HospitalGlobulin2019-03-15 06:49:00* Test Item Value Reference Range Interpretation Comments Globulin (test code = 62841-8) 3.1 2.3-3.5 [facility] HospitalAlbumin/Globulin Yiqcp8369-51-45 06:49:00 * Test Item Value Reference Range Interpretation Comments Albumin/Globulin Ratio (test code = 1759-0) 0.9 0.8-2.0 [facility] HospitalAlkaline Qscsbphbolo9259-92-54 06:49:00* Test Item Value Reference Range Interpretation Comments Alkaline Phosphatase (test code = 6768-6) 75 40-150 [facility] HospitalWhite Blood Yapet9843-47-12 06:11:00* Test Item Value Reference Range Interpretation Comments White Blood Count (test code = 6690-2) 6.34 4.8-10.8 [facility] HospitalRed Blood Ehaka5647-69-15 06:11:00* Test Item Value Reference Range Interpretation Comments Red Blood Count (test code = 789-8) 3.96 4.3-5.7 L [facility] HospitalHemoglobin2019-03-15 06:11:00* Test Item Value Reference Range Interpretation Comments Hemoglobin (test code = 40159-3) 12.5 14.0-18.0 L [facility] HospitalHematocrit2019-03-15 06:11:00* Test Item Value Reference Range Interpretation Comments Hematocrit (test code = 4544-3) 38.0 38.2-49.6 L [facility] HospitalMean Corpuscular Vgjxob4422-21-46 06:11:00* Test Item Value Reference Range Interpretation Comments Mean Corpuscular Volume (test code = 787-2) 96.0 81-99 [facility] HospitalMean Corpuscular Xqtfhhxwqz6149-04-26 06:11:00* Test Item Value Reference Range Interpretation Comments Mean Corpuscular Hemoglobin (test code = 785-6) 31.6 28-32 [facility] HospitalMean Corpuscular Hemoglobin Concent 2018-10-05 06:11:00* Test Item Value Reference Range Interpretation Comments Mean Corpuscular Hemoglobin Concent (test code = 786-4) 32.9 31-35 [facility] HospitalRed Cell Distribution Dxrfv5015-48-09 06:11:00* Test Item Value Reference Range Interpretation Comments Red Cell Distribution Width (test code = 52788-3) 13.5 11.7 -14.4 [facility] HospitalPlatelet Vwwci0780-07-07 06:11:00* Test Item Value Reference Range Interpretation Comments Platelet Count (test code = 777-3) 100 140-360 L [facility] HospitalNeutrophils (%) (Auto)2018-10-05 06:11:00 * Test Item Value Reference Range Interpretation Comments Neutrophils (%) (Auto) (test code = 21570-5) 60.4 38.7-80.0 [facility] HospitalLymphocytes (%) (Auto)2018-10-05 06:11:00 * Test Item Value Reference Range Interpretation Comments Lymphocytes (%) (Auto) (test code = 736-9) 29.0 18.0-39.1 [facility] HospitalMonocytes (%) (Auto)2018-10-05 06:11:00* Test Item Value Reference Range Interpretation Comments Monocytes (%) (Auto) (test code = 5905-5) 6.2 4.4-11.3 [facility] HospitalEosinophils (%) (Auto)2018-10-05 06:11:00 * Test Item Value Reference Range Interpretation Comments Eosinophils (%) (Auto) (test code = 713-8) 3.6 0.0-6.0 [facility] HospitalBasophils (%) (Auto)2018-10-05 06:11:00* Test Item Value Reference Range Interpretation Comments Basophils (%) (Auto) (test code = 706-2) 0.6 0.0-1.0 [facility] HospitalIM GRANULOCYTES %2018-10-05 06:11:00* Test Item Value Reference Range Interpretation Comments IM GRANULOCYTES % (test code = IM GRANULOCYTES %) 0.2 0.0- 1.0 [facility] HospitalNeutrophils # (Auto)2018-10-05 06:11:00* Test Item Value Reference Range Interpretation Comments Neutrophils # (Auto) (test code = 751-8) 3.8 2.1-6.9 [facility] HospitalLymphocytes # (Auto)2018-10-05 06:11:00* Test Item Value Reference Range Interpretation Comments Lymphocytes # (Auto) (test code = 95400-1) 1.8 1.0-3.2 [facility] HospitalMonocytes # (Auto)2018-10-05 06:11:00* Test Item Value Reference Range Interpretation Comments Monocytes # (Auto) (test code = 742-7) 0.4 0.2-0.8 [facility] HospitalEosinophils # (Auto)2018-10-05 06:11:00* Test Item Value Reference Range Interpretation Comments Eosinophils # (Auto) (test code = 711-2) 0.2 0.0-0.4 [facility] HospitalBasophils # (Auto)2018-10-05 06:11:00* Test Item Value Reference Range Interpretation Comments Basophils # (Auto) (test code = 704-7) 0.0 0.0-0.1 [facility] HospitalAbsolute Immature Granulocyte (auto 2018-10-05 06:11:00* Test Item Value Reference Range Interpretation Comments Absolute Immature Granulocyte (auto (cherrie t code = Absolute Immature Granulocyte (auto) 0.01 0-0.1 [facility] HospitalBlood Tfgiqwc5815-37-95 18:37:00* Test Item Value Reference Range Interpretation Comments Blood Culture (test code = 67188797) NO GROWTH AFTER 5 DAYS, FINAL REPORT [facility] HospitalCreatine Kinase PO9848-35-69 11:33:00* Test Item Value Reference Range Interpretation Comments Creatine Kinase MB (test code = 32255-3) 0.60 0-5.0 [facility] HospitalTroponin B8427-30-79 11:33:00* Test Item Value Reference Range Interpretation Comments Troponin I (test code = BWN7956) < 0.001 0-0.300 [facility] HospitalCreatine Wehmpa3158-66-18 11:29:00* Test Item Value Reference Range Interpretation Comments Creatine Kinase (test code = 2157-6) 64 30-200 [facility] HospitalBand Neutrophils %2018-09-29 22:21:00* Test Item Value Reference Range Interpretation Comments Band Neutrophils % (test code = 764-1) 2 [facility] HospitalBand Neutrophils %2018-09-29 22:21:00* Test Item Value Reference Range Interpretation Comments Band Neutrophils % (test code = 764-1) 2 [facility] HospitalBand Neutrophils %2018-09-29 22:21:00* Test Item Value Reference Range Interpretation Comments Band Neutrophils % (test code = 764-1) 2 [facility] HospitalBand Neutrophils %2018-09-29 22:21:00* Test Item Value Reference Range Interpretation Comments Band Neutrophils % (test code = 764-1) 2 [facility] HospitalUrine Atbqz0142-84-90 21:39:00* Test Item Value Reference Range Interpretation Comments Urine Color (test code = 5778-6) YELLOW YELLOW [facility] HospitalUrine Hggaiac7324-95-24 21:39:00* Test Item Value Reference Range Interpretation Comments Urine Clarity (test code = 14095-5) CLEAR CLEAR [facility] HospitalUrine Specific Cwkrqch2393-90-15 21:39:00 * Test Item Value Reference Range Interpretation Comments Urine Specific [place] (test code = 5811-5) 1.015 1.010-1.02 5 [facility] HospitalUrine yO0529-16-47 21:39:00* Test Item Value Reference Range Interpretation Comments Urine pH (test code = 60351-8) 6 5-7 [facility] HospitalUrine Leukocyte Gkirgdju9838-72-94 21:39:00* Test Item Value Reference Range Interpretation Comments Urine Leukocyte Esterase (test code = 5799-2) NEGATIVE NEGATIVE [facility] HospitalUrine Xhlfvmo8312-88-48 21:39:00* Test Item Value Reference Range Interpretation Comments Urine Nitrite (test code = 72692-7) NEGATIVE NEGATIVE [facility] HospitalUrine Mxehylz0535-08-70 21:39:00* Test Item Value Reference Range Interpretation Comments Urine Protein (test code = 5804-0) NEGATIVE NEGATIVE [facility] HospitalUrine Glucose (UA)2018-09-29 21:39:00* Test Item Value Reference Range Interpretation Comments Urine Glucose (UA) (test code = 2349-9) NEGATIVE NEGATIVE [facility] HospitalUrine Mfytyhi3386-42-49 21:39:00* Test Item Value Reference Range Interpretation Comments Urine Ketones (test code = 35038-6) NEGATIVE NEGATIVE [facility] Cjbkvvzffbhe1150-88-19 21:39:00* Test Item Value Reference Range Interpretation Comments Urine Urobilinogen (test code = 93700-5) 0.2 0.2-1 [facility] HospitalUrine Cfxulltpl9786-29-67 21:39:00* Test Item Value Reference Range Interpretation Comments Urine Bilirubin (test code = 1978-6) NEGATIVE NEGATIVE [facility] Sytwo2417-69-13 21:39:00* Test Item Value Reference Range Interpretation Comments Urine Blood (test code = 14417-2) TRACE NEGATIVE H [facility] HospitalUrine KVG2438-62-08 21:39:00* Test Item Value Reference Range Interpretation Comments Urine WBC (test code = 5821-4) 0-5 0-5 [facility] HospitalUrine CMZ7691-13-29 21:39:00* Test Item Value Reference Range Interpretation Comments Urine RBC (test code = 36103-9) 0-5 0-5 [facility] Hupdxubf5338-36-99 21:39:00* Test Item Value Reference Range Interpretation Comments Urine Bacteria (test code = 53310-3) FEW NONE [facility] HospitalUrine Epithelial Ryfdc8061-11-22 21:39:00 * Test Item Value Reference Range Interpretation Comments Urine Epithelial Cells (test code = 37804-9) FEW NONE [facility] HospitalInfluenza Virus Types A,B Antigen 2018-09-29 19:39:00* Test Item Value Reference Range Interpretation Comments Influenza Virus Types A,B Antigen (test code = 11095-6) NEGATIVE NEGATIVE [facility] HospitalInfluenza Virus Types A,B Antigen 2018-09-29 19:39:00* Test Item Value Reference Range Interpretation Comments Influenza Virus Types A,B Antigen (test code = 58444-7) NEGATIVE NEGATIVE [facility] HospitalInfluenza Virus Types A,B Antigen 2018-09-29 19:39:00* Test Item Value Reference Range Interpretation Comments Influenza Virus Types A,B Antigen (test code = 38606-1) NEGATIVE NEGATIVE [facility] HospitalInfluenza Virus Types A,B Antigen 2018-09-29 19:39:00* Test Item Value Reference Range Interpretation Comments Influenza Virus Types A,B Antigen (test code = 45702-4) NEGATIVE NEGATIVE [facility] HospitalB-Type Natriuretic Uacwpfi7881-47-64 19:34:00* Test Item Value Reference Range Interpretation Comments B-Type Natriuretic Peptide (test code = 18013-9) 55.4 0-100 [facility] HospitalProthrombin Ggam6119-36-33 19:05:00* Test Item Value Reference Range Interpretation Comments Prothrombin Time (test code = 5902-2) 12.4 11.9-14.5 [facility] HospitalProthromb Time International Ratio 2018-09-29 19:05:00* Test Item Value Reference Range Interpretation Comments Prothromb Time International Ratio (test code = 6301-6) 0.88 Oral Anticoagulant Therapy INR Values:1. Low Intensity Therapy 1.5 - 2.02 . Moderate Intensity Therapy 2.0 - 3.03. High Intensity Therapy(1) 2.5 - 3. 54. High Intensity Therapy(2) 3.0 - 4.05. Panic Value INR > 5.0 [facility] HospitalActivated Partial Thromboplast Time 2018-09-29 19:05:00* Test Item Value Reference Range Interpretation Comments Activated Partial Thromboplast Time (test code = 38037-7) 29.3 23.8-35.5 [facility] HospitalProthrombin Jywq9704-31-65 19:05:00* Test Item Value Reference Range Interpretation Comments Prothrombin Time (test code = 5902-2) 12.4 11.9-14.5 [facility] HospitalProthromb Time International Ratio 2018-09-29 19:05:00* Test Item Value Reference Range Interpretation Comments Prothromb Time International Ratio (test code = 6301-6) 0.88 Oral Anticoagulant Therapy INR Values:1. Low Intensity Therapy 1.5 - 2.02 . Moderate Intensity Therapy 2.0 - 3.03. High Intensity Therapy(1) 2.5 - 3. 54. High Intensity Therapy(2) 3.0 - 4.05. Panic Value INR > 5.0 [facility] HospitalActivated Partial Thromboplast Time 2018-09-29 19:05:00* Test Item Value Reference Range Interpretation Comments Activated Partial Thromboplast Time (test code = 73774-8) 29.3 23.8-35.5 [facility] HospitalProthrombin Yybi5352-13-26 19:05:00* Test Item Value Reference Range Interpretation Comments Prothrombin Time (test code = 5902-2) 12.4 11.9-14.5 [facility] HospitalProthromb Time International Ratio 2018-09-29 19:05:00* Test Item Value Reference Range Interpretation Comments Prothromb Time International Ratio (test code = 6301-6) 0.88 Oral Anticoagulant Therapy INR Values:1. Low Intensity Therapy 1.5 - 2.02 . Moderate Intensity Therapy 2.0 - 3.03. High Intensity Therapy(1) 2.5 - 3. 54. High Intensity Therapy(2) 3.0 - 4.05. Panic Value INR > 5.0 [facility] HospitalLactic Acid Eaeoj5784-22-14 19:02:00* Test Item Value Reference Range Interpretation Comments Lactic Acid Level (test code = Lactic Acid Level) 9.8 4.5- 19.8 [facility] HospitalLactic Acid Yqknr4893-44-30 19:02:00* Test Item Value Reference Range Interpretation Comments Lactic Acid Level (test code = Lactic Acid Level) 9.8 4.5- 19.8 [facility] HospitalLactic Acid Rwuet6932-69-72 19:02:00* Test Item Value Reference Range Interpretation Comments Lactic Acid Level (test code = Lactic Acid Level) 9.8 4.5- 19.8 [facility] HospitalLactic Acid Ytxwf5932-71-13 19:02:00* Test Item Value Reference Range Interpretation Comments Lactic Acid Level (test code = Lactic Acid Level) 9.8 4.5- 19.8 [facility]2018-09-29 18:45:00 [facility] [address] [address] Patient Name: MICKEY PANIAGUA JR MR #: [id number] : 1945 Age/Sex: 73/M Req #: [id number] Adm Physician: Ordered by: PACO FERMIN MD Report #: [id number] Location: ER Room/Bed: Procedure: [id number] DX/CHEST SINGLE (PORTABLE) Exam Date: 09/29/18 Exam Time: 1814 REPORT STATUS: Signed EXAMINATION: CHEST SINGLE (PORTABLE) COMPARISON: Chest x-ray 06/30/20 INDICATION: LIKELY ASPIRATION PNEUMONIA, COUGH [id number] DISCUSSION: Frontal view of the chest obtained at 1817 hours. HEA RT AND MEDIASTINUM: Stable aortic ectasia and prominence of the hilar vessels . LINES: None. LUNGS: Low lung volumes with bibasilar airspace opa cities suggestive atelectasis or small infiltrates. Mild eventration of the ri ght diaphragm. PLEURA: No pleural effusion or pneumothorax. BONES AND SOFT TISSUES: Chronic right AC joint separation is stable. The soft tissues are normal. IMPRESSION: 1. Low lung volumes and bibasilar airspace o pacities, either atelectasis or pneumonia. 2. Prominent hilar vessels may b e the result of low lung volumes but a component of pulmonary artery hypertens ion cannot be excluded. Signed by: Dr. Paola Patiño MD on 09/29/2018 6: 46 PM Dictated By: PAOLA PATIÑO MD 45 Transcribed By: TATYANA on 09/29/181845 COPY TO: PACO FERMIN MD Bedside Rtlheog9812-77-24 16:13:00* Test Item Value Reference Range Interpretation Comments Bedside Glucose (test code = 18041-9) 90 70-120 Meter ID: [id number] [facility] Glucose 2018-07-06 16:13:00* Test Item Value Reference Range Interpretation Comments Bedside Glucose (test code = 42478-0) 90 70-120 M[facility]: [id number] Glucose 2018-07-06 16:13:00* Test Item Value Reference Range Interpretation Comments Bedside Glucose (test code = 56672-5) 90 70-120 Meter ID: [id number] Regional Medical Center Glucose 2018-07-06 16:13:00* Test Item Value Reference Range Interpretation Comments Bedside Glucose (test code = 40746-1) 90 70-120 Meter ID: [id number] Regional Medical Center Glucose 2018-07-06 16:13:00* Test Item Value Reference Range Interpretation Comments Bedside Glucose (test code = 38359-4) 90 70-120 Meter ID: [id number] [facility] HospitalProthrombin Time 2018-07-05 12:53:00* Test Item Value Reference Range Interpretation Comments Prothrombin Time (test code = 5902-2) 23.9 11.9-14.5 H [facility] HospitalProthromb Time International Ratio 2018-07-05 12:53:00* Test Item Value Reference Range Interpretation Comments Prothromb Time International Ratio (test code = 6301-6) 1.96 Oral Anticoagulant Therapy INR Values:1. Low Intensity Therapy 1.5 - 2.02 . Moderate Intensity Therapy 2.0 - 3.03. High Intensity Therapy(1) 2.5 - 3. 54. High Intensity Therapy(2) 3.0 - 4.05. Panic Value INR > 5.0 [facility] HospitalCreatine Kinase JV0447-54-26 07:13:00* Test Item Value Reference Range Interpretation Comments Creatine Kinase MB (test code = 72378-2) 0.80 0-5.0 [facility] HospitalTroponin A2649-63-16 07:13:00* Test Item Value Reference Range Interpretation Comments Troponin I (test code = SUC7649) 0.011 0-0.300 [facility] Pohiz9216-62-93 07:11:00* Test Item Value Reference Range Interpretation Comments Sodium Level (test code = 2951-2) 141 136-145 [facility] HospitalPotassium Bshfe4621-32-05 07:11:00* Test Item Value Reference Range Interpretation Comments Potassium Level (test code = 2823-3) 3.9 3.5-5.1 [facility] HospitalChloride Pgnjv4805-78-92 07:11:00* Test Item Value Reference Range Interpretation Comments Chloride Level (test code = 2075-0) 107 98-107 [facility] HospitalCarbon Dioxide Gwqev4323-27-57 07:11:00* Test Item Value Reference Range Interpretation Comments Carbon Dioxide Level (test code = 2028-9) 25 22-29 [facility] HospitalAnion Rgc8571-93-15 07:11:00* Test Item Value Reference Range Interpretation Comments Anion Gap (test code = 45637-0) 12.9 8-16 [facility] HospitalBlood Urea Ytrxtdtc0626-94-99 07:11:00* Test Item Value Reference Range Interpretation Comments Blood Urea Nitrogen (test code = 3094-0) 18 7-26 [facility] HospitalCreatinine2018-12-08 07:11:00* Test Item Value Reference Range Interpretation Comments Creatinine (test code = 2160-0) 1.01 0.72-1.25 [facility] HospitalBUN/Creatinine Zhtzw7916-56-50 07:11:00* Test Item Value Reference Range Interpretation Comments BUN/Creatinine Ratio (test code = 3097-3) 18 6-25 [facility] HospitalEstimat Glomerular Filtration Rate 2018-06-30 07:11:00* Test Item Value Reference Range Interpretation Comments Estimat Glomerular Filtration Rate (test code = 332251419) > 60 >60 Ranges were taken from the National Kidney Disease Education Program and the [facility] Kidney Foundation literature.Reference ranges:60 or greater: Avzlld66-50 ( for 3 consecutive months): Chronic kidney disease 15 or less: Kidney failureEastland Memorial HospitalGlucose Xqojr0717-12-56 07:11:00* Test Item Value Reference Range Interpretation Comments Glucose Level (test code = KVR4298) 87 74-118 [facility] HospitalCalcium Ndzbh3788-50-24 07:11:00* Test Item Value Reference Range Interpretation Comments Calcium Level (test code = 04260-2) 8.3 8.4-10.2 L [facility] HospitalMagnesium Wnlft1774-26-52 07:11:00* Test Item Value Reference Range Interpretation Comments Magnesium Level (test code = 00010-3) 1.8 1.3-2.1 [facility] HospitalCreatine Axzqft2174-10-24 07:11:00* Test Item Value Reference Range Interpretation Comments Creatine Kinase (test code = 2157-6) 127 30-200 [facility] HospitalWhite Blood Feijh2274-32-65 06:12:00* Test Item Value Reference Range Interpretation Comments White Blood Count (test code = 6690-2) 5.40 4.8-10.8 [facility] HospitalRed Blood Uxobp7522-59-13 06:12:00* Test Item Value Reference Range Interpretation Comments Red Blood Count (test code = 789-8) 4.11 4.3-5.7 L [facility] HospitalHemoglobin2018-12-08 06:12:00* Test Item Value Reference Range Interpretation Comments Hemoglobin (test code = 07734-9) 12.6 14.0-18.0 L [facility] HospitalHematocrit2018-12-08 06:12:00* Test Item Value Reference Range Interpretation Comments Hematocrit (test code = 4544-3) 38.0 38.2-49.6 L [facility] HospitalMean Corpuscular Xewicr0461-77-61 06:12:00* Test Item Value Reference Range Interpretation Comments Mean Corpuscular Volume (test code = 787-2) 92.5 81-99 [facility] HospitalMean Corpuscular Fajfkqnxry8384-34-99 06:12:00* Test Item Value Reference Range Interpretation Comments Mean Corpuscular Hemoglobin (test code = 785-6) 30.7 28-32 [facility] HospitalMean Corpuscular Hemoglobin Concent 2018-06-30 06:12:00* Test Item Value Reference Range Interpretation Comments Mean Corpuscular Hemoglobin Concent (test code = 786-4) 33.2 31-35 [facility] HospitalRed Cell Distribution Adrqq6368-99-15 06:12:00* Test Item Value Reference Range Interpretation Comments Red Cell Distribution Width (test code = 34362-1) 15.1 11.7 -14.4 H [facility] HospitalPlatelet Ezsgt1426-55-25 06:12:00* Test Item Value Reference Range Interpretation Comments Platelet Count (test code = 777-3) 94 140-360 L [facility] HospitalNeutrophils (%) (Auto)2018-06-30 06:12:00 * Test Item Value Reference Range Interpretation Comments Neutrophils (%) (Auto) (test code = 88748-9) 50.8 38.7-80.0 [facility] HospitalLymphocytes (%) (Auto)2018-06-30 06:12:00 * Test Item Value Reference Range Interpretation Comments Lymphocytes (%) (Auto) (test code = 736-9) 39.3 18.0-39.1 H [facility] HospitalMonocytes (%) (Auto)2018-06-30 06:12:00* Test Item Value Reference Range Interpretation Comments Monocytes (%) (Auto) (test code = 5905-5) 7.6 4.4-11.3 [facility] HospitalEosinophils (%) (Auto)2018-06-30 06:12:00 * Test Item Value Reference Range Interpretation Comments Eosinophils (%) (Auto) (test code = 713-8) 1.5 0.0-6.0 [facility] HospitalBasophils (%) (Auto)2018-06-30 06:12:00* Test Item Value Reference Range Interpretation Comments Basophils (%) (Auto) (test code = 706-2) 0.6 0.0-1.0 [facility] HospitalIM GRANULOCYTES %2018-06-30 06:12:00* Test Item Value Reference Range Interpretation Comments IM GRANULOCYTES % (test code = IM GRANULOCYTES %) 0.2 0.0- 1.0 [facility] HospitalNeutrophils # (Auto)2018-06-30 06:12:00* Test Item Value Reference Range Interpretation Comments Neutrophils # (Auto) (test code = 751-8) 2.8 2.1-6.9 [facility] HospitalLymphocytes # (Auto)2018-06-30 06:12:00* Test Item Value Reference Range Interpretation Comments Lymphocytes # (Auto) (test code = 73105-4) 2.1 1.0-3.2 [facility] HospitalMonocytes # (Auto)2018-06-30 06:12:00* Test Item Value Reference Range Interpretation Comments Monocytes # (Auto) (test code = 742-7) 0.4 0.2-0.8 [facility] HospitalEosinophils # (Auto)2018-06-30 06:12:00* Test Item Value Reference Range Interpretation Comments Eosinophils # (Auto) (test code = 711-2) 0.1 0.0-0.4 [facility] HospitalBasophils # (Auto)2018-06-30 06:12:00* Test Item Value Reference Range Interpretation Comments Basophils # (Auto) (test code = 704-7) 0.0 0.0-0.1 [facility] HospitalAbsolute Immature Granulocyte (auto 2018-06-30 06:12:00* Test Item Value Reference Range Interpretation Comments Absolute Immature Granulocyte (auto (cherrie t code = Absolute Immature Granulocyte (auto) 0.01 0-0.1 [facility] HospitalCHEST SINGLE (PORTABLE)2018-06-30 05:46:00 [facility] [address] [place] [address] Patient Name: MICKEY PANIAGUA JR MR #: [id number] : 1945 Age/Sex: 73/M Req #: [id number] Adm Physician: BRIA SALOMON MD Ordered by: CHERISE BARTH NP Report #: [id number] [facility] Room/Bed: [facility] Procedure: [id number] DX/CHEST SINGLE (PORTABLE) Exam Date: 06/30/18 Exam Time: 05 REPORT STATUS: Signed CHEST SINGLE (PORTABLE), 06/30/2018 7:00 AM Technique: CHEST SINGLE (AMY BLE) Comparison: Previous day Clinical history: Weakness Findings: Se e Impression. Chronic right AC joint injury. Impression: 1. Stable cardio mediastinal silhouette. 2. Unchanged mild bibasilar opacities which may reflec t atelectasis or aspiration/infection. 3. No effusion or pneumothorax. Signed by: Dr Kayden Wei MD on 06/30/2018 5:47 AM Dictated By: KAYDEN WEI MD Green scribed By: TATYANA on 06/30/1847 COPY TO: CHERISE BARTH NP CHEST SINGLE (PORTABLE)2018-06-29 13:43:[address] [address] Patient Name: MICKEY PANIAGUA JR MR #: [id number] : 1945 Age/Sex: 73/M Req #: [id number] Adm Physician: BRIA SALOMON MD Ordered by: CHERISE BARTH NP Report #: [id number] Location: [facility] Room[facility]Bed[facility] Procedure: [id number] DX/CHEST SINGLE (PORTABLE) Exam Date: 06/29/18 Exam Time: 1256 REPORT STATUS: Signed EXAM: XR CHEST 1 VIEW DATE: 06/29/2018 11:19 AM INDICATION: Pneumonia COMPARISON: None FINDINGS: Lines and Tubes: None Heart and Mediastinum: Prominent, likely due to portable technique and lung volumes. Lungs and Pleura: Minimal bibasilar opacities. Bones and Soft Tissues: N o acute findings. IMPRESSION: 1. Minimal opacities in the lung bases co uld represent atelectasis or pneumonia. Signed by: Dr. Tasha Gu MD o n 06/29/2018 1:44 PM Dictated By: TASHA GU MD 1344 Transcribed By: TATYANA on 06/29/18 134 4 COPY TO: CHERISE BARTH NP B-Type Natriuretic Heclqbq1598-96-45 12:12:00* Test Item Value Reference Range Interpretation Comments B-Type Natriuretic Peptide (test code = 36561-8) 85.3 0-100 [facility] HospitalTotal Qrmnjdmiw2156-09-53 11:57:00* Test Item Value Reference Range Interpretation Comments Total Bilirubin (test code = 1975-2) 0.5 0.2-1.2 [facility] HospitalAspartate Amino Transf (AST/SGOT) 2018-06-29 11:57:00* Test Item Value Reference Range Interpretation Comments Aspartate Amino Transf (AST/SGOT) (test code = Aspartate Amino Transf (AST/SGOT)) 36 5-34 H [facility] HospitalAlanine Aminotransferase (ALT/SGPT) 2018-06-29 11:57:00* Test Item Value Reference Range Interpretation Comments Alanine Aminotransferase (ALT/SGPT) (test code = 1742-6) 25 0-55 [facility] HospitalTotal Idakbzj9155-22-07 11:57:00* Test Item Value Reference Range Interpretation Comments Total Protein (test code = 2885-2) 6.4 6.5-8.1 L [facility] HospitalAlbumin2018-12-07 11:57:00* Test Item Value Reference Range Interpretation Comments Albumin (test code = 1751-7) 3.3 3.5-5.0 L [facility] HospitalGlobulin2018-12-07 11:57:00* Test Item Value Reference Range Interpretation Comments Globulin (test code = 69931-4) 3.1 2.3-3.5 [facility] HospitalAlbumin/Globulin Gvxrs8131-25-17 11:57:00 * Test Item Value Reference Range Interpretation Comments Albumin/Globulin Ratio (test code = 1759-0) 1.1 0.8-2.0 [facility] HospitalAlkaline Xoyomzyhzvj3742-66-78 11:57:00* Test Item Value Reference Range Interpretation Comments Alkaline Phosphatase (test code = 6768-6) 91 40-150 [facility] WUK9754-46-61 11:55:00* Test Item Value Reference Range Interpretation Comments Urine WBC (test code = 5821-4) NONE 0-5 [facility] DGF9554-70-22 11:55:00* Test Item Value Reference Range Interpretation Comments Urine RBC (test code = 47708-9) 0-5 0-5 [facility] Lbpalnzg2517-47-34 11:55:00* Test Item Value Reference Range Interpretation Comments Urine Bacteria (test code = 17077-1) FEW NONE [facility] Epithelial Ernck7917-94-06 11:55:00 * Test Item Value Reference Range Interpretation Comments Urine Epithelial Cells (test code = 67712-9) MODERATE NONE [facility] HospitalAct[facility] Partial Thromboplast Time 2018-06-29 11:53:00* Test Item Value Reference Range Interpretation Comments Activated Partial Thromboplast Time (test code = 39117-4) 34.7 23.8-35.5 [facility] Qshbf4402-27-15 11:44:00* Test Item Value Reference Range Interpretation Comments Urine Color (test code = 5778-6) YELLOW YELLOW [facility] Osqxutj1857-27-57 11:44:00* Test Item Value Reference Range Interpretation Comments Urine Clarity (test code = 38119-6) SL CLOUDY CLEAR H [facility] Specific Fikswsw7711-07-50 11:44:00 * Test Item Value Reference Range Interpretation Comments Urine Specific [place] (test code = 5811-5) 1.015 1.010-1.02 5 [facility] lR7038-73-15 11:44:00* Test Item Value Reference Range Interpretation Comments Urine pH (test code = 72205-7) 7 5-7 [facility] Leukocyte Dxcnpgih3961-90-23 11:44:00* Test Item Value Reference Range Interpretation Comments Urine Leukocyte Esterase (test code = 5799-2) NEGATIVE NEGATIVE [facility] Owmaehs7836-00-89 11:44:00* Test Item Value Reference Range Interpretation Comments Urine Nitrite (test code = 55847-6) NEGATIVE NEGATIVE [facility] Lkixbml0760-42-06 11:44:00* Test Item Value Reference Range Interpretation Comments Urine Protein (test code = 5804-0) NEGATIVE NEGATIVE [facility] Glucose (UA)2018-06-29 11:44:00* Test Item Value Reference Range Interpretation Comments Urine Glucose (UA) (test code = 2349-9) NEGATIVE NEGATIVE [facility] Udagjfi7385-79-59 11:44:00* Test Item Value Reference Range Interpretation Comments Urine Ketones (test code = 71641-3) NEGATIVE NEGATIVE [facility] Anteomtjmmsu7434-65-98 11:44:00* Test Item Value Reference Range Interpretation Comments Urine Urobilinogen (test code = 18712-7) 0.2 0.2-1 [facility] Lsuqvcstk9745-50-95 11:44:00* Test Item Value Reference Range Interpretation Comments Urine Bilirubin (test code = 1978-6) NEGATIVE NEGATIVE [facility] Pcmzz9940-81-53 11:44:00* Test Item Value Reference Range Interpretation Comments Urine Blood (test code = 33454-9) NEGATIVE NEGATIVE [facility] B[facility]IN KK5731-91-77 16:04:00 [facility] [address] [address] Patient Name: MICKEY PANIAGUA JR MR #: [id number] : [birth year] Age/Sex: 73/M Req #: [id number] Adm Physician: Ordered by: BRIA SALOMON MD Report #: [id number] Location: CT Room/Bed: Procedure: [id number] CT/CT BRAIN WO Exam Date: 06/22/18 Exam Time: 1527 REPORT STATUS: Signed Exam: Head CT without contrast History: Trauma, headache Comparison studies: Brain MR Is of 04/11/2018 and 11/14/2016 Technique: Axial images were obtained from the skull base to the vertex. Coronal and sagittal images reconstructed from t he axial data. Dose modulation, iterative reconstruction, and/or weight based adjustment of the mA/kV was utilized to reduce the radiation dose to as low a s reasonably achievable. Radiation dose: Total DLP: 921 mGy*cm. E stimated effective dose: DLP x 0.015 Intravenous contrast: None Findings : Scalp: No abnormalities. Bones: No fractures, blastic or lytic lesions. Brain sulci: Appropriate for patient's age. Ventricles: Mild behaviorist y dilatation. No hydrocephalus.. Extra-axial spaces: No masses, no fluid colle ction. Parenchyma: No mass, acute hemorrhage or acute or chronic cortic al insults. No abnormal densities are identified. Signal changes in the suprat entorial white matter, along the hippocampi and in the right amygdala as seen on the prior MRIs MRIs are beyond resolution of CT imaging. Sellar/supras ellar region: No abnormalities. Craniocervical junction: Patent foramen magnum . No Chiari one malformation. Incidental findings: Atherosclerotic calci fications in the carotid siphons. Incidental finds: Nonspecific inflammatory m ucosal thickening in the bilateral sphenoid sinuses and partially imaged right maxillary sinus. IMPRESSION: No acute abnormalities. Signed by: Dr. Sandra Arroyo M.D. on 06/22/2018 4:16 PM Dictated By: SANDRA ESCALERA MD 15 Transcribe d By: TATYANA on 06/22/181615 COPY TO: BRIA SALOMON MD Prothrombin Gqje7105-09-18 05:54:00* Test Item Value Reference Range Interpretation Comments Prothrombin Time (test code = 5902-2) 22.4 11.9-14.5 H [facility] HospitalProthromb Time International Ratio 2018-04-14 05:54:00* Test Item Value Reference Range Interpretation Comments Prothromb Time International Ratio (test code = 6301-6) 1.81 Oral Anticoagulant Therapy INR Values:1. Low Intensity Therapy 1.5 - 2.02 . Moderate Intensity Therapy 2.0 - 3.03. High Intensity Therapy(1) 2.5 - 3. 54. High Intensity Therapy(2) 3.0 - 4.05. Panic Value INR > 5.0 [facility] Plasma Exykuw1630-11-22 05:19:00* Test Item Value Reference Range Interpretation Comments Rapid Plasma Reagin (test code = 04485-6) Non Reactive Non Reactive Performed at: - Lab[address] [id number] Director: Evin Mitchell MD, Phone: [phone]'s Medical Center [facility] Plasma Rpavny6069-01-99 05:19:00* Test Item Value Reference Range Interpretation Comments Rapid Plasma Reagin (test code = 99381-4) Non Reactive Non Reactive Performed at: [address] [id number] Director: Evin Mitchell MD, Phone: [phone] Memorial HospitalRapid Plasma Lpmsak1315-97-93 05:19:00* Test Item Value Reference Range Interpretation Comments Rapid Plasma Reagin (test code = 06577-5) Non Reactive Non Reactive Performed at: [address] [id number] Director: Evin Mitchell MD, Phone: [phone] Memorial HospitalRapid Plasma Vdooyc3535-95-99 05:19:00* Test Item Value Reference Range Interpretation Comments Rapid Plasma Reagin (test code = 82209-5) Non Reactive Non Reactive Performed at: [address] [id number] Director: Evin Mitchell MD, Phone: [phone] [facility] HospitalRad Plasma Alsgkb8666-30-25 05:19:00* Test Item Value Reference Range Interpretation Comments Rapid Plasma Reagin (test code = 98956-5) Non Reactive Non Reactive Performed at: [address] [id number] Director: Evin Mitchell MD, Phone: [phone] Memorial HospitalVitamin B12 Bkzhi4991-44-03 14:34:00* Test Item Value Reference Range Interpretation Comments Vitamin B12 Level (test code = 35122-7) 1560 213-816 H [facility] HospitalVitamin B12 Lwbla2896-18-49 14:34:00* Test Item Value Reference Range Interpretation Comments Vitamin B12 Level (test code = 43864-4) 1560 213-816 H [facility] HospitalVitamin B12 Pcmnq4969-01-54 14:34:00* Test Item Value Reference Range Interpretation Comments Vitamin B12 Level (test code = 40952-8) 1560 213-816 H [facility] HospitalVitamin B12 Afpij0637-38-72 14:34:00* Test Item Value Reference Range Interpretation Comments Vitamin B12 Level (test code = 78751-7) 1560 213-816 H [facility] HospitalVitamin B12 Usmkk0361-20-18 14:34:00* Test Item Value Reference Range Interpretation Comments Vitamin B12 Level (test code = 61520-4) 1560 213-816 H [facility] HospitalFree Thyroxine Xqlqb3600-87-18 14:22:00* Test Item Value Reference Range Interpretation Comments Free Thyroxine Index (test code = 50160-7) 2.0363 1.4-3.8 [facility] HospitalThyroxine (T4)2018-04-13 14:22:00* Test Item Value Reference Range Interpretation Comments Thyroxine (T4) (test code = 3026-2) 5.86 4.5-10.9 [facility] HospitalTriiodothyronine (T3) Ayvqxf2213-56-40 14:22:00* Test Item Value Reference Range Interpretation Comments Triiodothyronine (T3) Uptake (test code = 3050-2) 34.75 22.5 -37.0 [facility] HospitalThyroid Stimulating Hormone (TSH) 2018-04-13 14:22:00* Test Item Value Reference Range Interpretation Comments Thyroid Stimulating Hormone (TSH) (test code = 14387-2) 2.267 0.350-4.940 [facility] HospitalFr Thyroxine Ltjwg7591-19-90 14:22:00* Test Item Value Reference Range Interpretation Comments Free Thyroxine Index (test code = 24979-5) 2.0363 1.4-3.8 [facility] HospitalThyroxine (T4)2018-04-13 14:22:00* Test Item Value Reference Range Interpretation Comments Thyroxine (T4) (test code = 3026-2) 5.86 4.5-10.9 [facility] HospitalTriiodothyronine (T3) Dybdst4859-62-74 14:22:00* Test Item Value Reference Range Interpretation Comments Triiodothyronine (T3) Uptake (test code = 3050-2) 34.75 22.5 -37.0 [facility] HospitalThyroid Stimulating Hormone (TSH) 2018-04-13 14:22:00* Test Item Value Reference Range Interpretation Comments Thyroid Stimulating Hormone (TSH) (test code = 90149-8) 2.267 0.350-4.940 [facility] HospitalFree Thyroxine Abbcc2855-42-51 14:22:00* Test Item Value Reference Range Interpretation Comments Free Thyroxine Index (test code = 67377-8) 2.0363 1.4-3.8 [facility] HospitalThyroxine (T4)2018-04-13 14:22:00* Test Item Value Reference Range Interpretation Comments Thyroxine (T4) (test code = 3026-2) 5.86 4.5-10.9 [facility] HospitalTriiodothyronine (T3) Vvwhsd2337-39-44 14:22:00* Test Item Value Reference Range Interpretation Comments Triiodothyronine (T3) Uptake (test code = 3050-2) 34.75 22.5 -37.0 [facility] HospitalThyroid Stimulating Hormone (TSH) 2018-04-13 14:22:00* Test Item Value Reference Range Interpretation Comments Thyroid Stimulating Hormone (TSH) (test code = 45557-6) 2.267 0.350-4.940 [facility] HospitalFr Thyroxine Pllsw6253-71-10 14:22:00* Test Item Value Reference Range Interpretation Comments Free Thyroxine Index (test code = 59342-9) 2.0363 1.4-3.8 [facility] HospitalThyroxine (T4)2018-04-13 14:22:00* Test Item Value Reference Range Interpretation Comments Thyroxine (T4) (test code = 3026-2) 5.86 4.5-10.9 [facility] HospitalTriiodothyronine (T3) Zrnuwb1678-06-25 14:22:00* Test Item Value Reference Range Interpretation Comments Triiodothyronine (T3) Uptake (test code = 3050-2) 34.75 22.5 -37.0 [facility] HospitalThyroid Stimulating Hormone (TSH) 2018-04-13 14:22:00* Test Item Value Reference Range Interpretation Comments Thyroid Stimulating Hormone (TSH) (test code = 97795-8) 2.267 0.350-4.940 [facility] HospitalFree Thyroxine Zagin7556-56-82 14:22:00* Test Item Value Reference Range Interpretation Comments Free Thyroxine Index (test code = 00498-5) 2.0363 1.4-3.8 [facility] HospitalThyroxine (T4)2018-04-13 14:22:00* Test Item Value Reference Range Interpretation Comments Thyroxine (T4) (test code = 3026-2) 5.86 4.5-10.9 [facility] HospitalTriiodothyronine (T3) Jgrpiv3177-96-43 14:22:00* Test Item Value Reference Range Interpretation Comments Triiodothyronine (T3) Uptake (test code = 3050-2) 34.75 22.5 -37.0 [facility] HospitalThyroid Stimulating Hormone (TSH) 2018-04-13 14:22:00* Test Item Value Reference Range Interpretation Comments Thyroid Stimulating Hormone (TSH) (test code = 49263-0) 2.267 0.350-4.940 [facility] HospitalBlood Vjpcvkg9993-89-65 08:30:00* Test Item Value Reference Range Interpretation Comments Blood Culture (test code = 69010459) NO GROWTH AFTER 5 DAYS, FINAL REPORT [facility] Lsrpkzi1117-39-98 08:30:00* Test Item Value Reference Range Interpretation Comments Blood Culture (test code = 22388056) NO GROWTH AFTER 5 DAYS, FINAL REPORT [facility] HospitalMRI BRAIN GQ3158-69-97 13:31:00 [facility] [address] [place] [address] Patient Name: MICKEY PANIAGUA JR MR #: [id number] : 1945 Age/Sex: 72/M Req #: [id number] Adm Physician: BRIA SALOMON MD Ordered by: BRIA SALOMON MD Report #: [id number] Loca tion: MED/SURG3 Room/Bed: [facility] [place] Procedure: [id number] MRI/MRI BRAIN WO Exam Date: Exam Time: T STATUS: Signed Examination: MRI BRAIN WITHOUT CONTRAST History: 72-year-o ld male with weakness, difficulty ambulating and fall yesterday. Comparison studies: None Technique: Sagittal T2; axial DWI, FLAIR, GRE or SWI, T1, Coronal FLAIR. Intravenous contrast: None Findings: Scalp: No abnorm al signal. No masses. Bone marrow: Normal in signal intensity. Brain vol ume: Adequate for age. No volume loss. Ventricles: Normal in size and configu ration. No hydrocephalus. Extra-axial spaces: No abnormalities. Parenchyma: There are subtle confluent areas of T2/FLAIR hyperintensity in the periventricular and subcortical white matter, nonspecific. No masses, hemo rrhage, or acute vascular insults. Suprasellar and sellar region: No abnorm alities. Craniocervical junction: No abnormalities. The foramen magnum is conner nt. No Chiari malformations. Vessels: Normal flow-voids in the arteries and sinuses. Additional findings:None. IMPRESSION: 1. No acute intra cranial abnormalities. 2. Mild chronic microvascular ischemic change. Signed by: Dr. Leola Wiley M.D. on 04/11/2018 1:33 PM Dictated By: LEOLA MONTANA MD 1333 Transcribed By: TATYANA on 04/11/18 1333 COPY TO: BRIA JACKSON MD Blood Tiignbo2059-67-31 10:58:00* Test Item Value Reference Range Interpretation Comments Blood Culture (test code = 600-7) Organism: STAPHYLOCOCCUS SP COAG NEG [facility] HospitalBlood Yvrrqml1939-59-20 10:58:00* Test Item Value Reference Range Interpretation Comments Blood Culture (test code = 600-7) Organism: STAPHYLOCOCCUS SP COAG NEG [facility] HospitalBlood Xwpkrcu9754-90-65 10:58:00* Test Item Value Reference Range Interpretation Comments Blood Culture (test code = 600-7) Organism: STAPHYLOCOCCUS SP COAG NEG [facility] HospitalBlood Beddsnn8718-25-88 10:58:00* Test Item Value Reference Range Interpretation Comments Blood Culture (test code = 600-7) Organism: STAPHYLOCOCCUS SP COAG NEG [facility] Dibgbmf4626-58-66 10:58:00* Test Item Value Reference Range Interpretation Comments Blood Culture (test code = 600-7) Organism: STAPHYLOCOCCUS SP COAG NEG [facility] HospitalLactic Acid Ibdyh9883-34-60 13:09:00* Test Item Value Reference Range Interpretation Comments Lactic Acid Level (test code = Lactic Acid Level) 10.0 4.5- 19.8 [facility] HospitalLactic Acid Tdlbl9108-31-97 13:09:00* Test Item Value Reference Range Interpretation Comments Lactic Acid Level (test code = Lactic Acid Level) 10.0 4.5- 19.8 [facility] HospitalB-Type Natriuretic Bdapasm3213-88-25 09:03:00* Test Item Value Reference Range Interpretation Comments B-Type Natriuretic Peptide (test code = 28894-6) 56.2 0-100 [facility] HospitalCreatine Kinase LP0810-87-55 09:01:00* Test Item Value Reference Range Interpretation Comments Creatine Kinase MB (test code = 04242-8) 0.70 0-5.0 [facility] HospitalTroponin M2388-54-29 09:01:00* Test Item Value Reference Range Interpretation Comments Troponin I (test code = CYH7948) -0.001 0-0.300 [facility] HospitalUrine SMK1066-90-94 09:00:00* Test Item Value Reference Range Interpretation Comments Urine WBC (test code = 5821-4) 6-10 0-5 H [facility] HospitalUrine KYQ3810-25-54 09:00:00* Test Item Value Reference Range Interpretation Comments Urine RBC (test code = 13314-6) 0-5 0-5 [facility] HospitalUrine Mhpsdcck7510-09-88 09:00:00* Test Item Value Reference Range Interpretation Comments Urine Bacteria (test code = 31827-2) NONE NONE [facility] HospitalUrine Epithelial Xaoeu7424-29-44 09:00:00 * Test Item Value Reference Range Interpretation Comments Urine Epithelial Cells (test code = 51300-5) NONE NONE [facility] Wxlox8175-06-52 08:55:00* Test Item Value Reference Range Interpretation Comments Sodium Level (test code = 2951-2) 139 136-145 [facility] HospitalPotassium Dzgxi2147-62-13 08:55:00* Test Item Value Reference Range Interpretation Comments Potassium Level (test code = 2823-3) 3.7 3.5-5.1 [facility] HospitalChloride Iyzxv9224-76-36 08:55:00* Test Item Value Reference Range Interpretation Comments Chloride Level (test code = 2075-0) 103 98-107 [facility] HospitalCarbon Dioxide Znyvd2772-59-76 08:55:00* Test Item Value Reference Range Interpretation Comments Carbon Dioxide Level (test code = 2028-9) 28 22-29 [facility] HospitalAnion Muh5809-23-45 08:55:00* Test Item Value Reference Range Interpretation Comments Anion Gap (test code = 88910-2) 11.7 8-16 [facility] HospitalBlood Urea Xbpopgvq3671-83-50 08:55:00* Test Item Value Reference Range Interpretation Comments Blood Urea Nitrogen (test code = 3094-0) 22 7-26 [facility] HospitalCreatinine2018-09-16 08:55:00* Test Item Value Reference Range Interpretation Comments Creatinine (test code = 2160-0) 1.15 0.72-1.25 [facility] HospitalBUN/Creatinine Hhqhd9103-95-15 08:55:00* Test Item Value Reference Range Interpretation Comments BUN/Creatinine Ratio (test code = 3097-3) 19 6-25 [facility] HospitalEstimat Glomerular Filtration Rate 2018-04-08 08:55:00* Test Item Value Reference Range Interpretation Comments Estimat Glomerular Filtration Rate (test code = 333924506) 60- >60 Ranges were taken from the National Kidney Disease Education Program and the [facility] southeasternal Kidney Foundation literature.Reference ranges:60 or greater: Pvecem90-94 ( for 3 consecutive months): Chronic kidney disease 15 or less: Kidney failureEastland Memorial HospitalGlucose Iqsai1828-69-11 08:55:00* Test Item Value Reference Range Interpretation Comments Glucose Level (test code = YNX3500) 99 74-118 [facility] HospitalCalcium Xkhqc0378-37-45 08:55:00* Test Item Value Reference Range Interpretation Comments Calcium Level (test code = 04109-0) 8.7 8.4-10.2 [facility] HospitalMagnesium Fudop0395-04-07 08:55:00* Test Item Value Reference Range Interpretation Comments Magnesium Level (test code = 07840-9) 1.7 1.3-2.1 [facility] HospitalTotal Roxldjoaq6774-00-81 08:55:00* Test Item Value Reference Range Interpretation Comments Total Bilirubin (test code = 1975-2) 0.4 0.2-1.2 [facility] HospitalAspartate Amino Transf (AST/SGOT) 2018-04-08 08:55:00* Test Item Value Reference Range Interpretation Comments Aspartate Amino Transf (AST/SGOT) (test code = Aspartate Amino Transf (AST/SGOT)) 25 5-34 [facility] HospitalAlanine Aminotransferase (ALT/SGPT) 2018-04-08 08:55:00* Test Item Value Reference Range Interpretation Comments Alanine Aminotransferase (ALT/SGPT) (test code = 1742-6) 16 0-55 [facility] HospitalTotal Thxegpx3604-04-89 08:55:00* Test Item Value Reference Range Interpretation Comments Total Protein (test code = 2885-2) 6.0 6.5-8.1 L [facility] HospitalAlbumin2018-09-16 08:55:00* Test Item Value Reference Range Interpretation Comments Albumin (test code = 1751-7) 3.2 3.5-5.0 L [facility] HospitalGlobulin2018-09-16 08:55:00* Test Item Value Reference Range Interpretation Comments Globulin (test code = 16184-9) 2.8 2.3-3.5 [facility] HospitalAlbumin/Globulin Srxuv3192-10-05 08:55:00 * Test Item Value Reference Range Interpretation Comments Albumin/Globulin Ratio (test code = 1759-0) 1.1 0.8-2.0 [facility] HospitalAlkaline Anscedsibiq9398-57-51 08:55:00* Test Item Value Reference Range Interpretation Comments Alkaline Phosphatase (test code = 6768-6) 77 40-150 [facility] HospitalCreatine Bdoyyx0751-49-67 08:55:00* Test Item Value Reference Range Interpretation Comments Creatine Kinase (test code = 2157-6) 68 30-200 [facility] HospitalD-Dimer Quantitative (PE/DVT)2018-04-08 08:53:00* Test Item Value Reference Range Interpretation Comments D-Dimer Quantitative (PE/DVT) (test code = 08666-9) 0.68 0. 00-0.45 H [facility] HospitalD-Dimer Quantitative (PE/DVT)2018-04-08 08:53:00* Test Item Value Reference Range Interpretation Comments D-Dimer Quantitative (PE/DVT) (test code = 13600-1) 0.68 0. 00-0.45 H [facility] HospitalD-Dimer Quantitative (PE/DVT)2018-04-08 08:53:00* Test Item Value Reference Range Interpretation Comments D-Dimer Quantitative (PE/DVT) (test code = 02398-7) 0.68 0. 00-0.45 H [facility] HospitalD-Dimer Quantitative (PE/DVT)2018-04-08 08:53:00* Test Item Value Reference Range Interpretation Comments D-Dimer Quantitative (PE/DVT) (test code = 34243-4) 0.68 0. 00-0.45 H [facility] HospitalD-Dimer Quantitative (PE/DVT)2018-04-08 08:53:00* Test Item Value Reference Range Interpretation Comments D-Dimer Quantitative (PE/DVT) (test code = 79003-6) 0.68 0. 00-0.45 H [facility] HospitalUrine Xkrag5696-52-30 08:52:00* Test Item Value Reference Range Interpretation Comments Urine Color (test code = 5778-6) YELLOW YELLOW [facility] HospitalUrine Yrchasw4947-11-53 08:52:00* Test Item Value Reference Range Interpretation Comments Urine Clarity (test code = 35535-6) CLEAR CLEAR [facility] Specific Whimngs6298-12-28 08:52:00 * Test Item Value Reference Range Interpretation Comments Urine Specific [place] (test code = 5811-5) 1.020 1.010-1.02 5 [facility] HospitalUrine oT1612-42-60 08:52:00* Test Item Value Reference Range Interpretation Comments Urine pH (test code = 51700-1) 6 5-7 [facility] Leukocyte Tlqinstj8743-36-17 08:52:00* Test Item Value Reference Range Interpretation Comments Urine Leukocyte Esterase (test code = 5799-2) NEGATIVE NEGATIVE [facility] Ejleebi2200-93-77 08:52:00* Test Item Value Reference Range Interpretation Comments Urine Nitrite (test code = 34199-2) NEGATIVE NEGATIVE [facility] HospitalUrine Cyiizly2547-40-62 08:52:00* Test Item Value Reference Range Interpretation Comments Urine Protein (test code = 5804-0) NEGATIVE NEGATIVE [facility] HospitalUrine Glucose (UA)2018-04-08 08:52:00* Test Item Value Reference Range Interpretation Comments Urine Glucose (UA) (test code = 2349-9) NEGATIVE NEGATIVE [facility] HospitalUrine Flnhqsj2189-41-40 08:52:00* Test Item Value Reference Range Interpretation Comments Urine Ketones (test code = 70412-4) NEGATIVE NEGATIVE [facility] HospitalUrine Fiqbibyhjocg4265-90-89 08:52:00* Test Item Value Reference Range Interpretation Comments Urine Urobilinogen (test code = 36114-7) 0.2 0.2-1 [facility] HospitalUrine Utwsriwpz6148-57-93 08:52:00* Test Item Value Reference Range Interpretation Comments Urine Bilirubin (test code = 1978-6) NEGATIVE NEGATIVE [facility] HospitalUrine Hixug1217-47-76 08:52:00* Test Item Value Reference Range Interpretation Comments Urine Blood (test code = 50695-4) NEGATIVE NEGATIVE [facility] HospitalWhite Blood Xmuic6513-50-29 08:36:00* Test Item Value Reference Range Interpretation Comments White Blood Count (test code = 6690-2) 5.28 4.8-10.8 [facility] HospitalRed Blood Rodhj7749-42-35 08:36:00* Test Item Value Reference Range Interpretation Comments Red Blood Count (test code = 789-8) 4.60 4.3-5.7 [facility] HospitalHemoglobin2018-09-16 08:36:00* Test Item Value Reference Range Interpretation Comments Hemoglobin (test code = 40545-8) 13.3 14.0-18.0 L [facility] HospitalHematocrit2018-09-16 08:36:00* Test Item Value Reference Range Interpretation Comments Hematocrit (test code = 4544-3) 41.3 38.2-49.6 [facility] HospitalMean Corpuscular Fqkspe0296-85-72 08:36:00* Test Item Value Reference Range Interpretation Comments Mean Corpuscular Volume (test code = 787-2) 89.8 81-99 [facility] HospitalMean Corpuscular Yydezasemx9711-32-42 08:36:00* Test Item Value Reference Range Interpretation Comments Mean Corpuscular Hemoglobin (test code = 785-6) 28.9 28-32 [facility] HospitalMean Corpuscular Hemoglobin Concent 2018-04-08 08:36:00* Test Item Value Reference Range Interpretation Comments Mean Corpuscular Hemoglobin Concent (test code = 786-4) 32.2 31-35 [facility] HospitalRed Cell Distribution Njgcb3507-58-04 08:36:00* Test Item Value Reference Range Interpretation Comments Red Cell Distribution Width (test code = 52644-8) 16.7 11.7 -14.4 H [facility] HospitalPlatelet Wfuqp0339-66-90 08:36:00* Test Item Value Reference Range Interpretation Comments Platelet Count (test code = 777-3) 98 140-360 L [facility] HospitalNeutrophils (%) (Auto)2018-04-08 08:36:00 * Test Item Value Reference Range Interpretation Comments Neutrophils (%) (Auto) (test code = 09630-9) 53.0 38.7-80.0 [facility] HospitalLymphocytes (%) (Auto)2018-04-08 08:36:00 * Test Item Value Reference Range Interpretation Comments Lymphocytes (%) (Auto) (test code = 736-9) 37.9 18.0-39.1 [facility] HospitalMonocytes (%) (Auto)2018-04-08 08:36:00* Test Item Value Reference Range Interpretation Comments Monocytes (%) (Auto) (test code = 5905-5) 7.2 4.4-11.3 [facility] HospitalEosinophils (%) (Auto)2018-04-08 08:36:00 * Test Item Value Reference Range Interpretation Comments Eosinophils (%) (Auto) (test code = 713-8) 1.5 0.0-6.0 [facility] HospitalBasophils (%) (Auto)2018-04-08 08:36:00* Test Item Value Reference Range Interpretation Comments Basophils (%) (Auto) (test code = 706-2) 0.4 0.0-1.0 [facility] HospitalIM GRANULOCYTES %2018-04-08 08:36:00* Test Item Value Reference Range Interpretation Comments IM GRANULOCYTES % (test code = IM GRANULOCYTES %) 0.0 0.0- 1.0 [facility] HospitalNeutrophils # (Auto)2018-04-08 08:36:00* Test Item Value Reference Range Interpretation Comments Neutrophils # (Auto) (test code = 751-8) 2.8 2.1-6.9 [facility] HospitalLymphocytes # (Auto)2018-04-08 08:36:00* Test Item Value Reference Range Interpretation Comments Lymphocytes # (Auto) (test code = 48621-5) 2.0 1.0-3.2 [facility] HospitalMonocytes # (Auto)2018-04-08 08:36:00* Test Item Value Reference Range Interpretation Comments Monocytes # (Auto) (test code = 742-7) 0.4 0.2-0.8 [facility] HospitalEosinophils # (Auto)2018-04-08 08:36:00* Test Item Value Reference Range Interpretation Comments Eosinophils # (Auto) (test code = 711-2) 0.1 0.0-0.4 [facility] HospitalBasophils # (Auto)2018-04-08 08:36:00* Test Item Value Reference Range Interpretation Comments Basophils # (Auto) (test code = 704-7) 0.0 0.0-0.1 [facility] HospitalAbsolute Immature Granulocyte (auto 2018-04-08 08:36:00* Test Item Value Reference Range Interpretation Comments Absolute Immature Granulocyte (auto (cherrie t code = Absolute Immature Granulocyte (auto) 0 0-0.1 [facility] HospitalCHEST SINGLE (PORTABLE)2018-04-08 08:35:00 [place] [address] Patient Name: MICKEY PANIAGUA JR MR #: [id number] : 1945 Age/Sex: 72/M Req #: [id number] Adm Physician: Ordered by: MERY LEGGETT MD Report #: [id number] Location: ER Room/Bed: Procedure: [id number] DX/CHEST SINGLE (PORTABLE) Exam Date: Exam Time: REPORT STATUS: Signed EXAMINATION: CHEST SINGLE (PORTABLE) COMPARISON: Chest x-ray 018 INDICATION: Chest pain, weakness DISCUSSION: Frontal view o f the chest obtained [place] 0824 hours. HEART AND MEDIASTINUM: Stable cardiome susan and aortic ectasia LINES: None. LUNGS: Lungs are well-inflate d. Coarse interstitial markings at the base of the left lung are stable. No pn eumonia or pulmonary edema. PLEURA: No pleural effusion or pneumothorax. BONES AND SOFT TISSUES: No focal osseous lesion. The soft tissues are olamide l. IMPRESSION: Stable cardiomegaly. Prominent left basilar interstiti um is similar suggestive of chronic atelectasis or scarring. Signed by: Davie Patiño MD on 04/08/2018 8:37 AM Dictated By: PAOLA ESPOSITO MD 6 Transcr ibed By: TATYANA on 04/08/18 0837 COPY TO: MERY LEGGETT MD Sodium Pkaqa0640-27-40 09:53:00* Test Item Value Reference Range Interpretation Comments Sodium Level (test code = 2951-2) 143 136-145 [facility] HospitalPotassium Smwjy9864-83-90 09:53:00* Test Item Value Reference Range Interpretation Comments Potassium Level (test code = 2823-3) 4.0 3.5-5.1 [facility] HospitalChloride Ybssa3892-06-50 09:53:00* Test Item Value Reference Range Interpretation Comments Chloride Level (test code = 2075-0) 106 98-107 [facility] HospitalCarbon Dioxide Ugqoq7315-34-02 09:53:00* Test Item Value Reference Range Interpretation Comments Carbon Dioxide Level (test code = 2028-9) 28 22-29 [facility] HospitalAnion Men5167-92-97 09:53:00* Test Item Value Reference Range Interpretation Comments Anion Gap (test code = 24962-8) 13.0 8-16 [facility] HospitalBlood Urea Rkzimima9841-50-60 09:53:00* Test Item Value Reference Range Interpretation Comments Blood Urea Nitrogen (test code = 3094-0) 16 7-26 [facility] HospitalCreatinine2018-07-05 09:53:00* Test Item Value Reference Range Interpretation Comments Creatinine (test code = 2160-0) 1.13 0.72-1.25 [facility] HospitalBUN/Creatinine Mntlw5658-19-74 09:53:00* Test Item Value Reference Range Interpretation Comments BUN/Creatinine Ratio (test code = 3097-3) 14 6-25 [facility] HospitalEstimat Glomerular Filtration Rate 2018-01-25 09:53:00* Test Item Value Reference Range Interpretation Comments Estimat Glomerular Filtration Rate (test code = 77093-3) 60- >60 Ranges were taken from the National Kidney Disease Education Program and the [facility] Kidney Foundation literature.Reference ranges:60 or greater: Nbuvfq77-62 ( for 3 consecutive months): Chronic kidney disease 15 or less: Kidney failureEastland Memorial HospitalGlucose Lmbzs9576-09-91 09:53:00* Test Item Value Reference Range Interpretation Comments Glucose Level (test code = EJC3573) 90 74-118 [facility] HospitalCalcium Xpqpi3856-36-43 09:53:00* Test Item Value Reference Range Interpretation Comments Calcium Level (test code = 95433-2) 9.0 8.4-10.2 [facility] HospitalProthrombin Lyhs1375-93-01 09:49:00* Test Item Value Reference Range Interpretation Comments Prothrombin Time (test code = 5902-2) 13.5 11.9-14.5 [facility] HospitalProthromb Time International Ratio 2018-01-25 09:49:00* Test Item Value Reference Range Interpretation Comments Prothromb Time International Ratio (test code = 6301-6) 1.11 Oral Anticoagulant Therapy INR Values:1. Low Intensity Therapy 1.5 - 2.02 . Moderate Intensity Therapy 2.0 - 3.03. High Intensity Therapy(1) 2.5 - 3. 54. High Intensity Therapy(2) 3.0 - 4.05. Panic Value INR > 5.0 [facility] HospitalActivated Partial Thromboplast Time 2018-01-25 09:49:00* Test Item Value Reference Range Interpretation Comments Activated Partial Thromboplast Time (test code = 55872-6) 23.9 23.8-35.5 [facility] HospitalActivated Partial Thromboplast Time 2018-01-25 09:49:00* Test Item Value Reference Range Interpretation Comments Activated Partial Thromboplast Time (test code = 47980-7) 23.9 23.8-35.5 [facility] HospitalWhite Blood Qifax3655-66-47 11:36:00* Test Item Value Reference Range Interpretation Comments White Blood Count (test code = 6690-2) 8.14 4.8-10.8 [facility] HospitalRed Blood Qwszj0220-91-75 11:36:00* Test Item Value Reference Range Interpretation Comments Red Blood Count (test code = 789-8) 4.22 4.3-5.7 L [facility] HospitalHemoglobin2018-06-29 11:36:00* Test Item Value Reference Range Interpretation Comments Hemoglobin (test code = 52760-7) 13.2 14.0-18.0 L [facility] HospitalHematocrit2018-06-29 11:36:00* Test Item Value Reference Range Interpretation Comments Hematocrit (test code = 4544-3) 40.2 38.2-49.6 [facility] HospitalMean Corpuscular Onjdht4908-73-52 11:36:00* Test Item Value Reference Range Interpretation Comments Mean Corpuscular Volume (test code = 787-2) 95.3 81-99 [facility] HospitalMean Corpuscular Hsqbqfphnw2414-74-28 11:36:00* Test Item Value Reference Range Interpretation Comments Mean Corpuscular Hemoglobin (test code = 785-6) 31.3 28-32 [facility] Hem[facility] Concent 2018-01-19 11:36:00* Test Item Value Reference Range Interpretation Comments Mean Corpuscular Hemoglobin Concent (test code = 786-4) 32.8 31-35 [facility] HospitalRed Cell Distribution Oresb2345-10-96 11:36:00* Test Item Value Reference Range Interpretation Comments Red Cell Distribution Width (test code = 94597-3) 13.2 11.7 -14.4 [facility] HospitalPlatelet Mnmaj8253-97-06 11:36:00* Test Item Value Reference Range Interpretation Comments Platelet Count (test code = 777-3) 141 140-360 [facility] HospitalNeutrophils (%) (Auto)2018-01-19 11:36:00 * Test Item Value Reference Range Interpretation Comments Neutrophils (%) (Auto) (test code = 33282-9) 68.4 38.7-80.0 [facility] HospitalLymphocytes (%) (Auto)2018-01-19 11:36:00 * Test Item Value Reference Range Interpretation Comments Lymphocytes (%) (Auto) (test code = 736-9) 25.2 18.0-39.1 [facility] HospitalMonocytes (%) (Auto)2018-01-19 11:36:00* Test Item Value Reference Range Interpretation Comments Monocytes (%) (Auto) (test code = 5905-5) 4.7 4.4-11.3 [facility] HospitalEosinophils (%) (Auto)2018-01-19 11:36:00 * Test Item Value Reference Range Interpretation Comments Eosinophils (%) (Auto) (test code = 713-8) 1.2 0.0-6.0 [facility] HospitalBasophils (%) (Auto)2018-01-19 11:36:00* Test Item Value Reference Range Interpretation Comments Basophils (%) (Auto) (test code = 706-2) 0.4 0.0-1.0 [facility] HospitalIM GRANULOCYTES %2018-01-19 11:36:00* Test Item Value Reference Range Interpretation Comments IM GRANULOCYTES % (test code = IM GRANULOCYTES %) 0.1 0.0- 1.0 [facility] HospitalNeutrophils # (Auto)2018-01-19 11:36:00* Test Item Value Reference Range Interpretation Comments Neutrophils # (Auto) (test code = 751-8) 5.6 2.1-6.9 [facility] HospitalLymphocytes # (Auto)2018-01-19 11:36:00* Test Item Value Reference Range Interpretation Comments Lymphocytes # (Auto) (test code = 85961-6) 2.1 1.0-3.2 [facility] HospitalMonocytes # (Auto)2018-01-19 11:36:00* Test Item Value Reference Range Interpretation Comments Monocytes # (Auto) (test code = 742-7) 0.4 0.2-0.8 [facility] HospitalEosinophils # (Auto)2018-01-19 11:36:00* Test Item Value Reference Range Interpretation Comments Eosinophils # (Auto) (test code = 711-2) 0.1 0.0-0.4 [facility] HospitalBasophils # (Auto)2018-01-19 11:36:00* Test Item Value Reference Range Interpretation Comments Basophils # (Auto) (test code = 704-7) 0.0 0.0-0.1 [facility] HospitalAbsolute Immature Granulocyte (auto 2018-01-19 11:36:00* Test Item Value Reference Range Interpretation Comments Absolute Immature Granulocyte (auto (cherrie t code = Absolute Immature Granulocyte (auto) 0.01 0-0.1 [facility] HospitalCHEST SINGLE (PORTABLE)2018-01-09 12:07:00 [place] [address] Patient Name: MICKEY PANIAGUA JR MR #: [id number] : 1945 Age/Sex: 72/M Req #: [id number] Adm Physician: Ordered by: SOILA MARTÍNEZ MD Report #: [id number] Location: OR Room/Bed: Procedure: [id number] DX/CHEST SINGLE (AMY BLE) Exam Date: 01/09/18 Exam Time: 1130 REPOR T STATUS: Signed PROCEDURE: CHEST SINGLE (PORTABLE) COMPARISON: 11/17/2017. INDICATIONS: PRE-OPERATIVE CHEST X-RAY FOR CYSTOSCOPY FINDINGS: Lungs are well-inflated. Minimal reticular opacity in the left lung base grea ter than right lung base, which may reflect age-related fibrotic changes. Int erval resolution of multifocal opacities relative to 11/17/2017, without new a irspace consolidation. Stable cardiomediastinal contour with tortuosity of the thoracic aorta. No overt pulmonary edema. No acute osseous abnorma lity. Chronic right acromioclavicular separation unchanged. CONCLUSION: No acute cardiopulmonary abnormality. Dictated by: Sandra Ford M.D. on 01/09/2018 at 12:07 Electronically approved by: Sandra Ford M.D. on 01/09/2018 at 12:07 Dictated By: SANDRA FORD MD Electronica lly Signed By: SANDRA FORD MD on 01/09/18 120 Transcribed By: KAISER on 01/09 1207 COPY TO: SOILA MARTÍNEZ MD Prothrombin Wrni4810-13-35 06:41:00* Test Item Value Reference Range Interpretation Comments Prothrombin Time (test code = 5902-2) 18.7 11.9-14.5 H [facility] HospitalProthromb Time International Ratio 2017-11-24 06:41:00* Test Item Value Reference Range Interpretation Comments Prothromb Time International Ratio (test code = 6301-6) 1.69 Oral Anticoagulant Therapy INR Values:1. Low Intensity Therapy 1.5 - 2.02 . Moderate Intensity Therapy 2.0 - 3.03. High Intensity Therapy(1) 2.5 - 3. 54. High Intensity Therapy(2) 3.0 - 4.05. Panic Value INR > 5.0 [facility] HospitalBlood Flnsovc5390-23-47 00:12:00* Test Item Value Reference Range Interpretation Comments Blood Culture (test code = 00183824) NO GROWTH AFTER 5 DAYS, FINAL REPORT [facility] HospitalBlood Binqutc3480-92-97 00:12:00* Test Item Value Reference Range Interpretation Comments Blood Culture (test code = 80540060) NO GROWTH AFTER 5 DAYS, FINAL REPORT [facility] Hxuay1065-96-64 07:21:00* Test Item Value Reference Range Interpretation Comments Sodium Level (test code = 2951-2) 144 136-145 [facility] HospitalPotassium Vjrin4538-48-86 07:21:00* Test Item Value Reference Range Interpretation Comments Potassium Level (test code = 2823-3) 3.6 3.5-5.1 [facility] HospitalChloride Wwdyv7863-02-29 07:21:00* Test Item Value Reference Range Interpretation Comments Chloride Level (test code = 2075-0) 110 98-107 H [facility] HospitalCarbon Dioxide Edebp2477-15-02 07:21:00* Test Item Value Reference Range Interpretation Comments Carbon Dioxide Level (test code = 2028-9) 27 22-29 [facility] HospitalAnion Zbe7820-46-30 07:21:00* Test Item Value Reference Range Interpretation Comments Anion Gap (test code = 13869-2) 10.6 8-16 [facility] HospitalBlood Urea Rsjkttut8268-90-11 07:21:00* Test Item Value Reference Range Interpretation Comments Blood Urea Nitrogen (test code = 3094-0) 11 7-26 [facility] HospitalCreatinine2018-04-30 07:21:00* Test Item Value Reference Range Interpretation Comments Creatinine (test code = 2160-0) 0.92 0.72-1.25 [facility] HospitalBUN/Creatinine Lzzqo1383-41-12 07:21:00* Test Item Value Reference Range Interpretation Comments BUN/Creatinine Ratio (test code = 3097-3) 12 6-25 [facility] HospitalEstimat Glomerular Filtration Rate 2017-11-20 07:21:00* Test Item Value Reference Range Interpretation Comments Estimat Glomerular Filtration Rate (test code = 22025-3) 60- >60 Ranges were taken from the National Kidney Disease Education Program and the [facility] Kid[facility] Foundation literature.Reference ranges:60 or greater: [place]24-80 ( for 3 consecutive months): Chronic kidney disease 15 or less: Kidney failureEastland Memorial HospitalGlucose Gbuap2612-75-71 07:21:00* Test Item Value Reference Range Interpretation Comments Glucose Level (test code = QKW6935) 100 74-118 [facility] HospitalCalcium Qzwxj3446-04-23 07:21:00* Test Item Value Reference Range Interpretation Comments Calcium Level (test code = 91562-6) 8.2 8.4-10.2 L [facility] HospitalWhite Blood Hhefc8313-78-03 07:12:00* Test Item Value Reference Range Interpretation Comments White Blood Count (test code = 6690-2) 5.43 4.8-10.8 [facility] HospitalRed Blood Mluai6430-52-06 07:12:00* Test Item Value Reference Range Interpretation Comments Red Blood Count (test code = 789-8) 3.62 4.3-5.7 L [facility] HospitalHemoglobin2018-04-30 07:12:00* Test Item Value Reference Range Interpretation Comments Hemoglobin (test code = 66615-2) 11.6 14.0-18.0 L [facility] HospitalHematocrit2018-04-30 07:12:00* Test Item Value Reference Range Interpretation Comments Hematocrit (test code = 4544-3) 34.9 38.2-49.6 L [facility] HospitalMean Corpuscular Hwmzpn9220-71-49 07:12:00* Test Item Value Reference Range Interpretation Comments Mean Corpuscular Volume (test code = 787-2) 96.4 81-99 [facility] HospitalMean Corpuscular Tsebejryqt8987-65-89 07:12:00* Test Item Value Reference Range Interpretation Comments Mean Corpuscular Hemoglobin (test code = 785-6) 32.0 28-32 [facility] HospitalMean Corpuscular Hemoglobin Concent 2017-11-20 07:12:00* Test Item Value Reference Range Interpretation Comments Mean Corpuscular Hemoglobin Concent (test code = 786-4) 33.2 31-35 [facility] HospitalRed Cell Distribution Cecsu8614-07-29 07:12:00* Test Item Value Reference Range Interpretation Comments Red Cell Distribution Width (test code = 10007-0) 13.3 11.7 -14.4 [facility] HospitalPlatelet Bxnez6465-88-93 07:12:00* Test Item Value Reference Range Interpretation Comments Platelet Count (test code = 777-3) 104 140-360 L [facility] HospitalNeutrophils (%) (Auto)2017-11-20 07:12:00 * Test Item Value Reference Range Interpretation Comments Neutrophils (%) (Auto) (test code = 52260-8) 60.9 38.7-80.0 [facility] HospitalLymphocytes (%) (Auto)2017-11-20 07:12:00 * Test Item Value Reference Range Interpretation Comments Lymphocytes (%) (Auto) (test code = 736-9) 30.2 18.0-39.1 [facility] HospitalMonocytes (%) (Auto)2017-11-20 07:12:00* Test Item Value Reference Range Interpretation Comments Monocytes (%) (Auto) (test code = 5905-5) 5.5 4.4-11.3 [facility] HospitalEosinophils (%) (Auto)2017-11-20 07:12:00 * Test Item Value Reference Range Interpretation Comments Eosinophils (%) (Auto) (test code = 713-8) 2.6 0.0-6.0 [facility] HospitalBasophils (%) (Auto)2017-11-20 07:12:00* Test Item Value Reference Range Interpretation Comments Basophils (%) (Auto) (test code = 706-2) 0.6 0.0-1.0 [facility] HospitalIM GRANULOCYTES %2017-11-20 07:12:00* Test Item Value Reference Range Interpretation Comments IM GRANULOCYTES % (test code = IM GRANULOCYTES %) 0.2 0.0- 1.0 [facility] HospitalNeutrophils # (Auto)2017-11-20 07:12:00* Test Item Value Reference Range Interpretation Comments Neutrophils # (Auto) (test code = 751-8) 3.3 2.1-6.9 [facility] HospitalLymphocytes # (Auto)2017-11-20 07:12:00* Test Item Value Reference Range Interpretation Comments Lymphocytes # (Auto) (test code = 11397-7) 1.6 1.0-3.2 [facility] HospitalMonocytes # (Auto)2017-11-20 07:12:00* Test Item Value Reference Range Interpretation Comments Monocytes # (Auto) (test code = 742-7) 0.3 0.2-0.8 [facility] HospitalEosinophils # (Auto)2017-11-20 07:12:00* Test Item Value Reference Range Interpretation Comments Eosinophils # (Auto) (test code = 711-2) 0.1 0.0-0.4 [facility] HospitalBasophils # (Auto)2017-11-20 07:12:00* Test Item Value Reference Range Interpretation Comments Basophils # (Auto) (test code = 704-7) 0.0 0.0-0.1 [facility] HospitalAbsolute Immature Granulocyte (auto 2017-11-20 07:12:00* Test Item Value Reference Range Interpretation Comments Absolute Immature Granulocyte (auto (cherrie t code = Absolute Immature Granulocyte (auto) 0.01 0-0.1 [facility] HospitalBlood Rndonfr4065-00-69 12:18:00* Test Item Value Reference Range Interpretation Comments Blood Culture (test code = 600-7) Organism: STREPTOCOCCUS VIRIDANS [facility] HospitalBlood Dtketpg1232-18-58 12:18:00* Test Item Value Reference Range Interpretation Comments Blood Culture (test code = 600-7) Organism: STREPTOCOCCUS VIRIDANS [facility] HospitalTotal Pkpuytoae9184-22-10 07:44:00* Test Item Value Reference Range Interpretation Comments Total Bilirubin (test code = 1975-2) 1.0 0.2-1.2 [facility] HospitalAspartate Amino Transf (AST/SGOT) 2017-11-17 07:44:00* Test Item Value Reference Range Interpretation Comments Aspartate Amino Transf (AST/SGOT) (test code = Aspartate Amino Transf (AST/SGOT)) [facility] HospitalAlanine Aminotransferase (ALT/SGPT) 2017-11-17 07:44:00* Test Item Value Reference Range Interpretation Comments Alanine Aminotransferase (ALT/SGPT) (test code = 1742-6) 11 0-55 [facility] HospitalTotal Jiwscny4985-64-87 07:44:00* Test Item Value Reference Range Interpretation Comments Total Protein (test code = 2885-2) 5.0 6.5-8.1 L [facility] HospitalAlbumin2018-04-27 07:44:00* Test Item Value Reference Range Interpretation Comments Albumin (test code = 1751-7) 2.4 3.5-5.0 L [facility] HospitalGlobulin2018-04-27 07:44:00* Test Item Value Reference Range Interpretation Comments Globulin (test code = 11437-9) 2.6 2.3-3.5 [facility] HospitalAlbumin/Globulin Ohhun3292-53-16 07:44:00 * Test Item Value Reference Range Interpretation Comments Albumin/Globulin Ratio (test code = 1759-0) 0.9 0.8-2.0 [facility] HospitalAlkaline Sppdcbgcfpp2029-22-82 07:44:00* Test Item Value Reference Range Interpretation Comments Alkaline Phosphatase (test code = 6768-6) 65 40-150 [facility] HospitalTotal Rxcrgiuyp2448-98-03 07:44:00* Test Item Value Reference Range Interpretation Comments Total Bilirubin (test code = 1975-2) 1.0 0.2-1.2 [facility] HospitalAspartate Amino Transf (AST/SGOT) 2017-11-17 07:44:00* Test Item Value Reference Range Interpretation Comments Aspartate Amino Transf (AST/SGOT) (test code = Aspartate Amino Transf (AST/SGOT)) [facility] HospitalAlanine Aminotransferase (ALT/SGPT) 2017-11-17 07:44:00* Test Item Value Reference Range Interpretation Comments Alanine Aminotransferase (ALT/SGPT) (test code = 1742-6) 11 0-55 [facility] HospitalTotal Fdqzwby6325-36-43 07:44:00* Test Item Value Reference Range Interpretation Comments Total Protein (test code = 2885-2) 5.0 6.5-8.1 L [facility] HospitalAlbumin2018-04-27 07:44:00* Test Item Value Reference Range Interpretation Comments Albumin (test code = 1751-7) 2.4 3.5-5.0 L [facility] HospitalGlobulin2018-04-27 07:44:00* Test Item Value Reference Range Interpretation Comments Globulin (test code = 19824-0) 2.6 2.3-3.5 [facility] HospitalAlbumin/Globulin Gcskp0066-70-48 07:44:00 * Test Item Value Reference Range Interpretation Comments Albumin/Globulin Ratio (test code = 1759-0) 0.9 0.8-2.0 [facility] HospitalAlkaline Kpotctgsnur4494-65-34 07:44:00* Test Item Value Reference Range Interpretation Comments Alkaline Phosphatase (test code = 6768-6) 65 40-150 [facility] HospitalUrine WMT5069-21-45 21:41:00* Test Item Value Reference Range Interpretation Comments Urine WBC (test code = 5821-4) NONE 0-5 [facility] HospitalUrine XBM4950-33-63 21:41:00* Test Item Value Reference Range Interpretation Comments Urine RBC (test code = 46170-4) 0-5 0-5 [facility] HospitalUrine Ajwqazae8812-52-93 21:41:00* Test Item Value Reference Range Interpretation Comments Urine Bacteria (test code = 79433-1) NONE NONE [facility] HospitalUrine Epithelial Jmyhc4624-27-32 21:41:00 * Test Item Value Reference Range Interpretation Comments Urine Epithelial Cells (test code = 85910-6) RARE NONE [facility] HospitalUrine TMU6366-45-78 21:41:00* Test Item Value Reference Range Interpretation Comments Urine WBC (test code = 5821-4) NONE 0-5 [facility] HospitalUrine ICA5435-02-89 21:41:00* Test Item Value Reference Range Interpretation Comments Urine RBC (test code = 26288-1) 0-5 0-5 [facility] HospitalUrine Jktzndxo6830-78-84 21:41:00* Test Item Value Reference Range Interpretation Comments Urine Bacteria (test code = 83532-7) NONE NONE [facility] HospitalUrine Epithelial Dcsiz8344-74-76 21:41:00 * Test Item Value Reference Range Interpretation Comments Urine Epithelial Cells (test code = 83299-6) RARE NONE [facility] HospitalUrine Kshur8628-18-73 21:33:00* Test Item Value Reference Range Interpretation Comments Urine Color (test code = 5778-6) YELLOW YELLOW [facility] HospitalUrine Qchafed7779-69-06 21:33:00* Test Item Value Reference Range Interpretation Comments Urine Clarity (test code = 43092-2) CLEAR CLEAR [facility] HospitalUrine Specific Pyewbxz5306-82-64 21:33:00 * Test Item Value Reference Range Interpretation Comments Urine Specific [place] (test code = 5811-5) 1.005 1.010-1.02 5 L [facility] [id number] 21:33:00* Test Item Value Reference Range Interpretation Comments Urine pH (test code = 13334-3) 5 5-7 [facility] Leukocyte Vlgybggz5199-37-17 21:33:00* Test Item Value Reference Range Interpretation Comments Urine Leukocyte Esterase (test code = 5799-2) NEGATIVE NEGATIVE [facility] Keubroy5707-79-39 21:33:00* Test Item Value Reference Range Interpretation Comments Urine Nitrite (test code = 85710-5) NEGATIVE NEGATIVE [facility] Unvgzzy6344-81-56 21:33:00* Test Item Value Reference Range Interpretation Comments Urine Protein (test code = 5804-0) NEGATIVE NEGATIVE [facility] Glucose (UA)2017-11-16 21:33:00* Test Item Value Reference Range Interpretation Comments Urine Glucose (UA) (test code = 2349-9) NEGATIVE NEGATIVE [facility] Duqgvsj5133-15-67 21:33:00* Test Item Value Reference Range Interpretation Comments Urine Ketones (test code = 32533-0) NEGATIVE NEGATIVE [facility] Xloeaqwrlato2574-15-26 21:33:00* Test Item Value Reference Range Interpretation Comments Urine Urobilinogen (test code = 43860-7) 0.2 0.2-1 [facility] Qxxojjcme0621-72-61 21:33:00* Test Item Value Reference Range Interpretation Comments Urine Bilirubin (test code = 1978-6) NEGATIVE NEGATIVE [facility] [place]9164-16-40 21:33:00* Test Item Value Reference Range Interpretation Comments Urine Blood (test code = 98178-3) TRACE NEGATIVE H [facility] Zrwzm9099-05-05 21:33:00* Test Item Value Reference Range Interpretation Comments Urine Color (test code = 5778-6) YELLOW YELLOW [facility] Cnnxyfr4060-87-92 21:33:00* Test Item Value Reference Range Interpretation Comments Urine Clarity (test code = 64580-4) CLEAR CLEAR [facility] Specific Ohgljwl1254-08-66 21:33:00 * Test Item Value Reference Range Interpretation Comments Urine Specific [place] (test code = 5811-5) 1.005 1.010-1.02 5 L [facility] qJ3152-82-82 21:33:00* Test Item Value Reference Range Interpretation Comments Urine pH (test code = 38833-5) 5 5-7 [facility] Leukocyte Rarwhtrw6242-98-45 21:33:00* Test Item Value Reference Range Interpretation Comments Urine Leukocyte Esterase (test code = 5799-2) NEGATIVE NEGATIVE [facility] Heogdml8449-08-54 21:33:00* Test Item Value Reference Range Interpretation Comments Urine Nitrite (test code = 32938-6) NEGATIVE NEGATIVE [facility] Qekchdy9179-28-35 21:33:00* Test Item Value Reference Range Interpretation Comments Urine Protein (test code = 5804-0) NEGATIVE NEGATIVE [facility] Glucose (UA)2017-11-16 21:33:00* Test Item Value Reference Range Interpretation Comments Urine Glucose (UA) (test code = 2349-9) NEGATIVE NEGATIVE [facility] Mtjmjwo6555-66-80 21:33:00* Test Item Value Reference Range Interpretation Comments Urine Ketones (test code = 53088-4) NEGATIVE NEGATIVE [facility] Qocchbngwcqc8755-42-89 21:33:00* Test Item Value Reference Range Interpretation Comments Urine Urobilinogen (test code = 45237-0) 0.2 0.2-1 [facility] Bqjfysgai9005-33-81 21:33:00* Test Item Value Reference Range Interpretation Comments Urine Bilirubin (test code = 1978-6) NEGATIVE NEGATIVE [facility] Jxeeh7675-62-55 21:33:00* Test Item Value Reference Range Interpretation Comments Urine Blood (test code = 18960-9) TRACE NEGATIVE H [facility] HospitalCreatine Kinase BO2872-58-60 16:49:00* Test Item Value Reference Range Interpretation Comments Creatine Kinase MB (test code = 76163-1) 0.80 0-5.0 [facility] HospitalTroponin O0618-58-80 16:49:00* Test Item Value Reference Range Interpretation Comments Troponin I (test code = GVM0189) -0.001 0-0.300 [facility]Creat[facility] Kinase IE6581-93-23 16:49:00* Test Item Value Reference Range Interpretation Comments Creatine Kinase MB (test code = 11024-2) 0.80 0-5.0 [facility] HospitalTroponin V1947-74-88 16:49:00* Test Item Value Reference Range Interpretation Comments Troponin I (test code = TRQ5404) -0.001 0-0.300 [facility]Creatine Crnwfr3135-65-24 16:40:00* Test Item Value Reference Range Interpretation Comments Creatine Kinase (test code = 2157-6) 66 30-200 [facility] Aivntk4716-24-60 16:40:00* Test Item Value Reference Range Interpretation Comments Creatine Kinase (test code = 2157-6) 66 30-200 [facility] HospitalAct[facility] Partial Thromboplast Time 2017-11-16 00:28:00* Test Item Value Reference Range Interpretation Comments Activated Partial Thromboplast Time (test code = 28643-0) 36.0 23.8-35.5 H [facility] HospitalLactic Acid Emrit3826-29-46 00:28:00* Test Item Value Reference Range Interpretation Comments Lactic Acid Level (test code = Lactic Acid Level) 14.6 4.5- 19.8 [facility] HospitalL[facility] Acid Jsbjy5160-04-43 00:28:00* Test Item Value Reference Range Interpretation Comments Lactic Acid Level (test code = Lactic Acid Level) 14.6 4.5- 19.8 [facility] HospitalDifferential Total Cells Counted 2017-08-07 08:53:00* Test Item Value Reference Range Interpretation Comments Differential Total Cells Counted (test code = Differen tial Total Cells Counted) 100 [facility] HospitalNeutrophils % (Manual)2017-08-07 08:53:00 * Test Item Value Reference Range Interpretation Comments Neutrophils % (Manual) (test code = 19207-1) 62 40-74 [facility] HospitalLymphocytes % (Manual)2017-08-07 08:53:00 * Test Item Value Reference Range Interpretation Comments Lymphocytes % (Manual) (test code = 737-7) 21 19-48 [facility] HospitalMonocytes % (Manual)2017-08-07 08:53:00* Test Item Value Reference Range Interpretation Comments Monocytes % (Manual) (test code = 744-3) 8 3.4-9.0 [facility] HospitalEosinophils % (Manual)2017-08-07 08:53:00 * Test Item Value Reference Range Interpretation Comments Eosinophils % (Manual) (test code = 714-6) 4 0-7 [facility] HospitalMyelocytes %2017-08-07 08:53:00* Test Item Value Reference Range Interpretation Comments Myelocytes % (test code = 749-2) 2 0-0 H [facility] HospitalReactive Baqdsdaaumo9303-49-48 08:53:00* Test Item Value Reference Range Interpretation Comments Reactive Lymphocytes (test code = 70631-5) 3 [facility] HospitalPlatelet Ojphhaxv8795-74-68 08:53:00* Test Item Value Reference Range Interpretation Comments Platelet Estimate (test code = 29052-5) SLIGHTLY DECREASED [facility] HospitalPlatelet Morphology Kqkfmvj2339-84-25 08:53:00* Test Item Value Reference Range Interpretation Comments Platelet Morphology Comment (test code = 64992-5) NORMAL [facility] HospitalAnisocytosis2018-01-15 08:53:00* Test Item Value Reference Range Interpretation Comments Anisocytosis (test code = 702-1) SLIGHT [facility] HospitalRed Cell Morphology Rweouhh2111-36-26 08:53:00* Test Item Value Reference Range Interpretation Comments Red Cell Morphology Comment (test code = 6742-1) NORMAL [facility] HospitalDifferential Total Cells Counted 2017-08-07 08:53:00* Test Item Value Reference Range Interpretation Comments Differential Total Cells Counted (test code = Madelyn tial Total Cells Counted) 100 [facility] HospitalNeutrophils % (Manual)2017-08-07 08:53:00 * Test Item Value Reference Range Interpretation Comments Neutrophils % (Manual) (test code = 05929-0) 62 40-74 [facility] HospitalLymphocytes % (Manual)2017-08-07 08:53:00 * Test Item Value Reference Range Interpretation Comments Lymphocytes % (Manual) (test code = 737-7) 21 19-48 [facility] HospitalMonocytes % (Manual)2017-08-07 08:53:00* Test Item Value Reference Range Interpretation Comments Monocytes % (Manual) (test code = 744-3) 8 3.4-9.0 [facility] HospitalEosinophils % (Manual)2017-08-07 08:53:00 * Test Item Value Reference Range Interpretation Comments Eosinophils % (Manual) (test code = 714-6) 4 0-7 [facility] HospitalMyelocytes %2017-08-07 08:53:00* Test Item Value Reference Range Interpretation Comments Myelocytes % (test code = 749-2) 2 0-0 H [facility] HospitalReactive Xcqvtjuyclx4425-50-87 08:53:00* Test Item Value Reference Range Interpretation Comments Reactive Lymphocytes (test code = 35212-5) 3 [facility] HospitalPlatelet Notqjixz5873-13-65 08:53:00* Test Item Value Reference Range Interpretation Comments Platelet Estimate (test code = 32878-3) SLIGHTLY DECREASED [facility] HospitalPlatelet Morphology Sbeqarz0933-22-26 08:53:00* Test Item Value Reference Range Interpretation Comments Platelet Morphology Comment (test code = 76571-4) NORMAL [facility] HospitalAnisocytosis2018-01-15 08:53:00* Test Item Value Reference Range Interpretation Comments Anisocytosis (test code = 702-1) SLIGHT [facility] HospitalRed Cell Morphology Rdtgiql0156-88-89 08:53:00* Test Item Value Reference Range Interpretation Comments Red Cell Morphology Comment (test code = 6742-1) NORMAL [facility] HospitalDifferential Total Cells Counted 2017-08-07 08:53:00* Test Item Value Reference Range Interpretation Comments Differential Total Cells Counted (test code = Differviolet tial Total Cells Counted) 100 [facility] HospitalNeutrophils % (Manual)2017-08-07 08:53:00 * Test Item Value Reference Range Interpretation Comments Neutrophils % (Manual) (test code = 06449-5) 62 40-74 [facility] HospitalLymphocytes % (Manual)2017-08-07 08:53:00 * Test Item Value Reference Range Interpretation Comments Lymphocytes % (Manual) (test code = 737-7) 21 19-48 [facility] HospitalMonocytes % (Manual)2017-08-07 08:53:00* Test Item Value Reference Range Interpretation Comments Monocytes % (Manual) (test code = 744-3) 8 3.4-9.0 [facility] HospitalEosinophils % (Manual)2017-08-07 08:53:00 * Test Item Value Reference Range Interpretation Comments Eosinophils % (Manual) (test code = 714-6) 4 0-7 [facility] HospitalMyelocytes %2017-08-07 08:53:00* Test Item Value Reference Range Interpretation Comments Myelocytes % (test code = 749-2) 2 0-0 H [facility] HospitalReactive Ptnskhxfkho6542-60-37 08:53:00* Test Item Value Reference Range Interpretation Comments Reactive Lymphocytes (test code = 62393-2) 3 [facility] HospitalPlatelet Espspxsu0775-05-10 08:53:00* Test Item Value Reference Range Interpretation Comments Platelet Estimate (test code = 31320-4) SLIGHTLY DECREASED [facility] HospitalPlatelet Morphology Zrejuwa4608-13-59 08:53:00* Test Item Value Reference Range Interpretation Comments Platelet Morphology Comment (test code = 61793-7) NORMAL [facility] HospitalAnisocytosis2018-01-15 08:53:00* Test Item Value Reference Range Interpretation Comments Anisocytosis (test code = 702-1) SLIGHT [facility] HospitalRed Cell Morphology Fslbigz2533-97-87 08:53:00* Test Item Value Reference Range Interpretation Comments Red Cell Morphology Comment (test code = 6742-1) NORMAL [facility] HospitalMagnesium Pzvnf0383-08-41 07:42:00* Test Item Value Reference Range Interpretation Comments Magnesium Level (test code = 25493-3) 1.4 1.3-2.1 [facility] HospitalMagnesium Dcdml1600-56-09 07:42:00* Test Item Value Reference Range Interpretation Comments Magnesium Level (test code = 83338-5) 1.4 1.3-2.1 [facility] HospitalCHES SINGLE (PORTABLE) [facility] [address] [address] Patient Name: MICKEY PANIAGUA JR MR #: [id number] : 1945 Age/Sex: 72/M Req #: [id number] Adm Physician: BRIA SALOMON MD Ordered by: QUANG MELENDEZ MD Report #: [id number] Location: MED/[facility] Room/Bed: [facility] Procedure: DX/CHEST SINGLE (PORTABLE) Exam Date: 11/17/17 Exam Time: 05 REPORT STATUS: Signed EXAMINATION: CHEST SINGLE (PO RTABLE) INDICATION: Pneumonia. COMPARISON: 11/16/2017 FINDINGS: TUBES and LINES: None. LUNGS: Lungs are not well inf lated. There are bibasilar atelectasis. Multi focal areas of airspace disease . There is perihilar interstital opacities, consistent with interstitial madhavi a. PLEURA: Trace of bilateral pleural effusions HEART AND MEDIASTINUM : The cardiomediastinal silhouette is unremarkable. BONES AND SOFT TIS SUES: No acute osseous lesion. Soft tissues are unremarkable. UPPER ABD OMEN: No free air under the diaphragm. IMPRESSION: Findings are comp atible with fluid overload versus aspiration Signed by: Dr. Ryan Hopkins M.D. on 11/17/2017 7:01 AM Dictated By: RYAN ZULETA MD Electron ically Signed By: RYAN ZULETA MD on 11/17/17 07 Transcribed By: MARK RAN on 11/17/17 07 COPY TO: QUANG MELENDEZ MD CHEST SINGLE (PORTABLE) [place] [address] Patient Name: MICKEY PANIAGUA JR MR #: [id number] : 1945 Age/Sex: 72/M Req #: [id number] Adm Physician: Ordered by: QUANG MELENDEZ MD Report #: [id number] Location: ER Room/Bed: Procedure: [id number] DX/CHEST SINGLE (PO RTABLE) Exam Date: 11/16/17 Exam Time: 0005 RE PORT STATUS: Signed EXAMINATION: CHEST SINGLE (PORTABLE) INDICATION : Fever, cough COMPARISON: 08/10/2017 FINDINGS: TUBE S and LINES: None. LUNGS: Lungs are not well inflated. Confluent opacity in the left lung base. There is mild prominence of the central pulmonary va sculature, consistent with pulmonary venous congestion. PLEURA: No pleur al effusion or pneumothorax. HEART AND MEDIASTINUM: The cardiomediastinal silhouette is unremarkable. BONES AND SOFT TISSUES: No acute osseous l esion. Prior partial resection of the lateral right clavicle. Soft tissues are unremarkable. UPPER ABDOMEN: No free air under the diaphragm. IMP RESSION: Findings are suspicious for left lung base airspace disease in the r etrocardiac region. Follow-up with PA and lateral view of the chest is recomme nded Signed by: Dr. Ryan Hopkins M.D. on 11/16/2017 1:13 AM Dictat ed By: RYAN ZULETA MD 2 Transcribed By: TATYANA on 11/16/17112 COPY TO: QUANG GATICA MD MODIFIED [address]. [place] [address] Patient Name: MICKEY PANIAGUA JR MR #: [id number] : 1945 Age/Sex: 72/M Req #: [id number] Adm Physician: BRIA SALOMON MD Ordered by: CHENG DOAN MD Report #: [id number] Location: MED/[facility] Room/Bed: 295-1 Procedure: 011 10 DX/MODIFIED BA. SWALLOW Exam Date: 08/04/17 Exam Time: 1100 REPORT STATUS: Signed PROCEDURE: X-RAY MODIFIED BARIUM SWA LLOW COMPARISON: None. INDICATIONS: ASPIRATION DISCUSSION: Fluoroscopic examination was performed in conjunction with speech patholog y, during swallowing of a variety of thin and thick liquid consistencies. Rad iologist was in attendance. Fluoroscopy time: 2.0 minutes Total dose: 10 .86 mGy CONCLUSION: Small amount of aspiration with thin liquids. Please see the report from speech pathology for complete details. Mahad Maidson D.O. Dictated by: Andry Madison D.O. on 08/04/2017 at 14:55 Electronically approved by: Andry Madison D.O. on 08/04/2017 at 14:55 Dictated By: ANDRY MADISON DO 6028 Transcribed By: KAISER on 08/04/17 1458 COPY TO: CHENG DOAN MD CHEST SINGLE (PORTABLE) [place] [address] Patient Name: MICKEY PANIAGUA JR MR #: [id number] : 1945 Age/Sex: 72/M Req #: [id number] [facility] Physician: Ordered by: PACO FERMIN MD Report #: [id number] Location: ER Room/Bed: Procedure: [id number] DX/CHEST SINGLE (PORTABLE) Exam Date: Exam Time: REPORT STATUS: Signed EXAM: CHEST SINGLE (PORTABLE), AP 1 view DATE: 08/01/2017 12:31 AM Time sta mp on exam: 0116 hours INDICATION: Cough, shortness of breath COMPARISON: PA and lateral view of the chest July 14, 2017 FINDINGS: LINES/TUBES: N one LUNGS: Bibasilar consolidations PLEURA: No effusions or pneumotho rax. HEART AND MEDIASTINUM: Normal size and contour. BONES AND SOFT TI SSUES: No acute findings. Increased right acromioclavicular joint widening and malalignment compared to prior chest x-ray, may be positional versus interval worsening ligamentous injury. IMPRESSION: Bibasilar consolidations could represent pneumonia or aspiration. Signed by: Dr. Gurpreet Lea M.D. on 08/01/2017 1:28 AM Dictated By: GURPREET LEA MD Electronically S igned By: GURPREET LEA MD on 08/01/17127 Transcribed By: TATYANA on 08/01/17127 COPY TO: PACO FERMIN MD CHEST 2 VIEWS [place] [address] Patient Name: MICKEY PANIAGUA JR MR #: [id number] : 1945 Age/Sex: 72/M Req #: [id number] Adm Physician: Ordered by: PACO FERMIN MD Report #: [id number] Location: ER Room /Bed: Procedure: [id number] DX/CHEST 2 VIEWS Exam Jarrett e: 07/14/17 Exam Time: 0410 REPORT STATUS: Sign ed EXAM: CHEST 2 VIEWS, PA and lateral DATE: 07/14/2017 3:30 AM Time stamp on exam: 0337 hours INDICATION: Left lower lobe pneumonia COMPARISON: AP vi ew of the chest and your 2016 FINDINGS: LINES/TUBES: None LUNGS: Left lower lobe airspace opacity PLEURA: No effusions or pneumothorax. HEART AND MEDIASTINUM: Stable appearance BONES AND SOFT TISSUES: No acute findings. IMPRESSION: Findings consistent with left lower lobe pneumoni a in the acute setting. Signed by: Dr. Gurpreet Lea M.D. on 4:26 AM Dictated By: GURPREET LEA MD 5 Transcribed By: TATYANA on 07/14/17425 COPY TO: PACO FERMIN MD
== END 2020-04-17 23:50 | disposition home or self-care (01) ==
LOC: ER 15:38
DX: M79.604 Pain in right leg (principal); G80.9 Cerebral palsy, unspecified; N28.9 Disorder of kidney and ureter, unspecified
CPT/HCPCS: 36415; 70450; 71045; 80053; 81001; 82550; 82553; 83880; 84484; 85025; 85610; 85730; 87040; 87086; 87186; 93005; 99284

== ENCOUNTER 2020-05-19 08:18 | Inpatient (IN) | payer MEDICARE, OTHER ==
[~2020-05-19] VITALS: Ht 172.7 cm; Wt 72.6 kg
[2020-05-19 08:34] LABS: BASOPHILS % 0.7 % (0.0-1.0); EOSINOPHILS # (AUTO) 0.1 (0.0-0.4); EOSINOPHILS % 1.6 % (0.0-6.0); HEMATOCRIT 41.7 % (38.2-49.6); HEMOGLOBIN 13.9 g/dL (14.0-18.0); LYMPHOCYTES # (AUTO) 1.7 (1.0-3.2); LYMPHOCYTES % 29.1 % (18.0-39.1); MEAN CORPUSCULAR HEMOGLOBIN 32.2 pg (28-32); MEAN CORPUSCULAR HGB CONC 33.3 g/dL (31-35); MEAN CORPUSCULAR VOLUME 96.5 fL (81-99); MONOCYTES # (AUTO) 0.4 (0.2-0.8); MONOCYTES % 7.1 % (4.4-11.3); NEUTROPHILS # (AUTO) 3.5 (2.1-6.9); NEUTROPHILS % 61.3 % (38.7-80.0); PLATELET COUNT 137 x10e3/uL (140-360); RED BLOOD COUNT 4.32 x10e6/uL (4.3-5.7); RED CELL DISTRIBUTION WIDTH 13.2 % (11.7-14.4)
[2020-05-19 08:49] LABS: INR 1.19; PROTHROMBIN TIME 15.7 seconds (11.9-14.5)
[2020-05-19 08:50] LABS: PARTIAL THROMBOPLASTIN TIME 32.3 seconds (23.8-35.5)
[2020-05-19 08:51] LABS: ALANINE AMINOTRANSFERASE 12 IU/L (0-55); ALBUMIN 3.1 g/dL (3.5-5.0); ALBUMIN/GLOBULIN RATIO 0.9 (0.8-2.0); ALKALINE PHOSPHATASE 79 IU/L (40-150); BLOOD UREA NITROGEN 14 mg/dL (7-26); BUN/CREATININE RATIO 14 (6-25); CALCIUM 8.6 mg/dL (8.4-10.2); CARBON DIOXIDE 25 mmol/L (22-29); CHLORIDE 110 mmol/L (98-107); CREATINE KINASE 50 IU/L (30-200); CREATININE, SERUM 0.97 mg/dL (0.72-1.25); EST GLOMERULAR FILTRATION RATE > 60 ML/MIN (60-); GLUCOSE 101 mg/dL (74-118); MAGNESIUM 1.7 MG/DL (1.3-2.1); SODIUM 145 mmol/L (136-145)
[2020-05-19] MEDS ORDERED: SODIUM CHLORIDE 0.9% 1000ML 1,000 ML IV STA (09:13)
--- NOTE | 2020-05-19 09:30 | Diagnostic Imaging Report ---
EXAMINATION: CHEST SINGLE (PORTABLE) INDICATION: Weakness COMPARISON: Chest radiograph 04/17/2020 FINDINGS: LINES/TUBES:EKG leads overlie the chest. LUNGS:The lungs are moderately inflated. Mild bibasilar opacities appear PLEURA:No pleural effusion or pneumothorax. MEDIASTINUM:The cardiomediastinal silhouette appears normal in size and shape. BONES/SOFT TISSUES:No acute osseous injury. Chronic right acromioclavicular widening. ABDOMEN:No free air under the diaphragm. IMPRESSION: Mild bibasilar patchy opacities, more likely subsegmental atelectasis than superimposed aspiration or pneumonia. Signed by: Tristin Guillory MD on 05/19/2020 9:26 AM
[2020-05-19] MEDS ORDERED: PANTOPRAZOLE 40 MG 10ML VIAL IV ONE (10:15)
[2020-05-19] MEDS ORDERED: ONDANSETRON HCL INJ 2MG/ML 2ML 2 MG/ML VIAL IV PRN (10:15)
--- NOTE | 2020-05-19 10:30 | Emergency Department Note ---
History of Present Illnes History of Present Illness Chief Complaint: General Medicine Complaints History of Present Illness This is a 74 year old male Patient in from home via EMS with complaints of weakness for several weeks and he was unable to get off of the toilet after sitting down after taking a shower this morning. Patient reports that he has been having home health visits. Patient has redness to his bilateral toes as well as a 1cm x 2cm x 0.25cm stage 2 pressure injury to his left medial buttock. Patient also reports being on hospice but is unable to explain why or for what diagnosis. The patient has a history of frequent aspiration pneumonia and his lung sounds exhibit rhonchi. Historian: Patient, Monotype Keyboard Operator/EMS Arrival Mode: [place] [facility] And Family Therapist Required: No Onset (how long ago): week(s) (WORSE TODAY) Location: GENERALIZED Quality: WEAKNESS Radiation: Reports non-radiation Severity: severe Onset quality: gradual Timing of current episode: constant Progression: waxing and waning Chronicity: recurrent Context: Denies recent illness Relieving factors: none Exacerbating factors: none Associated symptoms: Reports denies other symptoms Past Medical/Family History Physician Review I have reviewed the patient's past medical and family history. Any updates have been documented here. Past Medical History Recent Fever: No Clinical Suspicion of Infectio: No New/Unexplained Change in Ment: No Past Medical History: Seizure Disorder, Depression, DVT/PE Other Medical History: CEREBRAL PALSY SEIZURES ASPIRATION PNA DEMENTIA Past Surgical History: T&A Other Surgery: TONSILLECTOMY Social History Smoking Cessation: Never Smoker Counseling Performed: No Alcohol Use: None Any Illegal Drug Use: No TB Exposure/Symptoms: No Physically hurt or threatened: No Family History Family history of heart diseas: No Other Last Tetanus: UNKNOWN Any Pre-Existing Lines (PICC,: No Review of Systems Review of Systems Constitutional: Reports no symptoms EENTM: Reports no symptoms Cardiovascular: Reports no symptoms Respiratory: Reports no symptoms Gastrointestinal: Reports no symptoms Genitourinary: Reports no symptoms Musculoskeletal: Reports no symptoms Integumentary: Reports no symptoms Neurological: Reports as per HPI, Reports weakness Psychological: Reports no symptoms Endocrine: Reports no symptoms Hematological/Lymphatic: Reports no symptoms Physical Exam Related Data Allergies: Coded Allergies: nitrous oxide (Verified Allergy, Unknown, 04/17/20) Triage Vital Signs Vital Signs Date Time Temp Pulse Resp B/P (MAP) Pulse Ox O2 Delivery O2 Flow Rate FiO2 05/19/20 08:20 98.4 84 18 132/82 97 Room Air Vital signs reviewed: Yes Physical Exam CONSTITUTIONAL Constitutional: Present well-developed, Present well-nourished HENT HENT: Present normocephalic, Present atraumatic, Present oropharynx clear /moist, Present nose normal HENT L/R: Present left ext ear normal, Present right ext ear normal EYES Eyes: Reports PERRL, Reports conjunctivae normal NECK Neck: Present ROM normal PULMONARY Pulmonary: Present effort normal, Present rhonchi (BIBASILAR RHONCHI); Absent respiratory distress CARDIOVASCULAR Cardiovascular: Present regular rhythm, Present heart sounds normal, Present capillary refill normal, Present normal rate GASTROINTESTINAL Abdominal: Present soft, Present nontender, Present bowel sounds normal GENITOURINARY Genitourinary: Present exam deferred SKIN Skin: Present warm, Present dry, Present other (2X1 CM STAGE 2 PRESSURE ULCER LEFT MEDIAL BUTTOCKS) MUSCULOSKELETAL Musculoskeletal: Present ROM normal NEUROLOGICAL Neurological: Present alert, Present oriented x 3, Present no gross motor or sensory deficits, Present other (PARTIAL RIGHT FOOT DROP); Absent sensory deficit, Absent weakness PSYCHOLOGICAL Psychological: Present mood/affect normal, Present judgement normal Results Laboratory Result Diagram: 05/19/2022 05/19/20 0822 Laboratory Laboratory Tests Test 05/19/20 08:56 05/19/20 08:22 White Blood Count 5.74 x10e3/uL (4.8-10.8) Red Blood Count 4.32 x10e6/uL (4.3-5.7) Hemoglobin 13.9 g/dL (14.0-18.0) Hematocrit 41.7 % (38.2-49.6) Mean Corpuscular Volume 96.5 fL (81-99) Mean Corpuscular Hemoglobin 32.2 pg (28-32) Mean Corpuscular Hemoglobin Concent 33.3 g/dL (31-35) Red Cell Distribution Width 13.2 % (11.7-14.4) Platelet Count 137 x10e3/uL (140-360) Neutrophils (%) (Auto) 61.3 % (38.7-80.0) Lymphocytes (%) (Auto) 29.1 % (18.0-39.1) Monocytes (%) (Auto) 7.1 % (4.4-11.3) Eosinophils (%) (Auto) 1.6 % (0.0-6.0) Basophils (%) (Auto) 0.7 % (0.0-1.0) Neutrophils # (Auto) 3.5 (2.1-6.9) Lymphocytes # (Auto) 1.7 (1.0-3.2) Monocytes # (Auto) 0.4 (0.2-0.8) Eosinophils # (Auto) 0.1 (0.0-0.4) Basophils # (Auto) 0.0 (0.0-0.1) Absolute Immature Granulocyte (auto 0.01 x10e3/uL (0-0.1) Prothrombin Time 15.7 seconds (11.9-14.5) Prothromb Time International Ratio 1.19 Activated Partial Thromboplast Time 32.3 seconds (23.8-35.5) Sodium Level 145 mmol/L (136-145) Potassium Level 4.0 mmol/L (3.5-5.1) Chloride Level 110 mmol/L (98-107) Carbon Dioxide Level 25 mmol/L (22-29) Anion Gap 14.0 mmol/L (8-16) Blood Urea Nitrogen 14 mg/dL (7-26) Creatinine 0.97 mg/dL (0.72-1.25) Estimat Glomerular Filtration Rate > 60 ML/MIN (60-) BUN/Creatinine Ratio 14 (6-25) Glucose Level 101 mg/dL (74-118) Calcium Level 8.6 mg/dL (8.4-10.2) Magnesium Level 1.7 MG/DL (1.3-2.1) Total Bilirubin 0.4 mg/dL (0.2-1.2) Aspartate Amino Transf (AST/SGOT) 21 IU/L (5-34) Alanine Aminotransferase (ALT/SGPT) 12 IU/L (0-55) Alkaline Phosphatase 79 IU/L (40-150) Creatine Kinase 50 IU/L (30-200) Creatine Kinase MB 1.30 ng/mL (0-4.3) Troponin I 0.004 ng/mL (0-0.300) Total Protein 6.4 g/dL (6.5-8.1) Albumin 3.1 g/dL (3.5-5.0) Globulin 3.3 g/dL (2.3-3.5) Albumin/Globulin Ratio 0.9 (0.8-2.0) Lab results reviewed: Yes Imaging Imaging results reviewed: Yes Impressions EXAMINATION: CHEST SINGLE (PORTABLE) INDICATION: Weakness COMPARISON: Chest radiograph 04/17/2020 FINDINGS: LINES/TUBES:EKG leads overlie the chest. LUNGS:The lungs are moderately inflated. Mild bibasilar opacities appear PLEURA:No pleural effusion or pneumothorax. MEDIASTINUM:The cardiomediastinal silhouette appears normal in size and shape. BONES/SOFT TISSUES:No acute osseous injury. Chronic right acromioclavicular widening. ABDOMEN:No free air under the diaphragm. IMPRESSION: Mild bibasilar patchy opacities, more likely subsegmental atelectasis than superimposed aspiration or pneumonia. Signed by: Tristin Guillory MD on 05/19/2020 9:26 AM Procedures 12 Lead ECG Interpretation ECG Interpretation : ECG: ECG 1 Marriage And Family Therapist: Interpreted by ED physician Date: May 19, 2020 Time: 08:19 Rhythm: sinus rhythm Ectopy: atrial premature contractions Rate: normal BPM: 86 QRS axis: normal Conduction: intraventricular conduction delay ST segments normal: Yes T wave inversion: III, aVF Clinical Impression: abnormal ECG Assessment & Plan Medical Decision Making MDM WEAKNESS AND RHONCHI ON EXAM WITH CHRONIC ASPIRATION PNA - NO WEAKNESS ON EXAM - CBC, CHEM, ECG, CARDIACS, UA/CX, BLOOD CX'S, COVID SWAB - EVAL FOR ASPIR PNA, STEMI/NSTEMI, ELECTROLYTE ABNL, RENAL INSUFF/DEHYDRATION Reassessment Reassessment I SPOKE WITH PCP, DR AIME ASIF PT ADMITTED AND ON [facility] Assessment & Plan Final Impression: (1) Weakness (2) Aspiration pneumonia (3) Decubitus skin ulcer Depart Disposition: ADMITTED Last Vital Signs Date Time Temp Pulse Resp B/P (MAP) Pulse Ox O2 Delivery O2 Flow Rate FiO2 05/19/20 08:32 70 18 115/77 97 Room Air 05/19/20 08:20 98.4 Home Meds Reported Medications Tamsulosin Hcl* (FLOMAX*) 0.4 Mg Cap, 0.4 MG PO DAILY, #30 CAP 08/19/19 Furosemide (LASIX) 20 Mg Tablet, 20 MG PO DAILY, #30 TAB 08/19/19 Warfarin Sodium (WARFARIN SODIUM) 2.5 Mg Tablet, 5 MG PO HS, #30 TAB 02/06/19 Mirabegron (MYRBETRIQ) 50 Mg Tab.er.24h, 50 MG PO Q12H 09/29/18 [place]-3 Fatty Acids/Fish Oil (OMEGA 3 FISH OIL SOFTGEL) 1 Each Capsule.dr, 1 CAP PO DAILY 09/29/18 Citalopram Hydrobromide (CITALOPRAM HBR) 20 Mg Tablet, 20 MG PO DAILY, TAB 09/29/18 Donepezil Hcl (DONEPEZIL HCL) 10 Mg Tablet, 10 MG PO HS 09/29/18 Pantoprazole Sodium* (PROTONIX) 40 Mg Tablet.dr, 40 MG PO Q12H, TAB 08/09/16 Gabapentin (GABAPENTIN) 300 Mg Capsule, 300 MG PO TID, #60 CAP 08/09/16 Medications in the ED Sodium Chloride 1,000 ml @ 0 mls/hr Q0M STAT IV Last administered on 05/19/20at 09:23; Admin Dose 250 MLS/HR; Start 05/19/20 at 09:13; Stop 05/19/20 at 09:16; Status DC Piperacillin Sod/ Tazobactam Sod 50 ml @ 50 mls/hr Q6HR IV ; Start 05/19/20 at 10:30; Stop 05/26/20 at 10:29 PACO FERMIN MD May 19, 2020 10:30
[2020-05-19] MEDS: PIPER-TAZ 3.375 GM 50 ML IV SCH ×2 (11:01→17:32)
[2020-05-19 12:05] VITALS: BP 122/95
[2020-05-19] MEDS ORDERED: SYNTHROID100 MCG PO (13:21)
[2020-05-19 14:15] VITALS: BP 122/95
[2020-05-19] MEDS ORDERED: PROMETHAZINE 25MG/ NS 50ML (IV) IV PRN (14:15)
[2020-05-19 15:28] VITALS: BP 101/53
[2020-05-19] MEDS: PANTOPRAZOLE SOD 40 MG TABEC PO SCH (16:42)
[2020-05-19] MEDS: GABAPENTIN 300 MG CAP PO SCH ×2 (16:42→22:00)
[2020-05-19 16:54] VITALS: BP 101/53
--- NOTE | 2020-05-19 18:30 | NUR ---
pt arrived to the room 204 @ 1139, pt wearing o2 @ night time PRN
--- NOTE | 2020-05-19 19:05 | NUR ---
Patient visited in room during nursing rounds. Patient alert and oriented x3. Pt is bedridden due to history of cerebral palsy. Both feet are reddened and itchy per pt. Pt on scheduled IV antibiotics. Call french within reach. Will monitor pt closely.
[2020-05-19 20:00] VITALS: BP 100/63
--- NOTE | 2020-05-19 20:52 | NUR ---
Nurse (Raji) spoke with patient's sister (Lilly Arnett) over the phone and gave update on patient's condition.
[2020-05-19 21:00] VITALS: BP 100/63
[2020-05-19] MEDS: DONEPEZIL HCL 23 MG PO SCH (21:00)
[2020-05-19] MEDS: WARFARIN SOD 5 MG TAB PO SCH (22:00)
[2020-05-20] VITALS (8 sets, daily range): BP systolic 103–120; BP diastolic 57–75
[2020-05-20] MEDS ORDERED: SODIUM CHLORIDE 0.9% 250ML 250 ML ONE (00:47)
[2020-05-20] MEDS: PIPER-TAZ 3.375 GM 50 ML IV SCH ×4 (01:00→18:32)
--- NOTE | 2020-05-20 01:00 | NUR ---
Patient's bed linen were changed. Perineal care done on pt.
[2020-05-20] MEDS: PANTOPRAZOLE SOD 40 MG TABEC PO SCH ×2 (02:15→13:37)
[2020-05-20 05:28] LABS: BASOPHILS % 0.5 % (0.0-1.0); EOSINOPHILS # (AUTO) 0.1 (0.0-0.4); EOSINOPHILS % 1.4 % (0.0-6.0); HEMATOCRIT 38.2 % (38.2-49.6); HEMOGLOBIN 12.7 g/dL (14.0-18.0); LYMPHOCYTES # (AUTO) 1.4 (1.0-3.2); LYMPHOCYTES % 24.8 % (18.0-39.1); MEAN CORPUSCULAR HEMOGLOBIN 33.2 pg (28-32); MEAN CORPUSCULAR HGB CONC 33.2 g/dL (31-35); MEAN CORPUSCULAR VOLUME 99.7 fL (81-99); MONOCYTES # (AUTO) 0.4 (0.2-0.8); MONOCYTES % 7.6 % (4.4-11.3); NEUTROPHILS # (AUTO) 3.7 (2.1-6.9); NEUTROPHILS % 65.5 % (38.7-80.0); PLATELET COUNT 126 x10e3/uL (140-360); RED BLOOD COUNT 3.83 x10e6/uL (4.3-5.7); RED CELL DISTRIBUTION WIDTH 13.2 % (11.7-14.4)
[2020-05-20 05:55] LABS: ALANINE AMINOTRANSFERASE 9 IU/L (0-55); ALBUMIN 2.5 g/dL (3.5-5.0); ALBUMIN/GLOBULIN RATIO 0.9 (0.8-2.0); ALKALINE PHOSPHATASE 66 IU/L (40-150); ANION GAP 10.9 mmol/L (8-16); BLOOD UREA NITROGEN 12 mg/dL (7-26); BUN/CREATININE RATIO 13 (6-25); CARBON DIOXIDE 28 mmol/L (22-29); CHLORIDE 111 mmol/L (98-107); CHOL/HDL RATIO 4.2 (3.9-4.7); CHOLESTEROL 151 MD/DL (0-199); CREATININE, SERUM 0.94 mg/dL (0.72-1.25); EST GLOMERULAR FILTRATION RATE > 60 ML/MIN (60-); GLUCOSE 99 mg/dL (74-118); HDL CHOLESTEROL 36 MG/DL (40-60); LDL CHOLESTEROL 88 MG/DL (60-130); POTASSIUM 3.9 mmol/L (3.5-5.1); SODIUM 146 mmol/L (136-145); TRIGLYCERIDES 134 MG/DL (0-149)
[2020-05-20 06:09] LABS: CREATINE KINASE 36 IU/L (30-200)
[2020-05-20] MEDS: LEVOTHYROXINE SODIUM 100 MCG TAB PO SCH (06:29)
[2020-05-20] MEDS ORDERED: PANTOPRAZOLE 40 MG 10ML VIAL IV SCH (09:00)
[2020-05-20] MEDS: GABAPENTIN 300 MG CAP PO SCH ×3 (09:25→21:20)
[2020-05-20] MEDS: TAMSULOSIN HCL 0.4 MG CAP PO SCH (09:25)
[2020-05-20] MEDS: FUROSEMIDE 20 MG TAB PO SCH (09:25)
[2020-05-20] MEDS: CITALOPRAM HYDROBROMIDE 20 MG TAB PO SCH (09:25)
--- NOTE | 2020-05-20 13:53 | NUR ---
WOUND CARE CONSULT 74 YO MALE HX OF ASPIRATION PNEAU,DECUBITUS ULCER,WEAKNESS YANDEL 15 0N MODERATE PUP STATUS AND INTERVENTIONS ALTERNATING PRESSURE SURFACE LABS: WBC-5.69 HGB- 12.7 GLUCOSE-99 HEAD TO TOE SKIN ASSESSMENT COMPLETE PATIENT PRESENTS WITH LEFT UPPER BUTTOCKS STAGE 2 ULCERATION 1CM X1CM X0.1CM LEFT LATERAL BUTTOCKS STAGE 2 ULCERATION 0.5CM X 0.5CM X 0.1CM RECOMMENDATIONS: NURSING TO CONTINUE TO MONITOR PATIENT AND KEEP SKIN CLEAN AND FREE FROM LOOSE STOOL OR IRRITATING MOISTURE AND CONTINUE TO FOLLOW CONSERVATIVE / MODERATE / STRICT PUP STATUS INTERVENTIONS NURSING TO CONTINUE TO GET PATIENT OUT OF BED FOR MEALS AND MUCH TOLERATED NURSING TO CLEAN LEFT UPPER BUTTOCKS STAGE 2 ULCERATION AND LEFT LATERAL BUTTOCKS STAGE 2 ULCERATION WITH NORMAL SALINE DAILY AND APPLY VENELEX OINTMENT TO .. AND COVER WITH ALLEVYN FOAM DRESSING Addendum: 05/20/20 at 1358 by Micheal Wadsworth RN Amended: Links added.
--- NOTE | 2020-05-20 15:37 | NUR ---
SPOKE WITH PT AND SISTER IN ROOM, WAS AT [facility] IN [place], BUT SISTER WANTS TO SPEAK WITH OTHER BROTHER AND ANOTHER FACILITY IN [facility] TO SEE IF THEY WILL ALLOW HIS LIFT CHAIR IN BUILDING. WILL GIVE CHOICE AT LATER TIME.
--- NOTE | 2020-05-20 16:30 | NUR ---
Nutrition Intervention Note RD Recommendation(s) for Physician: -Recommend speech therapy evaluation due to aspiration pneumonia and h/o dysphagia -Ata BID to promote wound healing -If PO intake is <50% of meals, provide Ensure Enlive Plan of Care: RD following, monitoring for tolerance and adequacy, oral supplement recommendation Nutrition reason for involvement: Diagnosis (aspiration pneumonia) and pressure ulcer RD Assessment (05/20/20) Pt is a 74 year old female admitted with aspiration pneumonia, decubitus skin ulcer, and weakness. Attempted to speak to pt, but he was sleeping at time of visit and did not arouse to greeting. It is recorded that pt consumed 50-100% of meals yesterday. Per weight history in chart, pt had varied weights ranging from 160-178 lbs in Jul/Aug 2019. Pt currently has a weight of 160 lbs in chart. Wound care note indicates pt has a stage 2 pressure ulcer on left buttocks. Recommend Ata BID to promote wound healing. Will continue to monitor. Principal Problems/Diagnoses: aspiration pneumonia, decubitus ulcer, and weakness PMH: cerebral palsy, CKD stage 3, anemia, aspiration pneumonia, HTN , dysphagia, GERD GI: soft abdomen, no BM recorded Skin: stage 2 pressure ulcer to left buttocks (per wound care 05/20) Labs: (05/20) Na 146, K 3.9, BUN 12, Cr 0.94, Glu 99, Ca 8.0 Meds: protonix, antibiotic, lasix, warfarin, zofran Ht: 68 in Wt: 160 lbs BMI: 24.3 kg/m2 IBW: 154 lbs Malnutrition Evaluation (05/20/20) The patient does not meet criteria for a specified degree of malnutrition at this time. Will re-evaluate at follow-up as appropriate. Nutrition Prescription (Diet Order): regular Estimated Nutritional Needs: 6758-8625 calories/day (30-35 kcal/kg CBW) 87-109 g protein/day (1.2-1.5 g pro/kg CBW) Diet Adequacy: pt consumed 50-100% of meals yesterday per chart Tolerance: Tolerating PO Diet Education Needs Assessment:. Diet education not indicated; patient on regular diet. Nutrition Care Level: low Nutrition Diagnosis: Increased nutrient needs related to increased demand for protein and kcal as evidenced by pressure ulcer Goal: Patient will meet 75-100% of estimated needs by follow up Progress: N/A Interventions: -General healthful diet, Commercial beverage, Commercial food Monitoring/Evaluation: -Total energy intake, Total protein intake, Liquid supplement, Weight change Signed: Marilyn Rico RD, LD
--- NOTE | 2020-05-20 19:20 | NUR ---
RECEIVED BEDSIDE SHIFT REPORT. PATIENT IS RESTING IN BED, AAOX3. RESP EVEN AND UNLABORED. NO ACUTE DISTRESS NOTED AT THIS TIME. EDUCATION PATIENT ABOUT SAFE PRECAUTION. PATIENT VERBALS UNDERSTANDING. TELE IN PLACE. BED ALARM IS ON. BED IS LOCKED AND AT LOWEST POSITION. CALL LIGHT WITHIN REACH. PT DENIES NEEDS AT THIS TIME
[2020-05-20] MEDS: DONEPEZIL HCL 23 MG PO SCH (21:00)
[2020-05-20] MEDS: WARFARIN SOD 5 MG TAB PO SCH (21:20)
[2020-05-21] VITALS (8 sets, daily range): BP systolic 98–126; BP diastolic 54–81
[2020-05-21] MEDS: PIPER-TAZ 3.375 GM 50 ML IV SCH ×4 (00:35→17:51)
[2020-05-21] MEDS: PANTOPRAZOLE SOD 40 MG TABEC PO SCH ×2 (03:11→14:01)
[2020-05-21] MEDS: LEVOTHYROXINE SODIUM 100 MCG TAB PO SCH (05:54)
[2020-05-21] MEDS: CITALOPRAM HYDROBROMIDE 20 MG TAB PO SCH (09:59)
[2020-05-21] MEDS: FUROSEMIDE 20 MG TAB PO SCH (09:59)
[2020-05-21] MEDS: TAMSULOSIN HCL 0.4 MG CAP PO SCH (09:59)
[2020-05-21] MEDS: GABAPENTIN 300 MG CAP PO SCH ×3 (10:00→22:16)
[2020-05-21] MEDS: BALSAM PERU/CASTOR OIL 60 GM OINT...G. TP SCH (10:03)
--- NOTE | 2020-05-21 10:56 | NUR ---
CALLED AND SPOKE WITH SISTER PRASHANT, SHE HAS NOT LOOKED AT BUILDINGS YET, WILL CALL BACK WITH CHOICE.
--- NOTE | 2020-05-21 11:06 | NUR ---
ST NOTE: Spoke with Harper RN, she mentioned a BSE, no order in system. Looked pt up in [facility]. He has a history of aspiraiton PNA with MBS's completed on 08-04-19 and 08-09-16, both resulted silent aspiration of thin liquids. Pt has refused peg tube, thickened liquids, and therapy in the past. She will relay this info to Dr. Hein.
--- NOTE | 2020-05-21 19:28 | NUR ---
report given to oncoming nurse, walking rounds complete.
--- NOTE | 2020-05-21 19:34 | NUR ---
Patient received lying in bed. AAO x 3. Patient had no complaints of pain. Respirations even and non-labored. Safety measures in place. Patient instructed to call for assistance when needed. Call light within reach.
[2020-05-21] MEDS: DONEPEZIL HCL 23 MG PO SCH (21:00)
[2020-05-21] MEDS: WARFARIN SOD 5 MG TAB PO SCH (22:16)
[2020-05-22] VITALS (8 sets, daily range): BP systolic 107–123; BP diastolic 60–89
[2020-05-22] MEDS: PIPER-TAZ 3.375 GM 50 ML IV SCH ×4 (00:58→17:31)
[2020-05-22] MEDS: PANTOPRAZOLE SOD 40 MG TABEC PO SCH ×2 (01:10→14:15)
[2020-05-22] MEDS: LEVOTHYROXINE SODIUM 100 MCG TAB PO SCH (06:22)
--- NOTE | 2020-05-22 06:30 | NUR ---
Peritoneal Dialysis completed. Addendum: 05/22/20 at 0722 by Dionne Marroquin RN Please disregard above entry. Reason: Wrong patient.
--- NOTE | 2020-05-22 07:00 | NUR ---
Walking rounds done. Shift report given to oncoming nurse.
--- NOTE | 2020-05-22 07:10 | NUR ---
RCD PT AT BED PT IS ALERT AND ORIENTED IN TO 1-2 RESTING ON BED IV PATENT BED LOW AND LOCKED CALL LIGHT IN REACH
[2020-05-22] MEDS: BALSAM PERU/CASTOR OIL 60 GM OINT...G. TP SCH (09:00)
[2020-05-22] MEDS: FUROSEMIDE 20 MG TAB PO SCH (09:00)
[2020-05-22] MEDS: TAMSULOSIN HCL 0.4 MG CAP PO SCH (09:00)
[2020-05-22] MEDS: CITALOPRAM HYDROBROMIDE 20 MG TAB PO SCH (09:00)
[2020-05-22] MEDS: GABAPENTIN 300 MG CAP PO SCH ×3 (09:00→20:49)
--- NOTE | 2020-05-22 14:52 | NUR ---
SISTER CALLED AND STATES WANTS TO GO TO [facility], WILL FAX CLINICALS TO FACILITY WITH COVID FORM AND CLAY.
--- NOTE | 2020-05-22 16:10 | NUR ---
PT'S DTR NOW REQUESTING ACUTE REHAB CALL TO DR SALOMON AND ACUTE REHAB ORDER REC'D CHOICE LETTER FOR [facility] SECURED CM TO FAX CLINICALS TO [facility] IN AM
[2020-05-22 16:54] LABS: INR 1.73; PROTHROMBIN TIME 21.1 seconds (11.9-14.5)
--- NOTE | 2020-05-22 18:43 | NUR ---
PT RESTING ON BED BED SIDE REPORT GIVEN TO ONCOMING NURSE
--- NOTE | 2020-05-22 19:20 | NUR ---
Patient received lying in bed. AAO x 3. No acute distress noted. Patient assisted to a more comfortable position . Safety measures in place. Patient instructed to call for assistance when needed. Call light within reach.
[2020-05-22] MEDS: DONEPEZIL HCL 23 MG PO SCH (20:49)
[2020-05-22] MEDS: WARFARIN SOD 5 MG TAB PO SCH (20:50)
[2020-05-23] VITALS (8 sets, daily range): BP systolic 104–120; BP diastolic 63–76
[2020-05-23] MEDS: PANTOPRAZOLE SOD 40 MG TABEC PO SCH ×2 (02:25→14:15)
[2020-05-23] MEDS: LEVOTHYROXINE SODIUM 100 MCG TAB PO SCH (05:33)
[2020-05-23] MEDS: PIPER-TAZ 3.375 GM 50 ML IV SCH ×5 (05:33→23:52)
--- NOTE | 2020-05-23 07:10 | NUR ---
RCD PT AT BED PT IS ALERT AND ORIENTED RESTING ON BED IV PATENT BED LOW AND LOCKED CALL LIGHT IN REACH
--- NOTE | 2020-05-23 07:39 | Progress Note ---
DATE: SUBJECTIVE: The patient is a 74-year-old male, who came in with aspiration pneumonia. The patient has a history of cerebral palsy. Currently complains of some leg pain according to the patient. PHYSICAL EXAMINATION: VITAL SIGNS: Temperature is 97.7, pulse of 64, respirations 20, blood pressure is 105/76, and pulse oximeter is 96%. HEENT: Normocephalic and atraumatic. Neurological changes of CP noted. CVS: S1 and S2 normal. LUNGS: Positive for some rhonchi. ABDOMEN: Soft, nontender, and nondistended. EXTREMITIES: Changes in erythema and decreased sensation of the lower extremity. Positive for fungal infection in the lower extremities. LABORATORY VALUES: None done since the . Chemistries all within normal limits. The patient's blood sugars have been in the 159. ASSESSMENT: Mr. Noris Dawson with; 1. Aspiration pneumonia, to continue on Zosyn. 2. History of depression. 3. History of CP. 4. History of anxiety and history of hypothyroidism. Continue same medication. Currently, the patient is also on warfarin. We will go ahead and check his PT/INR today. Further recommendation per clinical course. MD IMANI Sanchez/[place] /[id number]
[2020-05-23] MEDS: TAMSULOSIN HCL 0.4 MG CAP PO SCH (08:57)
[2020-05-23] MEDS: CITALOPRAM HYDROBROMIDE 20 MG TAB PO SCH (08:57)
[2020-05-23] MEDS: BALSAM PERU/CASTOR OIL 60 GM OINT...G. TP SCH (08:57)
[2020-05-23] MEDS: FUROSEMIDE 20 MG TAB PO SCH (08:57)
[2020-05-23] MEDS: GABAPENTIN 300 MG CAP PO SCH ×3 (08:57→21:39)
--- NOTE | 2020-05-23 10:00 | NUR ---
DRESSING CHANGED ON LOWER BACK
[2020-05-23] MEDS: ALPRAZOLAM 0.25 MG TAB PO PRN ×2 (11:37→17:25)
--- NOTE | 2020-05-23 16:01 | NUR ---
SW received communication that pt's daughter is requesting inpatient rehab, choice letter is signed for [facility] rehab. ANDREA faxed clinicals to [facility] Rehab,fax confirmation received. Case management will follow up on Monday.
--- NOTE | 2020-05-23 18:38 | NUR ---
PT RESTING ON BED BED SIDE REPORT GIVEN TO ONCOMING NURSE
[2020-05-23] MEDS: DONEPEZIL HCL 23 MG PO SCH (21:00)
[2020-05-23] MEDS: WARFARIN SOD 5 MG TAB PO SCH (21:40)
[2020-05-24] VITALS (7 sets, daily range): BP systolic 102–128; BP diastolic 70–83
[2020-05-24] MEDS: PANTOPRAZOLE SOD 40 MG TABEC PO SCH ×2 (02:30→14:15)
[2020-05-24] MEDS: ALPRAZOLAM 0.25 MG TAB PO PRN ×3 (02:30→15:45)
[2020-05-24] MEDS: PIPER-TAZ 3.375 GM 50 ML IV SCH ×3 (05:33→17:05)
[2020-05-24] MEDS: LEVOTHYROXINE SODIUM 100 MCG TAB PO SCH (05:50)
[2020-05-24 06:36] LABS: BASOPHILS % 0.4 % (0.0-1.0); EOSINOPHILS # (AUTO) 0.1 (0.0-0.4); EOSINOPHILS % 1.8 % (0.0-6.0); HEMOGLOBIN 14.2 g/dL (14.0-18.0); LYMPHOCYTES # (AUTO) 1.9 (1.0-3.2); MEAN CORPUSCULAR HEMOGLOBIN 32.2 pg (28-32); MEAN CORPUSCULAR HGB CONC 32.3 g/dL (31-35); MEAN CORPUSCULAR VOLUME 99.8 fL (81-99); MONOCYTES # (AUTO) 0.6 (0.2-0.8); MONOCYTES % 8.2 % (4.4-11.3); NEUTROPHILS # (AUTO) 4.2 (2.1-6.9); NEUTROPHILS % 61.3 % (38.7-80.0); PLATELET COUNT 134 x10e3/uL (140-360); RED BLOOD COUNT 4.41 x10e6/uL (4.3-5.7); RED CELL DISTRIBUTION WIDTH 12.9 % (11.7-14.4)
[2020-05-24 06:54] LABS: INR 2.06; PROTHROMBIN TIME 24.2 seconds (11.9-14.5)
[2020-05-24 07:09] LABS: ANION GAP 10.1 mmol/L (8-16); BLOOD UREA NITROGEN 15 mg/dL (7-26); BUN/CREATININE RATIO 15 (6-25); CALCIUM 8.1 mg/dL (8.4-10.2); CARBON DIOXIDE 32 mmol/L (22-29); CHLORIDE 105 mmol/L (98-107); CREATININE, SERUM 1.03 mg/dL (0.72-1.25); EST GLOMERULAR FILTRATION RATE > 60 ML/MIN (60-); GLUCOSE 89 mg/dL (74-118); POTASSIUM 4.1 mmol/L (3.5-5.1); SODIUM 143 mmol/L (136-145)
--- NOTE | 2020-05-24 07:10 | NUR ---
RCD PT AT BED PT IS ALERT AND ORIENTED RESTING ON BED IV PATENT BED LOW AND LOCKED CALL LIGHT IN REACH
--- NOTE | 2020-05-24 07:49 | Progress Note ---
DATE: SUBJECTIVE: The patient is a 74-year-old gentleman with history of aspiration pneumonia. Currently, the patient is sleepy, however, arousable. It was right back to sleep. OBJECTIVE: VITAL SIGNS: Temperature is 97.6, pulse of 67, respirations of 18, blood pressure is 117/71, pulse oximetry of 97% on room air. HEENT: Normocephalic, atraumatic. CVS: S1, S2 normal. LUNGS: Positive for rhonchi. ABDOMEN: Soft and nontender. EXTREMITIES: Signs of CP noted. The patient does have some excoriation and some erythema in the bilateral lower extremities. MICROBIOLOGY: Urine culture from the show Proteus. ASSESSMENT AND PLAN: This is Mr. Noris Dawson with: 1. Urinary tract infection. 2. Pneumonia. 3. Depression. 4. History of Proteus mirabilis. 5. Hypothyroidism. PLAN: Continue with current medications. The patient's laboratory values are pending today. INR is pending. We will continue to monitor the patient. Further recommendation per clinical course. Discharge to the SNF is pending and as soon as the bed is available, the patient can be discharged. MD IMANI Sanchez/[place] /[id number]
[2020-05-24] MEDS: CITALOPRAM HYDROBROMIDE 20 MG TAB PO SCH (08:33)
[2020-05-24] MEDS: TAMSULOSIN HCL 0.4 MG CAP PO SCH (08:34)
[2020-05-24] MEDS: FUROSEMIDE 20 MG TAB PO SCH (08:34)
[2020-05-24] MEDS: GABAPENTIN 300 MG CAP PO SCH ×3 (08:34→21:03)
[2020-05-24] MEDS: BALSAM PERU/CASTOR OIL 60 GM OINT...G. TP SCH (08:34)
--- NOTE | 2020-05-24 10:36 | NUR ---
Faxed updated labs and PT notes to Celia, liaison with [facility]. [phone] [place] [address] office [phone] fax: [phone] Celia cell: [phone] Celia email: [email or web address]
[2020-05-24] MEDS ORDERED: SODIUM CHLORIDE 0.9% 50ML 50 ML ONE (17:00)
--- NOTE | 2020-05-24 18:41 | NUR ---
PT RESTING ON BED BED SIDE REPORT GIVEN TO ONCOMING NURSE
[2020-05-24] MEDS: DONEPEZIL HCL 23 MG PO SCH (21:00)
[2020-05-24] MEDS: WARFARIN SOD 5 MG TAB PO SCH (21:03)
[2020-05-25] VITALS (9 sets, daily range): BP systolic 102–128; BP diastolic 68–78
[2020-05-25] MEDS: PANTOPRAZOLE SOD 40 MG TABEC PO SCH ×2 (03:04→14:15)
[2020-05-25] MEDS: LEVOTHYROXINE SODIUM 100 MCG TAB PO SCH (05:21)
[2020-05-25] MEDS: PIPER-TAZ 3.375 GM 50 ML IV SCH ×4 (05:21→17:26)
[2020-05-25] MEDS: GABAPENTIN 300 MG CAP PO SCH ×3 (09:20→20:09)
[2020-05-25] MEDS: CITALOPRAM HYDROBROMIDE 20 MG TAB PO SCH (09:20)
[2020-05-25] MEDS: TAMSULOSIN HCL 0.4 MG CAP PO SCH (09:20)
[2020-05-25] MEDS: BALSAM PERU/CASTOR OIL 60 GM OINT...G. TP SCH (09:20)
[2020-05-25] MEDS: FUROSEMIDE 20 MG TAB PO SCH (09:20)
--- NOTE | 2020-05-25 10:24 | NUR ---
Verified with Leatha with [facility] that they received clinical over the weekend. States referral is in precert now.
[2020-05-25] MEDS ORDERED: SODIUM CHLORIDE 0.9% 250ML 250 ML ONE (11:50)
[2020-05-25 12:37] LABS: INR 2.41; PROTHROMBIN TIME 27.4 seconds (11.9-14.5)
[2020-05-25] MEDS ORDERED: ONDANSETRON HCL 4 MG ORAL DISINTEGRATING TAB PO PRN (14:30)
--- NOTE | 2020-05-25 19:05 | NUR ---
Report given to oncoming nurse of patient's status. Resting in bed, talking on the phone. Respirations even and unlabored. Side rails upx2, call light within reach, bed alarm on.
[2020-05-25] MEDS: WARFARIN SOD 5 MG TAB PO SCH (20:08)
[2020-05-25] MEDS: DONEPEZIL HCL 23 MG PO SCH (20:10)
[2020-05-26] VITALS (8 sets, daily range): BP systolic 98–135; BP diastolic 65–81
[2020-05-26] MEDS: PANTOPRAZOLE SOD 40 MG TABEC PO SCH ×2 (02:15→15:00)
[2020-05-26] MEDS: PIPER-TAZ 3.375 GM 50 ML IV SCH ×5 (05:05→23:21)
[2020-05-26] MEDS: LEVOTHYROXINE SODIUM 100 MCG TAB PO SCH (05:05)
--- NOTE | 2020-05-26 06:12 | Progress Note ---
DATE: SUBJECTIVE: The patient had no new events overnight. Still has very audible rhonchi, but he states he is feeling a little bit better overall, but still very weak. OBJECTIVE: VITAL SIGNS: Temperature 98.3 pulse 85, blood pressure 108/72, sats 97% on nasal cannula. GENERAL: He is in no apparent distress, lying in bed. CARDIOVASCULAR: Regular rate and rhythm. LUNGS: Bilateral rhonchi noticed in all lung shay. ABDOMEN: Good bowel sounds. Soft, nontender. EXTREMITIES: No clubbing, cyanosis. NEUROLOGICAL: He is able to move all extremities x4. ASSESSMENT/PLAN: 1. Aspiration pneumonia. We will continue with his antibiotics. 2. Urinary tract infection with Proteus, we will continue with the antibiotics. 3. Benign prostatic hypertrophy, we will continue with his medication. 4. Hypothyroidism, we will continue with his thyroid medicine. 5. Reflux disease, we will continue with his pantoprazole. 6. Cerebral palsy, continue with his gabapentin. 7. Anxiety, we will continue with the citalopram and Xanax as needed. 8. Weakness, we are just waiting on family to decide transferred once we had a bed available. Please see hospital chart for full details. MD ANAID Little/[place] /[id number]
[2020-05-26] MEDS: FUROSEMIDE 20 MG TAB PO SCH (08:20)
[2020-05-26] MEDS: TAMSULOSIN HCL 0.4 MG CAP PO SCH (08:20)
[2020-05-26] MEDS: CITALOPRAM HYDROBROMIDE 20 MG TAB PO SCH (08:20)
[2020-05-26] MEDS: GABAPENTIN 300 MG CAP PO SCH ×3 (08:20→20:01)
[2020-05-26] MEDS: BALSAM PERU/CASTOR OIL 60 GM OINT...G. TP SCH (08:21)
--- NOTE | 2020-05-26 08:59 | NUR ---
FAXED UPDATES TO [facility] FOR NIC PE REQUEST, STILL PENDING AUTH.
--- NOTE | 2020-05-26 16:26 | NUR ---
SPOKE WITH JESSICA FROM INSURANCE WHOM STATES THEY ARE IN PROCESS OF DECLINING PT FOR [facility]. ON BASIS THAT PT CAN GO TO A LOWER LEVEL OF CARE. STATES CALLED DR SALOMON AND HE TOLD THEM SNF WAS OKAY. CALLED SISTER IAIN AND LET HER KNOW AND WHE WANTS TO APPEAL. LET HER KNOW THAT THEY ARE FORWARDING TO [facility] FOR FINAL DECISION. AND WILL LET KNOW. SHE STATES SHE CALL AND SPOKE WITH [facility] [employer] AND SPOKE WITH SANDRA AND HE TOLD HER THEY WERE IN NETWORK AND HE CAN GO THERE. LET HER KNOW THAT IS SOMEONE THAT HAS NOT SEEN ANY RECORDS OR IS ON THE DECISION TEAM FOR PLACEMENTS. WILL LET HER KNOW WHAT DECISION IS WHEN GET NOTIFIED TOMORROW. STILL HAVE PACKET FROM [facility] AND WILL SEND UPDATES TO FACILITY IF THAT IS ROUTE GOING.
--- NOTE | 2020-05-26 16:45 | NUR ---
Patient refused to sit up in chair for dinner.
--- NOTE | 2020-05-26 18:58 | NUR ---
Report given to on coming nurse. Pt lying in bed semi-fowlers. Pt denies pain 0/10. Pt in no apparent distress.
[2020-05-26] MEDS: DONEPEZIL HCL 23 MG PO SCH (21:00)
[2020-05-27] VITALS (8 sets, daily range): BP systolic 95–126; BP diastolic 53–83
[2020-05-27] MEDS: PANTOPRAZOLE SOD 40 MG TABEC PO SCH ×2 (02:15→21:04)
[2020-05-27] MEDS: LEVOTHYROXINE SODIUM 100 MCG TAB PO SCH (05:09)
[2020-05-27] MEDS: PIPER-TAZ 3.375 GM 50 ML IV SCH ×4 (05:09→23:49)
[2020-05-27 05:58] LABS: INR 2.68; PROTHROMBIN TIME 29.8 seconds (11.9-14.5)
--- NOTE | 2020-05-27 07:00 | NUR ---
BEDSIDE SHIFT REPORT RECEIVED FROM THE LACE STRIPPER RN. EDUCATED PT ABOUT FALL PRECAUTIONS. PT VERBALIZED UNDERSTANDING. BED IS LOW AND LOCKED. SIDE RAILS X2. CALL LIGHT WITH IN EASY REACH. BED ALARM IS ON. ALL SAFETY MEASURES IN PLACE. PT DENIES NEEDS AT THIS TIME.
--- NOTE | 2020-05-27 08:03 | NUR ---
SPOKE WITH INSURANCE STATES DENIAL WAS ISSUED SISTER INITIATED APPEAL
[2020-05-27] MEDS: GABAPENTIN 300 MG CAP PO SCH ×3 (10:00→21:04)
[2020-05-27] MEDS: TAMSULOSIN HCL 0.4 MG CAP PO SCH (10:00)
[2020-05-27] MEDS: CITALOPRAM HYDROBROMIDE 20 MG TAB PO SCH (10:00)
[2020-05-27] MEDS: BALSAM PERU/CASTOR OIL 60 GM OINT...G. TP SCH (10:00)
[2020-05-27] MEDS: FUROSEMIDE 20 MG TAB PO SCH (10:00)
--- NOTE | 2020-05-27 11:40 | NUR ---
PT TRANSFERRED SAFELY TO CHAIR FROM BED FOR LUNCH PER PT REQUEST.CALL LIGHT WITH IN EASY REACH. EDUCATED PT ABOUT FALL PRECAUTIONS. PT VERBALIZED UNDERSTANDING.
[2020-05-27] MEDS: ALPRAZOLAM 0.25 MG TAB PO PRN ×2 (14:07→21:04)
--- NOTE | 2020-05-27 15:00 | NUR ---
PHYSICAL THERAPY AT BEDSIDE. PT WALKED WITH PT.
--- NOTE | 2020-05-27 15:44 | NUR ---
Nutrition Intervention Note RD Recommendation(s) for Physician: -Continue current diet as ordered -Ata BID to promote wound healing -If PO intake is <50% of meals, provide Ensure Enlive Plan of Care: RD following, monitoring for tolerance and adequacy, oral supplement recommendation Nutrition reason for involvement: follow up RD Assessment 05/27: Follow up. Chart reviewed. Per speech therapy note on 05/21, pt has h/o aspiration pneumonia and has refused PEG tube in the past. Attempted to speak, but he was not available at time of visits. RN reported pt is eating >50% of his meals. No N/V/D/C reported. Recommend to continue and encourage Ata BID to promote wound healing. Will continue to monitor. (05/20/20) Pt is a 74 year old female admitted with aspiration pneumonia, decubitus skin ulcer, and weakness. Attempted to speak to pt, but he was sleeping at time of visit and did not arouse to greeting. It is recorded that pt consumed 50-100% of meals yesterday. Per weight history in chart, pt had varied weights ranging from 160-178 lbs in Jul/Aug 2019. Pt currently has a weight of 160 lbs in chart. Wound care note indicates pt has a stage 2 pressure ulcer on left buttocks. Recommend Ata BID to promote wound healing. Will continue to monitor. Principal Problems/Diagnoses: aspiration pneumonia, decubitus ulcer, and weakness PMH: cerebral palsy, CKD stage 3, anemia, aspiration pneumonia, HTN , dysphagia, GERD GI: soft abdomen, last recorded BM 05/26 Skin: stage 2 pressure ulcer to left buttocks (per wound care 05/20) Labs: (05/24) Na 143, K 4.1, BUN 15, Cr 1.03, Glu 89, Ca 8.1 (05/20) Na 146, K 3.9, BUN 12, Cr 0.94, Glu 99, Ca 8.0 Meds: antibiotic, lasix, levothyroxine, protonix, zofran, coumadin Ht: 68 in Wt: 160 lbs BMI: 24.3 kg/m2 IBW: 154 lbs Malnutrition Evaluation (05/20/20) The patient does not meet criteria for a specified degree of malnutrition at this time. Will re-evaluate at follow-up as appropriate. Nutrition Prescription (Diet Order): regular Estimated Nutritional Needs: 4464-1658 calories/day (30-35 kcal/kg CBW) 87-109 g protein/day (1.2-1.5 g pro/kg CBW) Diet Adequacy: RN reports pt is eating >50% of meals Tolerance: Tolerating PO Diet Education Needs Assessment:. Diet education not indicated; patient on regular diet. Nutrition Care Level: low Nutrition Diagnosis: Increased nutrient needs related to increased demand for protein and kcal as evidenced by pressure ulcer Goal: Patient will meet 75-100% of estimated needs by follow up Progress: progressing Interventions: -General healthful diet, Commercial beverage Monitoring/Evaluation: -Total energy intake, Total protein intake, Liquid supplement, Weight change Signed: Marilyn Rico RD, LD
--- NOTE | 2020-05-27 17:00 | NUR ---
PT TRANSFERRED TO CHAIR FOR MEALS. PT DENIES NEEDS AT THIS TIME.
--- NOTE | 2020-05-27 18:50 | NUR ---
BEDSIDE SHIFT REPORT GIVEN TO THE SPICE GRINDER RN. PT DENIED FURTHER NEEDS.
[2020-05-27] MEDS: DONEPEZIL HCL 23 MG PO SCH (21:00)
[2020-05-27] MEDS: WARFARIN SOD 5 MG TAB PO SCH (21:04)
[2020-05-28] VITALS (8 sets, daily range): BP systolic 94–114; BP diastolic 58–92
[2020-05-28] MEDS: PIPER-TAZ 3.375 GM 50 ML IV SCH ×3 (05:31→18:35)
[2020-05-28] MEDS: LEVOTHYROXINE SODIUM 100 MCG TAB PO SCH (05:31)
--- NOTE | 2020-05-28 07:00 | NUR ---
BEDSIDE SHIFT REPORT RECEIVED FROM THE INSPECTOR OF DREDGING RN. CALL LIGHT WITH IN EASY REACH. INSTRUCTED PT TO USE CALL LIGHT FOR ALL THE NEEDS. BED IS LOW AND LOCKED. SIDE RAILS X2. BED ALARM IS ON. ALL SAFETY MEASURES IN PLACE. PT DENIES NEEDS AT THIS TIME.
[2020-05-28] MEDS: GABAPENTIN 300 MG CAP PO SCH ×3 (10:04→20:25)
[2020-05-28] MEDS: TAMSULOSIN HCL 0.4 MG CAP PO SCH (10:04)
[2020-05-28] MEDS: FUROSEMIDE 20 MG TAB PO SCH (10:04)
[2020-05-28] MEDS: CITALOPRAM HYDROBROMIDE 20 MG TAB PO SCH (10:04)
[2020-05-28] MEDS: PANTOPRAZOLE SOD 40 MG TABEC PO SCH ×2 (10:05→20:25)
[2020-05-28] MEDS: BALSAM PERU/CASTOR OIL 60 GM OINT...G. TP SCH (10:06)
--- NOTE | 2020-05-28 13:33 | NUR ---
PT TRANSFERRED TO CHAIR FROM BED FOR BREAKFAST AND LUNCH. PT DENIES NEEDS AT THIS TIME.
--- NOTE | 2020-05-28 14:04 | NUR ---
SPOKE WITH [facility] EVERYTHING SUBMITTED FOR APPEAL, SPOKE WITH SISTER WHOM REFUSED A SNF AND STATES HE HAS TO GO TO REHAB.
--- NOTE | 2020-05-28 15:00 | NUR ---
PHYSICAL THERAPY AT BEDSIDE.
--- NOTE | 2020-05-28 17:00 | NUR ---
PT WALKED WITH PT. PT TRANSFERRED TO CHAIR FOR MEALS. PT REFUSED BATH MULTIPLE TIMES.
--- NOTE | 2020-05-28 19:00 | NUR ---
BEDSIDE SHIFT REPORT GIVEN TO THE MOCK UP BUILDER RN. PT DENIED FURTHER NEEDS
[2020-05-28] MEDS: DONEPEZIL HCL 23 MG PO SCH (20:24)
[2020-05-28] MEDS: WARFARIN SOD 5 MG TAB PO SCH (20:25)
[2020-05-28] MEDS: ALPRAZOLAM 0.25 MG TAB PO PRN (20:25)
[2020-05-29] VITALS (8 sets, daily range): BP systolic 100–118; BP diastolic 61–75
[2020-05-29] MEDS: PIPER-TAZ 3.375 GM 50 ML IV SCH ×4 (00:05→18:30)
[2020-05-29] MEDS: LEVOTHYROXINE SODIUM 100 MCG TAB PO SCH (06:03)
--- NOTE | 2020-05-29 07:00 | NUR ---
BEDSIDE SHIFT REPORT RECEIVED FROM THE IT TECHNICAL SUPPORT SPECIALIST RN. EDUCATED PT ABOUT FALL PRECAUTIONS. PT VERBALIZED UNDERSTANDING. BED IS LOW AND LOCKED. SIDE RAILS X2. CALL LIGHT WITH IN EASY REACH. BED ALARM IS ON. ALL SAFETY MEASURES IN PLACE. PT DENIES NEEDS AT THIS TIME.
[2020-05-29 07:12] LABS: INR 3.07; PROTHROMBIN TIME 33.1 seconds (11.9-14.5)
--- NOTE | 2020-05-29 07:30 | NUR ---
PAGED DR. SALOMON AND INFORMED INR 3.07.
--- NOTE | 2020-05-29 08:05 | NUR ---
FAXED UPDATED TO [facility] REQUESTED FOR APPEAL
[2020-05-29] MEDS: CITALOPRAM HYDROBROMIDE 20 MG TAB PO SCH (10:00)
[2020-05-29] MEDS: TAMSULOSIN HCL 0.4 MG CAP PO SCH (10:00)
[2020-05-29] MEDS: PANTOPRAZOLE SOD 40 MG TABEC PO SCH ×2 (10:00→20:07)
[2020-05-29] MEDS: FUROSEMIDE 20 MG TAB PO SCH (10:00)
[2020-05-29] MEDS: GABAPENTIN 300 MG CAP PO SCH ×3 (10:00→20:07)
[2020-05-29] MEDS: BALSAM PERU/CASTOR OIL 60 GM OINT...G. TP SCH (10:00)
--- NOTE | 2020-05-29 19:00 | NUR ---
BEDSIDE SHIFT REPORT GIVEN TO THE ADVISORY INTERNSHIP RN. PT DENIED FURTHER NEEDS.
[2020-05-29] MEDS: DONEPEZIL HCL 23 MG PO SCH (20:07)
[2020-05-29] MEDS: ALPRAZOLAM 0.25 MG TAB PO PRN (20:07)
[2020-05-30] VITALS (8 sets, daily range): BP systolic 88–117; BP diastolic 36–74
[2020-05-30] MEDS: PIPER-TAZ 3.375 GM 50 ML IV SCH ×4 (00:34→17:47)
[2020-05-30] MEDS: LEVOTHYROXINE SODIUM 100 MCG TAB PO SCH (05:23)
[2020-05-30 06:43] LABS: BASOPHILS % 0.7 % (0.0-1.0); EOSINOPHILS # (AUTO) 0.1 (0.0-0.4); EOSINOPHILS % 1.3 % (0.0-6.0); HEMATOCRIT 38.2 % (38.2-49.6); HEMOGLOBIN 12.4 g/dL (14.0-18.0); LYMPHOCYTES # (AUTO) 1.7 (1.0-3.2); LYMPHOCYTES % 31.2 % (18.0-39.1); MEAN CORPUSCULAR HEMOGLOBIN 31.4 pg (28-32); MEAN CORPUSCULAR HGB CONC 32.5 g/dL (31-35); MEAN CORPUSCULAR VOLUME 96.7 fL (81-99); MONOCYTES # (AUTO) 0.5 (0.2-0.8); MONOCYTES % 9.5 % (4.4-11.3); NEUTROPHILS # (AUTO) 3.2 (2.1-6.9); NEUTROPHILS % 57.1 % (38.7-80.0); PLATELET COUNT 116 x10e3/uL (140-360); RED BLOOD COUNT 3.95 x10e6/uL (4.3-5.7); RED CELL DISTRIBUTION WIDTH 13.1 % (11.7-14.4)
[2020-05-30 06:50] LABS: INR 3.03; PROTHROMBIN TIME 32.8 seconds (11.9-14.5)
[2020-05-30 07:04] LABS: ALANINE AMINOTRANSFERASE 11 IU/L (0-55); ALBUMIN 2.8 g/dL (3.5-5.0); ALBUMIN/GLOBULIN RATIO 0.9 (0.8-2.0); ALKALINE PHOSPHATASE 69 IU/L (40-150); ANION GAP 11.5 mmol/L (8-16); BLOOD UREA NITROGEN 16 mg/dL (7-26); BUN/CREATININE RATIO 17 (6-25); CALCIUM 8.1 mg/dL (8.4-10.2); CARBON DIOXIDE 29 mmol/L (22-29); CHLORIDE 106 mmol/L (98-107); CREATININE, SERUM 0.93 mg/dL (0.72-1.25); EST GLOMERULAR FILTRATION RATE > 60 ML/MIN (60-); GLUCOSE 89 mg/dL (74-118); POTASSIUM 3.5 mmol/L (3.5-5.1); SODIUM 143 mmol/L (136-145)
[2020-05-30] MEDS: TAMSULOSIN HCL 0.4 MG CAP PO SCH (08:49)
[2020-05-30] MEDS: CITALOPRAM HYDROBROMIDE 20 MG TAB PO SCH (08:49)
[2020-05-30] MEDS: GABAPENTIN 300 MG CAP PO SCH ×3 (08:50→21:16)
[2020-05-30] MEDS: FUROSEMIDE 20 MG TAB PO SCH (08:50)
[2020-05-30] MEDS: PANTOPRAZOLE SOD 40 MG TABEC PO SCH ×2 (08:50→21:16)
[2020-05-30] MEDS: BALSAM PERU/CASTOR OIL 60 GM OINT...G. TP SCH (08:53)
--- NOTE | 2020-05-30 19:20 | NUR ---
WALKING ROUNDS COMPLETE, REPORT GIVEN TO ONCOMING NURSE.
[2020-05-30] MEDS: DONEPEZIL HCL 23 MG PO SCH (21:00)
[2020-05-30] MEDS ORDERED: WARFARIN SOD 5 MG TAB PO SCH (22:38)
[2020-05-31] VITALS (8 sets, daily range): BP systolic 107–132; BP diastolic 66–77
[2020-05-31] MEDS: PIPER-TAZ 3.375 GM 50 ML IV SCH ×4 (00:04→18:37)
--- NOTE | 2020-05-31 03:45 | NUR ---
Wound dressing performed per MD's orders.
[2020-05-31] MEDS: LEVOTHYROXINE SODIUM 100 MCG TAB PO SCH (06:54)
[2020-05-31] MEDS: PANTOPRAZOLE SOD 40 MG TABEC PO SCH ×2 (08:44→21:11)
[2020-05-31] MEDS: TAMSULOSIN HCL 0.4 MG CAP PO SCH (08:44)
[2020-05-31] MEDS: FUROSEMIDE 20 MG TAB PO SCH (08:44)
[2020-05-31] MEDS: CITALOPRAM HYDROBROMIDE 20 MG TAB PO SCH (08:44)
[2020-05-31] MEDS: GABAPENTIN 300 MG CAP PO SCH ×3 (08:44→21:11)
[2020-05-31] MEDS: BALSAM PERU/CASTOR OIL 60 GM OINT...G. TP SCH (10:25)
--- NOTE | 2020-05-31 19:09 | NUR ---
report given to on coming nurse, walking rounds complete.
--- NOTE | 2020-05-31 19:18 | NUR ---
Patient received lying in bed. AAO x 3. No acute distress noted. Safety measures in place. Patient instructed to call for assistance when needed. Call light within reach.
[2020-05-31] MEDS: DONEPEZIL HCL 23 MG PO SCH (21:00)
[2020-06-01] VITALS (7 sets, daily range): BP systolic 103–126; BP diastolic 67–80
[2020-06-01] MEDS: PIPER-TAZ 3.375 GM 50 ML IV SCH ×3 (00:15→13:50)
[2020-06-01] MEDS: LEVOTHYROXINE SODIUM 100 MCG TAB PO SCH (06:00)
--- NOTE | 2020-06-01 06:42 | NUR ---
Patient resting comfortably. Walking rounds done. Shift report given to oncoming nurse regarding patient's status.
--- NOTE | 2020-06-01 08:22 | NUR ---
SPOKE WITH [facility] REP ABOUT PROGRESS OF APPEAL. SHE WILL CHECK AND GET BACK TO ME.,
--- NOTE | 2020-06-01 08:23 | NUR ---
PT IS WALKING 300 FT MAY NOT QUALIFY FOR SNF AT THIS POINT, IF NOT APPROVED FOR REHAB THEN POSSIBLE HOME WITH HIS HOME HEALTH.
[2020-06-01] MEDS: GABAPENTIN 300 MG CAP PO SCH ×2 (08:43→16:20)
[2020-06-01] MEDS: CITALOPRAM HYDROBROMIDE 20 MG TAB PO SCH (08:43)
[2020-06-01] MEDS: PANTOPRAZOLE SOD 40 MG TABEC PO SCH (08:43)
[2020-06-01] MEDS: TAMSULOSIN HCL 0.4 MG CAP PO SCH (08:43)
[2020-06-01] MEDS: BALSAM PERU/CASTOR OIL 60 GM OINT...G. TP SCH (08:43)
[2020-06-01] MEDS: FUROSEMIDE 20 MG TAB PO SCH (08:43)
--- NOTE | 2020-06-01 15:23 | NUR ---
Called office per patients request so that patient could talk to MD. They said he was gone for the day. Texted him to call me for patients kurt
--- NOTE | 2020-06-01 16:06 | NUR ---
Dr. Hein spoke with patent at length and then also called his sister
--- NOTE | 2020-06-01 16:11 | NUR ---
FACILITY DISCHARGE INFORMATION PATIENT HAS BEEN ACCEPTED TO: [facility] [place] ADDRESS:[id number] ACCEPTING BLANKET CUTTING MACHINE OPERATOR: ABDIRIZAK WESTBROOK ACCEPTING MD:QUANG ORDONEZ ROOM:GET WHEN CALL NURSE CALL REPORT TO: [phone] IMM SIGNED AND OBTAINED (if applicable): NA THE FOLLOWING DOCUMENTS MUST ACCOMPANY PATIENT FOR TRANSFER: COPIED CHART:PACKET
[2020-06-01] MEDS ORDERED: ALPRAZOLAM0.5 M1 PO (17:22)
[2020-06-01] MEDS ORDERED: VENELEX OINTMEN60 GM TOP (17:23)
[2020-06-01] MEDS ORDERED: ZOFRAN4 MG PO (17:24)
[2020-06-01] MEDS ORDERED: ZOSYN 3.373.375 GM/5 IVP (17:24)
--- NOTE | 2020-06-02 06:33 | Discharge Summary ---
DISCHARGE DIAGNOSES: 1. Aspiration pneumonia. 2. Urinary tract infection with Proteus. 3. Cerebral palsy. 4. Benign prostatic hypertrophy. HISTORY OF PRESENT ILLNESS AND HOSPITAL COURSE: See hospital chart for full details. The patient is a gentleman with cerebral palsy, aspiration, who refuses PEG tube placement, who presented with weakness, inability to move around, where he was found to have aspiration pneumonia as well as urinary tract infection secondary to Proteus. He responded well to his antibiotics, but due to his overall weakness and deconditioning from his condition, he was then evaluated for rehab where he was accepted and then sent to [facility] further rehabilitation care prior to going home. Please see hospital chart for full details. MD ANAID Little/[place] /[id number]
== END 2020-06-01 18:05 | DRG 178 ==
LOC: ER 08:32 → ERHOLD 10:16 → MED/SURG2 11:49
PROVIDERS: ADMIT Internal Medicine; ATTEND Internal Medicine
DX: J69.0 Pneumonitis due to inhalation of food and vomit (principal); N39.0 Urinary tract infection, site not specified; L89.322 Pressure ulcer of left buttock, stage 2; F03.90 Unspecified dementia, unspecified severity, without behavioral disturbance, psychotic disturbance, mood disturbance, and anxiety; K21.9 Gastro-esophageal reflux disease without esophagitis; G40.909 Epilepsy, unspecified, not intractable, without status epilepticus; Z20.828 Contact with and (suspected) exposure to other viral communicable diseases; N40.0 Benign prostatic hyperplasia without lower urinary tract symptoms; F41.9 Anxiety disorder, unspecified; Z82.49 Family history of ischemic heart disease and other diseases of the circulatory system; Z88.8 Allergy status to other drugs, medicaments and biological substances; E03.9 Hypothyroidism, unspecified; G80.9 Cerebral palsy, unspecified; D64.9 Anemia, unspecified; F32.9 Major depressive disorder, single episode, unspecified; B96.4 Proteus (mirabilis) (morganii) as the cause of diseases classified elsewhere; D69.6 Thrombocytopenia, unspecified
CPT/HCPCS: 36415; 71045; 80048; 80053; 80061; 82550; 82553; 82948; 83735; 84484; 85025; 85610; 85730; 87040; 87086; 87186; 93005; 97139; 99251; 99284; J2405; J2543; J2550; J7030; J7050

== ENCOUNTER 2020-06-27 13:58 | Inpatient (IN) | payer MEDICARE ==
[~2020-06-27] VITALS: Ht 172.7 cm; Wt 63.6 kg
[~2020-06-27 13:58] MED LIST changes: +ALPRAZOLAM0.5 M1 PO; +SYNTHROID100 MCG PO; +VENELEX OINTMEN60 GM TOP; +ZOFRAN4 MG PO; +ZOSYN 3.373.375 GM/5 IVP
[2020-06-27] MEDS ORDERED: SODIUM CHLORIDE 0.9% 500ML 500 ML IV ONE (14:30)
[2020-06-27] MEDS ORDERED: PIPER-TAZ 3.375 GM 50 ML IV ONE (15:00)
[2020-06-27] MEDS ORDERED: LIOTHYRONINE SO5 MCG PO (15:01)
[2020-06-27] MEDS ORDERED: WARFARIN SODIU2.5 MG PO (15:01)
[2020-06-27] MEDS ORDERED: IPRATROPIU0.2 MG/1 M NEB (15:01)
[2020-06-27] MEDS ORDERED: CYMBALTA30 MG PO (15:01)
[2020-06-27 16:12] LABS: BASOPHILS % 0.4 % (0.0-1.0); EOSINOPHILS # (AUTO) 0.1 (0.0-0.4); EOSINOPHILS % 0.9 % (0.0-6.0); HEMATOCRIT 43.3 % (38.2-49.6); LYMPHOCYTES # (AUTO) 1.6 (1.0-3.2); LYMPHOCYTES % 18.9 % (18.0-39.1); MEAN CORPUSCULAR HEMOGLOBIN 31.3 pg (28-32); MEAN CORPUSCULAR HGB CONC 32.3 g/dL (31-35); MEAN CORPUSCULAR VOLUME 96.9 fL (81-99); MONOCYTES # (AUTO) 0.5 (0.2-0.8); NEUTROPHILS % 73.6 % (38.7-80.0); PLATELET COUNT 173 x10e3/uL (140-360); RED BLOOD COUNT 4.47 x10e6/uL (4.3-5.7); RED CELL DISTRIBUTION WIDTH 12.5 % (11.7-14.4)
[2020-06-27 16:34] LABS: INR 1.95; PARTIAL THROMBOPLASTIN TIME 33.1 seconds (23.8-35.5); PROTHROMBIN TIME 23.2 seconds (11.9-14.5)
[2020-06-27 16:41] LABS: ALANINE AMINOTRANSFERASE 18 IU/L (0-55); ALBUMIN 3.1 g/dL (3.5-5.0); ALKALINE PHOSPHATASE 85 IU/L (40-150); ANION GAP 16.1 mmol/L (8-16); BLOOD UREA NITROGEN 16 mg/dL (7-26); BUN/CREATININE RATIO 17 (6-25); CALCIUM 8.5 mg/dL (8.4-10.2); CARBON DIOXIDE 28 mmol/L (22-29); CHLORIDE 105 mmol/L (98-107); CREATINE KINASE 35 IU/L (30-200); CREATININE, SERUM 0.95 mg/dL (0.72-1.25); EST GLOMERULAR FILTRATION RATE > 60 ML/MIN (60-); GLUCOSE 102 mg/dL (74-118); MAGNESIUM 1.8 MG/DL (1.3-2.1); POTASSIUM 4.1 mmol/L (3.5-5.1); SODIUM 145 mmol/L (136-145)
[2020-06-27] MEDS ORDERED: SODIUM CHLORIDE 0.9% 1000ML 1,000 ML IV STA (17:00)
[2020-06-27 17:19] LABS: CLARITY,URINE CLOUDY (CLEAR); COLOR,URINE YELLOW (YELLOW)
[2020-06-27 17:20] LABS: BILIRUBIN,URINE SMALL (NEGATIVE); KETONES,URINE TRACE (NEGATIVE); LEUKOCYTE ESTERASE ,URINE LARGE (NEGATIVE); NITRITE,URINE NEGATIVE (NEGATIVE); PROTEIN,URINE DIPSTICK TRACE (NEGATIVE); URINE UROBILINOGEN 1 mg/dL (0.2 - 1)
[2020-06-27 17:25] LABS: WBC,URINE (MAN) >50 /HPF (0-5)
[2020-06-27 17:26] LABS: BACTERIA,URINE MANY /HPF; EPITHELIAL CELLS,URINE FEW /LPF; MUCUS,URINE MANY (RARE); RBC,URINE 21-50 /HPF (0-5)
[2020-06-27] MEDS ORDERED: ONDANSETRON HCL INJ 2MG/ML 2ML 2 MG/ML VIAL IV PRN (18:30)
[2020-06-27] MEDS ORDERED: SODIUM CHLORIDE 0.9% 1000ML 1,000 ML IV SCH (18:30)
[2020-06-27 22:39] VITALS: BP 139/78
[2020-06-27 23:55] VITALS: BP 132/78
[2020-06-28] VITALS (8 sets, daily range): BP systolic 108–139; BP diastolic 52–84
[2020-06-28] MEDS: PANTOPRAZOLE SOD 40 MG TABEC PO SCH ×2 (04:30→17:38)
[2020-06-28] MEDS ORDERED: CLONIDINE HCL 0.1 MG TAB PO PRN (04:30)
[2020-06-28] MEDS ORDERED: ONDANSETRON HCL INJ 2MG/ML 2ML 2 MG/ML VIAL IV PRN (04:30)
[2020-06-28] MEDS: PIPER-TAZ 3.375 GM 50 ML IV SCH ×3 (05:24→17:48)
[2020-06-28 06:55] LABS: BASOPHILS % 0.6 % (0.0-1.0); EOSINOPHILS # (AUTO) 0.1 (0.0-0.4); EOSINOPHILS % 1.6 % (0.0-6.0); HEMATOCRIT 39.8 % (38.2-49.6); HEMOGLOBIN 12.7 g/dL (14.0-18.0); LYMPHOCYTES # (AUTO) 1.4 (1.0-3.2); LYMPHOCYTES % 20.1 % (18.0-39.1); MEAN CORPUSCULAR HEMOGLOBIN 31.2 pg (28-32); MEAN CORPUSCULAR HGB CONC 31.9 g/dL (31-35); MEAN CORPUSCULAR VOLUME 97.8 fL (81-99); MONOCYTES # (AUTO) 0.5 (0.2-0.8); MONOCYTES % 6.5 % (4.4-11.3); NEUTROPHILS # (AUTO) 4.9 (2.1-6.9); NEUTROPHILS % 70.8 % (38.7-80.0); PLATELET COUNT 160 x10e3/uL (140-360); RED BLOOD COUNT 4.07 x10e6/uL (4.3-5.7); RED CELL DISTRIBUTION WIDTH 12.4 % (11.7-14.4)
[2020-06-28 07:19] LABS: ALANINE AMINOTRANSFERASE 13 IU/L (0-55); ALBUMIN 2.5 g/dL (3.5-5.0); ALBUMIN/GLOBULIN RATIO 0.9 (0.8-2.0); ANION GAP 9.8 mmol/L (8-16); BLOOD UREA NITROGEN 12 mg/dL (7-26); BUN/CREATININE RATIO 16 (6-25); CALCIUM 7.8 mg/dL (8.4-10.2); CARBON DIOXIDE 25 mmol/L (22-29); CHLORIDE 111 mmol/L (98-107); CREATININE, SERUM 0.76 mg/dL (0.72-1.25); EST GLOMERULAR FILTRATION RATE > 60 ML/MIN (60-); GLUCOSE 92 mg/dL (74-118); POTASSIUM 3.8 mmol/L (3.5-5.1); SODIUM 142 mmol/L (136-145)
[2020-06-28 07:35] LABS: CREATINE KINASE 30 IU/L (30-200)
[2020-06-28 08:18] LABS: ALKALINE PHOSPHATASE 62 IU/L (40-150)
[2020-06-28] MEDS ORDERED: WARFARIN SOD 2.5 MG TAB PO SCH (09:00)
[2020-06-28] MEDS: LIOTHYRONINE SODIUM 5 MCG TAB PO SCH (09:05)
[2020-06-28] MEDS: DULOXETINE HCL 30 MG DELAYED RELEASE PO SCH (09:05)
[2020-06-28] MEDS: TAMSULOSIN HCL 0.4 MG CAP PO SCH (09:05)
[2020-06-28] MEDS: FUROSEMIDE 20 MG TAB PO SCH (09:05)
[2020-06-28] MEDS: GABAPENTIN 300 MG CAP PO SCH ×3 (09:05→21:00)
[2020-06-28] MEDS ORDERED: SODIUM CHLORIDE 0.9% 250ML 250 ML ONE (10:51)
[2020-06-28 15:49] LABS: CREATINE KINASE 32 IU/L (30-200)
[2020-06-28] MEDS: WARFARIN SOD 5 MG TAB PO SCH (17:38)
[2020-06-28] MEDS: ALPRAZOLAM 0.25 MG TAB PO PRN (19:19)
[2020-06-28] MEDS: DONEPEZIL HCL 5 MG TAB PO SCH (21:00)
[2020-06-29] VITALS (7 sets, daily range): BP systolic 96–129; BP diastolic 57–81
[2020-06-29] MEDS: PANTOPRAZOLE SOD 40 MG TABEC PO SCH ×2 (04:30→16:34)
[2020-06-29] MEDS: PIPER-TAZ 3.375 GM 50 ML IV SCH ×5 (05:03→23:32)
[2020-06-29] MEDS: LIOTHYRONINE SODIUM 5 MCG TAB PO SCH (09:04)
[2020-06-29] MEDS: FUROSEMIDE 20 MG TAB PO SCH (09:04)
[2020-06-29] MEDS: GABAPENTIN 300 MG CAP PO SCH ×3 (09:04→20:51)
[2020-06-29] MEDS: TAMSULOSIN HCL 0.4 MG CAP PO SCH (09:04)
[2020-06-29] MEDS: DULOXETINE HCL 30 MG DELAYED RELEASE PO SCH (09:04)
[2020-06-29] MEDS: WARFARIN SOD 5 MG TAB PO SCH (16:34)
[2020-06-29] MEDS: ALPRAZOLAM 0.25 MG TAB PO PRN (16:34)
[2020-06-29] MEDS: DONEPEZIL HCL 5 MG TAB PO SCH (20:51)
[2020-06-30] VITALS (8 sets, daily range): BP systolic 103–121; BP diastolic 59–72
[2020-06-30] MEDS: PANTOPRAZOLE SOD 40 MG TABEC PO SCH ×2 (05:34→16:32)
[2020-06-30] MEDS: PIPER-TAZ 3.375 GM 50 ML IV SCH ×4 (05:34→23:22)
[2020-06-30] MEDS: FUROSEMIDE 20 MG TAB PO SCH (08:55)
[2020-06-30] MEDS: TAMSULOSIN HCL 0.4 MG CAP PO SCH (08:55)
[2020-06-30] MEDS: LIOTHYRONINE SODIUM 5 MCG TAB PO SCH (08:55)
[2020-06-30] MEDS: GABAPENTIN 300 MG CAP PO SCH ×3 (08:55→20:58)
[2020-06-30] MEDS: DULOXETINE HCL 30 MG DELAYED RELEASE PO SCH (08:55)
[2020-06-30] MEDS: ALPRAZOLAM 0.25 MG TAB PO PRN ×2 (08:56→16:33)
[2020-06-30] MEDS: BALSAM PERU/CASTOR OIL 60 GM OINT...G. TP SCH (10:54)
[2020-06-30] MEDS ORDERED: ONDANSETRON HCL 4 MG ORAL DISINTEGRATING TAB PO PRN (14:00)
[2020-06-30] MEDS: WARFARIN SOD 5 MG TAB PO SCH (16:32)
[2020-06-30] MEDS: DONEPEZIL HCL 5 MG TAB PO SCH (20:58)
[2020-07-01] VITALS (9 sets, daily range): BP systolic 113–122; BP diastolic 63–73
[2020-07-01] MEDS: PANTOPRAZOLE SOD 40 MG TABEC PO SCH ×2 (05:15→15:41)
[2020-07-01] MEDS: PIPER-TAZ 3.375 GM 50 ML IV SCH ×3 (05:56→17:06)
[2020-07-01 06:44] LABS: INR 2.32; PROTHROMBIN TIME 26.6 seconds (11.9-14.5)
[2020-07-01 07:02] LABS: BASOPHILS % 0.5 % (0.0-1.0); EOSINOPHILS # (AUTO) 0.1 (0.0-0.4); EOSINOPHILS % 1.6 % (0.0-6.0); HEMATOCRIT 41.2 % (38.2-49.6); HEMOGLOBIN 13.6 g/dL (14.0-18.0); LYMPHOCYTES # (AUTO) 1.6 (1.0-3.2); LYMPHOCYTES % 20.9 % (18.0-39.1); MEAN CORPUSCULAR HEMOGLOBIN 31.6 pg (28-32); MEAN CORPUSCULAR VOLUME 95.8 fL (81-99); MONOCYTES # (AUTO) 0.5 (0.2-0.8); MONOCYTES % 6.8 % (4.4-11.3); NEUTROPHILS # (AUTO) 5.3 (2.1-6.9); NEUTROPHILS % 69.9 % (38.7-80.0); PLATELET COUNT 159 x10e3/uL (140-360); RED CELL DISTRIBUTION WIDTH 12.6 % (11.7-14.4)
[2020-07-01 07:14] LABS: ALANINE AMINOTRANSFERASE 11 IU/L (0-55); ALBUMIN 2.7 g/dL (3.5-5.0); ALBUMIN/GLOBULIN RATIO 0.9 (0.8-2.0); ALKALINE PHOSPHATASE 59 IU/L (40-150); ANION GAP 8.8 mmol/L (8-16); BLOOD UREA NITROGEN 19 mg/dL (7-26); BUN/CREATININE RATIO 19 (6-25); CALCIUM 8.1 mg/dL (8.4-10.2); CARBON DIOXIDE 33 mmol/L (22-29); CHLORIDE 104 mmol/L (98-107); CREATININE, SERUM 0.98 mg/dL (0.72-1.25); EST GLOMERULAR FILTRATION RATE > 60 ML/MIN (60-); GLUCOSE 94 mg/dL (74-118); MAGNESIUM 1.7 MG/DL (1.3-2.1); POTASSIUM 3.8 mmol/L (3.5-5.1); SODIUM 142 mmol/L (136-145)
[2020-07-01] MEDS: GABAPENTIN 300 MG CAP PO SCH ×3 (09:13→20:28)
[2020-07-01] MEDS: LIOTHYRONINE SODIUM 5 MCG TAB PO SCH (09:13)
[2020-07-01] MEDS: FUROSEMIDE 20 MG TAB PO SCH (09:13)
[2020-07-01] MEDS: DULOXETINE HCL 30 MG DELAYED RELEASE PO SCH (09:13)
[2020-07-01] MEDS: TAMSULOSIN HCL 0.4 MG CAP PO SCH (09:13)
[2020-07-01] MEDS: BALSAM PERU/CASTOR OIL 60 GM OINT...G. TP SCH (09:14)
[2020-07-01] MEDS: WARFARIN SOD 5 MG TAB PO SCH (16:50)
[2020-07-01] MEDS: DONEPEZIL HCL 5 MG TAB PO SCH (20:28)
[2020-07-02] VITALS (7 sets, daily range): BP systolic 105–115; BP diastolic 62–74
[2020-07-02] MEDS: PANTOPRAZOLE SOD 40 MG TABEC PO SCH ×2 (04:30→15:58)
[2020-07-02] MEDS: PIPER-TAZ 3.375 GM 50 ML IV SCH ×4 (05:24→17:36)
[2020-07-02] MEDS: TAMSULOSIN HCL 0.4 MG CAP PO SCH (09:50)
[2020-07-02] MEDS: LIOTHYRONINE SODIUM 5 MCG TAB PO SCH (09:50)
[2020-07-02] MEDS: GABAPENTIN 300 MG CAP PO SCH ×3 (09:50→21:00)
[2020-07-02] MEDS: DULOXETINE HCL 30 MG DELAYED RELEASE PO SCH (09:50)
[2020-07-02] MEDS: FUROSEMIDE 20 MG TAB PO SCH (09:50)
[2020-07-02] MEDS: BALSAM PERU/CASTOR OIL 60 GM OINT...G. TP SCH (09:51)
[2020-07-02] MEDS: WARFARIN SOD 5 MG TAB PO SCH (17:00)
[2020-07-02] MEDS: DONEPEZIL HCL 5 MG TAB PO SCH (21:00)
[2020-07-02] MEDS: ALPRAZOLAM 0.25 MG TAB PO PRN (21:33)
[2020-07-03 00:21] VITALS: BP 102/67
[2020-07-03] MEDS: PANTOPRAZOLE SOD 40 MG TABEC PO SCH ×2 (04:12→16:44)
[2020-07-03] MEDS: PIPER-TAZ 3.375 GM 50 ML IV SCH ×3 (05:06→11:55)
[2020-07-03 05:20] VITALS: BP 101/71
[2020-07-03 06:04] LABS: INR 2.32; PROTHROMBIN TIME 26.6 seconds (11.9-14.5)
[2020-07-03 08:30] VITALS: BP 103/70
[2020-07-03 08:35] VITALS: BP 103/70
[2020-07-03] MEDS: DULOXETINE HCL 30 MG DELAYED RELEASE PO SCH (09:54)
[2020-07-03] MEDS: TAMSULOSIN HCL 0.4 MG CAP PO SCH (09:54)
[2020-07-03] MEDS: GABAPENTIN 300 MG CAP PO SCH ×2 (09:54→16:44)
[2020-07-03] MEDS: BALSAM PERU/CASTOR OIL 60 GM OINT...G. TP SCH (09:55)
[2020-07-03] MEDS: LIOTHYRONINE SODIUM 5 MCG TAB PO SCH (09:55)
[2020-07-03] MEDS: FUROSEMIDE 20 MG TAB PO SCH (09:55)
[2020-07-03 12:08] VITALS: BP 113/73
[2020-07-03 16:13] VITALS: BP 102/68
[2020-07-03] MEDS: WARFARIN SOD 5 MG TAB PO SCH (16:44)
== END 2020-07-03 18:05 | disposition home or self-care (01) | DRG 871 ==
LOC: ER 14:10 → ERHOLD 18:16 → MED/SURG3 21:39
PROVIDERS: ADMIT Internal Medicine; ATTEND Internal Medicine
DX: A41.9 Sepsis, unspecified organism (principal); J69.0 Pneumonitis due to inhalation of food and vomit; J96.01 Acute respiratory failure with hypoxia; N39.0 Urinary tract infection, site not specified; R65.20 Severe sepsis without septic shock; L89.42 Pressure ulcer of contiguous site of back, buttock and hip, stage 2; E03.9 Hypothyroidism, unspecified; Z86.19 Personal history of other infectious and parasitic diseases; F41.9 Anxiety disorder, unspecified; G80.9 Cerebral palsy, unspecified; Z88.8 Allergy status to other drugs, medicaments and biological substances; R53.1 Weakness; K21.9 Gastro-esophageal reflux disease without esophagitis; N40.0 Benign prostatic hyperplasia without lower urinary tract symptoms; Z82.49 Family history of ischemic heart disease and other diseases of the circulatory system; F03.90 Unspecified dementia, unspecified severity, without behavioral disturbance, psychotic disturbance, mood disturbance, and anxiety; Z20.828 Contact with and (suspected) exposure to other viral communicable diseases
CPT/HCPCS: 36415; 71045; 80053; 81001; 82550; 82553; 83605; 83735; 84484; 85025; 85610; 85730; 87040; 93005; 97139; 99251; 99284; J2543; J7030; J7040; J7050; U0002

== ENCOUNTER 2020-07-13 19:40 | Observation (INO) | payer MEDICARE ==
[~2020-07-13] VITALS: Ht 172.7 cm; Wt 63.5 kg
[~2020-07-13 19:40] MED LIST changes: +CYMBALTA30 MG PO; +IPRATROPIU0.2 MG/1 M NEB; +LIOTHYRONINE SO5 MCG PO
[2020-07-13 19:57] LABS: BASOPHILS % 0.5 % (0.0-1.0); EOSINOPHILS # (AUTO) 0.1 (0.0-0.4); EOSINOPHILS % 1.3 % (0.0-6.0); HEMATOCRIT 44.5 % (38.2-49.6); HEMOGLOBIN 14.7 g/dL (14.0-18.0); LYMPHOCYTES # (AUTO) 2.3 (1.0-3.2); LYMPHOCYTES % 29.3 % (18.0-39.1); MEAN CORPUSCULAR HEMOGLOBIN 31.5 pg (28-32); MEAN CORPUSCULAR VOLUME 95.3 fL (81-99); MONOCYTES # (AUTO) 0.5 (0.2-0.8); MONOCYTES % 6.4 % (4.4-11.3); NEUTROPHILS # (AUTO) 4.9 (2.1-6.9); NEUTROPHILS % 62.2 % (38.7-80.0); PLATELET COUNT 145 x10e3/uL (140-360); RED BLOOD COUNT 4.67 x10e6/uL (4.3-5.7); RED CELL DISTRIBUTION WIDTH 13.1 % (11.7-14.4)
[2020-07-13 20:27] LABS: ALANINE AMINOTRANSFERASE 15 IU/L (0-55); ALBUMIN 3.5 g/dL (3.5-5.0); ALKALINE PHOSPHATASE 83 IU/L (40-150); ANION GAP 17.9 mmol/L (8-16); BLOOD UREA NITROGEN 21 mg/dL (7-26); BUN/CREATININE RATIO 21 (6-25); CALCIUM 8.7 mg/dL (8.4-10.2); CARBON DIOXIDE 25 mmol/L (22-29); CHLORIDE 102 mmol/L (98-107); CREATINE KINASE 61 IU/L (30-200); CREATININE, SERUM 1.01 mg/dL (0.72-1.25); EST GLOMERULAR FILTRATION RATE > 60 ML/MIN (60-); GLUCOSE 92 mg/dL (74-118); POTASSIUM 4.9 mmol/L (3.5-5.1); SODIUM 140 mmol/L (136-145)
[2020-07-13 20:33] LABS: CLARITY,URINE SL CLOUDY (CLEAR); COLOR,URINE STRAW (YELLOW); KETONES,URINE 1+ (NEGATIVE); LEUKOCYTE ESTERASE ,URINE NEGATIVE (NEGATIVE); NITRITE,URINE NEGATIVE (NEGATIVE); PROTEIN,URINE DIPSTICK NEGATIVE (NEGATIVE); URINE UROBILINOGEN 1 mg/dL (0.2 - 1)
[2020-07-13 20:46] LABS: BACTERIA,URINE RARE /HPF; EPITHELIAL CELLS,URINE RARE /LPF; RBC,URINE 0-5 /HPF (0-5); WBC,URINE (MAN) 0-5 /HPF (0-5)
[2020-07-13 20:47] LABS: MUCUS,URINE FEW (RARE)
[2020-07-13] MEDS ORDERED: SODIUM CHLORIDE 0.9% 1000ML 1,000 ML IV ONE (21:15)
[2020-07-13] MEDS ORDERED: ACETAMINOPHEN 325 MG TAB PO PRN (21:15)
[2020-07-13] MEDS: CEFTRIAXONE SOD 1 GRAM/0.9% SOD CHL 50ML BAG IV SCH (22:28)
[2020-07-13 22:35] VITALS: BP 123/74
[2020-07-13 22:51] VITALS: BP 123/74
[2020-07-13 22:53] VITALS: BP 123/74
[2020-07-13] MEDS: AZITHROMYCIN 500MG/SOD CHL 0.9% 250ML BAG IV SCH (23:00)
[2020-07-14] VITALS (8 sets, daily range): BP systolic 94–123; BP diastolic 59–74
[2020-07-14] MEDS ORDERED: ALPRAZOLAM 0.5 MG TAB PO PRN (04:00)
[2020-07-14 04:56] LABS: BASOPHILS % 0.7 % (0.0-1.0); EOSINOPHILS # (AUTO) 0.1 (0.0-0.4); EOSINOPHILS % 2.3 % (0.0-6.0); HEMATOCRIT 39.9 % (38.2-49.6); HEMOGLOBIN 13.2 g/dL (14.0-18.0); LYMPHOCYTES # (AUTO) 1.8 (1.0-3.2); LYMPHOCYTES % 32.3 % (18.0-39.1); MEAN CORPUSCULAR HEMOGLOBIN 31.3 pg (28-32); MEAN CORPUSCULAR HGB CONC 33.1 g/dL (31-35); MEAN CORPUSCULAR VOLUME 94.5 fL (81-99); MONOCYTES # (AUTO) 0.3 (0.2-0.8); MONOCYTES % 5.7 % (4.4-11.3); NEUTROPHILS # (AUTO) 3.3 (2.1-6.9); NEUTROPHILS % 58.8 % (38.7-80.0); PLATELET COUNT 130 x10e3/uL (140-360); RED BLOOD COUNT 4.22 x10e6/uL (4.3-5.7)
[2020-07-14 05:15] LABS: ALANINE AMINOTRANSFERASE 12 IU/L (0-55); ALBUMIN 2.9 g/dL (3.5-5.0); ALKALINE PHOSPHATASE 78 IU/L (40-150); ANION GAP 10.9 mmol/L (8-16); BLOOD UREA NITROGEN 18 mg/dL (7-26); BUN/CREATININE RATIO 21 (6-25); CALCIUM 8.1 mg/dL (8.4-10.2); CARBON DIOXIDE 31 mmol/L (22-29); CHLORIDE 106 mmol/L (98-107); CREATININE, SERUM 0.86 mg/dL (0.72-1.25); EST GLOMERULAR FILTRATION RATE > 60 ML/MIN (60-); GLUCOSE 89 mg/dL (74-118); SODIUM 144 mmol/L (136-145)
[2020-07-14 05:27] LABS: POTASSIUM 3.9 mmol/L (3.5-5.1)
[2020-07-14 05:57] LABS: CREATINE KINASE MB 1.6 ng/mL (0-5.0)
[2020-07-14] MEDS: PANTOPRAZOLE SOD 40 MG TABEC PO SCH ×2 (05:57→17:09)
[2020-07-14] MEDS: TAMSULOSIN HCL 0.4 MG CAP PO SCH (09:51)
[2020-07-14] MEDS: GABAPENTIN 300 MG CAP PO SCH ×3 (09:51→20:49)
[2020-07-14] MEDS: DULOXETINE HCL 30 MG DELAYED RELEASE PO SCH (09:51)
[2020-07-14] MEDS: LIOTHYRONINE SODIUM 5 MCG TAB PO SCH (09:51)
[2020-07-14] MEDS: FUROSEMIDE 20 MG TAB PO SCH (09:51)
[2020-07-14 14:04] LABS: INR 2.55; PROTHROMBIN TIME 28.6 seconds (11.9-14.5)
[2020-07-14 14:18] LABS: CREATINE KINASE MB 1.8 ng/mL (0-5.0)
[2020-07-14] MEDS ORDERED: WARFARIN SOD 2.5 MG TAB PO SCH (17:00)
[2020-07-14] MEDS: WARFARIN SOD 5 MG TAB PO SCH (17:09)
[2020-07-14] MEDS: CEFTRIAXONE SOD 1 GRAM/0.9% SOD CHL 50ML BAG IV SCH (20:49)
[2020-07-14] MEDS: AZITHROMYCIN 500MG/SOD CHL 0.9% 250ML BAG IV SCH (23:07)
[2020-07-15] VITALS (8 sets, daily range): BP systolic 98–118; BP diastolic 59–75
[2020-07-15] MEDS: PANTOPRAZOLE SOD 40 MG TABEC PO SCH ×2 (05:23→16:00)
[2020-07-15] MEDS: DULOXETINE HCL 30 MG DELAYED RELEASE PO SCH (08:02)
[2020-07-15] MEDS: LIOTHYRONINE SODIUM 5 MCG TAB PO SCH (08:03)
[2020-07-15] MEDS: TAMSULOSIN HCL 0.4 MG CAP PO SCH (08:03)
[2020-07-15] MEDS: GABAPENTIN 300 MG CAP PO SCH ×3 (08:03→21:59)
[2020-07-15] MEDS: FUROSEMIDE 20 MG TAB PO SCH (08:03)
[2020-07-15] MEDS: WARFARIN SOD 5 MG TAB PO SCH (17:00)
[2020-07-15] MEDS: CEFTRIAXONE SOD 1 GRAM/0.9% SOD CHL 50ML BAG IV SCH (21:59)
[2020-07-15] MEDS: AZITHROMYCIN 500MG/SOD CHL 0.9% 250ML BAG IV SCH (23:21)
[2020-07-16 01:42] VITALS: BP 104/70
[2020-07-16] MEDS: PANTOPRAZOLE SOD 40 MG TABEC PO SCH ×2 (05:17→16:46)
[2020-07-16 05:26] VITALS: BP 121/65
[2020-07-16 08:34] VITALS: BP 98/56
[2020-07-16 08:58] VITALS: BP 98/56
[2020-07-16] MEDS: FUROSEMIDE 20 MG TAB PO SCH (09:00)
[2020-07-16] MEDS: DULOXETINE HCL 30 MG DELAYED RELEASE PO SCH (09:00)
[2020-07-16] MEDS: TAMSULOSIN HCL 0.4 MG CAP PO SCH (09:00)
[2020-07-16] MEDS: LIOTHYRONINE SODIUM 5 MCG TAB PO SCH (09:00)
[2020-07-16] MEDS: GABAPENTIN 300 MG CAP PO SCH ×2 (09:00→14:39)
[2020-07-16 12:24] VITALS: BP 112/85
[2020-07-16 14:31] LABS: INR 2.63; PROTHROMBIN TIME 29.3 seconds (11.9-14.5)
[2020-07-16 16:25] VITALS: BP 93/59
[2020-07-16] MEDS: WARFARIN SOD 5 MG TAB PO SCH (16:46)
[2020-07-16] MEDS ORDERED: AZITHROMYCIN 250 MG TAB PO SCH (23:00)
== END 2020-07-16 17:29 | disposition home or self-care (01) ==
LOC: ER 19:46 → ERHOLD 21:14 → MED/SURG2 22:03
PROVIDERS: ADMIT Internal Medicine; ATTEND Internal Medicine
DX: J69.0 Pneumonitis due to inhalation of food and vomit (principal); J96.01 Acute respiratory failure with hypoxia; G80.9 Cerebral palsy, unspecified; R07.9 Chest pain, unspecified; E03.9 Hypothyroidism, unspecified; Z86.19 Personal history of other infectious and parasitic diseases; Z09 Encounter for follow-up examination after completed treatment for conditions other than malignant neoplasm; Z86.718 Personal history of other venous thrombosis and embolism; Z88.8 Allergy status to other drugs, medicaments and biological substances; K21.9 Gastro-esophageal reflux disease without esophagitis; F03.90 Unspecified dementia, unspecified severity, without behavioral disturbance, psychotic disturbance, mood disturbance, and anxiety; N40.0 Benign prostatic hyperplasia without lower urinary tract symptoms; Z82.49 Family history of ischemic heart disease and other diseases of the circulatory system; Z20.828 Contact with and (suspected) exposure to other viral communicable diseases
CPT/HCPCS: 36415 ×3; 70450; 71045; 80053 ×2; 81001; 82550 ×2; 82553 ×2; 82948; 84484 ×2; 85025 ×2; 85610 ×2; 87040; 93005; 97110; 97116 ×3; 97139 ×2; 97161; 97530 ×2; 99251; 99283; G0378 ×4; J0456 ×3; J0696 ×3; J7030; S0164 ×3; U0002

== ENCOUNTER → 2020-08-13 | Emergency (ER) | payer MEDICARE ==
[2020-08-13 16:51] LABS: BASOPHILS % 0.7 % (0.0-1.0); EOSINOPHILS # (AUTO) 0.1 (0.0-0.4); EOSINOPHILS % 1.1 % (0.0-6.0); HEMATOCRIT 45.1 % (38.2-49.6); HEMOGLOBIN 14.7 g/dL (14.0-18.0); LYMPHOCYTES # (AUTO) 1.6 (1.0-3.2); LYMPHOCYTES % 28.9 % (18.0-39.1); MEAN CORPUSCULAR HGB CONC 32.6 g/dL (31-35); MONOCYTES # (AUTO) 0.4 (0.2-0.8); MONOCYTES % 6.6 % (4.4-11.3); NEUTROPHILS # (AUTO) 3.5 (2.1-6.9); NEUTROPHILS % 62.5 % (38.7-80.0); PLATELET COUNT 143 x10e3/uL (140-360); RED CELL DISTRIBUTION WIDTH 13.7 % (11.7-14.4)
[2020-08-13 17:01] LABS: INR 2.7; PROTHROMBIN TIME 30.9 seconds (11.9-14.5)
[2020-08-13 17:08] LABS: ALANINE AMINOTRANSFERASE 8 IU/L (0-55); ALBUMIN 3.3 g/dL (3.5-5.0); ALKALINE PHOSPHATASE 95 IU/L (40-150); ANION GAP 14.6 mmol/L (8-16); BLOOD UREA NITROGEN 17 mg/dL (7-26); BUN/CREATININE RATIO 18 (6-25); CALCIUM 8.7 mg/dL (8.4-10.2); CARBON DIOXIDE 28 mmol/L (22-29); CHLORIDE 106 mmol/L (98-107); CREATINE KINASE 39 IU/L (30-200); CREATININE, SERUM 0.95 mg/dL (0.72-1.25); EST GLOMERULAR FILTRATION RATE > 60 ML/MIN (60-); GLUCOSE 100 mg/dL (74-118); POTASSIUM 3.6 mmol/L (3.5-5.1); SODIUM 145 mmol/L (136-145)
[2020-08-13 18:22] VITALS: BP 113/82
== END | disposition home or self-care (01) ==
LOC: ER 15:33
DX: Z76.5 Malingerer [conscious simulation] (principal); G80.9 Cerebral palsy, unspecified; E03.9 Hypothyroidism, unspecified; B19.20 Unspecified viral hepatitis C without hepatic coma; F41.9 Anxiety disorder, unspecified; F32.9 Major depressive disorder, single episode, unspecified; Z86.718 Personal history of other venous thrombosis and embolism
CPT/HCPCS: 36415; 71045; 80053; 82550; 82553; 84484; 85025; 85610; 99284

== ENCOUNTER 2020-09-27 10:33 | Inpatient (IN) | payer MEDICARE ==
[~2020-09-27] VITALS: Ht 172.7 cm; Wt 68.9 kg
[2020-09-27] MEDS ORDERED: SODIUM CHLORIDE 0.9% 1000ML 1,000 ML IV STA (11:01)
[2020-09-27 11:18] LABS: BASOPHILS % 0.4 % (0.0-1.0); EOSINOPHILS # (AUTO) 0.1 (0.0-0.4); EOSINOPHILS % 0.9 % (0.0-6.0); HEMATOCRIT 39.6 % (38.2-49.6); HEMOGLOBIN 12.9 g/dL (14.0-18.0); LYMPHOCYTES # (AUTO) 2.1 (1.0-3.2); LYMPHOCYTES % 27.8 % (18.0-39.1); MEAN CORPUSCULAR HEMOGLOBIN 31.6 pg (28-32); MEAN CORPUSCULAR HGB CONC 32.6 g/dL (31-35); MEAN CORPUSCULAR VOLUME 97.1 fL (81-99); MONOCYTES # (AUTO) 0.4 (0.2-0.8); MONOCYTES % 5.5 % (4.4-11.3); NEUTROPHILS # (AUTO) 4.8 (2.1-6.9); NEUTROPHILS % 65.1 % (38.7-80.0); PLATELET COUNT 141 x10e3/uL (140-360); RED BLOOD COUNT 4.08 x10e6/uL (4.3-5.7); RED CELL DISTRIBUTION WIDTH 13.5 % (11.7-14.4)
[2020-09-27 11:27] LABS: INR 1.13; PROTHROMBIN TIME 15.2 seconds (11.9-14.5)
[2020-09-27 11:32] LABS: CLARITY,URINE CLOUDY (CLEAR); COLOR,URINE YELLOW (YELLOW); KETONES,URINE NEGATIVE (NEGATIVE); LEUKOCYTE ESTERASE ,URINE SMALL (NEGATIVE); NITRITE,URINE POSITIVE (NEGATIVE); PROTEIN,URINE DIPSTICK NEGATIVE (NEGATIVE); URINE UROBILINOGEN 1 mg/dL (0.2 - 1)
[2020-09-27] MEDS ORDERED: CEFDINIR300 MG PO (11:42)
[2020-09-27] MEDS ORDERED: ATROVENT HFA12.9 GM INH (11:42)
[2020-09-27] MEDS ORDERED: B-12 COMPL1000 MCG/1 (11:42)
[2020-09-27] MEDS ORDERED: ALBUTEROL2.5 MG/3 M (11:42)
[2020-09-27 11:48] LABS: B-TYPE NATRIURETIC PEPTIDE2 70.3 pg/mL (0-100)
[2020-09-27 11:50] LABS: BACTERIA,URINE MODERATE /HPF; EPITHELIAL CELLS,URINE FEW /LPF; RBC,URINE 0-5 /HPF (0-5); WBC,URINE (MAN) >50 /HPF (0-5)
[2020-09-27 11:59] LABS: ABG HCO3 30 mmol/L (22-26); ABG PCO2 41 mmHg (35-45); ABG PH 7.47 (7.35-7.45); ABG PO2 65 mmHg (80-105); ABG TCO2 31
[2020-09-27 12:11] LABS: ALANINE AMINOTRANSFERASE 11 IU/L (0-55); ALBUMIN 2.7 g/dL (3.5-5.0); ALBUMIN/GLOBULIN RATIO 0.7 (0.8-2.0); ALKALINE PHOSPHATASE 82 IU/L (40-150); ANION GAP 10.3 mmol/L (8-16); BLOOD UREA NITROGEN 19 mg/dL (7-26); BUN/CREATININE RATIO 20 (6-25); CALCIUM 8.5 mg/dL (8.4-10.2); CARBON DIOXIDE 31 mmol/L (22-29); CHLORIDE 108 mmol/L (98-107); CREATINE KINASE 23 IU/L (30-200); CREATININE, SERUM 0.97 mg/dL (0.72-1.25); EST GLOMERULAR FILTRATION RATE > 60 ML/MIN (60-); GLUCOSE 100 mg/dL (74-118); MAGNESIUM 1.9 MG/DL (1.3-2.1); POTASSIUM 3.3 mmol/L (3.5-5.1); SODIUM 146 mmol/L (136-145)
[2020-09-27] MEDS ORDERED: POTASSIUM CHLORIDE 10MEQ/100ML 200 ML IV ONE (12:30)
[2020-09-27] MEDS: PIPERACILLIN/TAZOBAC 3.375 GM in SODIUM CHLORIDE 0.9% 50ML 50 ML IV SCH ×3 (12:31→23:35)
[2020-09-27] MEDS ORDERED: ONDANSETRON HCL INJ 2MG/ML 2ML 2 MG/ML VIAL IV PRN (12:45)
[2020-09-27] MEDS ORDERED: VANCOMYCIN 1GM/NS 250 ML 250 ML IV ONE (12:45)
[2020-09-27] MEDS ORDERED: D5.45%NS/KCL 20MEQ 1,000 ML IV ONE (13:00)
[2020-09-27] MEDS ORDERED: WARFARIN SODIU2.5 MG PO (15:34)
[2020-09-27] MEDS ORDERED: MONTELUKAST SOD10 MG PO (15:34)
[2020-09-27] MEDS ORDERED: TYLENOL325 MG PO (15:34)
[2020-09-27] MEDS ORDERED: PREDNISONE10 MG PO (15:34)
[2020-09-27] MEDS ORDERED: MUCINEX600 MG PO (15:34)
[2020-09-27] MEDS ORDERED: WARFARIN SODIUM3 MG PO (15:34)
[2020-09-27 16:01] VITALS: BP 121/71
[2020-09-27 16:13] VITALS: BP 125/73
[2020-09-27 16:28] VITALS: BP 125/73
[2020-09-27] MEDS ORDERED: ACETAMINOPHEN 325 MG TAB PO PRN (16:30)
[2020-09-27] MEDS ORDERED: WARFARIN SOD 3 MG TAB PO SCH (17:00)
[2020-09-27] MEDS ORDERED: PIPERACILLIN/TAZOBAC 3.375 GM VIAL ONE ×2 (17:07→23:40)
[2020-09-27] MEDS ORDERED: SODIUM CHLORIDE 0.9% 50ML 50 ML ONE ×2 (17:07→23:41)
[2020-09-27] MEDS: PANTOPRAZOLE SOD 40 MG TABEC PO SCH (17:28)
[2020-09-27] MEDS: GUAIFENESIN 600 MG TAB PO SCH (17:29)
[2020-09-27 18:16] LABS: CREATINE KINASE MB 0.4 ng/mL (0-5.0)
[2020-09-27 20:00] VITALS: BP 95/59
[2020-09-27 20:27] VITALS: BP 95/59
[2020-09-27] MEDS: DONEPEZIL HCL 23 MG PO SCH (21:00)
[2020-09-27] MEDS: GABAPENTIN 300 MG CAP PO SCH (21:39)
[2020-09-28] VITALS (8 sets, daily range): BP systolic 99–128; BP diastolic 57–75
[2020-09-28] MEDS ORDERED: PIPERACILLIN/TAZOBAC 3.375 GM VIAL ONE ×4 (04:22→23:23)
[2020-09-28] MEDS: PANTOPRAZOLE SOD 40 MG TABEC PO SCH ×2 (04:48→16:03)
[2020-09-28 05:40] LABS: BASOPHILS % 0.4 % (0.0-1.0); EOSINOPHILS # (AUTO) 0.1 (0.0-0.4); EOSINOPHILS % 1.9 % (0.0-6.0); HEMATOCRIT 37.4 % (38.2-49.6); HEMOGLOBIN 12.1 g/dL (14.0-18.0); LYMPHOCYTES # (AUTO) 1.2 (1.0-3.2); LYMPHOCYTES % 17.1 % (18.0-39.1); MEAN CORPUSCULAR HEMOGLOBIN 31.8 pg (28-32); MEAN CORPUSCULAR HGB CONC 32.4 g/dL (31-35); MEAN CORPUSCULAR VOLUME 98.2 fL (81-99); MONOCYTES # (AUTO) 0.4 (0.2-0.8); MONOCYTES % 5.3 % (4.4-11.3); NEUTROPHILS # (AUTO) 5.2 (2.1-6.9); PLATELET COUNT 123 x10e3/uL (140-360); RED BLOOD COUNT 3.81 x10e6/uL (4.3-5.7); RED CELL DISTRIBUTION WIDTH 13.8 % (11.7-14.4)
[2020-09-28] MEDS: GUAIFENESIN 600 MG TAB PO SCH ×2 (06:00→16:06)
[2020-09-28] MEDS: PIPERACILLIN/TAZOBAC 3.375 GM in SODIUM CHLORIDE 0.9% 50ML 50 ML IV SCH ×3 (06:00→16:11)
[2020-09-28 06:06] LABS: ALANINE AMINOTRANSFERASE 9 IU/L (0-55); ALBUMIN 2.4 g/dL (3.5-5.0); ALBUMIN/GLOBULIN RATIO 0.8 (0.8-2.0); ALKALINE PHOSPHATASE 73 IU/L (40-150); ANION GAP 10.5 mmol/L (8-16); BLOOD UREA NITROGEN 13 mg/dL (7-26); BUN/CREATININE RATIO 15 (6-25); CALCIUM 7.8 mg/dL (8.4-10.2); CARBON DIOXIDE 28 mmol/L (22-29); CHLORIDE 110 mmol/L (98-107); CHOL/HDL RATIO 4.4 (3.9-4.7); CHOLESTEROL 164 MD/DL (0-199); CREATININE, SERUM 0.85 mg/dL (0.72-1.25); EST GLOMERULAR FILTRATION RATE > 60 ML/MIN (60-); GLUCOSE 91 mg/dL (74-118); HDL CHOLESTEROL 37 MG/DL (40-60); LDL CHOLESTEROL 102 MG/DL (60-130); POTASSIUM 3.5 mmol/L (3.5-5.1); SODIUM 145 mmol/L (136-145); TRIGLYCERIDES 123 MG/DL (0-149)
[2020-09-28 06:39] LABS: CREATINE KINASE MB 0.3 ng/mL (0-5.0)
[2020-09-28] MEDS: ALBUTEROL SULF 0.083% NEB SOLN 3 ML NEB NEB SCH ×2 (07:27→20:30)
[2020-09-28] MEDS ORDERED: SODIUM CHLORIDE 0.9% 50ML 50 ML ONE ×3 (07:54→23:24)
[2020-09-28] MEDS: DULOXETINE HCL 30 MG DELAYED RELEASE PO SCH (08:40)
[2020-09-28] MEDS: TAMSULOSIN HCL 0.4 MG CAP PO SCH (08:40)
[2020-09-28] MEDS: LIOTHYRONINE SODIUM 5 MCG TAB PO SCH (08:40)
[2020-09-28] MEDS: GABAPENTIN 300 MG CAP PO SCH ×3 (08:40→20:19)
[2020-09-28] MEDS: PREDNISONE 10 MG TAB PO SCH (08:41)
[2020-09-28] MEDS: BALSAM PERU/CASTOR OIL 60 GM OINT...G. TP SCH (08:43)
[2020-09-28 09:58] LABS: PLATELET ESTIMATE SLIGHTLY DECREASED; PLATELET MORPHOLOGY COMMENT NORMAL; RBC MORPHOLOGY COMMENT NORMAL
[2020-09-28] MEDS ORDERED: ONDANSETRON HCL 4 MG ORAL DISINTEGRATING TAB PO PRN (11:30)
[2020-09-28] MEDS: MONTELUKAST SODIUM 10 MG TAB PO SCH (16:06)
[2020-09-28] MEDS ORDERED: WARFARIN SOD 5 MG TAB PO SCH (17:00)
[2020-09-28] MEDS ORDERED: CYANOCOBALAMIN INJ 1,000 MCG/ML VIAL IM SCH (18:00)
[2020-09-28] MEDS: DONEPEZIL HCL 23 MG PO SCH (20:19)
[2020-09-29] VITALS (9 sets, daily range): BP systolic 89–119; BP diastolic 51–70
[2020-09-29] MEDS: PANTOPRAZOLE SOD 40 MG TABEC PO SCH ×2 (04:00→16:14)
[2020-09-29] MEDS ORDERED: PIPERACILLIN/TAZOBAC 3.375 GM VIAL ONE ×2 (04:58→07:33)
[2020-09-29] MEDS ORDERED: SODIUM CHLORIDE 0.9% 50ML 50 ML ONE ×2 (04:59→07:33)
[2020-09-29] MEDS: GUAIFENESIN 600 MG TAB PO SCH ×2 (05:12→16:15)
[2020-09-29] MEDS: PIPERACILLIN/TAZOBAC 3.375 GM in SODIUM CHLORIDE 0.9% 50ML 50 ML IV SCH ×3 (05:12)
[2020-09-29 06:26] LABS: INR 1.53; PROTHROMBIN TIME 19.5 seconds (11.9-14.5)
[2020-09-29] MEDS: DULOXETINE HCL 30 MG DELAYED RELEASE PO SCH (08:22)
[2020-09-29] MEDS: PREDNISONE 10 MG TAB PO SCH (08:23)
[2020-09-29] MEDS: TAMSULOSIN HCL 0.4 MG CAP PO SCH (08:23)
[2020-09-29] MEDS: BALSAM PERU/CASTOR OIL 60 GM OINT...G. TP SCH (08:23)
[2020-09-29] MEDS: GABAPENTIN 300 MG CAP PO SCH ×3 (08:23→21:49)
[2020-09-29] MEDS: LIOTHYRONINE SODIUM 5 MCG TAB PO SCH (08:23)
[2020-09-29] MEDS: ALBUTEROL SULF 0.083% NEB SOLN 3 ML NEB NEB SCH ×2 (08:43→20:05)
[2020-09-29] MEDS: MEROPENEM 1GM 100 ML IV SCH (12:00)
[2020-09-29] MEDS ORDERED: SODIUM CHLORIDE 0.9% 1000ML 1,000 ML ONE (12:02)
[2020-09-29] MEDS ORDERED: SODIUM CHLORIDE 0.9% 500ML 500 ML IV ONE (12:15)
[2020-09-29] MEDS: WARFARIN SOD 5 MG TAB PO SCH (16:14)
[2020-09-29] MEDS: MONTELUKAST SODIUM 10 MG TAB PO SCH (16:15)
[2020-09-29] MEDS: DONEPEZIL HCL 23 MG PO SCH (21:00)
[2020-09-30] VITALS (7 sets, daily range): BP systolic 95–113; BP diastolic 57–74
[2020-09-30] MEDS: MEROPENEM 1GM 100 ML IV SCH ×3 (00:47→23:40)
[2020-09-30] MEDS: PANTOPRAZOLE SOD 40 MG TABEC PO SCH ×2 (04:39→16:51)
[2020-09-30] MEDS: GUAIFENESIN 600 MG TAB PO SCH ×2 (05:30→16:52)
[2020-09-30] MEDS: ALBUTEROL SULF 0.083% NEB SOLN 3 ML NEB NEB SCH ×2 (07:25→19:00)
[2020-09-30] MEDS: DULOXETINE HCL 30 MG DELAYED RELEASE PO SCH (08:48)
[2020-09-30] MEDS: GABAPENTIN 300 MG CAP PO SCH ×3 (08:48→20:00)
[2020-09-30] MEDS: TAMSULOSIN HCL 0.4 MG CAP PO SCH (08:48)
[2020-09-30] MEDS: LIOTHYRONINE SODIUM 5 MCG TAB PO SCH (08:48)
[2020-09-30] MEDS: PREDNISONE 10 MG TAB PO SCH (08:48)
[2020-09-30] MEDS: BALSAM PERU/CASTOR OIL 60 GM OINT...G. TP SCH (08:48)
[2020-09-30 16:39] LABS: INR 1.72; PROTHROMBIN TIME 21.4 seconds (11.9-14.5)
[2020-09-30] MEDS: MONTELUKAST SODIUM 10 MG TAB PO SCH (16:52)
[2020-09-30] MEDS: WARFARIN SOD 5 MG TAB PO SCH (16:52)
[2020-09-30] MEDS: DONEPEZIL HCL 23 MG PO SCH (20:17)
[2020-10-01] VITALS (7 sets, daily range): BP systolic 94–119; BP diastolic 59–81
[2020-10-01] MEDS: PANTOPRAZOLE SOD 40 MG TABEC PO SCH ×2 (04:30→16:23)
[2020-10-01] MEDS: GUAIFENESIN 600 MG TAB PO SCH ×2 (06:00→16:24)
[2020-10-01] MEDS: ALBUTEROL SULF 0.083% NEB SOLN 3 ML NEB NEB SCH ×2 (07:24→20:05)
[2020-10-01] MEDS: PREDNISONE 10 MG TAB PO SCH (08:35)
[2020-10-01] MEDS: TAMSULOSIN HCL 0.4 MG CAP PO SCH (08:35)
[2020-10-01] MEDS: LIOTHYRONINE SODIUM 5 MCG TAB PO SCH (08:35)
[2020-10-01] MEDS: BALSAM PERU/CASTOR OIL 60 GM OINT...G. TP SCH (08:35)
[2020-10-01] MEDS: GABAPENTIN 300 MG CAP PO SCH ×3 (08:35→20:40)
[2020-10-01] MEDS: DULOXETINE HCL 30 MG DELAYED RELEASE PO SCH (08:35)
[2020-10-01] MEDS: MEROPENEM 1GM 100 ML IV SCH ×2 (12:03→23:45)
[2020-10-01] MEDS: WARFARIN SOD 5 MG TAB PO SCH (16:24)
[2020-10-01] MEDS: MONTELUKAST SODIUM 10 MG TAB PO SCH (16:24)
[2020-10-01] MEDS: DONEPEZIL HCL 23 MG PO SCH (21:00)
[2020-10-01] MEDS ORDERED: SODIUM CHLORIDE 0.9% 250ML 250 ML ONE (21:52)
[2020-10-02] VITALS (8 sets, daily range): BP systolic 102–122; BP diastolic 63–80
[2020-10-02] MEDS: PANTOPRAZOLE SOD 40 MG TABEC PO SCH ×2 (04:40→17:19)
[2020-10-02] MEDS: GUAIFENESIN 600 MG TAB PO SCH ×2 (05:44→17:20)
[2020-10-02 06:49] LABS: INR 2.68; PROTHROMBIN TIME 30.8 seconds (11.9-14.5)
[2020-10-02] MEDS: ALBUTEROL SULF 0.083% NEB SOLN 3 ML NEB NEB SCH ×2 (07:22→19:35)
[2020-10-02] MEDS: GABAPENTIN 300 MG CAP PO SCH ×3 (08:35→21:00)
[2020-10-02] MEDS: PREDNISONE 10 MG TAB PO SCH (08:35)
[2020-10-02] MEDS: TAMSULOSIN HCL 0.4 MG CAP PO SCH (08:35)
[2020-10-02] MEDS: DULOXETINE HCL 30 MG DELAYED RELEASE PO SCH (08:35)
[2020-10-02] MEDS: LIOTHYRONINE SODIUM 5 MCG TAB PO SCH (08:35)
[2020-10-02] MEDS: BALSAM PERU/CASTOR OIL 60 GM OINT...G. TP SCH (08:35)
[2020-10-02] MEDS: MEROPENEM 1GM 100 ML IV SCH (12:10)
[2020-10-02] MEDS: MONTELUKAST SODIUM 10 MG TAB PO SCH (17:20)
[2020-10-02] MEDS: WARFARIN SOD 5 MG TAB PO SCH (17:20)
[2020-10-02] MEDS: DONEPEZIL HCL 23 MG PO SCH (21:00)
[2020-10-03] VITALS: BP 114/72
[2020-10-03] MEDS: MEROPENEM 1GM 100 ML IV SCH
[2020-10-03 04:00] VITALS: BP 117/56
[2020-10-03] MEDS: PANTOPRAZOLE SOD 40 MG TABEC PO SCH (04:43)
[2020-10-03] MEDS: GUAIFENESIN 600 MG TAB PO SCH (06:03)
[2020-10-03 07:15] LABS: INR 3.71
[2020-10-03 07:22] LABS: PROTHROMBIN TIME 40.1 seconds (11.9-14.5)
[2020-10-03 07:40] VITALS: BP 118/66
[2020-10-03 07:42] VITALS: BP 118/66
[2020-10-03] MEDS: ALBUTEROL SULF 0.083% NEB SOLN 3 ML NEB NEB SCH (08:23)
[2020-10-03] MEDS: LIOTHYRONINE SODIUM 5 MCG TAB PO SCH (08:56)
[2020-10-03] MEDS: DULOXETINE HCL 30 MG DELAYED RELEASE PO SCH (08:56)
[2020-10-03] MEDS: GABAPENTIN 300 MG CAP PO SCH (08:57)
[2020-10-03] MEDS: PREDNISONE 10 MG TAB PO SCH (08:57)
[2020-10-03] MEDS: BALSAM PERU/CASTOR OIL 60 GM OINT...G. TP SCH (08:57)
[2020-10-03] MEDS: TAMSULOSIN HCL 0.4 MG CAP PO SCH (08:57)
[2020-10-03] MEDS ORDERED: MACROBID 100 M100 MG PO (09:14)
== END 2020-10-03 10:45 | DRG 178 ==
LOC: ER 10:50 → ERHOLD 12:46 → MED/SURG3 15:15
PROVIDERS: ADMIT Internal Medicine; ATTEND Internal Medicine
DX: J69.0 Pneumonitis due to inhalation of food and vomit (principal); N39.0 Urinary tract infection, site not specified; Z16.12 Extended spectrum beta lactamase (ESBL) resistance; D68.9 Coagulation defect, unspecified; G80.9 Cerebral palsy, unspecified; E03.9 Hypothyroidism, unspecified; F03.90 Unspecified dementia, unspecified severity, without behavioral disturbance, psychotic disturbance, mood disturbance, and anxiety; N40.0 Benign prostatic hyperplasia without lower urinary tract symptoms; B96.1 Klebsiella pneumoniae [K. pneumoniae] as the cause of diseases classified elsewhere; Z86.718 Personal history of other venous thrombosis and embolism; Z79.01 Long term (current) use of anticoagulants; Z20.822 Contact with and (suspected) exposure to COVID-19
CPT/HCPCS: 36415; 36600; 51700; 70450; 71045; 80053; 80061; 81001; 82550; 82553; 82805; 83605; 83735; 83880; 84484; 85025; 85610; 85730; 87040; 87086; 87186; 93005; 94640; 97139; 99285; J2543; J3370; J3420; J3480; J7030; J7050; J7512; U0002